=== PATIENT | male | born 1935 | race Caucasian/White ===

== ENCOUNTER 2016-08-19 11:34 | Inpatient (IN) | payer MEDICARE, BC ==
[~2016-08-19] VITALS: Ht 190.5 cm; Wt 118.5 kg
[~2016-08-19 11:34] MED LIST: ASPI81TA50 PO; AZEL137S3 NS; CARB1TAB2 PO; CARB4TAB PO; DULO60CA6 PO; FLUT16SP NS; FLUT1DIS3 IH; MELO-150 PO; METF10002 PO; MONT10TA9 PO; OLME1TAB3 PO; OMEG1CAP2 PO; OMEP20CA9 PO; PROAIR HFA8.5 GM IH; SIMV20TA3 PO
[2016-08-19 12:18] LABS: BASO # 0.1 x10^3/uL (0.0-0.2); BASO % 1 % (0-3); EOS % 0 % (0-3); HEMATOCRIT 43.6 % (39.0-53.0); HEMOGLOBIN 14.6 g/dL (13.0-17.5); LYMPH # 1.3 x10^3/uL (1.0-4.8); LYMPH % 10 % (24-48); MEAN CORPUSCULAR HEMOGLOBIN 31 pg (25-35); MEAN CORPUSCULAR HGB CONC 33 g/dL (31-37); MEAN CORPUSCULAR VOLUME 91 fL (79-100); MONO % 12 % (0-9); NEUT % 77 % (31-73); PLATELET COUNT 163 x10^3/uL (140-400); RED BLOOD COUNT 4.78 x10^6/uL (4.30-5.70); RED CELL DISTRIBUTION WIDTH 14.6 % (11.5-14.5); WHITE BLOOD COUNT 13.3 x10^3/uL (4.0-11.0)
[2016-08-19 12:30] LABS: ANION GAP 11 (6-14); BLOOD UREA NITROGEN 28 mg/dL (8-26); BUN/CREATININE RATIO 22 (6-20); CALCIUM 9.8 mg/dL (8.5-10.1); CARBON DIOXIDE 24 mmol/L (21-32); CHLORIDE 102 mmol/L (98-107); CREATININE 1.3 mg/dL (0.7-1.3); GFR 53.4; GLUCOSE 163 mg/dL (70-99); SODIUM 137 mmol/L (136-145)
[2016-08-19] MEDS ORDERED: MORPHINE SULFATE 4 MG/ML DISP.SYRIN. IV ONE (12:30)
[2016-08-19] MEDS ORDERED: ONDANSETRON PF 4 MG/2 ML VIAL. IV ONE (12:30)
[2016-08-19 12:34] LABS: ALBUMIN 3.5 g/dL (3.4-5.0); ALK PHOS 72 U/L (46-116); AST (SGOT) 17 U/L (15-37); TOTAL BILIRUBIN 1.2 mg/dL (0.2-1.0)
--- NOTE | 2016-08-19 12:34 | PHYS DOC ---
Past Medical History Past Medical History: Asthma, Diabetes-Type II, GERD, Heart Disease, Hypertension Additional Past Medical Histor: Parkinson's disease Past Surgical History: Cholecystectomy, Other Additional Past Surgical Histo: Hernia,'63 tumor removed from chest,Skin CA on R)nare Alcohol Use: Rarely Drug Use: None Adult General Chief Complaint Chief Complaint: ABDOMINAL PAIN HPI HPI 80-year-old male with significant left lower quadrant pain that was noted yesterday and has worsened throughout the day. He denies any nausea or vomiting. He states he's had minimal to no bowel movements for the last 3 days and states that he's had hard stool. He states he feels constipated. He has prior abdominal surgery history is a cholecystectomy and multiple hernia repairs. He states he has had some trouble urinating but denies any blood in his urine. He denies any fever or chills. He denies any significant chest pain or shortness breath. Review of Systems Review of Systems Constitutional: Denies fever or chills [] Eyes: Denies change in visual acuity, redness, or eye pain [] HENT: Denies nasal congestion or sore throat [] Respiratory: Denies cough or shortness of breath [] Cardiovascular: No additional information not addressed in HPI [] GI: Has abdominal pain, denies nausea, denies vomiting, denies bloody stools or diarrhea [] : Denies dysuria or hematuria [] Musculoskeletal: Denies back pain or joint pain [] Integument: Denies rash or skin lesions [] Neurologic: Denies headache, focal weakness or sensory changes [] Endocrine: Denies polyuria or polydipsia [] Current Medications Current Medications Current Medications Medications (Trade) Dose Ordered Sig/Kaitlin Start Time Stop Time Status Last Admin Dose Admin Iohexol (Omnipaque 300 Mg/ml) 60 ml 1X ONCE 08/19/16 12:45 08/19/16 12:58 DC 08/19/16 13:19 60 ML Morphine Sulfate 4 mg 1X ONCE 08/19/16 12:30 08/19/16 12:32 DC 08/19/16 12:42 4 MG Ondansetron HCl (Zofran) 4 mg 1X ONCE 08/19/16 12:30 08/19/16 12:32 DC 08/19/16 12:42 4 MG Allergies Allergies Allergies Coded Allergies Type Severity Reaction Last Updated Verified No Known Drug Allergies 11/12/14 No Physical Exam Physical Exam Constitutional: Well developed, well nourished, no acute distress, non-toxic appearance. [] HENT: Normocephalic, atraumatic, bilateral external ears normal, oropharynx moist, no oral exudates, nose normal. [] Eyes: PERRLA, EOMI, conjunctiva normal, no discharge. [] Neck: Normal range of motion, no tenderness, supple, no stridor. [] Cardiovascular:Heart rate regular rhythm, no murmur [] Lungs & Thorax: Bilateral breath sounds clear to auscultation [] Abdomen: Bowel sounds normal, soft, slightly distended, moderate LLQ tenderness to palpation, no masses, no pulsatile masses. [] Skin: Warm, dry, no erythema, no rash. [] Back: No tenderness, no CVA tenderness. [] Extremities: No tenderness, no cyanosis, no clubbing, ROM intact, no edema. [] Neurologic: Alert and oriented X 3, normal motor function, normal sensory function, no focal deficits noted. [] Psychologic: Affect normal, judgement normal, mood normal. [] Current Patient Data Vital Signs Vital Signs Date Time Temp Pulse Resp B/P Pulse Ox O2 Delivery O2 Flow Rate FiO2 08/19/16 13:00 89 22 130/81 90 Room Air 08/19/16 11:45 97.6 97.6 Lab Values Laboratory Tests Test 08/19/16 12:00 White Blood Count 13.3x10^3/uL (4.0-11.0) H Red Blood Count 4.78x10^6/uL (4.30-5.70) Hemoglobin 14.6g/dL (13.0-17.5) Hematocrit 43.6% (39.0-53.0) Mean Corpuscular Volume 91fL (79-100) Mean Corpuscular Hemoglobin 31pg (25-35) Mean Corpuscular Hemoglobin Concent 33g/dL (31-37) Red Cell Distribution Width 14.6% (11.5-14.5) H Platelet Count 163x10^3/uL (140-400) Neutrophils (%) (Auto) 77% (31-73) H Lymphocytes (%) (Auto) 10% (24-48) L Monocytes (%) (Auto) 12% (0-9) H Eosinophils (%) (Auto) 0% (0-3) Basophils (%) (Auto) 1% (0-3) Neutrophils # (Auto) 10.3x10^3uL (1.8-7.7) H Lymphocytes # (Auto) 1.3x10^3/uL (1.0-4.8) Monocytes # (Auto) 1.6x10^3/uL (0.0-1.1) H Eosinophils # (Auto) 0.1x10^3/uL (0.0-0.7) Basophils # (Auto) 0.1x10^3/uL (0.0-0.2) Sodium Level 137mmol/L (136-145) Potassium Level 4.0mmol/L (3.5-5.1) Chloride Level 102mmol/L (98-107) Carbon Dioxide Level 24mmol/L (21-32) Anion Gap 11 (6-14) Blood Urea Nitrogen 28mg/dL (8-26) H Creatinine 1.3mg/dL (0.7-1.3) Estimated GFR (Cockcroft-Gault) 53.4 BUN/Creatinine Ratio 22 (6-20) H Glucose Level 163mg/dL (70-99) H Calcium Level 9.8mg/dL (8.5-10.1) Total Bilirubin 1.2mg/dL (0.2-1.0) H Aspartate Amino Transferase (AST) 17U/L (15-37) Alanine Aminotransferase (ALT) < 6U/L (16-63) L Alkaline Phosphatase 72U/L (46-116) Troponin I Quantitative < 0.017ng/mL (0.000-0.055) Total Protein 7.0g/dL (6.4-8.2) Albumin 3.5g/dL (3.4-5.0) Albumin/Globulin Ratio 1.0 (1.0-1.7) Lipase 1058U/L (73-393) H Laboratory Tests 08/19/16 12:00 Laboratory Tests 08/19/16 12:00 EKG EKG EKG as interpreted by me shows sinus rhythm with a rate of 94 bpm. There are no obvious ST findings on this EKG. Radiology/Procedures Radiology/Procedures CT of the abdomen/pelvis with IV contrast demonstrated the followin. Mild streaky increased density in the peripancreatic fat at the level of the pancreatic head, similar to that seen on 10/13/2015. This may represent scarring or recurrent pancreatitis. Clinical correlation is suggested. 2. Sigmoid diverticulosis. 3. No current evidence of renal obstruction. 4. Left renal cysts. 5. Unchanged ventral hernia. 6. Stable small abdominal wall fluid collection adjacent to the hernia, presumably postsurgical. Course & Med Decision Making Course & Med Decision Making Pertinent Labs and Imaging studies reviewed. (See chart for details) This 80-year-old male with significant left lower quadrant pain will have a stat CT of his abdomen and pelvis with IV contrast to rule out any acute cause of his symptoms. I will obtain full laboratory workup as well. Patient was given morphine and Zofran for his symptoms. His laboratory workup reveals an elevated lipase of [address] of his abdomen and pelvis demonstrated findings consistent with pancreatitis. I will be admitting him to the hospital for acute pancreatitis. He'll be kept nothing by mouth and given fluids and pain control. His pancreatitis appears to be diet related or idiopathic in nature as he has no gallbladder and does not drink alcohol. I discussed the need to admit the patient with the hospitalist, Dr. Pulliam, who agreed to admit the patient for further evaluation and treatment. Dragon Disclaimer Dragon Disclaimer This electronic medical record was generated, in whole or in part, using a voice recognition dictation system. Departure Departure Impression: Primary Impression: Abdominal pain Additional Impression: Pancreatitis Disposition: 09 ADMITTED INPATIENT Admitting Physician: Chelle Pulliam Referrals: SHIRA OGDEN MD (PCP) Problem Qualifiers LIS ARGUELLES DO Aug 19, 2016 12:34
[2016-08-19 12:43] LABS: ALT (SGPT) < 6 U/L (16-63)
[2016-08-19] MEDS ORDERED: IOHEXOL 300 MG/ML 75 ML VIAL IV ONE (12:45)
[2016-08-19] MEDS ORDERED: CONTRAST GIVEN MC PRN (13:15)
[2016-08-19] MEDS ORDERED: ONDANSETRON PF 4 MG/2 ML VIAL. IV PRN (13:15)
[2016-08-19] MEDS ORDERED: ACETAMINOPHEN 325 MG TABLET. PO PRN (13:15)
--- NOTE | 2016-08-19 13:50 | ACF ---
Admission Forms Criteria PANCREATITIS Clinical Indications for Admission to Inpatient Care (Place 'X' for any and all applicable criteria): Admission is indicated for ANY ONE of the following (1)(2)(3)(4): [ ]I. Acute pancreatitis[A] as indicated by 2 or more of the following: [ ]a) Abdominal pain (eg, epigastric, left upper quadrant) [ ]b) Serum amylase or serum lipase greater than 3 times the upper limit of normal [ ]c) Characteristic findings from abdominal imaging (eg, pancreatic inflammation, pancreatic necrosis, peripancreatic fluid collection)[B] [ ]II. Pancreatitis (acute or chronic ) requiring inpatient care as indicated by 1 or more of the following : [ ]a) Inability to maintain oral hydration Hypoxemia [ ]b) Evidence of infection (eg, fever, peripancreatic abscess) [ ]c) Severe pain requiring acute inpatient management [ ]d) Hemodynamic instability [ ]e) Hypoxemia [ ]f) Acute renal failure [ ]g) Severe electrolyte abnormalities Extended stay beyond goal length of stay may be needed for (1)(11) [ ]a) Severe acute pancreatitis (10)(19) [ ]b) Persistent symptoms, ascites, or pleural effusion [ ]c) Abdominal compartment syndrome (10) [ ]d) Late complications [ ]e) Acute renal failure (27) [ ]f) Gallstones in gallbladder The original [employer] content created by [employer] has been revised. The portions of the content which have been revised are identified through the use of italic text or in bold,and [employer] has neither reviewed nor approved the modified material.All other unmodified content is copyright [employer]. Please see references footnoted in the original [employer] edition 2016 RUTH VENTURA Aug 19, 2016 13:50
[2016-08-19] MEDS ORDERED: HYDROMORPHONE 2 MG/ML VIAL. IV ONE (14:00)
[2016-08-19] MEDS: IV NORMAL SALINE 1000ML BAG 1,000 ML IV SCH (14:01)
--- NOTE | 2016-08-19 14:11 | RAD ---
CT of the abdomen and pelvis with contrast, 08/19/2016: History: Bilateral flank pain, dysuria Multidetector CT imaging was performed following an IV bolus injection of iodinated contrast material. No oral contrast material was administered as requested. Comparison is made to a study from 10/13/2015. There is mild bronchiectasis and scarring in the right base. The gallbladder is surgically absent. No hepatic abnormality is seen. There is mild streaky increased density in the peripancreatic fat at the level of the pancreatic head. Similar findings were present on the previous study. No discrete fluid collection or pancreatic mass is identified. The spleen is of normal size. Two left renal cysts are again identified. There is a mildly prominent extrarenal pelvis on the right. There is no evidence of hydronephrosis. The ureters are not dilated. No ureteral calculus is evident. The partially filled urinary bladder is unremarkable. Aortoiliac calcific plaquing is present without evidence of aneurysm. No abdominal or pelvic adenopathy is seen. Prostatic calcifications are noted. There are multiple colonic diverticula, most numerous in the sigmoid region. No paracolonic inflammatory process is seen. The appendix is visualized and shows no abnormality. The small bowel loops are not dilated. No free fluid or free air is evident in the abdomen or pelvis. Again noted is a ventral hernia just to the left of midline in the periumbilical region containing only fat. There is a small thick-walled fluid collection in the anterior abdominal wall along the medial aspect of this hernia suggesting an old seroma or hematoma. It is unchanged. IMPRESSION: 1. Mild streaky increased density in the peripancreatic fat at the level of the pancreatic head, similar to that seen on 10/13/2015. This may represent scarring or recurrent pancreatitis. Clinical correlation is suggested. 2. Sigmoid diverticulosis. 3. No current evidence of renal obstruction. 4. Left renal cysts. 5. Unchanged ventral hernia. 6. Stable small abdominal wall fluid collection adjacent to the hernia, presumably postsurgical.
[2016-08-19 15:00] VITALS: BP 174/108
[2016-08-19 15:27] VITALS: BP 174/108
--- NOTE | 2016-08-19 16:07 | ACF ---
Admission Forms Criteria PANCREATITIS Clinical Indications for Admission to Inpatient Care (Place 'X' for any and all applicable criteria): Admission is indicated for ANY ONE of the following (1)(2)(3)(4): [X]I. Acute pancreatitis[A] as indicated by 2 or more of the following: [X]a) Abdominal pain (eg, epigastric, left upper quadrant) [ ]b) Serum amylase or serum lipase greater than 3 times the upper limit of normal [X]c) Characteristic findings from abdominal imaging (eg, pancreatic inflammation, pancreatic necrosis, peripancreatic fluid collection)[B] [ ]II. Pancreatitis (acute or chronic ) requiring inpatient care as indicated by 1 or more of the following : [ ]a) Inability to maintain oral hydration Hypoxemia [ ]b) Evidence of infection (eg, fever, peripancreatic abscess) [ ]c) Severe pain requiring acute inpatient management [ ]d) Hemodynamic instability [ ]e) Hypoxemia [ ]f) Acute renal failure [ ]g) Severe electrolyte abnormalities Extended stay beyond goal length of stay may be needed for (1)(11) [ ]a) Severe acute pancreatitis (10)(19) [ ]b) Persistent symptoms, ascites, or pleural effusion [ ]c) Abdominal compartment syndrome (10) [ ]d) Late complications [ ]e) Acute renal failure (27) [ ]f) Gallstones in gallbladder The original [employer] content created by [employer] has been revised. The portions of the content which have been revised are identified through the use of italic text or in bold,and [facility] has neither reviewed nor approved the modified material.All other unmodified content is copyright [facility] [employer]. Please see references footnoted in the original [facility] [employer] edition 2016 Admission Criteria Met?: Yes RUTH VENTURA Aug 19, 2016 16:07
[2016-08-19] MEDS ORDERED: CARB1TAB5 PO (17:30)
[2016-08-19] MEDS ORDERED: OMEP40CA5 PO (17:30)
[2016-08-19] MEDS ORDERED: METF500T4 PO (17:30)
[2016-08-19 19:00] VITALS: BP 128/80
[2016-08-19] MEDS ORDERED: ALBUTEROL SULFATE 2.5 MG/3 ML NEBU. NEB PRN (19:30)
--- NOTE | 2016-08-19 20:00 | HP ---
ADMIT DATE: 08/19/2016 CHIEF COMPLAINT: Abdominal pain. HISTORY OF PRESENT ILLNESS: The patient is a pleasant 80-year-old male presents with abdominal pain. It appears he has pancreatitis. He states his gallbladder is already out and he does not drink. Perhaps this is secondary to hyperlipidemia. His lipase is 1058. We are going to go ahead and admit the patient and consult GI. PAST MEDICAL HISTORY: Obesity, asthma, diabetes, GERD, coronary artery disease, hypertension, Parkinson's, cholecystectomy, hernia repair, multiple tumors removed from chest, and skin cancer. ALLERGIES: None. FAMILY HISTORY: Coronary artery disease. SOCIAL HISTORY: Does not drink, smoke or take drugs. MEDICATIONS: Reviewed, please refer to the MRAD. REVIEW OF SYSTEMS: GENERAL: No history of weight change, weakness or fevers. SKIN: No bruising, hair changes or rashes. EYES: No blurred, double or loss of vision. NOSE AND THROAT: No history of nosebleeds, hoarseness or sore throat. HEART: No history of palpitations, chest pain or shortness of breath on exertion. LUNGS: Denies cough, hemoptysis, wheezing or shortness of breath. GASTROINTESTINAL: Complains of abdominal pain. GENITOURINARY: No history of frequency, urgency, hesitancy or nocturia. NEUROLOGIC: Denies history of numbness, tingling, tremor or weakness. PSYCHIATRIC: No history of panic, anxiety or depression. ENDOCRINE: No history of heat or cold intolerance, polyuria or polydipsia. EXTREMITIES: Denies muscle weakness, joint pain, pain on walking or stiffness. PHYSICAL EXAMINATION: VITAL SIGNS: Temperature afebrile, pulse 68, respirations 20, blood pressure 147/92. GASTROINTESTINAL: He is alert, cooperative, complaining of pain. HEART: Normal S1, S2. LUNGS: Clear. ABDOMEN: Soft, obese, distended, painful to touch. ENDOCRINE: No thyromegaly. LYMPHATICS: No cervical nodes. HEMATOPOIETIC: No bruising. LABORATORY DATA: White count 13, hemoglobin 14, platelets 163. Electrolytes normal other than BUN of 28 and glucose 163. Lipase 1058. ASSESSMENT AND PLAN: Pancreatitis. The patient has been admitted. We will check fasting lipid profile, consult GI, bowel rest, IV fluids, p.r.n. narcotics, p.r.n. antiemetics, continue home medicines. MARTIN PATTERSON DO DR: Anthony JOB#: [id number] / [id number]
[2016-08-19] MEDS: SIMVASTATIN 20 MG TABLET PO SCH (21:32)
[2016-08-19 23:00] VITALS: BP 147/90
--- NOTE | 2016-08-19 23:45 | CONS ---
DATE OF CONSULTATION: 08/19/2016 PRIMARY CARE PHYSICIAN: Lupe Gillis MD CHIEF COMPLAINT: Abdominal pain, pancreatitis. HISTORY OF PRESENT ILLNESS: This is a very pleasant 80-year-old gentleman who was admitted today with abdominal pain over the last 24 hours. It is in the mid abdomen and was found at time of admission to have an elevated lipase consistent with pancreatitis. Imaging studies with CT also showed some mild peripancreatic inflammation as well. Interestingly, this has happened probably two other occasions in the last year and a half as documented by CT scans and labs here. In the interval, he apparently has been normal. He denies any alcohol use and there has been no clear explanation for these pancreatitis episodes. He had a cholecystectomy many years ago. He said it was not for gallstone disease, but because he had a sick gallbladder with pain and really did get a whole lot better after surgery. His imaging studies have never shown a dilated common bile duct and no medications have been given that might put him at risk for pancreatitis. He does have a history of constipation for which he takes MiraLax and in the past has taken some ex-lax. His last bowel movement was yesterday. He describes some nausea with the pain, but normally he is not nauseated, does not have abdominal pain. He denies any fever or chills, but presented with these complaints. PAST MEDICAL HISTORY: 1. Previous pancreatitis, cause unknown, previous acalculous cholecystitis, status post cholecystectomy. 2. History of diabetes. 3. GERD. 4. Coronary artery disease. 5. Hypertension. 6. Asthma. 7. Parkinson's disease. PAST SURGICAL HISTORY: Cholecystectomy, hernia repair, tumor removed from his chest and skin cancer on his nose removed. SOCIAL HISTORY: , does not drink now, does not smoke, does not use illicit drugs. FAMILY HISTORY: Noncontributory. REVIEW OF SYSTEMS: GENERAL: No fever or chills. HEENT: No headache or blurred vision. PULMONARY: No shortness of breath, productive cough. CARDIOVASCULAR: No chest pain. GENITOURINARY: No change in urinary pattern. NEUROLOGIC: Denies seizures or paralysis. MUSCULOSKELETAL: Denies acute arthritis, arthralgias. PHYSICAL EXAMINATION: VITAL SIGNS: He is awake and alert. Blood pressure 130/52, pulse 90, respirations is 16. He is afebrile. He is anicteric. NECK: Supple. CHEST: Clear. HEART: Regular rate and rhythm. ABDOMEN: Obese. Bowel sounds are present, soft, mildly tender in the periumbilical region. No point tenderness, a small umbilical hernia. No masses or rebound noted. RECTAL: Deferred. EXTREMITIES: No cyanosis, clubbing. NEUROLOGIC: Alert and oriented. No gross deficits. IMAGING STUDIES: CT scan of the abdomen reveals some mild streaky peripancreatic inflammation in the head of the pancreas similar to previous study last year. He also has a ventral hernia. He also has diverticulosis, without inflammation and is otherwise negative. LABORATORY DATA: His lipase is 1058. Liver function studies, bilirubin 1.2, AST 17, ALT 6, alkaline phosphatase 72. Hemoglobin is 14.6, white blood cell count 13,300. ASSESSMENT: 1. Pancreatitis. This is confirmed by his lipase and by the peripancreatic inflammation in the head of the pancreas. This area was inflamed before. This recurrent at least on three occasions pancreatitis is confusing. No obvious cause has been determined. It could be related to the initial episode in the past causing some ductal abnormalities in the pancreas, but also the possibility of an underlying tumor cannot be totally excluded. Other causes for pancreatitis including alcohol and biliary disease seemed quite unlikely with his history. 2. Constipation. This appears to be related to his Parkinson's disease and age. In reviewing his medications, I do not have a complete list, but other medicines that are available for review. None of them are classically related to pancreatitis. There have been no changes in his medication recently as well. There is also no medication such as narcotics, etc., which might be related to his constipation. PLAN: 1. MiraLax and p.r.n. use of medication for his constipation. 2. N.p.o. for now with IV fluids. We will add a clear liquid diet once his symptoms have improved and his lipase has improved as well. 3. We would recommend in the outpatient setting more thorough evaluation of his pancreas once this acute episode is resolved. The most definitive study would be an endoscopic ultrasound and if that is not available to have then an MRCP would be an appropriate option as well. 4. I will check a CA 19-9 with his routine labs tomorrow. ELIAS QUINN MD DR: JESÚS/nts JOB#: [id number] / [id number]
[2016-08-20] MEDS: IV NORMAL SALINE 1000ML BAG 1,000 ML IV SCH ×2 (00:33→08:56)
[2016-08-20] MEDS: MORPHINE SULFATE 4 MG/ML DISP.SYRIN. IV PRN ×2 (01:17→12:30)
[2016-08-20 03:00] VITALS: BP 126/70
[2016-08-20 05:23] LABS: BASO # 0.1 x10^3/uL (0.0-0.2); BASO % 1 % (0-3); EOS % 0 % (0-3); HEMATOCRIT 42.9 % (39.0-53.0); HEMOGLOBIN 14.3 g/dL (13.0-17.5); LYMPH % 8 % (24-48); MEAN CORPUSCULAR HEMOGLOBIN 30 pg (25-35); MEAN CORPUSCULAR HGB CONC 33 g/dL (31-37); MEAN CORPUSCULAR VOLUME 91 fL (79-100); MONO % 12 % (0-9); NEUT % 79 % (31-73); PLATELET COUNT 151 x10^3/uL (140-400); RED BLOOD COUNT 4.71 x10^6/uL (4.30-5.70); WHITE BLOOD COUNT 12.6 x10^3/uL (4.0-11.0)
[2016-08-20 05:38] LABS: ALBUMIN/GLOBULIN RATIO 0.8 (1.0-1.7); CALCIUM 9.2 mg/dL (8.5-10.1); CREATININE 1.2 mg/dL (0.7-1.3); GFR 58.6; POTASSIUM 4.2 mmol/L (3.5-5.1); TOTAL BILIRUBIN 3.2 mg/dL (0.2-1.0); TOTAL PROTEIN 6.8 g/dL (6.4-8.2)
[2016-08-20 07:00] VITALS: BP 149/82
[2016-08-20] MEDS ORDERED: LISI1TAB5 PO (07:10)
[2016-08-20] MEDS: PANTOPRAZOLE 40 MG TABLET. PO SCH (08:55)
[2016-08-20] MEDS: CARBIDOPA/LEVODOPA CR 25/100MG TABLET.SA PO SCH ×2 (08:55→12:30)
[2016-08-20] MEDS: CARBIDOPA/LEVODOPA 25/100MG TABLET PO SCH (08:55)
[2016-08-20] MEDS: DULOXETINE HCL 30 MG CAPSULE.DR. PO SCH (08:56)
[2016-08-20] MEDS: POLYETHYLENE GLYCOL 3350 17 GM PACKET. PO SCH ×2 (09:00→17:11)
[2016-08-20] MEDS ORDERED: CARBINOXAMINE MALEATE 4 MG PO SCH (09:00)
[2016-08-20 11:00] VITALS: BP 104/59
[2016-08-20] MEDS: ALBUTEROL SULFATE 2.5 MG/3 ML NEBU. NEB SCH ×4 (11:33→18:05)
--- NOTE | 2016-08-20 13:41 | PDOC ---
GI PROGRESS NOTES Date Date/Time DATE: 08/20/16 TIME: 13:39 Subjective Subjective Pancreatitis new abn lfts since yesterday Objective Vitals Vital Signs Date Time Temp Pulse Resp B/P Pulse Ox O2 Delivery O2 Flow Rate FiO2 08/20/16 12:30 Nasal Cannula 08/20/16 11:37 94 Nasal Cannula 2.0 08/20/16 11:00 96.6 85 18 104/59 92 Nasal Cannula 2.0 96.6 08/20/16 08:00 Nasal Cannula 2.0 08/20/16 07:00 98.4 84 18 149/82 100 Nasal Cannula 2.0 98.4 08/20/16 03:00 98.2 87 18 126/70 94 Nasal Cannula 3.0 98.2 08/20/16 02:15 Room Air 08/20/16 01:17 20 96 Room Air 08/19/16 23:00 98.1 83 18 147/90 96 Nasal Cannula 3.0 98.1 08/19/16 20:00 Nasal Cannula 3.0 08/19/16 19:00 98.1 83 18 128/80 95 Nasal Cannula 3.0 98.1 08/19/16 16:36 Room Air 08/19/16 15:27 98.1 100 18 174/108 95 Nasal Cannula 3.0 98.1 08/19/16 15:00 98.1 100 18 174/108 95 Nasal Cannula 3.0 98.1 08/19/16 14:00 23 Labs Labs Laboratory Tests Test 08/19/16 16:41 08/19/16 21:12 08/20/16 04:40 08/20/16 04:41 Glucose (Fingerstick) 138mg/dL (70-99) 103mg/dL (70-99) Sodium Level 137mmol/L (136-145) Potassium Level 4.2mmol/L (3.5-5.1) Chloride Level 103mmol/L (98-107) Carbon Dioxide Level 27mmol/L (21-32) Anion Gap 7 (6-14) Blood Urea Nitrogen 25mg/dL (8-26) Creatinine 1.2mg/dL (0.7-1.3) Estimated GFR (Cockcroft-Gault) 58.6 BUN/Creatinine Ratio 21 (6-20) Glucose Level 123mg/dL (70-99) Calcium Level 9.2mg/dL (8.5-10.1) Total Bilirubin 3.2mg/dL (0.2-1.0) Aspartate Amino Transf (AST/SGOT) 108U/L (15-37) Alanine Aminotransferase (ALT/SGPT) 50U/L (16-63) Alkaline Phosphatase 105U/L (46-116) Total Protein 6.8g/dL (6.4-8.2) Albumin 3.0g/dL (3.4-5.0) Albumin/Globulin Ratio 0.8 (1.0-1.7) White Blood Count 12.6x10^3/uL (4.0-11.0) Red Blood Count 4.71x10^6/uL (4.30-5.70) Hemoglobin 14.3g/dL (13.0-17.5) Hematocrit 42.9% (39.0-53.0) Mean Corpuscular Volume 91fL (79-100) Mean Corpuscular Hemoglobin 30pg (25-35) Mean Corpuscular Hemoglobin Concent 33g/dL (31-37) Red Cell Distribution Width 15.0% (11.5-14.5) Platelet Count 151x10^3/uL (140-400) Neutrophils (%) (Auto) 79% (31-73) Lymphocytes (%) (Auto) 8% (24-48) Monocytes (%) (Auto) 12% (0-9) Eosinophils (%) (Auto) 0% (0-3) Basophils (%) (Auto) 1% (0-3) Neutrophils # (Auto) 10.0x10^3uL (1.8-7.7) Lymphocytes # (Auto) 1.0x10^3/uL (1.0-4.8) Monocytes # (Auto) 1.5x10^3/uL (0.0-1.1) Eosinophils # (Auto) 0.1x10^3/uL (0.0-0.7) Basophils # (Auto) 0.1x10^3/uL (0.0-0.2) Test 08/20/16 04:45 08/20/16 07:52 08/20/16 11:00 Lipase 1069U/L (73-393) Glucose (Fingerstick) 99mg/dL (70-99) 103mg/dL (70-99) Imaging Imaging CT- pancreatitis but no CBD dilation or mass noted Physical Exam Physical Exam chest- clear abd- obese, mild persistant tenderness, umbilical hernia- reducible Assessment Assessment Pancreatitis- cause unclear Elevated bili and transminase since yesterday ? secondary to edema OR clud of underlying CBD stone/sludge? Problems: Plan Plan continue NPO MRCP recheck labs in am ELIAS QUINN MD Aug 20, 2016 13:41
[2016-08-20 15:00] VITALS: BP 110/47
[2016-08-20] MEDS: IV DEXTROSE 5 %-0.45 % NACL 1,000 ML IV SCH (17:39)
[2016-08-20] MEDS: BUDESONIDE 0.5 MG/2 ML NEBU NEB SCH ×2 (18:04→18:06)
[2016-08-20 19:00] VITALS: BP 95/44
[2016-08-20] MEDS: SIMVASTATIN 20 MG TABLET PO SCH (20:39)
[2016-08-20 23:00] VITALS: BP 155/88
--- NOTE | 2016-08-20 23:53 | PDOC ---
PROGRESS NOTES Chief Complaint Chief Complaint Pancreatitis ASSESSMENT AND PLAN: 1. Pancreatitis: unclear etiology. clinically improved with minimal pain, + appetite. unfortunately, lipase remains essentially unchanged. keep NPO for now pt relate she had episode of elevated lipase in past, was seen by Dr Swift who suggested a particular med, which his neurologist considered contraindicated. no alternatives were offered. 2. Hyperbilirubinemia: increasing since admit, as well as AST. he is s/p CCY , but duct stone/sludge not excluded. monitor. 3. FH pancreas CA: pt concerned he may have same. no evidence on CT. CA19.9 pending 2. DM: home meds currently on hold. BGs actually drifting very low. switch IVF to D5 1/2NS for now, cont ISS 3. CAD: no acute issues. not on any meds except statin 4. Parkinson's: on carbi/levodopa with persistent tremors. pt has discussed dose increase w/ his neurologist and decided against for now. Vitals Vitals Vital Signs Date Time Temp Pulse Resp B/P Pulse Ox O2 Delivery O2 Flow Rate FiO2 08/20/16 23:00 97.7 92 22 155/88 92 Nasal Cannula 2.0 97.7 Physical Exam General: Alert, Oriented X3 Heart: Regular rate Lungs: Clear Abdomen: Soft, No tenderness Extremities: No clubbing, No edema Skin: No rashes Labs LABS Laboratory Tests Test 08/20/16 04:40 08/20/16 04:41 08/20/16 04:45 08/20/16 07:52 Sodium Level 137mmol/L (136-145) Potassium Level 4.2mmol/L (3.5-5.1) Chloride Level 103mmol/L (98-107) Carbon Dioxide Level 27mmol/L (21-32) Anion Gap 7 (6-14) Blood Urea Nitrogen 25mg/dL (8-26) Creatinine 1.2mg/dL (0.7-1.3) Estimated GFR (Cockcroft-Gault) 58.6 BUN/Creatinine Ratio 21 (6-20) Glucose Level 123mg/dL (70-99) Calcium Level 9.2mg/dL (8.5-10.1) Total Bilirubin 3.2mg/dL (0.2-1.0) Aspartate Amino Transf (AST/SGOT) 108U/L (15-37) Alanine Aminotransferase (ALT/SGPT) 50U/L (16-63) Alkaline Phosphatase 105U/L (46-116) Total Protein 6.8g/dL (6.4-8.2) Albumin 3.0g/dL (3.4-5.0) Albumin/Globulin Ratio 0.8 (1.0-1.7) White Blood Count 12.6x10^3/uL (4.0-11.0) Red Blood Count 4.71x10^6/uL (4.30-5.70) Hemoglobin 14.3g/dL (13.0-17.5) Hematocrit 42.9% (39.0-53.0) Mean Corpuscular Volume 91fL (79-100) Mean Corpuscular Hemoglobin 30pg (25-35) Mean Corpuscular Hemoglobin Concent 33g/dL (31-37) Red Cell Distribution Width 15.0% (11.5-14.5) Platelet Count 151x10^3/uL (140-400) Neutrophils (%) (Auto) 79% (31-73) Lymphocytes (%) (Auto) 8% (24-48) Monocytes (%) (Auto) 12% (0-9) Eosinophils (%) (Auto) 0% (0-3) Basophils (%) (Auto) 1% (0-3) Neutrophils # (Auto) 10.0x10^3uL (1.8-7.7) Lymphocytes # (Auto) 1.0x10^3/uL (1.0-4.8) Monocytes # (Auto) 1.5x10^3/uL (0.0-1.1) Eosinophils # (Auto) 0.1x10^3/uL (0.0-0.7) Basophils # (Auto) 0.1x10^3/uL (0.0-0.2) Lipase 1069U/L (73-393) Glucose (Fingerstick) 99mg/dL (70-99) Test 08/20/16 11:00 08/20/16 16:53 08/20/16 20:48 Glucose (Fingerstick) 103mg/dL (70-99) 88mg/dL (70-99) 108mg/dL (70-99) Review of Systems Review of Systems very hungry. no n/v/d Comment Labs Laboratory Tests Test 08/19/16 12:00 08/19/16 16:41 08/19/16 21:12 08/20/16 04:40 White Blood Count 13.3x10^3/uL (4.0-11.0) Red Blood Count 4.78x10^6/uL (4.30-5.70) Hemoglobin 14.6g/dL (13.0-17.5) Hematocrit 43.6% (39.0-53.0) Mean Corpuscular Volume 91fL (79-100) Mean Corpuscular Hemoglobin 31pg (25-35) Mean Corpuscular Hemoglobin Concent 33g/dL (31-37) Red Cell Distribution Width 14.6% (11.5-14.5) Platelet Count 163x10^3/uL (140-400) Neutrophils (%) (Auto) 77% (31-73) Lymphocytes (%) (Auto) 10% (24-48) Monocytes (%) (Auto) 12% (0-9) Eosinophils (%) (Auto) 0% (0-3) Basophils (%) (Auto) 1% (0-3) Neutrophils # (Auto) 10.3x10^3uL (1.8-7.7) Lymphocytes # (Auto) 1.3x10^3/uL (1.0-4.8) Monocytes # (Auto) 1.6x10^3/uL (0.0-1.1) Eosinophils # (Auto) 0.1x10^3/uL (0.0-0.7) Basophils # (Auto) 0.1x10^3/uL (0.0-0.2) Sodium Level 137mmol/L (136-145) 137mmol/L (136-145) Potassium Level 4.0mmol/L (3.5-5.1) 4.2mmol/L (3.5-5.1) Chloride Level 102mmol/L (98-107) 103mmol/L (98-107) Carbon Dioxide Level 24mmol/L (21-32) 27mmol/L (21-32) Anion Gap 11 (6-14) 7 (6-14) Blood Urea Nitrogen 28mg/dL (8-26) 25mg/dL (8-26) Creatinine 1.3mg/dL (0.7-1.3) 1.2mg/dL (0.7-1.3) Estimated GFR (Cockcroft-Gault) 53.4 58.6 BUN/Creatinine Ratio 22 (6-20) 21 (6-20) Glucose Level 163mg/dL (70-99) 123mg/dL (70-99) Calcium Level 9.8mg/dL (8.5-10.1) 9.2mg/dL (8.5-10.1) Total Bilirubin 1.2mg/dL (0.2-1.0) 3.2mg/dL (0.2-1.0) Aspartate Amino Transf (AST/SGOT) 17U/L (15-37) 108U/L (15-37) Alanine Aminotransferase (ALT/SGPT) < 6U/L (16-63) 50U/L (16-63) Alkaline Phosphatase 72U/L (46-116) 105U/L (46-116) Troponin I Quantitative < 0.017ng/mL (0.000-0.055) Total Protein 7.0g/dL (6.4-8.2) 6.8g/dL (6.4-8.2) Albumin 3.5g/dL (3.4-5.0) 3.0g/dL (3.4-5.0) Albumin/Globulin Ratio 1.0 (1.0-1.7) 0.8 (1.0-1.7) Lipase 1058U/L (73-393) Glucose (Fingerstick) 138mg/dL (70-99) 103mg/dL (70-99) Test 08/20/16 04:41 08/20/16 04:45 08/20/16 07:52 08/20/16 11:00 White Blood Count 12.6x10^3/uL (4.0-11.0) Red Blood Count 4.71x10^6/uL (4.30-5.70) Hemoglobin 14.3g/dL (13.0-17.5) Hematocrit 42.9% (39.0-53.0) Mean Corpuscular Volume 91fL (79-100) Mean Corpuscular Hemoglobin 30pg (25-35) Mean Corpuscular Hemoglobin Concent 33g/dL (31-37) Red Cell Distribution Width 15.0% (11.5-14.5) Platelet Count 151x10^3/uL (140-400) Neutrophils (%) (Auto) 79% (31-73) Lymphocytes (%) (Auto) 8% (24-48) Monocytes (%) (Auto) 12% (0-9) Eosinophils (%) (Auto) 0% (0-3) Basophils (%) (Auto) 1% (0-3) Neutrophils # (Auto) 10.0x10^3uL (1.8-7.7) Lymphocytes # (Auto) 1.0x10^3/uL (1.0-4.8) Monocytes # (Auto) 1.5x10^3/uL (0.0-1.1) Eosinophils # (Auto) 0.1x10^3/uL (0.0-0.7) Basophils # (Auto) 0.1x10^3/uL (0.0-0.2) Lipase 1069U/L (73-393) Glucose (Fingerstick) 99mg/dL (70-99) 103mg/dL (70-99) Test 08/20/16 16:53 08/20/16 20:48 Glucose (Fingerstick) 88mg/dL (70-99) 108mg/dL (70-99) Laboratory Tests Test 08/20/16 04:40 08/20/16 04:41 08/20/16 04:45 08/20/16 07:52 Sodium Level 137mmol/L (136-145) Potassium Level 4.2mmol/L (3.5-5.1) Chloride Level 103mmol/L (98-107) Carbon Dioxide Level 27mmol/L (21-32) Anion Gap 7 (6-14) Blood Urea Nitrogen 25mg/dL (8-26) Creatinine 1.2mg/dL (0.7-1.3) Estimated GFR (Cockcroft-Gault) 58.6 BUN/Creatinine Ratio 21 (6-20) Glucose Level 123mg/dL (70-99) Calcium Level 9.2mg/dL (8.5-10.1) Total Bilirubin 3.2mg/dL (0.2-1.0) Aspartate Amino Transf (AST/SGOT) 108U/L (15-37) Alanine Aminotransferase (ALT/SGPT) 50U/L (16-63) Alkaline Phosphatase 105U/L (46-116) Total Protein 6.8g/dL (6.4-8.2) Albumin 3.0g/dL (3.4-5.0) Albumin/Globulin Ratio 0.8 (1.0-1.7) White Blood Count 12.6x10^3/uL (4.0-11.0) Red Blood Count 4.71x10^6/uL (4.30-5.70) Hemoglobin 14.3g/dL (13.0-17.5) Hematocrit 42.9% (39.0-53.0) Mean Corpuscular Volume 91fL (79-100) Mean Corpuscular Hemoglobin 30pg (25-35) Mean Corpuscular Hemoglobin Concent 33g/dL (31-37) Red Cell Distribution Width 15.0% (11.5-14.5) Platelet Count 151x10^3/uL (140-400) Neutrophils (%) (Auto) 79% (31-73) Lymphocytes (%) (Auto) 8% (24-48) Monocytes (%) (Auto) 12% (0-9) Eosinophils (%) (Auto) 0% (0-3) Basophils (%) (Auto) 1% (0-3) Neutrophils # (Auto) 10.0x10^3uL (1.8-7.7) Lymphocytes # (Auto) 1.0x10^3/uL (1.0-4.8) Monocytes # (Auto) 1.5x10^3/uL (0.0-1.1) Eosinophils # (Auto) 0.1x10^3/uL (0.0-0.7) Basophils # (Auto) 0.1x10^3/uL (0.0-0.2) Lipase 1069U/L (73-393) Glucose (Fingerstick) 99mg/dL (70-99) Test 08/20/16 11:00 08/20/16 16:53 08/20/16 20:48 Glucose (Fingerstick) 103mg/dL (70-99) 88mg/dL (70-99) 108mg/dL (70-99) Medications Current Medications Ondansetron HCl (Zofran) 4 mg 1X ONCE IV Last administered on 08/19/16 12:42 ; Start 08/19/16 at 12:30; Stop 08/19/16 at 12:32; Status DC Morphine Sulfate 4 mg 1X ONCE IV Last administered on 08/19/16 12:42; Start 08/19/16 at 12:30; Stop 08/19/16 at 12:32; Status DC Iohexol (Omnipaque 300 Mg/ml) 60 ml 1X ONCE IV Last administered on 08/19/16 13:19; Start 08/19/16 at 12:45; Stop 08/19/16 at 12:58; Status DC Info (Do NOT chart on this entry -- for MONITORING) 1 each PRN DAILY PRN MC SEE COMMENTS; Start 08/19/16 at 13:15; Stop 08/21/16 at 13:14 Ondansetron HCl (Zofran) 4 mg PRN Q8HRS PRN IV NAUSEA/VOMITING; Start 08/19/16 at 13:15; Stop 08/20/16 at 13:14; Status DC Morphine Sulfate 4 mg 4 mg PRN Q2HR PRN IV PAIN Last administered on 08/20/16 12:30; Start 08/19/16 at 13:15; Stop 08/20/16 at 13:14; Status DC Sodium Chloride (Iv Sodium Chloride 0.9% 1000ml Bag) 1,000 ml @ 125 mls/hr Q8H IV Last administered on 08/20/16 08:56; Start 08/19/16 at 13:13; Stop at 13:12; Status DC Acetaminophen (Tylenol) 650 mg PRN Q4HRS PRN PO FEVER; Start 08/19/16 at 13:15 ; Stop 08/20/16 at 13:14; Status DC Hydromorphone HCl (Dilaudid) 0.5 mg 1X ONCE IV Last administered on 08/19/16 14:00; Start 08/19/16 at 14:00; Stop 08/19/16 at 14:01; Status DC Polyethylene Glycol (miraLAX PACKET) 17 gm DAILY PO Last administered on 17:11; Start 08/20/16 at 09:00 Carbidopa/Levodopa (Sinemet 25/100) 1 tab DAILY08 PO Last administered on 08:55; Start 08/20/16 at 08:00 Simvastatin (Zocor) 20 mg QHS PO Last administered on 08/20/16 20:39; Start at 21:00 Albuterol Sulfate (Ventolin Neb Soln) 2.5 mg PRN Q4HRS PRN NEB SOA; Start 08/19 at 19:30 Carbidopa/Levodopa (Sinemet Cr) 2 tab.sa BID@08,13 PO Last administered on 08/20 12:30; Start 08/20/16 at 08:00 Non-Formulary Medication 4 mg DAILY PO ; Start 08/20/16 at 09:00; Status UNV Duloxetine HCl (Cymbalta) 60 mg DAILY PO Last administered on 08/20/16 08:56; Start 08/20/16 at 09:00 Budesonide (Pulmicort) 0.5 mg RTBID NEB Last administered on 08/20/16 18:06; Start 08/19/16 at 20:00 Pantoprazole Sodium (Protonix) 40 mg DAILYAC PO Last administered on 08/20/16 08:55; Start 08/20/16 at 07:30 Albuterol Sulfate 2.5 mg 2.5 mg RTQID NEB Last administered on 08/20/16 18:05 ; Start 08/19/16 at 20:00 Dextrose/Sodium Chloride (Iv D5% - 1/2 NS) 1,000 ml @ 75 mls/hr [id number] IV Last administered on 08/20/16 17:39; Start 08/20/16 at 17:45 Active Scripts Active Reported Lisinopril-Hctz 20-12.5 Mg Tab (Lisinopril/Hydrochlorothiazide) 1 Each Tablet 1 Tab PO DAILY Omeprazole 40 Mg Capsule.dr 1 Cap PO DAILY Sinemet Cr 50-200 Tablet (Carbidopa/Levodopa) 1 Each Tablet.er 1 Tab PO 1 TAB @ 0800, @1300 Metformin Hcl 500 Mg Tablet 1 Tab PO BID Sinemet 25-100 Mg Tablet (Carbidopa/Levodopa) 1 Each Tablet 1 Tab PO DAILY08 Carbinoxamine Maleate 4 Mg Tablet 4 Mg PO DAILY Cymbalta (Duloxetine Hcl) 60 Mg Capsule.dr 1 Cap PO DAILY Advair 250-50 Diskus (Fluticasone/Salmeterol) 1 Each Disk.w.dev 1 Puff IH BID Simvastatin 20 Mg Tablet 20 Mg PO DAILY Proair Hfa Inhaler (Albuterol Sulfate) 8.5 Gm Hfa.aer.ad 2 Puff IH PRN Q4-6HRS PRN Vitals/I & O Vital Sign - Last 24 Hours 08/20/16 08/20/16 08/20/16 08/20/16 01:17 02:15 03:00 07:00 Temp 98.2 98.4 98.2 98.4 Pulse 87 84 Resp 20 18 18 B/P 126/70 149/82 Pulse Ox 96 94 100 O2 Delivery Room Air Room Air Nasal Cannula Nasal Cannula O2 Flow Rate 3.0 2.0 08/20/16 08/20/16 08/20/16 08/20/16 08:00 11:00 11:37 12:30 Temp 96.6 96.6 Pulse 85 Resp 18 B/P 104/59 Pulse Ox 92 94 O2 Delivery Nasal Cannula Nasal Cannula Nasal Cannula Nasal Cannula O2 Flow Rate 2.0 2.0 2.0 08/20/16 08/20/16 08/20/16 08/20/16 15:00 15:34 18:06 19:00 Temp 97.7 97.9 97.7 97.9 Pulse 90 95 Resp 18 22 B/P 110/47 95/44 Pulse Ox 96 93 96 O2 Delivery Nasal Cannula Nasal Cannula Nasal Cannula Nasal Cannula O2 Flow Rate 2.0 2.0 2.0 2.0 08/20/16 08/20/16 20:01 23:00 Temp 97.7 97.7 Pulse 92 Resp 22 B/P 155/88 Pulse Ox 92 O2 Delivery Room Air Nasal Cannula O2 Flow Rate 2.0 Intake and Output 08/19/16 08/19/16 08/20/16 15:00 23:00 07:00 Intake Total 0 ml 0 ml Output Total 150 ml Balance 0 ml -150 ml MARIXA CABEZAS MD Aug 20, 2016 23:53
[2016-08-21] MEDS: MORPHINE SULFATE 2 MG/ML DISP.SYRIN. IV PRN ×3 (01:32→18:51)
[2016-08-21 03:00] VITALS: BP 148/79
[2016-08-21] MEDS: IV DEXTROSE 5 %-0.45 % NACL 1,000 ML IV SCH ×2 (06:32→18:47)
--- NOTE | 2016-08-21 07:22 | EKG ---
[facility] [address] [place] [address] Test Date: 2016-08-19 Test Time: 12:33:37 Pat Name: YOSELIN LAZO Department: Room: Gender: M Legal Support Assistant: : [id number] Requested By: LIS ARGUELLES Order Number: [id number] Reading MD: Measurements Intervals [place] Rate: P: NM: QRS: QRSD: T: QT: QTc: Interpretive Statements
[2016-08-21 07:35] VITALS: BP 131/79
[2016-08-21] MEDS: BUDESONIDE 0.5 MG/2 ML NEBU NEB SCH ×2 (08:01→19:28)
[2016-08-21] MEDS: ALBUTEROL SULFATE 2.5 MG/3 ML NEBU. NEB SCH ×4 (08:02→19:28)
[2016-08-21 09:27] LABS: BASO # 0.1 x10^3/uL (0.0-0.2); BASO % 1 % (0-3); EOS % 1 % (0-3); HEMATOCRIT 40.7 % (39.0-53.0); HEMOGLOBIN 13.4 g/dL (13.0-17.5); LYMPH # 1.6 x10^3/uL (1.0-4.8); LYMPH % 14 % (24-48); MEAN CORPUSCULAR HEMOGLOBIN 30 pg (25-35); MEAN CORPUSCULAR HGB CONC 33 g/dL (31-37); MEAN CORPUSCULAR VOLUME 91 fL (79-100); MONO % 11 % (0-9); NEUT % 74 % (31-73); PLATELET COUNT 160 x10^3/uL (140-400); RED BLOOD COUNT 4.47 x10^6/uL (4.30-5.70); RED CELL DISTRIBUTION WIDTH 14.7 % (11.5-14.5); WHITE BLOOD COUNT 11.3 x10^3/uL (4.0-11.0)
[2016-08-21 09:50] LABS: CALCIUM 9.4 mg/dL (8.5-10.1); CREATININE 1.5 mg/dL (0.7-1.3); GFR 45.3; POTASSIUM 4.2 mmol/L (3.5-5.1)
[2016-08-21 09:54] LABS: ALBUMIN 2.9 g/dL (3.4-5.0); DIRECT BILIRUBIN 1.5 mg/dL (0.0-0.2); TOTAL BILIRUBIN 2.5 mg/dL (0.2-1.0); TOTAL PROTEIN 5.9 g/dL (6.4-8.2)
[2016-08-21] MEDS: PANTOPRAZOLE 40 MG TABLET. PO SCH (10:19)
[2016-08-21] MEDS: POLYETHYLENE GLYCOL 3350 17 GM PACKET. PO SCH (10:19)
[2016-08-21] MEDS: CARBIDOPA/LEVODOPA 25/100MG TABLET PO SCH (10:20)
[2016-08-21] MEDS: CARBIDOPA/LEVODOPA CR 25/100MG TABLET.SA PO SCH ×2 (10:20→12:54)
[2016-08-21] MEDS: DULOXETINE HCL 30 MG CAPSULE.DR. PO SCH (10:22)
[2016-08-21 10:47] VITALS: BP 133/76
[2016-08-21] MEDS ORDERED: IV NORMAL SALINE 1000ML BAG 1,000 ML IV SCH (11:15)
--- NOTE | 2016-08-21 11:16 | PDOC ---
PROGRESS NOTES Chief Complaint Chief Complaint Pancreatitis ASSESSMENT AND PLAN: 1. Pancreatitis: unclear etiology. improving, MRCP pending. 2. Hyperbilirubinemia: monitor. 3. FH pancreas CA: pt concerned he may have same. no evidence on CT. CA19.9 pending 2. DM: home meds currently on hold. BGs actually drifting very low. switch IVF to D5 1/2NS for now, cont ISS 3. CAD: no acute issues. not on any meds except statin 4. Parkinson's: on carbi/levodopa with persistent tremors. pt has discussed dose increase w/ his neurologist and decided against for now. Vitals Vitals Vital Signs Date Time Temp Pulse Resp B/P Pulse Ox O2 Delivery O2 Flow Rate FiO2 08/21/16 08:02 98 Room Air 08/21/16 07:35 97.7 79 20 131/79 97.7 08/21/16 03:00 2.0 Physical Exam General: Alert, Oriented X3 Heart: Regular rate Lungs: Clear Abdomen: Soft, No tenderness Extremities: No clubbing, No edema Skin: No rashes Labs LABS Laboratory Tests Test 08/20/16 16:53 08/20/16 20:48 08/21/16 07:40 08/21/16 08:57 Glucose (Fingerstick) 88mg/dL (70-99) 108mg/dL (70-99) 89mg/dL (70-99) White Blood Count 11.3x10^3/uL (4.0-11.0) Red Blood Count 4.47x10^6/uL (4.30-5.70) Hemoglobin 13.4g/dL (13.0-17.5) Hematocrit 40.7% (39.0-53.0) Mean Corpuscular Volume 91fL (79-100) Mean Corpuscular Hemoglobin 30pg (25-35) Mean Corpuscular Hemoglobin Concent 33g/dL (31-37) Red Cell Distribution Width 14.7% (11.5-14.5) Platelet Count 160x10^3/uL (140-400) Neutrophils (%) (Auto) 74% (31-73) Lymphocytes (%) (Auto) 14% (24-48) Monocytes (%) (Auto) 11% (0-9) Eosinophils (%) (Auto) 1% (0-3) Basophils (%) (Auto) 1% (0-3) Neutrophils # (Auto) 8.3x10^3uL (1.8-7.7) Lymphocytes # (Auto) 1.6x10^3/uL (1.0-4.8) Monocytes # (Auto) 1.2x10^3/uL (0.0-1.1) Eosinophils # (Auto) 0.1x10^3/uL (0.0-0.7) Basophils # (Auto) 0.1x10^3/uL (0.0-0.2) Sodium Level 140mmol/L (136-145) Potassium Level 4.2mmol/L (3.5-5.1) Chloride Level 104mmol/L (98-107) Carbon Dioxide Level 26mmol/L (21-32) Anion Gap 10 (6-14) Blood Urea Nitrogen 22mg/dL (8-26) Creatinine 1.5mg/dL (0.7-1.3) Estimated GFR (Cockcroft-Gault) 45.3 Glucose Level 135mg/dL (70-99) Calcium Level 9.4mg/dL (8.5-10.1) Total Bilirubin 2.5mg/dL (0.2-1.0) Direct Bilirubin 1.5mg/dL (0.0-0.2) Aspartate Amino Transf (AST/SGOT) 65U/L (15-37) Alanine Aminotransferase (ALT/SGPT) 46U/L (16-63) Alkaline Phosphatase 136U/L (46-116) Total Protein 5.9g/dL (6.4-8.2) Albumin 2.9g/dL (3.4-5.0) Test 08/21/16 10:47 Glucose (Fingerstick) 127mg/dL (70-99) Assessment and Plan Assessmemt and Plan Problems Medical Problems: (1) Abdominal pain Status: Acute (2) Pancreatitis Status: Acute Problems: Comment Review of Relevant I have reviewed the following items maria del carmen (where applicable) has been applied. Labs Laboratory Tests Test 08/19/16 12:00 08/19/16 16:41 08/19/16 21:12 08/20/16 04:40 White Blood Count 13.3x10^3/uL (4.0-11.0) Red Blood Count 4.78x10^6/uL (4.30-5.70) Hemoglobin 14.6g/dL (13.0-17.5) Hematocrit 43.6% (39.0-53.0) Mean Corpuscular Volume 91fL (79-100) Mean Corpuscular Hemoglobin 31pg (25-35) Mean Corpuscular Hemoglobin Concent 33g/dL (31-37) Red Cell Distribution Width 14.6% (11.5-14.5) Platelet Count 163x10^3/uL (140-400) Neutrophils (%) (Auto) 77% (31-73) Lymphocytes (%) (Auto) 10% (24-48) Monocytes (%) (Auto) 12% (0-9) Eosinophils (%) (Auto) 0% (0-3) Basophils (%) (Auto) 1% (0-3) Neutrophils # (Auto) 10.3x10^3uL (1.8-7.7) Lymphocytes # (Auto) 1.3x10^3/uL (1.0-4.8) Monocytes # (Auto) 1.6x10^3/uL (0.0-1.1) Eosinophils # (Auto) 0.1x10^3/uL (0.0-0.7) Basophils # (Auto) 0.1x10^3/uL (0.0-0.2) Sodium Level 137mmol/L (136-145) 137mmol/L (136-145) Potassium Level 4.0mmol/L (3.5-5.1) 4.2mmol/L (3.5-5.1) Chloride Level 102mmol/L (98-107) 103mmol/L (98-107) Carbon Dioxide Level 24mmol/L (21-32) 27mmol/L (21-32) Anion Gap 11 (6-14) 7 (6-14) Blood Urea Nitrogen 28mg/dL (8-26) 25mg/dL (8-26) Creatinine 1.3mg/dL (0.7-1.3) 1.2mg/dL (0.7-1.3) Estimated GFR (Cockcroft-Gault) 53.4 58.6 BUN/Creatinine Ratio 22 (6-20) 21 (6-20) Glucose Level 163mg/dL (70-99) 123mg/dL (70-99) Calcium Level 9.8mg/dL (8.5-10.1) 9.2mg/dL (8.5-10.1) Total Bilirubin 1.2mg/dL (0.2-1.0) 3.2mg/dL (0.2-1.0) Aspartate Amino Transf (AST/SGOT) 17U/L (15-37) 108U/L (15-37) Alanine Aminotransferase (ALT/SGPT) < 6U/L (16-63) 50U/L (16-63) Alkaline Phosphatase 72U/L (46-116) 105U/L (46-116) Troponin I Quantitative < 0.017ng/mL (0.000-0.055) Total Protein 7.0g/dL (6.4-8.2) 6.8g/dL (6.4-8.2) Albumin 3.5g/dL (3.4-5.0) 3.0g/dL (3.4-5.0) Albumin/Globulin Ratio 1.0 (1.0-1.7) 0.8 (1.0-1.7) Lipase 1058U/L (73-393) Glucose (Fingerstick) 138mg/dL (70-99) 103mg/dL (70-99) Test 08/20/16 04:41 08/20/16 04:45 08/20/16 07:52 08/20/16 11:00 White Blood Count 12.6x10^3/uL (4.0-11.0) Red Blood Count 4.71x10^6/uL (4.30-5.70) Hemoglobin 14.3g/dL (13.0-17.5) Hematocrit 42.9% (39.0-53.0) Mean Corpuscular Volume 91fL (79-100) Mean Corpuscular Hemoglobin 30pg (25-35) Mean Corpuscular Hemoglobin Concent 33g/dL (31-37) Red Cell Distribution Width 15.0% (11.5-14.5) Platelet Count 151x10^3/uL (140-400) Neutrophils (%) (Auto) 79% (31-73) Lymphocytes (%) (Auto) 8% (24-48) Monocytes (%) (Auto) 12% (0-9) Eosinophils (%) (Auto) 0% (0-3) Basophils (%) (Auto) 1% (0-3) Neutrophils # (Auto) 10.0x10^3uL (1.8-7.7) Lymphocytes # (Auto) 1.0x10^3/uL (1.0-4.8) Monocytes # (Auto) 1.5x10^3/uL (0.0-1.1) Eosinophils # (Auto) 0.1x10^3/uL (0.0-0.7) Basophils # (Auto) 0.1x10^3/uL (0.0-0.2) Lipase 1069U/L (73-393) Glucose (Fingerstick) 99mg/dL (70-99) 103mg/dL (70-99) Test 08/20/16 16:53 08/20/16 20:48 08/21/16 07:40 08/21/16 08:57 Glucose (Fingerstick) 88mg/dL (70-99) 108mg/dL (70-99) 89mg/dL (70-99) White Blood Count 11.3x10^3/uL (4.0-11.0) Red Blood Count 4.47x10^6/uL (4.30-5.70) Hemoglobin 13.4g/dL (13.0-17.5) Hematocrit 40.7% (39.0-53.0) Mean Corpuscular Volume 91fL (79-100) Mean Corpuscular Hemoglobin 30pg (25-35) Mean Corpuscular Hemoglobin Concent 33g/dL (31-37) Red Cell Distribution Width 14.7% (11.5-14.5) Platelet Count 160x10^3/uL (140-400) Neutrophils (%) (Auto) 74% (31-73) Lymphocytes (%) (Auto) 14% (24-48) Monocytes (%) (Auto) 11% (0-9) Eosinophils (%) (Auto) 1% (0-3) Basophils (%) (Auto) 1% (0-3) Neutrophils # (Auto) 8.3x10^3uL (1.8-7.7) Lymphocytes # (Auto) 1.6x10^3/uL (1.0-4.8) Monocytes # (Auto) 1.2x10^3/uL (0.0-1.1) Eosinophils # (Auto) 0.1x10^3/uL (0.0-0.7) Basophils # (Auto) 0.1x10^3/uL (0.0-0.2) Sodium Level 140mmol/L (136-145) Potassium Level 4.2mmol/L (3.5-5.1) Chloride Level 104mmol/L (98-107) Carbon Dioxide Level 26mmol/L (21-32) Anion Gap 10 (6-14) Blood Urea Nitrogen 22mg/dL (8-26) Creatinine 1.5mg/dL (0.7-1.3) Estimated GFR (Cockcroft-Gault) 45.3 Glucose Level 135mg/dL (70-99) Calcium Level 9.4mg/dL (8.5-10.1) Total Bilirubin 2.5mg/dL (0.2-1.0) Direct Bilirubin 1.5mg/dL (0.0-0.2) Aspartate Amino Transf (AST/SGOT) 65U/L (15-37) Alanine Aminotransferase (ALT/SGPT) 46U/L (16-63) Alkaline Phosphatase 136U/L (46-116) Total Protein 5.9g/dL (6.4-8.2) Albumin 2.9g/dL (3.4-5.0) Test 08/21/16 10:47 Glucose (Fingerstick) 127mg/dL (70-99) Laboratory Tests Test 08/20/16 16:53 08/20/16 20:48 08/21/16 07:40 08/21/16 08:57 Glucose (Fingerstick) 88mg/dL (70-99) 108mg/dL (70-99) 89mg/dL (70-99) White Blood Count 11.3x10^3/uL (4.0-11.0) Red Blood Count 4.47x10^6/uL (4.30-5.70) Hemoglobin 13.4g/dL (13.0-17.5) Hematocrit 40.7% (39.0-53.0) Mean Corpuscular Volume 91fL (79-100) Mean Corpuscular Hemoglobin 30pg (25-35) Mean Corpuscular Hemoglobin Concent 33g/dL (31-37) Red Cell Distribution Width 14.7% (11.5-14.5) Platelet Count 160x10^3/uL (140-400) Neutrophils (%) (Auto) 74% (31-73) Lymphocytes (%) (Auto) 14% (24-48) Monocytes (%) (Auto) 11% (0-9) Eosinophils (%) (Auto) 1% (0-3) Basophils (%) (Auto) 1% (0-3) Neutrophils # (Auto) 8.3x10^3uL (1.8-7.7) Lymphocytes # (Auto) 1.6x10^3/uL (1.0-4.8) Monocytes # (Auto) 1.2x10^3/uL (0.0-1.1) Eosinophils # (Auto) 0.1x10^3/uL (0.0-0.7) Basophils # (Auto) 0.1x10^3/uL (0.0-0.2) Sodium Level 140mmol/L (136-145) Potassium Level 4.2mmol/L (3.5-5.1) Chloride Level 104mmol/L (98-107) Carbon Dioxide Level 26mmol/L (21-32) Anion Gap 10 (6-14) Blood Urea Nitrogen 22mg/dL (8-26) Creatinine 1.5mg/dL (0.7-1.3) Estimated GFR (Cockcroft-Gault) 45.3 Glucose Level 135mg/dL (70-99) Calcium Level 9.4mg/dL (8.5-10.1) Total Bilirubin 2.5mg/dL (0.2-1.0) Direct Bilirubin 1.5mg/dL (0.0-0.2) Aspartate Amino Transf (AST/SGOT) 65U/L (15-37) Alanine Aminotransferase (ALT/SGPT) 46U/L (16-63) Alkaline Phosphatase 136U/L (46-116) Total Protein 5.9g/dL (6.4-8.2) Albumin 2.9g/dL (3.4-5.0) Test 08/21/16 10:47 Glucose (Fingerstick) 127mg/dL (70-99) Medications Current Medications Ondansetron HCl (Zofran) 4 mg 1X ONCE IV Last administered on 08/19/16 12:42 ; Start 08/19/16 at 12:30; Stop 08/19/16 at 12:32; Status DC Morphine Sulfate 4 mg 1X ONCE IV Last administered on 08/19/16 12:42; Start 08/19/16 at 12:30; Stop 08/19/16 at 12:32; Status DC Iohexol (Omnipaque 300 Mg/ml) 60 ml 1X ONCE IV Last administered on 08/19/16 13:19; Start 08/19/16 at 12:45; Stop 08/19/16 at 12:58; Status DC Info (Do NOT chart on this entry -- for MONITORING) 1 each PRN DAILY PRN MC SEE COMMENTS; Start 08/19/16 at 13:15; Stop 08/21/16 at 13:14 Ondansetron HCl (Zofran) 4 mg PRN Q8HRS PRN IV NAUSEA/VOMITING; Start 08/19/16 at 13:15; Stop 08/20/16 at 13:14; Status DC Morphine Sulfate 4 mg 4 mg PRN Q2HR PRN IV PAIN Last administered on 08/20/16 12:30; Start 08/19/16 at 13:15; Stop 08/20/16 at 13:14; Status DC Sodium Chloride (Iv Sodium Chloride 0.9% 1000ml Bag) 1,000 ml @ 125 mls/hr Q8H IV Last administered on 08/20/16 08:56; Start 08/19/16 at 13:13; Stop at 13:12; Status DC Acetaminophen (Tylenol) 650 mg PRN Q4HRS PRN PO FEVER; Start 08/19/16 at 13:15 ; Stop 08/20/16 at 13:14; Status DC Hydromorphone HCl (Dilaudid) 0.5 mg 1X ONCE IV Last administered on 08/19/16 14:00; Start 08/19/16 at 14:00; Stop 08/19/16 at 14:01; Status DC Polyethylene Glycol (miraLAX PACKET) 17 gm DAILY PO Last administered on 10:19; Start 08/20/16 at 09:00 Carbidopa/Levodopa (Sinemet 25/100) 1 tab DAILY08 PO Last administered on 10:20; Start 08/20/16 at 08:00 Simvastatin (Zocor) 20 mg QHS PO Last administered on 08/20/16 20:39; Start at 21:00 Albuterol Sulfate (Ventolin Neb Soln) 2.5 mg PRN Q4HRS PRN NEB SOA; Start 08/19 at 19:30 Carbidopa/Levodopa (Sinemet Cr) 2 tab.sa BID@08,13 PO Last administered on 08/21 10:20; Start 08/20/16 at 08:00 Non-Formulary Medication 4 mg DAILY PO ; Start 08/20/16 at 09:00; Status UNV Duloxetine HCl (Cymbalta) 60 mg DAILY PO Last administered on 08/21/16 10:22; Start 08/20/16 at 09:00 Budesonide (Pulmicort) 0.5 mg RTBID NEB Last administered on 08/21/16 08:01; Start 08/19/16 at 20:00 Pantoprazole Sodium (Protonix) 40 mg DAILYAC PO Last administered on 08/21/16 10:19; Start 08/20/16 at 07:30 Albuterol Sulfate 2.5 mg 2.5 mg RTQID NEB Last administered on 08/21/16 08:02 ; Start 08/19/16 at 20:00 Dextrose/Sodium Chloride (Iv D5% - 1/2 NS) 1,000 ml @ 75 mls/hr [id number] IV Last administered on 08/21/16 06:32; Start 08/20/16 at 17:45 Morphine Sulfate 2 mg PRN Q2HR PRN IV PAIN Last administered on 08/21/16 01:32 ; Start 08/21/16 at 01:00 Active Scripts Active Reported Lisinopril-Hctz 20-12.5 Mg Tab (Lisinopril/Hydrochlorothiazide) 1 Each Tablet 1 Tab PO DAILY Omeprazole 40 Mg Capsule.dr 1 Cap PO DAILY Sinemet Cr 50-200 Tablet (Carbidopa/Levodopa) 1 Each Tablet.er 1 Tab PO 1 TAB @ 0800, @1300 Metformin Hcl 500 Mg Tablet 1 Tab PO BID Sinemet 25-100 Mg Tablet (Carbidopa/Levodopa) 1 Each Tablet 1 Tab PO DAILY08 Carbinoxamine Maleate 4 Mg Tablet 4 Mg PO DAILY Cymbalta (Duloxetine Hcl) 60 Mg Capsule.dr 1 Cap PO DAILY Advair 250-50 Diskus (Fluticasone/Salmeterol) 1 Each Disk.w.dev 1 Puff IH BID Simvastatin 20 Mg Tablet 20 Mg PO DAILY Proair Hfa Inhaler (Albuterol Sulfate) 8.5 Gm Hfa.aer.ad 2 Puff IH PRN Q4-6HRS PRN Vitals/I & O Vital Sign - Last 24 Hours 08/20/16 08/20/16 08/20/16 08/20/16 11:37 12:30 15:00 15:34 Temp 97.7 97.7 Pulse 90 Resp 18 B/P 110/47 Pulse Ox 94 96 93 O2 Delivery Nasal Cannula Nasal Cannula Nasal Cannula Nasal Cannula O2 Flow Rate 2.0 2.0 2.0 08/20/16 08/20/16 08/20/16 08/20/16 18:06 19:00 20:01 23:00 Temp 97.9 97.7 97.9 97.7 Pulse 95 92 Resp 22 22 B/P 95/44 155/88 Pulse Ox 96 92 O2 Delivery Nasal Cannula Nasal Cannula Room Air Nasal Cannula O2 Flow Rate 2.0 2.0 2.0 08/21/16 08/21/16 08/21/16 08/21/16 01:32 02:02 03:00 07:35 Temp 97.5 97.7 97.5 97.7 Pulse 89 79 Resp 20 20 22 20 B/P 148/79 131/79 Pulse Ox 92 96 96 96 O2 Delivery Nasal Cannula Nasal Cannula Nasal Cannula Room Air O2 Flow Rate 2.0 2.0 2.0 08/21/16 08:02 Pulse Ox 98 O2 Delivery Room Air Intake and Output 08/20/16 08/20/16 08/21/16 15:00 23:00 07:00 Intake Total 100 ml Output Total 50 ml Balance 100 ml -50 ml CECILY NICOLE MD Aug 21, 2016 11:16
--- NOTE | 2016-08-21 13:40 | RAD ---
MRCP, 08/21/2016: History: Pancreatitis, elevated serum the bilirubin level Imaging was performed in axial and coronal planes utilizing a variety of imaging sequences including T2 weighted, fat suppressed T2-weighted, and opposed phase gradient echo sequences. Heavily T2 weighted MRCP sequences were obtained with and without respiratory gating with 3-D MIP images reconstructed. The study was partially compromised by patient motion artifact. The gallbladder is surgically absent. The bile ducts are not dilated. No intraluminal filling defect is seen within the biliary tract to suggest a calculus. There is moderate smooth narrowing of a segment of the distal pancreatic duct in the region of the pancreatic head. The visualized portions of the pancreatic duct are not dilated. Incidental note is made of small left renal cysts. IMPRESSION: 1. Status post cholecystectomy. 2. Moderate smooth narrowing of the common bile duct in the pancreatic head with diagnostic considerations including a benign or malignant stricture or extrinsic compression by pancreatic head inflammation.
[2016-08-21 14:40] VITALS: BP 128/77
--- NOTE | 2016-08-21 15:10 | PDOC ---
Subjective: Subjective: Says needs IV pain meds every 4 hours. Hungry. Objective: Vital Signs: Vital Signs Date Time Temp Pulse Resp B/P Pulse Ox O2 Delivery O2 Flow Rate FiO2 08/21/16 14:47 18 08/21/16 14:22 Room Air 08/21/16 11:22 96 08/21/16 10:47 97.5 86 133/76 97.5 08/21/16 03:00 2.0 Labs: Laboratory Tests Test 08/20/16 16:53 08/20/16 20:48 08/21/16 07:40 08/21/16 10:47 Glucose (Fingerstick) 88mg/dL (70-99) 108mg/dL (70-99) 89mg/dL (70-99) 127mg/dL (70-99) Imaging: CT A/P 08/19/16 IMPRESSION: 1. Mild streaky increased density in the peripancreatic fat at the level of the pancreatic head, similar to that seen on 10/13/2015. This may represent scarring or recurrent pancreatitis. Clinical correlation is suggested. 2. Sigmoid diverticulosis. 3. No current evidence of renal obstruction. 4. Left renal cysts. 5. Unchanged ventral hernia. 6. Stable small abdominal wall fluid collection adjacent to the hernia, presumably postsurgical. MRCP 08/21/16 IMPRESSION: 1. Status post cholecystectomy. 2. Moderate smooth narrowing of the common bile duct in the pancreatic head with diagnostic considerations including a benign or malignant stricture or extrinsic compression by pancreatic head inflammation. PE: GEN: NAD, walking around room ABD: epigastric pain A/P: Pancreatitis -admitting lipase in 1000s Elevated LFTs -bili some better 2.5 Abnormal MRCP -- MRCP findings w/ CBD narrowing. Pt asking to eat but still c/o pain. Will recheck lipase and also check CA19- 9. Will review diet and MRCP findings w/ Dr. Flores. CARMENZA GARCIA Aug 21, 2016 15:10
[2016-08-21 19:00] VITALS: BP 149/87
[2016-08-21] MEDS: SIMVASTATIN 20 MG TABLET PO SCH (20:23)
[2016-08-21 22:35] VITALS: BP 121/65
[2016-08-22 03:15] VITALS: BP 120/82
[2016-08-22] MEDS: MORPHINE SULFATE 2 MG/ML DISP.SYRIN. IV PRN (04:50)
[2016-08-22] MEDS: IV DEXTROSE 5 %-0.45 % NACL 1,000 ML IV SCH ×2 (06:44→23:05)
[2016-08-22 07:00] VITALS: BP 150/98
[2016-08-22] MEDS: BUDESONIDE 0.5 MG/2 ML NEBU NEB SCH ×2 (07:22→20:37)
[2016-08-22] MEDS: ALBUTEROL SULFATE 2.5 MG/3 ML NEBU. NEB SCH ×4 (07:22→20:34)
[2016-08-22] MEDS: DULOXETINE HCL 30 MG CAPSULE.DR. PO SCH (07:56)
[2016-08-22] MEDS: POLYETHYLENE GLYCOL 3350 17 GM PACKET. PO SCH (07:56)
[2016-08-22] MEDS: PANTOPRAZOLE 40 MG TABLET. PO SCH (07:56)
[2016-08-22] MEDS: CARBIDOPA/LEVODOPA CR 25/100MG TABLET.SA PO SCH ×2 (07:56→13:15)
[2016-08-22] MEDS: CARBIDOPA/LEVODOPA 25/100MG TABLET PO SCH (07:56)
--- NOTE | 2016-08-22 09:58 | PDOC ---
PROGRESS NOTES Chief Complaint Chief Complaint Pancreatitis ASSESSMENT AND PLAN: 1. Pancreatitis: MRCP - CBD narrowing, awaiting final GI recommendations, advance diet per GI 2. Hyperbilirubinemia: monitor. 3. FH pancreas CA: CA19.9 pending 2. DM: home meds currently on hold. BGs actually drifting very low. switch IVF to D5 1/2NS for now, cont ISS 3. CAD: no acute issues. not on any meds except statin 4. Parkinson's: on carbi/levodopa with persistent tremors. pt has discussed dose increase w/ his neurologist and decided against for now. History of Present Illness History of Present Illness NO PAIN NO FEVER Vitals Vitals Vital Signs Date Time Temp Pulse Resp B/P Pulse Ox O2 Delivery O2 Flow Rate FiO2 08/22/16 08:00 Room Air 08/22/16 07:22 97 08/22/16 07:00 98.0 77 19 150/98 98.0 Physical Exam General: Alert, Oriented X3 Heart: Regular rate Lungs: Clear Abdomen: Soft, No tenderness Extremities: No clubbing, No edema Skin: No rashes Labs LABS Laboratory Tests Test 08/21/16 10:47 08/21/16 16:20 08/21/16 20:22 08/22/16 07:16 Glucose (Fingerstick) 127mg/dL (70-99) 108mg/dL (70-99) 93mg/dL (70-99) 104mg/dL (70-99) Assessment and Plan Assessmemt and Plan Problems Medical Problems: (1) Abdominal pain Status: Acute (2) Pancreatitis Status: Acute Problems: Comment Review of Relevant I have reviewed the following items maria del carmen (where applicable) has been applied. Labs Laboratory Tests Test 08/20/16 11:00 08/20/16 16:53 08/20/16 20:48 08/21/16 07:40 Glucose (Fingerstick) 103mg/dL (70-99) 88mg/dL (70-99) 108mg/dL (70-99) 89mg/dL (70-99) Test 08/21/16 08:57 08/21/16 10:47 08/21/16 16:20 08/21/16 20:22 White Blood Count 11.3x10^3/uL (4.0-11.0) Red Blood Count 4.47x10^6/uL (4.30-5.70) Hemoglobin 13.4g/dL (13.0-17.5) Hematocrit 40.7% (39.0-53.0) Mean Corpuscular Volume 91fL (79-100) Mean Corpuscular Hemoglobin 30pg (25-35) Mean Corpuscular Hemoglobin Concent 33g/dL (31-37) Red Cell Distribution Width 14.7% (11.5-14.5) Platelet Count 160x10^3/uL (140-400) Neutrophils (%) (Auto) 74% (31-73) Lymphocytes (%) (Auto) 14% (24-48) Monocytes (%) (Auto) 11% (0-9) Eosinophils (%) (Auto) 1% (0-3) Basophils (%) (Auto) 1% (0-3) Neutrophils # (Auto) 8.3x10^3uL (1.8-7.7) Lymphocytes # (Auto) 1.6x10^3/uL (1.0-4.8) Monocytes # (Auto) 1.2x10^3/uL (0.0-1.1) Eosinophils # (Auto) 0.1x10^3/uL (0.0-0.7) Basophils # (Auto) 0.1x10^3/uL (0.0-0.2) Sodium Level 140mmol/L (136-145) Potassium Level 4.2mmol/L (3.5-5.1) Chloride Level 104mmol/L (98-107) Carbon Dioxide Level 26mmol/L (21-32) Anion Gap 10 (6-14) Blood Urea Nitrogen 22mg/dL (8-26) Creatinine 1.5mg/dL (0.7-1.3) Estimated GFR (Cockcroft-Gault) 45.3 Glucose Level 135mg/dL (70-99) Calcium Level 9.4mg/dL (8.5-10.1) Total Bilirubin 2.5mg/dL (0.2-1.0) Direct Bilirubin 1.5mg/dL (0.0-0.2) Aspartate Amino Transf (AST/SGOT) 65U/L (15-37) Alanine Aminotransferase (ALT/SGPT) 46U/L (16-63) Alkaline Phosphatase 136U/L (46-116) Total Protein 5.9g/dL (6.4-8.2) Albumin 2.9g/dL (3.4-5.0) Lipase 1042U/L (73-393) Glucose (Fingerstick) 127mg/dL (70-99) 108mg/dL (70-99) 93mg/dL (70-99) Test 08/22/16 07:16 Glucose (Fingerstick) 104mg/dL (70-99) Laboratory Tests Test 08/21/16 10:47 08/21/16 16:20 08/21/16 20:22 08/22/16 07:16 Glucose (Fingerstick) 127mg/dL (70-99) 108mg/dL (70-99) 93mg/dL (70-99) 104mg/dL (70-99) Medications Current Medications Ondansetron HCl (Zofran) 4 mg 1X ONCE IV Last administered on 08/19/16 12:42 ; Start 08/19/16 at 12:30; Stop 08/19/16 at 12:32; Status DC Morphine Sulfate 4 mg 1X ONCE IV Last administered on 08/19/16 12:42; Start 08/19/16 at 12:30; Stop 08/19/16 at 12:32; Status DC Iohexol (Omnipaque 300 Mg/ml) 60 ml 1X ONCE IV Last administered on 08/19/16 13:19; Start 08/19/16 at 12:45; Stop 08/19/16 at 12:58; Status DC Info (Do NOT chart on this entry -- for MONITORING) 1 each PRN DAILY PRN MC SEE COMMENTS; Start 08/19/16 at 13:15; Stop 08/21/16 at 13:14; Status DC Ondansetron HCl (Zofran) 4 mg PRN Q8HRS PRN IV NAUSEA/VOMITING; Start 08/19/16 at 13:15; Stop 08/20/16 at 13:14; Status DC Morphine Sulfate 4 mg 4 mg PRN Q2HR PRN IV PAIN Last administered on 08/20/16 12:30; Start 08/19/16 at 13:15; Stop 08/20/16 at 13:14; Status DC Sodium Chloride (Iv Sodium Chloride 0.9% 1000ml Bag) 1,000 ml @ 125 mls/hr Q8H IV Last administered on 08/20/16 08:56; Start 08/19/16 at 13:13; Stop at 13:12; Status DC Acetaminophen (Tylenol) 650 mg PRN Q4HRS PRN PO FEVER; Start 08/19/16 at 13:15 ; Stop 08/20/16 at 13:14; Status DC Hydromorphone HCl (Dilaudid) 0.5 mg 1X ONCE IV Last administered on 08/19/16 14:00; Start 08/19/16 at 14:00; Stop 08/19/16 at 14:01; Status DC Polyethylene Glycol (miraLAX PACKET) 17 gm DAILY PO Last administered on 07:56; Start 08/20/16 at 09:00 Carbidopa/Levodopa (Sinemet 25/100) 1 tab DAILY08 PO Last administered on 07:56; Start 08/20/16 at 08:00 Simvastatin (Zocor) 20 mg QHS PO Last administered on 08/21/16 20:23; Start at 21:00 Albuterol Sulfate (Ventolin Neb Soln) 2.5 mg PRN Q4HRS PRN NEB SOA; Start 08/19 at 19:30 Carbidopa/Levodopa (Sinemet Cr) 2 tab.sa BID@08,13 PO Last administered on 08/22 07:56; Start 08/20/16 at 08:00 Non-Formulary Medication 4 mg DAILY PO ; Start 08/20/16 at 09:00; Status UNV Duloxetine HCl (Cymbalta) 60 mg DAILY PO Last administered on 08/22/16 07:56; Start 08/20/16 at 09:00 Budesonide (Pulmicort) 0.5 mg RTBID NEB Last administered on 08/22/16 07:22; Start 08/19/16 at 20:00 Pantoprazole Sodium (Protonix) 40 mg DAILYAC PO Last administered on 08/22/16 07:56; Start 08/20/16 at 07:30 Albuterol Sulfate 2.5 mg 2.5 mg RTQID NEB Last administered on 08/22/16 07:22 ; Start 08/19/16 at 20:00 Dextrose/Sodium Chloride (Iv D5% - 1/2 NS) 1,000 ml @ 75 mls/hr [id number] IV Last administered on 08/22/16 06:44; Start 08/20/16 at 17:45 Morphine Sulfate 2 mg 2 mg PRN Q2HR PRN IV PAIN Last administered on 08/22/16 04:50; Start 08/21/16 at 01:00 Sodium Chloride (Iv Sodium Chloride 0.9% 1000ml Bag) 1,000 ml @ 75 mls/hr [id number] IV ; Start 08/21/16 at 11:15; Stop 08/21/16 at 11:41; Status DC Active Scripts Active Reported Lisinopril-Hctz 20-12.5 Mg Tab (Lisinopril/Hydrochlorothiazide) 1 Each Tablet 1 Tab PO DAILY Omeprazole 40 Mg Capsule.dr 1 Cap PO DAILY Sinemet Cr 50-200 Tablet (Carbidopa/Levodopa) 1 Each Tablet.er 1 Tab PO 1 TAB @ 0800, @1300 Metformin Hcl 500 Mg Tablet 1 Tab PO BID Sinemet 25-100 Mg Tablet (Carbidopa/Levodopa) 1 Each Tablet 1 Tab PO DAILY08 Carbinoxamine Maleate 4 Mg Tablet 4 Mg PO DAILY Cymbalta (Duloxetine Hcl) 60 Mg Capsule.dr 1 Cap PO DAILY Advair 250-50 Diskus (Fluticasone/Salmeterol) 1 Each Disk.w.dev 1 Puff IH BID Simvastatin 20 Mg Tablet 20 Mg PO DAILY Proair Hfa Inhaler (Albuterol Sulfate) 8.5 Gm Hfa.aer.ad 2 Puff IH PRN Q4-6HRS PRN Vitals/I & O Vital Sign - Last 24 Hours 08/21/16 08/21/16 08/21/16 08/21/16 10:47 11:22 14:22 14:40 Temp 97.5 97.7 97.5 97.7 Pulse 86 84 Resp 20 18 20 B/P 133/76 128/77 Pulse Ox 96 96 93 O2 Delivery Room Air Room Air Room Air Room Air 08/21/16 08/21/16 08/21/16 08/21/16 14:47 15:56 18:51 19:00 Temp 98.4 98.4 Pulse 83 Resp 18 18 20 B/P 149/87 Pulse Ox 98 O2 Delivery Room Air Room Air Room Air 08/21/16 08/21/16 08/21/16 08/22/16 19:29 20:30 22:35 03:15 Temp 97.8 97.8 97.8 97.8 Pulse 79 80 Resp 18 18 B/P 121/65 120/82 Pulse Ox 98 94 96 O2 Delivery Room Air Room Air Room Air Room Air 08/22/16 08/22/16 08/22/16 07:00 07:22 08:00 Temp 98.0 98.0 Pulse 77 Resp 19 B/P 150/98 Pulse Ox 97 97 O2 Delivery Room Air Room Air Room Air Intake and Output 08/21/16 08/21/16 08/22/16 15:00 23:00 07:00 Intake Total 1000 ml 980 ml Output Total 300 ml Balance 1000 ml 680 ml CECILY NICOLE MD Aug 22, 2016 09:58
[2016-08-22 10:45] VITALS: BP 118/71
--- NOTE | 2016-08-22 12:33 | PDOC ---
Subjective: Subjective: Still has pain, is improved w/ meds. Would like to eat. No BM in a few days despite Miralax. Objective: Vital Signs: Vital Signs Date Time Temp Pulse Resp B/P Pulse Ox O2 Delivery O2 Flow Rate FiO2 08/22/16 11:26 97 Room Air 08/22/16 10:45 97.8 72 19 118/71 97.8 Labs: Laboratory Tests Test 08/21/16 16:20 08/21/16 20:22 08/22/16 07:16 08/22/16 10:30 Glucose (Fingerstick) 108mg/dL 93mg/dL 104mg/dL 102mg/dL PE: GEN: NAD LUNGS: clear anteriorly HEART: S1S2 ABD: periumbilical/epigastric tenderness radiating bilaterally to flanks NEURO/PSYCH: A & O 3 A/P: Pancreatitis -CT 08/19: mild streaky increased density in the peripancreatic fat at the level of the pancreatic head -s/p cholecystectomy 30 years ago for pain Elevated LFTs, elevated lipase -bili improved to 2.5 yesterday, Alk Phos 136, lipase remains elevated, C19-9 WNL (18) Abnormal MRCP w/ CBD narrowing Abd pain - ongoing FH pancreatic cancer -- Try clears - d/w RN. Will review next step w/ Dr. Flores. CARMENZA GARCIA Aug 22, 2016 12:33
[2016-08-22 14:38] VITALS: BP 152/87
[2016-08-22 19:00] VITALS: BP 137/86
[2016-08-22] MEDS: SIMVASTATIN 20 MG TABLET PO SCH (20:28)
[2016-08-22 22:49] VITALS: BP 140/82
[2016-08-23 07:00] VITALS: BP 132/80
[2016-08-23] MEDS: BUDESONIDE 0.5 MG/2 ML NEBU NEB SCH (07:45)
[2016-08-23] MEDS: ALBUTEROL SULFATE 2.5 MG/3 ML NEBU. NEB SCH ×2 (07:45→11:31)
[2016-08-23] MEDS: CARBIDOPA/LEVODOPA CR 25/100MG TABLET.SA PO SCH ×2 (08:18→13:30)
[2016-08-23] MEDS: CARBIDOPA/LEVODOPA 25/100MG TABLET PO SCH (08:18)
[2016-08-23] MEDS: DULOXETINE HCL 30 MG CAPSULE.DR. PO SCH (08:18)
[2016-08-23] MEDS: PANTOPRAZOLE 40 MG TABLET. PO SCH (08:18)
[2016-08-23] MEDS: POLYETHYLENE GLYCOL 3350 17 GM PACKET. PO SCH (08:19)
[2016-08-23] MEDS: IV DEXTROSE 5 %-0.45 % NACL 1,000 ML IV SCH (08:25)
--- NOTE | 2016-08-23 10:31 | PDOC ---
Subjective: Subjective: Tolerated clears w/o increase in pain. Says hasn't required pain meds since last evening. Had some loose stools. Really wants to eat. Objective: Vital Signs: Vital Signs Date Time Temp Pulse Resp B/P Pulse Ox O2 Delivery O2 Flow Rate FiO2 08/23/16 07:45 96 Room Air 08/23/16 07:00 97.8 71 19 132/80 97.8 Labs: Laboratory Tests Test 08/22/16 10:30 08/22/16 16:47 08/22/16 20:16 08/23/16 07:19 Glucose (Fingerstick) 102mg/dL 85mg/dL 87mg/dL 111mg/dL PE: GEN: NAD LUNGS: CTAB HEART: RRR ABD: S/ND, less epigastric tenderness, note umbilical hernia (reducible, nontender) NEURO/PSYCH: A & O 3 A/P: Pancreatitis -CT 08/19: mild streaky increased density in the peripancreatic fat at the level of the pancreatic head -s/p cholecystectomy -abnormal MRCP w/ CBD narrowing -elevated LFTs, elevated lipase -C19-9 WNL (18) on 08/20 but was elevated (37) on 08/21 -abd pain is stable/improved Constipation -controlled w/ Miralax -- Wants to try regular diet. D/w RN. If tolerates, ?look toward DC Will also recheck LFTs, lipase. EUS (at or [facility]) vs ERCP as outpt. CARMENZA GARCIA Aug 23, 2016 10:31
[2016-08-23 11:00] VITALS: BP 125/69
[2016-08-23 11:54] LABS: ALBUMIN 2.7 g/dL (3.4-5.0); DIRECT BILIRUBIN 0.5 mg/dL (0.0-0.2); TOTAL PROTEIN 5.7 g/dL (6.4-8.2)
== END 2016-08-23 15:46 | disposition home or self-care (01) | DRG 439 ==
LOC: ER 11:34 → 5 NORTH 13:12
PROVIDERS: ADMIT Internal Medicine; ATTEND Internal Medicine
DX: K85.90 Acute pancreatitis without necrosis or infection, unspecified (principal); R65.10 Systemic inflammatory response syndrome (SIRS) of non-infectious origin without acute organ dysfunction; E11.9 Type 2 diabetes mellitus without complications; G20 Parkinson's disease; I12.9 Hypertensive chronic kidney disease with stage 1 through stage 4 chronic kidney disease, or unspecified chronic kidney disease; N18.3 Chronic kidney disease, stage 3 (moderate); I25.10 Atherosclerotic heart disease of native coronary artery without angina pectoris; J45.909 Unspecified asthma, uncomplicated; K21.9 Gastro-esophageal reflux disease without esophagitis; K43.9 Ventral hernia without obstruction or gangrene; K57.30 Diverticulosis of large intestine without perforation or abscess without bleeding; E66.9 Obesity, unspecified; K59.00 Constipation, unspecified; Z82.49 Family history of ischemic heart disease and other diseases of the circulatory system; Z90.49 Acquired absence of other specified parts of digestive tract; Z85.828 Personal history of other malignant neoplasm of skin; Z68.32 Body mass index [BMI] 32.0-32.9, adult
CPT/HCPCS: 36415; 74177; 74181; 80048; 80053; 80076; 82947; 83690; 84484; 85027; 86301; 93005; 94250; 94640; 94760; 96374; 96375; J1170; J2270; J2405; J7030; Q9967; 99285-25

== ENCOUNTER 2018-04-10 11:50 | Emergency (ER) | payer MEDICARE, BC ==
[~2018-04-10] VITALS: Ht 177.8 cm; Wt 120.7 kg
[~2018-04-10 11:50] MED LIST changes: +CARB1TAB5 PO; +HYDR-2758 PO; +LISI1TAB5 PO; -MELO-150 PO; +MELO15TA23 PO; -METF10002 PO; +METF10007 PO; +METF500T16 PO; +OLME1TAB23 PO; -OLME1TAB3 PO; +OMEP40CA5 PO
[2018-04-10] MEDS ORDERED: IV NORMAL SALINE 500ML BAG 500 ML IV SCH (12:30)
[2018-04-10 12:53] LABS: BASO # 0.1 x10^3/uL (0.0-0.2); BASO % 1 % (0-3); EOS % 0 % (0-3); HEMATOCRIT 45.5 % (39.0-53.0); HEMOGLOBIN 15.7 g/dL (13.0-17.5); LYMPH # 1.2 x10^3/uL (1.0-4.8); LYMPH % 13 % (24-48); MEAN CORPUSCULAR HEMOGLOBIN 31 pg (25-35); MEAN CORPUSCULAR HGB CONC 35 g/dL (31-37); MEAN CORPUSCULAR VOLUME 91 fL (79-100); MONO % 11 % (0-9); NEUT # 6.7 x10^3uL (1.8-7.7); NEUT % 75 % (31-73); PLATELET COUNT 196 x10^3/uL (140-400); RED BLOOD COUNT 5.02 x10^6/uL (4.30-5.70); RED CELL DISTRIBUTION WIDTH 14.1 % (11.5-14.5)
[2018-04-10 12:58] LABS: CALCIUM 9.8 mg/dL (8.5-10.1); CREATININE 1.5 mg/dL (0.7-1.3); POTASSIUM 4.4 mmol/L (3.5-5.1)
--- NOTE | 2018-04-10 13:02 | EKG ---
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
[2018-04-10 13:04] LABS: ALBUMIN 3.6 g/dL (3.4-5.0); ALBUMIN/GLOBULIN RATIO 1.1 (1.0-1.7); MAGNESIUM 1.9 mg/dL (1.8-2.4); TOTAL BILIRUBIN 0.7 mg/dL (0.2-1.0)
--- NOTE | 2018-04-10 13:47 | PHYS DOC ---
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 First episode was 3 days ago on Sunday and prior to that it was 10 days ago on the previous Sunday. He denies any symptoms prior to the event. He reports feeling lightheaded and passing out. He denies shaking, tongue biting or urinary incontinence. On Sunday he did hit the side of his head on the concrete. He has had nauseous no sense hitting his head on Sunday. He denies any palpitations chest pain abdominal pain. Review of systems is negative for chest pain shortness of breath abdominal pain vomiting fevers chills polyuria dysuria. All other review of systems is negative unless otherwise noted in history of present illness. 82-year-old male presenting with 2 episodes of syncope over the past 10 days. On arrival afebrile with normal heart rate. Well-appearing on examination with a normal neurologic exam. Head CT C-spine CT blood work and EKG obtained. EKG shows sinus rhythm with a regular rate. Lead V1 looks similar to flutter however in lead 2 and 3 it is very clearly sinus rhythm. ST segments congruent. Not suggestive of ACS. Head CT shows subdural hematoma along the parietal and temporal region on the left. No midline shift. Patient is on blood thinners. Patient has not taken aspirin. We do not have neurosurgical coverage today at [facility] and thus transfer the patient to [facility]. I arranged the patient to be transferred to [facility] for neurosurgical coverage. Otherwise the remainder the patient's blood work shows mild elevation in creatinine. Troponin negative. Impression: Acute traumatic subdural hematoma after head injury, syncope Review of Systems Review of Systems SEE ABOVE. Current Medications Current Medications Current Medications Medications (Trade) Dose Ordered Sig/Kaitlin Start Time Stop Time Status Last Admin Dose Admin Fentanyl Citrate (Fentanyl 2ml Vial) 50 mcg PRN Q30MIN PRN 04/10/18 15:15 04/10/18 16:40 DC 04/10/18 15:27 50 MCG Sodium Chloride 500 ml @ 500 mls/hr Q1H 04/10/18 12:30 04/10/18 12:43 DC 04/10/18 12:43 500 MLS/HR Allergies Allergies Allergies Coded Allergies Type Severity Reaction Last Updated Verified No Known Drug Allergies 05/06/14 No Physical Exam Physical Exam SEE ABOVE Constitutional: Well developed, well nourished, no acute distress, non-toxic appearance. [] HENT: Normocephalic, atraumatic, bilateral external ears normal, oropharynx moist, no oral exudates, nose normal. [] Eyes: PERRLA, EOMI, conjunctiva normal, no discharge. [] Neck: Normal range of motion, no tenderness, supple, no stridor. [] Cardiovascular:Heart rate regular rhythm, no murmur [] Lungs & Thorax: Bilateral breath sounds clear to auscultation [] Abdomen: Bowel sounds normal, soft, no tenderness, no masses, no pulsatile masses. [] Skin: Warm, dry, no erythema, no rash. [] Back: No tenderness, no CVA tenderness. [] Extremities: No tenderness, no cyanosis, no clubbing, ROM intact, no edema. [] Neurologic: Mental status: Awake oriented and alert x3 Cranial nerves: Extraocular movements intact, eyebrows pratik bilaterally, smile symmetric, uvula elevation nl, shoulder shrug intact bilaterally, tongue protrusion normal DTRs: 2+ Sensation: equal and normal in all extremities Strength: 5/5 in upper and lower extremities bilaterally Psychologic: Affect normal, judgement normal, mood normal. [] Current Patient Data Vital Signs Vital Signs Date Time Temp Pulse Resp B/P (MAP) Pulse Ox O2 Delivery O2 Flow Rate FiO2 04/10/18 15:39 78 18 161/101 (121) 99 Room Air 04/10/18 12:24 98.4 98.4 Lab Values Laboratory Tests Test 04/10/18 12:40 White Blood Count 9.0 x10^3/uL (4.0-11.0) Red Blood Count 5.02 x10^6/uL (4.30-5.70) Hemoglobin 15.7 g/dL (13.0-17.5) Hematocrit 45.5 % (39.0-53.0) Mean Corpuscular Volume 91 fL (79-100) Mean Corpuscular Hemoglobin 31 pg (25-35) Mean Corpuscular Hemoglobin Concent 35 g/dL (31-37) Red Cell Distribution Width 14.1 % (11.5-14.5) Platelet Count 196 x10^3/uL (140-400) Neutrophils (%) (Auto) 75 % (31-73) H Lymphocytes (%) (Auto) 13 % (24-48) L Monocytes (%) (Auto) 11 % (0-9) H Eosinophils (%) (Auto) 0 % (0-3) Basophils (%) (Auto) 1 % (0-3) Neutrophils # (Auto) 6.7 x10^3uL (1.8-7.7) Lymphocytes # (Auto) 1.2 x10^3/uL (1.0-4.8) Monocytes # (Auto) 1.0 x10^3/uL (0.0-1.1) Eosinophils # (Auto) 0.0 x10^3/uL (0.0-0.7) Basophils # (Auto) 0.1 x10^3/uL (0.0-0.2) Sodium Level 136 mmol/L (136-145) Potassium Level 4.4 mmol/L (3.5-5.1) Chloride Level 100 mmol/L (98-107) Carbon Dioxide Level 28 mmol/L (21-32) Anion Gap 8 (6-14) Blood Urea Nitrogen 24 mg/dL (8-26) Creatinine 1.5 mg/dL (0.7-1.3) H Estimated GFR (Cockcroft-Gault) 45.0 BUN/Creatinine Ratio 16 (6-20) Glucose Level 181 mg/dL (70-99) H Calcium Level 9.8 mg/dL (8.5-10.1) Magnesium Level 1.9 mg/dL (1.8-2.4) Total Bilirubin 0.7 mg/dL (0.2-1.0) Aspartate Amino Transferase (AST) 15 U/L (15-37) Alanine Aminotransferase (ALT) 23 U/L (16-63) Alkaline Phosphatase 95 U/L (46-116) Troponin I Quantitative < 0.017 ng/mL (0.000-0.055) Total Protein 7.0 g/dL (6.4-8.2) Albumin 3.6 g/dL (3.4-5.0) Albumin/Globulin Ratio 1.1 (1.0-1.7) Laboratory Tests 04/10/18 12:40 Laboratory Tests 04/10/18 12:40 EKG EKG [] Radiology/Procedures Radiology/Procedures [] Course & Med Decision Making Course & Med Decision Making Pertinent Labs and Imaging studies reviewed. (See chart for details) [] Dragon Disclaimer Dragon Disclaimer This electronic medical record was generated, in whole or in part, using a voice recognition dictation system. Departure Departure Disposition: 02 TRANSFER [facility] (Dr. Butch coombs accepts) Condition: STABLE Referrals: SHIRA OGDEN MD (PCP) MARILYN SANTANA MD Apr 10, 2018 13:47
--- NOTE | 2018-04-10 14:08 | RAD ---
CT HEAD AND CERVICAL SPINE WO dated 04/10/2018 1:07 PM Indication: Head and neck pain.HEAD INJURY & SYNCOPE, X 2 DAYS. Comparison: No comparison is available. Technique: Contiguous axial imaging the head was performed from skull base to vertex. No contrast administered. In addition, axial imaging of the cervical spine acquired with thin cut coronal and sagittal reconstruction. One or more of the following individualized dose reduction techniques were utilized for this examination: 1. Automated exposure control 2. Adjustment of the mA and/or kV according to patient size 3. Use of iterative reconstruction technique FINDINGS: There is a thin hyperdense collection along the left parietal convexity posteriorly best seen on images 23 through 26, measuring up to 4 mm thickness. There is also small amount of high density extending along the temporal parietal convexity on the left. No significant mass effect or midline shift. No additional extra-axial collection. Ventricles and sulci are mildly prominent for age. There is mild patchy low density in the deep/subcortical periventricular white matter. Visualized paranasal sinuses and mastoid air cells are clear. No apparent calvarial abnormality. Images of cervical spine were acquired from skull base to T1. Straightening of the normal cervical lordosis, otherwise sagittal alignment is anatomic. Vertebral body heights are maintained. No prevertebral soft tissue swelling. Posterior elements are intact. No apparent fracture. There is mild clockwise rotation of C2 relative to C1. Moderate degenerative change of the atlantoaxial joint. Moderate hypertrophic change of the superior and inferior endplates throughout with multilevel uncovertebral spurring and facet arthropathy. There is resultant mild central stenosis at C3-C4 with moderate bilateral foraminal stenosis at this level. Milder degrees of foraminal narrowing at the lower cervical levels. Visualized soft tissue structures unremarkable. Limited images of lung apices are clear. Impression head: 1. Small subdural hematoma along the left parietal and temporal convexity, likely acute. There is no significant midline shift or mass effect. 2. Mild chronic small vessel ischemic changes and atrophy. Impression cervical spine: 1. No apparent fracture from skull base to T1. 2. Mild clockwise rotation of C2 relative to C1 of uncertain significance. This could be related to patient positioning. Ligamentous injury cannot be excluded. If indicated, MRI may provide additional information. 3. Mild to moderate multilevel spondylosis. Results discussed with ER physician at approximately 2:00 PM on the day of the exam. Electronically signed by: Tirso Grant MD (04/10/2018 2:05 PM) [facility]
[2018-04-10] MEDS ORDERED: fentaNYL PF VIAL 100 MCG/2 ML VIAL IV PRN (15:15)
[2018-04-10 15:39] VITALS: BP 161/101
== END 2018-04-10 16:31 | disposition other institution (70) ==
LOC: ER 11:50
DX: R55 Syncope and collapse (principal); R11.0 Nausea; K21.9 Gastro-esophageal reflux disease without esophagitis; J45.909 Unspecified asthma, uncomplicated; E11.9 Type 2 diabetes mellitus without complications; I11.9 Hypertensive heart disease without heart failure
CPT/HCPCS: 36415; 70450; 72125; 80053; 83735; 84484; 85025; 93005; 96361; 96374; 99285; J3010; J7040

== ENCOUNTER 2018-05-20 05:35 | Emergency (ER) | payer MEDICARE, BC ==
[~2018-05-20] VITALS: Ht 190.5 cm; Wt 119.7 kg
[~2018-05-20 05:35] MED LIST changes: -HYDR-2758 PO; +HYDR-2761 PO
--- NOTE | 2018-05-20 06:21 | PHYS DOC ---
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 Initially EMS was called for nausea and vomiting and diarrhea, but the patient denies having any of the symptoms. He has not had any vomiting or diarrhea recently, in fact, he states that he just got over a bout of constipation. He presents via EMS, stating that he just doesn't feel well, and couldn't sleep last night because he feels anxious, but is uncertain what he feels anxious about. He denies having any pain. He denies any recent falls, since he was recently hospitalized at this facility for weakness and falls a few months ago. 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 He denies any headache, neck pain, chest pain, abdominal pain, bloody stools, numbness or focal weakness. He does admit to feeling mildly short of breath, has not had any falls. There are no alleviating or exacerbating factors to his symptoms. Review of Systems Review of Systems Constitutional: Denies fever or chills . Reports generalized weakness.[] Eyes: Denies change in visual acuity, redness, or eye pain [] HENT: Denies nasal congestion or sore throat [] Respiratory: Denies cough. Admits to mild shortness of breath [] Cardiovascular: The patient denies any chest pain, palpitations, or orthopneaI [ ] GI: Denies abdominal pain, nausea, vomiting, bloody stools or diarrhea [] : Denies dysuria or hematuria [] Musculoskeletal: Denies back pain or joint pain [] Integument: Denies rash or skin lesions [] Neurologic: Denies headache, focal weakness or sensory changes [] Endocrine: Denies polyuria or polydipsia [] All other systems were reviewed and found to be within normal limits, except as documented in this note. Current Medications Current Medications Current Medications Medications (Trade) Dose Ordered Sig/Kaitlin Start Time Stop Time Status Last Admin Dose Admin Lorazepam (Ativan) 0.5 mg 1X ONCE 05/20/18 06:30 05/20/18 06:31 DC 05/20/18 06:35 0.5 MG Magnesium Oxide (Magnesium Oxide) 400 mg ONCE ONCE 05/20/18 07:45 05/20/18 07:46 DC Sodium Chloride 1,000 ml @ 100 mls/hr Q10H 05/20/18 06:30 05/20/18 16:29 05/20/18 06:39 100 MLS/HR Allergies Allergies Allergies Coded Allergies Type Severity Reaction Last Updated Verified No Known Drug Allergies 05/06/14 No Physical Exam Physical Exam PHYSICAL EXAM: CONSTITUTIONAL: Well developed, well nourished HEAD: normocephalic, atraumatic EENT: PERRL, EOMI. Conjunctivae normal color, sclerae non-icteric; moist mucous membranes. NECK: Supple, non-tender; no meningismus. LUNGS: Lungs CTA, breathing even and unlabored. Normal air movement. HEART: Regular rate and rhythm, no murmur CHEST: No deformity; non-tender ABDOMEN: The abdomen is soft, and non-tender, no masses or bruits. EXTREM: Normal ROM; no deformity, no calf tenderness. Normal pulses palpable in all extremities. There is no pedal edema. SKIN: No rash; no diaphoresis NEURO: Alert; normal speech and cognition; CN's grossly intact; strength grossly intact without focal deficit. There is a Parkinsonian tremor present. BACK: No CVA TTP. Current Patient Data Vital Signs Vital Signs Date Time Temp Pulse Resp B/P (MAP) Pulse Ox O2 Delivery O2 Flow Rate FiO2 05/20/18 05:35 98.3 82 16 154/88 (110) 99 Room Air 98.3 Lab Values Laboratory Tests Test 05/20/18 06:00 05/20/18 06:48 Urine Collection Type Unknown Urine Color Yellow Urine Clarity Clear Urine pH 6.0 Urine Specific [place] 1.020 Urine Protein 30 mg/dL (NEG-TRACE) Urine Glucose (UA) Negative mg/dL (NEG) Urine Ketones (Stick) Negative mg/dL (NEG) Urine Blood Negative (NEG) Urine Nitrite Negative (NEG) Urine Bilirubin Negative (NEG) Urine Urobilinogen Dipstick 1.0 mg/dL (0.2 mg/dL) Urine Leukocyte Esterase Negative (NEG) Urine RBC 0 /HPF (0-2) Urine WBC 1-4 /HPF (0-4) Urine Squamous Epithelial Cells Few /LPF Urine Bacteria Few /HPF (0-FEW) Urine Mucus Marked /LPF White Blood Count 7.4 x10^3/uL (4.0-11.0) Red Blood Count 4.64 x10^6/uL (4.30-5.70) Hemoglobin 14.6 g/dL (13.0-17.5) Hematocrit 42.3 % (39.0-53.0) Mean Corpuscular Volume 91 fL (79-100) Mean Corpuscular Hemoglobin 31 pg (25-35) Mean Corpuscular Hemoglobin Concent 34 g/dL (31-37) Red Cell Distribution Width 14.6 % (11.5-14.5) H Platelet Count 211 x10^3/uL (140-400) Neutrophils (%) (Auto) 72 % (31-73) Lymphocytes (%) (Auto) 16 % (24-48) L Monocytes (%) (Auto) 11 % (0-9) H Eosinophils (%) (Auto) 1 % (0-3) Basophils (%) (Auto) 1 % (0-3) Neutrophils # (Auto) 5.4 x10^3uL (1.8-7.7) Lymphocytes # (Auto) 1.2 x10^3/uL (1.0-4.8) Monocytes # (Auto) 0.8 x10^3/uL (0.0-1.1) Eosinophils # (Auto) 0.0 x10^3/uL (0.0-0.7) Basophils # (Auto) 0.1 x10^3/uL (0.0-0.2) Sodium Level 141 mmol/L (136-145) Potassium Level 3.8 mmol/L (3.5-5.1) Chloride Level 106 mmol/L (98-107) Carbon Dioxide Level 24 mmol/L (21-32) Anion Gap 11 (6-14) Blood Urea Nitrogen 27 mg/dL (8-26) H Creatinine 1.3 mg/dL (0.7-1.3) Estimated GFR (Cockcroft-Gault) 53.1 BUN/Creatinine Ratio 21 (6-20) H Glucose Level 139 mg/dL (70-99) H Calcium Level 9.4 mg/dL (8.5-10.1) Magnesium Level 1.6 mg/dL (1.8-2.4) L Total Bilirubin 0.8 mg/dL (0.2-1.0) Aspartate Amino Transferase (AST) 17 U/L (15-37) Alanine Aminotransferase (ALT) 19 U/L (16-63) Alkaline Phosphatase 119 U/L (46-116) H Troponin I Quantitative < 0.017 ng/mL (0.000-0.055) Total Protein 6.7 g/dL (6.4-8.2) Albumin 3.3 g/dL (3.4-5.0) L Albumin/Globulin Ratio 1.0 (1.0-1.7) Lipase 126 U/L (73-393) Laboratory Tests 05/20/18 06:48 Laboratory Tests 05/20/18 06:48 EKG EKG [Normal sinus rhythm at a rate of 84 beats for minute, right axis deviation, frequent APCs, nonspecific intraventricular conduction delay. There are no acute ischemic ST/T changes. The EKG is limited secondary to motion artifact patient's underlying tremor.] Radiology/Procedures Radiology/Procedures [ER physician preliminary chest x-ray interpretation: Small area of atelectasis in the right middle lung field, otherwise negative.] Course & Med Decision Making Course & Med Decision Making Pertinent Labs and Imaging studies reviewed. (See chart for details) [7:45 AM: The patient's condition remained stable. I discussed test results with the patient, the need for close PCP follow-up and return precautions.] 8:05 AM: Preliminary radiology report does show mild left basilar infiltrate. The patient will be treated for antibiotics, although he denies cough. Dragon Disclaimer Dragon Disclaimer This electronic medical record was generated, in whole or in part, using a voice recognition dictation system. Departure Departure Impression: Primary Impression: Generalized weakness Additional Impression: Pneumonia Disposition: 01 HOME, SELF-CARE Condition: STABLE Referrals: SHIRA OGDEN MD (PCP) Patient Instructions: Pneumonia, Adult, Weakness Scripts Azithromycin (AZITHROMYCIN TABLET) 250 Mg Tablet 1 PKG PO UD, #6 TAB Prov: ABHIJEET TAM MD 05/20/18 Problem Qualifiers ABHIJEET TAM MD May 20, 2018 06:21
[2018-05-20 06:30] LABS: BILIRUBIN,URINE NEGATIVE (NEG); CLARITY,URINE CLEAR; COLOR,URINE YELLOW; NITRITE,URINE NEGATIVE (NEG); PROTEIN,URINE 30 mg/dL (NEG-TRACE)
[2018-05-20] MEDS ORDERED: IV NORMAL SALINE 1000ML BAG 1,000 ML IV SCH (06:30)
[2018-05-20 06:45] LABS: SQUAMOUS EPITHELIAL CELL,UR FEW /LPF
[2018-05-20 06:46] LABS: BACTERIA,URINE FEW /HPF (0-FEW); RBC,URINE 0 /HPF (0-2)
[2018-05-20 06:55] LABS: BASO # 0.1 x10^3/uL (0.0-0.2); BASO % 1 % (0-3); EOS % 1 % (0-3); HEMATOCRIT 42.3 % (39.0-53.0); HEMOGLOBIN 14.6 g/dL (13.0-17.5); LYMPH # 1.2 x10^3/uL (1.0-4.8); LYMPH % 16 % (24-48); MEAN CORPUSCULAR HEMOGLOBIN 31 pg (25-35); MEAN CORPUSCULAR HGB CONC 34 g/dL (31-37); MEAN CORPUSCULAR VOLUME 91 fL (79-100); MONO # 0.8 x10^3/uL (0.0-1.1); MONO % 11 % (0-9); NEUT # 5.4 x10^3uL (1.8-7.7); NEUT % 72 % (31-73); PLATELET COUNT 211 x10^3/uL (140-400); RED BLOOD COUNT 4.64 x10^6/uL (4.30-5.70); RED CELL DISTRIBUTION WIDTH 14.6 % (11.5-14.5); WHITE BLOOD COUNT 7.4 x10^3/uL (4.0-11.0)
[2018-05-20 07:07] LABS: CALCIUM 9.4 mg/dL (8.5-10.1); CREATININE 1.3 mg/dL (0.7-1.3); GFR 53.1; POTASSIUM 3.8 mmol/L (3.5-5.1)
[2018-05-20 07:12] LABS: ALBUMIN 3.3 g/dL (3.4-5.0); MAGNESIUM 1.6 mg/dL (1.8-2.4); TOTAL BILIRUBIN 0.8 mg/dL (0.2-1.0); TOTAL PROTEIN 6.7 g/dL (6.4-8.2)
--- NOTE | 2018-05-20 07:24 | EKG ---
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
[2018-05-20 07:30] VITALS: BP 181/84
[2018-05-20] MEDS ORDERED: MAGNESIUM OXIDE 400 MG TABLET PO ONE (07:45)
--- NOTE | 2018-05-20 07:55 | RAD ---
Portable chest, 05/20/2018: History: Shortness of breath Comparison is made to a study from 12/29/2017. The heart is at the upper limits of normal in size. There is calcific plaquing of the aorta. The pulmonary vascularity is normal. Mild infiltrate has developed laterally in the left base. No significant right lung infiltrate is seen. IMPRESSION: Mild left basilar infiltrate suggesting pneumonia.
[2018-05-20] MEDS ORDERED: AZIT250T6 PO (08:10)
== END 2018-05-20 09:05 | disposition home or self-care (01) ==
LOC: ER 05:35
DX: J18.9 Pneumonia, unspecified organism (principal); R53.1 Weakness; R11.2 Nausea with vomiting, unspecified; J45.909 Unspecified asthma, uncomplicated; K21.9 Gastro-esophageal reflux disease without esophagitis; E11.9 Type 2 diabetes mellitus without complications; I11.9 Hypertensive heart disease without heart failure; G20 Parkinson's disease; Z90.49 Acquired absence of other specified parts of digestive tract
CPT/HCPCS: 36415; 71045; 80053; 81001; 83690; 83735; 84484; 85025; 93005; 96361; 96374; 99284; J2060; J7030

== ENCOUNTER 2018-12-25 07:17 | Emergency (ER) | payer MEDICARE, BC ==
[~2018-12-25] VITALS: Ht 188 cm; Wt 115.7 kg
[~2018-12-25 07:17] MED LIST changes: +ALBU2.5V8 IH; +AZIT250T6 PO; +MONT10TA49 PO; -MONT10TA9 PO; +OMEP20CA10 PO; -OMEP20CA9 PO; -PROAIR HFA8.5 GM IH
[2018-12-25] MEDS ORDERED: IV NORMAL SALINE 1000ML BAG 1,000 ML IV SCH (07:25)
[2018-12-25] MEDS ORDERED: NALOXONE 2 MG/2 ML DISP.SYRIN. ONE (07:26)
--- NOTE | 2018-12-25 07:28 | PHYS DOC ---
Past Medical History Past Medical History: Asthma, Diabetes-Type II, High Cholesterol, Hypertension, Other Additional Past Medical Histor: Parkinson's Past Surgical History: Cholecystectomy Additional Past Surgical Histo: Brain surgery 04/2018, failed hernia repair Alcohol Use: None Drug Use: None Adult General HPI HPI Patient is an 83-year-old male who presents to the emergency department for evaluation. He was just released from the hospital here 2 days ago, after being admitted for generalized weakness in the setting of Parkinson's disease. He went to [facility], and was transferred for excessive sleepiness according to EMS. The patient is somnolent upon arrival although he will respond to painful stimuli. He is unable to provide any meaningful history. There have been no reports of fevers. His recent hospital stay notes have been reviewed. It is notable at the patient's medication list includes [place], something he was not on while he was in the hospital here. There is no medication administration record accompanying the patient from the nursing facility. Review of Systems Review of Systems Unable to obtain secondary to altered mental status Current Medications Current Medications Current Medications Medications (Trade) Dose Ordered Sig/Kaitlin Start Time Stop Time Status Last Admin Dose Admin Naloxone HCl (Narcan) 2 mg STK-MED ONCE 12/25/18 07:26 12/25/18 07:27 DC Sodium Chloride 1,000 ml @ 1,000 mls/hr 1X ONCE 12/25/18 09:30 12/25/18 10:29 Allergies Allergies Allergies Coded Allergies Type Severity Reaction Last Updated Verified No Known Drug Allergies 05/06/14 No Physical Exam Physical Exam PHYSICAL EXAM: CONSTITUTIONAL: Well developed, well nourished HEAD: normocephalic, atraumatic EENT: PERRL, EOMI. pupils are 4 mm bilaterally. Conjunctivae normal color, sclerae non-icteric; moist mucous membranes. NECK: Supple, non-tender; no meningismus. LUNGS: Lungs CTA, breathing even and unlabored. Normal air movement. HEART: Regular rate and rhythm, no murmur CHEST: No deformity; non-tender ABDOMEN: The abdomen is soft, and non-tender, no masses or bruits. EXTREM: Normal ROM; no deformity, no calf tenderness. Normal pulses palpable in all extremities. There is no pedal edema. SKIN: No rash; no diaphoresis NEURO: Patient is somnolent, but will stir to painful stimuli. No definite focal deficit but exam is limited by the patient's inability to participate in the exam. Current Patient Data Vital Signs Vital Signs Date Time Temp Pulse Resp B/P (MAP) Pulse Ox O2 Delivery O2 Flow Rate FiO2 12/25/18 07:17 98.0 73 20 129/71 (90) Room Air 98.0 Lab Values Laboratory Tests Test 12/25/18 07:35 12/25/18 08:15 12/25/18 08:20 White Blood Count 9.1 x10^3/uL (4.0-11.0) Red Blood Count 4.99 x10^6/uL (4.30-5.70) Hemoglobin 15.7 g/dL (13.0-17.5) Hematocrit 46.6 % (39.0-53.0) Mean Corpuscular Volume 94 fL (79-100) Mean Corpuscular Hemoglobin 32 pg (25-35) Mean Corpuscular Hemoglobin Concent 34 g/dL (31-37) Red Cell Distribution Width 14.7 % (11.5-14.5) H Platelet Count 157 x10^3/uL (140-400) Neutrophils (%) (Auto) 70 % (31-73) Lymphocytes (%) (Auto) 15 % (24-48) L Monocytes (%) (Auto) 13 % (0-9) H Eosinophils (%) (Auto) 1 % (0-3) Basophils (%) (Auto) 1 % (0-3) Neutrophils # (Auto) 6.3 x10^3uL (1.8-7.7) Lymphocytes # (Auto) 1.4 x10^3/uL (1.0-4.8) Monocytes # (Auto) 1.2 x10^3/uL (0.0-1.1) H Eosinophils # (Auto) 0.1 x10^3/uL (0.0-0.7) Basophils # (Auto) 0.1 x10^3/uL (0.0-0.2) Prothrombin Time 14.3 SEC (11.7-14.0) H Prothrombin Time INR 1.1 (0.8-1.1) Sodium Level 139 mmol/L (136-145) Potassium Level 4.4 mmol/L (3.5-5.1) Chloride Level 104 mmol/L (98-107) Carbon Dioxide Level 26 mmol/L (21-32) Anion Gap 9 (6-14) Blood Urea Nitrogen 49 mg/dL (8-26) H Creatinine 1.8 mg/dL (0.7-1.3) H Estimated GFR (Cockcroft-Gault) 36.4 BUN/Creatinine Ratio 27 (6-20) H Glucose Level 119 mg/dL (70-99) H Calcium Level 9.6 mg/dL (8.5-10.1) Total Bilirubin 1.1 mg/dL (0.2-1.0) H Aspartate Amino Transferase (AST) 25 U/L (15-37) Alanine Aminotransferase (ALT) 20 U/L (16-63) Alkaline Phosphatase 101 U/L (46-116) Troponin I Quantitative < 0.017 ng/mL (0.000-0.055) LY-Uzo-A-Type Natriuretic Peptide 96 pg/mL (0-449) Total Protein 6.8 g/dL (6.4-8.2) Albumin 3.5 g/dL (3.4-5.0) Albumin/Globulin Ratio 1.1 (1.0-1.7) Urine Collection Type Unknown Urine Color Yellow Urine Clarity Clear Urine pH 5.5 Urine Specific [place] 1.020 Urine Protein Negative mg/dL (NEG-TRACE) Urine Glucose (UA) Negative mg/dL (NEG) Urine Ketones (Stick) Negative mg/dL (NEG) Urine Blood Negative (NEG) Urine Nitrite Negative (NEG) Urine Bilirubin Negative (NEG) Urine Urobilinogen Dipstick 1.0 mg/dL (0.2 mg/dL) Urine Leukocyte Esterase Negative (NEG) Urine RBC 0 /HPF (0-2) Urine WBC Occ /HPF (0-4) Urine Squamous Epithelial Cells Few /LPF Urine Bacteria Few /HPF (0-FEW) Urine Mucus Slight /LPF Urine Opiates Screen Neg (NEG) Urine Methadone Screen Neg (NEG) Urine Barbiturates Neg (NEG) Urine Phencyclidine Screen Neg (NEG) Urine Amphetamine/Methamphetamine Neg (NEG) Urine Benzodiazepines Screen Neg (NEG) Urine Cocaine Screen Neg (NEG) Urine Cannabinoids Screen Neg (NEG) Urine Ethyl Alcohol Neg (NEG) Laboratory Tests 12/25/18 07:35 Laboratory Tests 12/25/18 07:35 EKG EKG Probable underlying sinus rhythm at a rate of 78 bpm, left axis deviation, occasional PVCs, there are no acute ischemic ST/T changes. Other than axis changes, the EKG does not significantly appear changed compared to patient's prior EKG. There is significant motion artifact[] Radiology/Procedures Radiology/Procedures [PROCEDURE: CT HEAD WO CONTRAST Examination: CT HEAD WO CONTRAST History: Altered mental status Comparison/Correlation: 12/20/2018 CT head and cervical spine without contrast Findings: Axial images of the head were obtained without contrast. Ventricles are mildly enlarged but this is unchanged and likely related to volume loss.. No midline shift or mass effect. Inge hole defects are identified. No intracranial hemorrhage. Globes and optic nerves are unremarkable. Minimal opacification of paranasal sinuses. Impression: No intracranial hemorrhage. ] PROCEDURE: PORTABLE CHEST 1V Examination: PORTABLE CHEST 1V History: Altered mental status Comparison/Correlation: 12/20/2018 portable chest x-ray exam Findings: Upright portable frontal view chest was obtained. Heart size is normal. No pneumothorax. Right lung field is clear. Left lateral basilar apparent opacification is similar to previous exams and likely related to overlapping anatomic structures. No acute bony process. Impression: No definite infiltrate. Consider lateral view for more complete assessment if clinically desired. Course & Med Decision Making Course & Med Decision Making Pertinent Labs and Imaging studies reviewed. (See chart for details) []10:20 AM: The patient's condition remains a stable. He did have some periods of wakefulness when he was in the emergency department and talking and communicative. He does have some hallucinations at times however. However, the patient's , who is present at the bedside at this time, states that the patient's current mental status is his normal typical baseline. She states that the patient does typically have some periods of sleepiness and hallucinations at times due to his underlying Parkinson's disease, and none of these behaviors are new. I discussed test results with the patient and his , the need for close follow-up and return precautions. Dragon Disclaimer Dragon Disclaimer This electronic medical record was generated, in whole or in part, using a voice recognition dictation system. 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
[2018-12-25] MEDS ORDERED: NALOXONE 0.4 MG/ML VIAL. IV ONE (07:30)
[2018-12-25 07:45] LABS: BASO # 0.1 x10^3/uL (0.0-0.2); BASO % 1 % (0-3); EOS # 0.1 x10^3/uL (0.0-0.7); EOS % 1 % (0-3); HEMATOCRIT 46.6 % (39.0-53.0); HEMOGLOBIN 15.7 g/dL (13.0-17.5); LYMPH # 1.4 x10^3/uL (1.0-4.8); LYMPH % 15 % (24-48); MEAN CORPUSCULAR HEMOGLOBIN 32 pg (25-35); MEAN CORPUSCULAR HGB CONC 34 g/dL (31-37); MEAN CORPUSCULAR VOLUME 94 fL (79-100); MONO # 1.2 x10^3/uL (0.0-1.1); MONO % 13 % (0-9); NEUT # 6.3 x10^3uL (1.8-7.7); NEUT % 70 % (31-73); PLATELET COUNT 157 x10^3/uL (140-400); RED BLOOD COUNT 4.99 x10^6/uL (4.30-5.70); RED CELL DISTRIBUTION WIDTH 14.7 % (11.5-14.5); WHITE BLOOD COUNT 9.1 x10^3/uL (4.0-11.0)
--- NOTE | 2018-12-25 07:51 | RAD ---
Examination: PORTABLE CHEST 1V History: Altered mental status Comparison/Correlation: 12/20/2018 portable chest x-ray exam Findings: Upright portable frontal view chest was obtained. Heart size is normal. No pneumothorax. Right lung field is clear. Left lateral basilar apparent opacification is similar to previous exams and likely related to overlapping anatomic structures. No acute bony process. Impression: No definite infiltrate. Consider lateral view for more complete assessment if clinically desired. Electronically signed by: Oc Mak MD (12/25/2018 7:48 AM) [facility]
[2018-12-25 08:01] LABS: PROTHROMBIN TIME PATIENT 14.3 SEC (11.7-14.0)
--- NOTE | 2018-12-25 08:04 | RAD ---
Examination: CT HEAD WO CONTRAST History: Altered mental status Comparison/Correlation: 12/20/2018 CT head and cervical spine without contrast Findings: Axial images of the head were obtained without contrast. Ventricles are mildly enlarged but this is unchanged and likely related to volume loss.. No midline shift or mass effect. Inge hole defects are identified. No intracranial hemorrhage. Globes and optic nerves are unremarkable. Minimal opacification of paranasal sinuses. Impression: No intracranial hemorrhage. PQRS Compliance Statement: One or more of the following individualized dose reduction techniques were utilized for this examination: 1. Automated exposure control 2. Adjustment of the mA and/or kV according to patient size 3. Use of iterative reconstruction technique Electronically signed by: Oc Mak MD (12/25/2018 8:01 AM) [facility]
[2018-12-25 08:17] LABS: CALCIUM 9.6 mg/dL (8.5-10.1); CREATININE 1.8 mg/dL (0.7-1.3); GFR 36.4; POTASSIUM 4.4 mmol/L (3.5-5.1)
[2018-12-25 08:29] LABS: ALBUMIN 3.5 g/dL (3.4-5.0); ALBUMIN/GLOBULIN RATIO 1.1 (1.0-1.7); TOTAL BILIRUBIN 1.1 mg/dL (0.2-1.0); TOTAL PROTEIN 6.8 g/dL (6.4-8.2)
--- NOTE | 2018-12-25 08:44 | EKG ---
[facility] [address] [place] [address] Test Date: 2018-12-25 Test Time: 07:30:42 Pat Name: YOSELIN LAZO Department: Room: Gender: M Mdm Sr: : 1935 Requested By: ABHIJEET TAM Order Number: [id number] Reading MD: Measurements Intervals [place] Rate: 78 P: [place]: QRS: -42 QRSD: 120 T: 26 QT: 412 QTc: 473 Interpretive Statements ATRIAL FLUTTER VENTRICULAR PREMATURE COMPLEX(ES) ABNORMAL LEFT AXIS DEVIATION LEFT ANTERIOR FASCICULAR BLOCK QRS(T) CONTOUR ABNORMALITY CONSIDER ANTEROSEPTAL MYOCARDIAL DAMAGE T ABNORMALITY IN INFERIOR LEADS ABNORMAL ECG No previous ECG available for comparison
[2018-12-25 08:51] LABS: BARBITURATES NEG (NEG); BENZODIAZEPINES NEG (NEG); CANNABINOIDS NEG (NEG); COCAINE NEG (NEG); METHADONE NEG (NEG); OPIATES NEG (NEG); PHENCYCLIDINE NEG (NEG)
[2018-12-25 08:53] LABS: AMPHETAMINE/METHAMPHETAMINE NEG (NEG)
[2018-12-25] MEDS ORDERED: IV NORMAL SALINE 1000ML BAG 1,000 ML IV ONE (09:30)
[2018-12-25 10:13] LABS: BILIRUBIN,URINE NEGATIVE (NEG); CLARITY,URINE CLEAR; COLOR,URINE YELLOW; NITRITE,URINE NEGATIVE (NEG); PH,URINE 5.5; PROTEIN,URINE NEGATIVE (NEG-TRACE)
[2018-12-25 10:14] LABS: BACTERIA,URINE FEW /HPF (0-FEW); RBC,URINE 0 /HPF (0-2); SQUAMOUS EPITHELIAL CELL,UR FEW /LPF; WBC,URINE OCC /HPF (0-4)
[2018-12-25 10:30] VITALS: BP 137/66
--- NOTE | 2018-12-25 15:07 | EKG ---
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
== END 2018-12-25 10:38 | disposition home or self-care (01) ==
LOC: ER 07:17
DX: R41.82 Altered mental status, unspecified (principal); G20 Parkinson's disease; F02.80 Dementia in other diseases classified elsewhere, unspecified severity, without behavioral disturbance, psychotic disturbance, mood disturbance, and anxiety; E11.9 Type 2 diabetes mellitus without complications; J45.909 Unspecified asthma, uncomplicated; E78.00 Pure hypercholesterolemia, unspecified; I10 Essential (primary) hypertension; Z90.49 Acquired absence of other specified parts of digestive tract; Z98.890 Other specified postprocedural states
CPT/HCPCS: 36415; 70450; 71045; 80053; 80307; 81001; 83880; 84484; 85025; 85610; 93005; 96374; 99285; J2310; J7030; P9612; 96361

== ENCOUNTER 2019-04-02 00:37 | Inpatient (IN) | payer MEDICARE, BC ==
[~2019-04-02] VITALS: Ht 190.5 cm; Wt 117.3 kg
[~2019-04-02 00:37] MED LIST changes: +LISI1TAB19 PO; -LISI1TAB5 PO; +OMEP40CA45 PO; -OMEP40CA5 PO; +SIMV20TA18 PO; -SIMV20TA3 PO
[2019-04-02 01:11] LABS: BASO # 0.1 x10^3/uL (0.0-0.2); BASO % 1 % (0-3); EOS # 0.2 x10^3/uL (0.0-0.7); EOS % 2 % (0-3); HEMATOCRIT 44.8 % (39.0-53.0); HEMOGLOBIN 15.1 g/dL (13.0-17.5); LYMPH # 1.8 x10^3/uL (1.0-4.8); LYMPH % 24 % (24-48); MEAN CORPUSCULAR HEMOGLOBIN 32 pg (25-35); MEAN CORPUSCULAR HGB CONC 34 g/dL (31-37); MEAN CORPUSCULAR VOLUME 94 fL (79-100); MONO # 1.2 x10^3/uL (0.0-1.1); MONO % 16 % (0-9); NEUT # 4.2 x10^3/uL (1.8-7.7); NEUT % 57 % (31-73); PLATELET COUNT 174 x10^3/uL (140-400); RED BLOOD COUNT 4.76 x10^6/uL (4.30-5.70); RED CELL DISTRIBUTION WIDTH 13.9 % (11.5-14.5); WHITE BLOOD COUNT 7.4 x10^3/uL (4.0-11.0)
[2019-04-02] MEDS ORDERED: IV NORMAL SALINE 500ML BAG 500 ML IV ONE (01:15)
[2019-04-02 01:17] LABS: CALCIUM 9.2 mg/dL (8.5-10.1); CREATININE 1.2 mg/dL (0.7-1.3); GFR 58.1; POTASSIUM 4.1 mmol/L (3.5-5.1)
[2019-04-02 01:25] LABS: ALBUMIN 3.4 g/dL (3.4-5.0); ALBUMIN/GLOBULIN RATIO 1.1 (1.0-1.7); MAGNESIUM 1.9 mg/dL (1.8-2.4); TOTAL BILIRUBIN 0.3 mg/dL (0.2-1.0); TOTAL PROTEIN 6.5 g/dL (6.4-8.2)
[2019-04-02 01:35] LABS: BILIRUBIN,URINE NEGATIVE (NEG); CLARITY,URINE CLEAR; COLOR,URINE YELLOW; NITRITE,URINE NEGATIVE (NEG); PH,URINE 5.5; PROTEIN,URINE 30 mg/dL (NEG-TRACE)
[2019-04-02 01:45] LABS: BACTERIA,URINE FEW /HPF (0-FEW); HYALINE CASTS, URINE FEW /HPF; SQUAMOUS EPITHELIAL CELL,UR FEW /LPF
--- NOTE | 2019-04-02 02:13 | PHYS DOC ---
Past Medical History Past Medical History: Asthma, Diabetes-Type II, High Cholesterol, Hypertension, Other Additional Past Medical Histor: Parkinson's Past Surgical History: Cholecystectomy Additional Past Surgical Histo: Brain surgery 04/2018, failed hernia repair Alcohol Use: None Drug Use: None Adult General Chief Complaint Chief Complaint: WEAKNESS/GENERALIZED HPI HPI Patient is an 83-year-old male with Parkinson's who presents with progressive weakness. This evening he tried to get out of bed able to do so. He called his into the room who was also unable to get him out of bed. Patient states that he does have severe back pain and this is part of why he can't get out of bed. He states prior to going to bed this evening he was in his usual state of health. He denies any fever chills or sweats. He denies any lateralizing weakness. He states the tremor is no different than usual.] Review of Systems Review of Systems Constitutional: Denies fever or chills [] Eyes: Denies change in visual acuity, redness, or eye pain [] HENT: Denies nasal congestion or sore throat [] Respiratory: Denies cough or shortness of breath [] Cardiovascular: No additional information not addressed in HPI [] GI: Denies abdominal pain, nausea, vomiting, bloody stools or diarrhea [] : Denies dysuria or hematuria [] Musculoskeletal: Reports back pain[] Integument: Denies rash or skin lesions [] Neurologic: No focal weakness tremors unchanged, reports ataxia[] Endocrine: Denies polyuria or polydipsia [] All other systems were reviewed and found to be within normal limits, except as documented in this note. Current Medications Current Medications Current Medications Medications (Trade) Dose Ordered Sig/Kaitlin Start Time Stop Time Status Last Admin Dose Admin Ondansetron HCl (Zofran Odt) 4 mg 1X ONCE 04/02/19 02:30 04/02/19 02:31 04/02/19 02:25 4 MG Oxycodone/ Acetaminophen (Percocet 5/325) 2 tab 1X ONCE 04/02/19 02:30 04/02/19 02:31 04/02/19 02:25 2 TAB Sodium Chloride 500 ml @ 500 mls/hr 1X ONCE 04/02/19 01:15 04/02/19 02:14 DC 04/02/19 01:26 500 MLS/HR Allergies Allergies Allergies Coded Allergies Type Severity Reaction Last Updated Verified No Known Drug Allergies 05/06/14 No Physical Exam Physical Exam Constitutional: Frail elderly male in no distress. [] HENT: Normocephalic, atraumatic, bilateral external ears normal, oropharynx moist, no oral exudates, nose normal. [] Eyes: PERRLA, EOMI, conjunctiva normal, no discharge. [] Neck: Normal range of motion, no tenderness, supple, no stridor. [] Cardiovascular:Heart rate regular rhythm, no murmur [] Lungs & Thorax: Bilateral breath sounds clear to auscultation [] Abdomen: Bowel sounds normal, soft, no tenderness, no masses, no pulsatile masses. [] Skin: Warm, dry, no erythema, no rash. [] Back: No tenderness, no CVA tenderness. [] Extremities: No tenderness, no cyanosis, no clubbing, ROM intact, no edema. [] Neurologic: pill rolling tremor on the right. [] Psychologic: Depressed affect[] Current Patient Data Vital Signs Vital Signs Date Time Temp Pulse Resp B/P (MAP) Pulse Ox O2 Delivery O2 Flow Rate FiO2 04/02/19 02:25 98 Room Air 04/02/19 00:37 97.6 90 18 126/75 (92) 97.6 Lab Values Laboratory Tests Test 04/02/19 00:49 04/02/19 01:28 White Blood Count 7.4 x10^3/uL (4.0-11.0) Red Blood Count 4.76 x10^6/uL (4.30-5.70) Hemoglobin 15.1 g/dL (13.0-17.5) Hematocrit 44.8 % (39.0-53.0) Mean Corpuscular Volume 94 fL (79-100) Mean Corpuscular Hemoglobin 32 pg (25-35) Mean Corpuscular Hemoglobin Concent 34 g/dL (31-37) Red Cell Distribution Width 13.9 % (11.5-14.5) Platelet Count 174 x10^3/uL (140-400) Neutrophils (%) (Auto) 57 % (31-73) Lymphocytes (%) (Auto) 24 % (24-48) Monocytes (%) (Auto) 16 % (0-9) H Eosinophils (%) (Auto) 2 % (0-3) Basophils (%) (Auto) 1 % (0-3) Neutrophils # (Auto) 4.2 x10^3/uL (1.8-7.7) Lymphocytes # (Auto) 1.8 x10^3/uL (1.0-4.8) Monocytes # (Auto) 1.2 x10^3/uL (0.0-1.1) H Eosinophils # (Auto) 0.2 x10^3/uL (0.0-0.7) Basophils # (Auto) 0.1 x10^3/uL (0.0-0.2) Sodium Level 142 mmol/L (136-145) Potassium Level 4.1 mmol/L (3.5-5.1) Chloride Level 109 mmol/L (98-107) H Carbon Dioxide Level 26 mmol/L (21-32) Anion Gap 7 (6-14) Blood Urea Nitrogen 35 mg/dL (8-26) H Creatinine 1.2 mg/dL (0.7-1.3) Estimated GFR (Cockcroft-Gault) 58.1 BUN/Creatinine Ratio 29 (6-20) H Glucose Level 110 mg/dL (70-99) H Calcium Level 9.2 mg/dL (8.5-10.1) Magnesium Level 1.9 mg/dL (1.8-2.4) Total Bilirubin 0.3 mg/dL (0.2-1.0) Aspartate Amino Transferase (AST) 21 U/L (15-37) Alanine Aminotransferase (ALT) 19 U/L (16-63) Alkaline Phosphatase 88 U/L (46-116) Troponin I Quantitative < 0.017 ng/mL (0.000-0.055) Total Protein 6.5 g/dL (6.4-8.2) Albumin 3.4 g/dL (3.4-5.0) Albumin/Globulin Ratio 1.1 (1.0-1.7) Urine Collection Type Unknown Urine Color Yellow Urine Clarity Clear Urine pH 5.5 Urine Specific [place] 1.025 Urine Protein 30 mg/dL (NEG-TRACE) Urine Glucose (UA) Negative mg/dL (NEG) Urine Ketones (Stick) Negative mg/dL (NEG) Urine Blood Negative (NEG) Urine Nitrite Negative (NEG) Urine Bilirubin Negative (NEG) Urine Urobilinogen Dipstick 1.0 mg/dL (0.2 mg/dL) Urine Leukocyte Esterase Negative (NEG) Urine RBC 1-2 /HPF (0-2) Urine WBC 1-4 /HPF (0-4) Urine Squamous Epithelial Cells Few /LPF Urine Bacteria Few /HPF (0-FEW) Urine Hyaline Casts Few /HPF Urine Mucus Slight /LPF Laboratory Tests 04/02/19 00:49 Laboratory Tests 04/02/19 00:49 EKG EKG [] Interpretation Time: EKG: Normal sinus rhythm rate of [address]-T changes Radiology/Procedures Radiology/Procedures [] Course & Med Decision Making Course & Med Decision Making Pertinent Labs and Imaging studies reviewed. (See chart for details) [ED course: Evaluation reveals a 83-year-old male with generalized weakness and ataxia likely secondary to progressive Parkinson's disease. Sending the patient home creates an unsafe environment for him secondary to the severe ataxia. We'll go ahead and place him in the hospital under the care of Dr. Warren. I've explained to the family that we would have neurology as well as physical and occupational therapy evaluate the patient over the course of his stay to assess need for possible long-term or fdc.] Dragon Disclaimer Dragon Disclaimer This electronic medical record was generated, in whole or in part, using a voice recognition dictation system. Departure Departure Impression: Primary Impression: Generalized weakness Additional Impressions: Parkinsonian tremor Ataxia Disposition: ADMITTED INPATIENT Admitting Physician: GOOD Condition: STABLE Referrals: SHIRA OGDEN MD (PCP) Problem Qualifiers TARA SULLIVAN DO Apr 02, 2019 02:13
[2019-04-02] MEDS ORDERED: ONDANSETRON ODT 4 MG TAB.RAPDIS. PO ONE (02:30)
[2019-04-02] MEDS ORDERED: oxyCODONE/APAP 5/325 1 TAB TABLET PO ONE (02:30)
[2019-04-02] MEDS ORDERED: ACETAMINOPHEN 325 MG TABLET. PO PRN (02:45)
[2019-04-02] MEDS ORDERED: fentaNYL PF VIAL 100 MCG/2 ML VIAL IV PRN (02:45)
[2019-04-02] MEDS ORDERED: ONDANSETRON PF 4 MG/2 ML VIAL. IV PRN (02:45)
[2019-04-02 03:30] VITALS: BP 141/82
[2019-04-02] MEDS: IV NORMAL SALINE 1000ML BAG 1,000 ML IV SCH ×3 (04:17→23:59)
--- NOTE | 2019-04-02 06:05 | NUR ---
Per RN helper, coffee given to patient and set up on table in front of him, patient asked if he needed anything else and patient declined. 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 This nurse went to patient's room to help and patient upset because, "All I want is to drink my damn coffee and for some help, that's why I came here and I'm not at home". This nurse asked patient what kind of help he needed and patient requested to sit at side of bed. Patient assisted to side of bed and tray now in front of patient. Patient asked if he needed any other assistance and declined at this time. Patient reminded to instruct staff on his specific needs during his stay on the unit and patient verbalized understanding, will continue to monitor.
--- NOTE | 2019-04-02 06:21 | EKG ---
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
--- NOTE | 2019-04-02 06:25 | NUR ---
The patient, YOSELIN LAZO, 83 y/o, M admitted by MARTIN PATTERSON III, DO, was given written information regarding hospital policies, unit procedures and contact persons. Patient afebrile, VSS with no c/o pain upon admission. Patient admission assessment complete, admit packet reviewed, and plan of care discussed. Patient' allergies verified and valuables were checked and left in room with patient. Patient re-positioned in bed and declined SCD's at this time. Patient's call light within reach and will continue to monitor. Addendum: 04/02/19 at 0714 by COSTA DORADO RN Patient unable to provide home medications at admission, pharmacy verified, and per patient his will bring complete medication list.
--- NOTE | 2019-04-02 06:45 | NUR ---
During shift report, patient complaining about staff because he is not allowed to get out of bed on his own stating, "I been in the same position for 4 hours and no one would answer my call light when I needed help". This nurse assured patient that his call light requests were answered and reminded patient that for his safety and to prevent falls, assistance from staff is required. Patient states, "I'm so tired of this I can get up on my own, you can't treat me like this". This nurse explained to patient that it was only for his safety and in no way is staff treating him unfairly. Patient re-positioned in bed and transfer of care to [address].
[2019-04-02 07:00] VITALS: BP 157/82
[2019-04-02] MEDS ORDERED: ALBUTEROL SULFATE 2.5 MG/3 ML NEBU. INH PRN (08:30)
[2019-04-02] MEDS ORDERED: cloNIDine HCL 0.1 MG TABLET PO PRN (08:30)
[2019-04-02] MEDS ORDERED: DEXTROSE 50% 25 GM / 50ML DISP.SYRIN. IV PRN (08:30)
[2019-04-02] MEDS: CARBINOXAMINE MALEATE 4 MG PO SCH ×2 (09:00→11:25)
[2019-04-02] MEDS ORDERED: DULoxetine HCL 30 MG CAPSULE.DR PO SCH (09:00)
[2019-04-02] MEDS ORDERED: metFORMIN 500 MG TABLET PO SCH (09:00)
[2019-04-02] MEDS ORDERED: NON FORMULARY ITEM (Fluticasone/Salmeterol (Advair 250-50 Diskus) 1 PUFF) IH SCH (09:00)
[2019-04-02] MEDS ORDERED: QUET25TA5 PO (09:23)
[2019-04-02] MEDS ORDERED: CARB1TAB2 PO (09:23)
[2019-04-02] MEDS ORDERED: MONT10TA49 PO (09:23)
--- NOTE | 2019-04-02 09:31 | PDOC1 ---
History and Physical Date of Admission Date of Admission DATE: 04/02/19 TIME: 09:24 Identification/Chief Complaint Chief Complaint gait instability Source Source: Caregiver, Chart review, Patient History of Present Illness History of Present Illness 83 white male, with parkinsons dementia lives at home with , ambulates with a cane, more gait instability lately, non injury falls, shakes worse (but able to feed himself or at least tries to), we are able to get his meds from his pharmacy and he is on sinemet. PArkinsons managed by his PCP (no neurologist). LAbs ok, no imaging needed. Admitted overnight by ER bec of gait ataxia, Pt wi lling for rehab if needed, has been to one, > 1 yr ag. FULL CODE helps take care of him Past Medical History Cardiovascular: HTN, Hyperlipidemia Pulmonary: Asthma, Pneumonia CENTRAL NERVOUS SYSTEM: Periperal neuropathy, Other GI: GERD Heme/Onc: No pertinent hx Hepatobiliary: No pertinent hx Psych: Anxiety Musculoskeletal: low back pain, Osteoarthritis Rheumatologic: No pertinent hx Infectious disease: No pertinent hx Renal/: No pertinent hx Endocrine: Diabetes Past Surgical History Past Surgical History: Cholecystectomy, Cataract Removal, Other Family History Family History: Diabetes, Heart Disease Social History Smoke: No ALCOHOL: none Drugs: None Current Problem List Problem List Problems Medical Problems: (1) Ataxia Status: Acute (2) Generalized weakness Status: Acute Current Medications Current Medications Current Medications Sodium Chloride 500 ml @ 500 mls/hr 1X ONCE IV Last administered on 04/02/19at 01:26; Start 04/02/19 at 01:15; Stop 04/02/19 at 02:14; Status DC Oxycodone/ Acetaminophen (Percocet 5/325) 2 tab 1X ONCE PO Last administered on 04/02/19at 02:25; Start 04/02/19 at 02:30; Stop 04/02/19 at 02:31; Status DC Ondansetron HCl (Zofran Odt) 4 mg 1X ONCE PO Last administered on 04/02/19at 02:25; Start 04/02/19 at 02:30; Stop 04/02/19 at 02:31; Status DC Ondansetron HCl (Zofran) 4 mg PRN Q8HRS PRN IV NAUSEA/VOMITING; Start 04/02/19 at 02:45; Stop 04/03/19 at 02:44 Fentanyl Citrate (Fentanyl 2ml Vial) 50 mcg PRN Q4HRS PRN IV PAIN; Start 04/02/19 at 02:45; Stop 04/03/19 at 02:44 Sodium Chloride 1,000 ml @ 80 mls/hr [id number] IV Last administered on 04/02/19at 04:17; Start 04/02/19 at 02:30 Acetaminophen (Tylenol) 650 mg PRN Q4HRS PRN PO FEVER; Start 04/02/19 at 02:45; Stop 04/03/19 at 02:44 Albuterol Sulfate (Ventolin Neb Soln) 2.5 mg PRN QID PRN INH SHORTNESS OF BREATH; Start 04/02/19 at 08:30 Acetaminophen/ Hydrocodone Bitart (Lortab 5/325) 1 tab PRN Q6HRS PRN PO MODERA TE PAIN; Start 04/02/19 at 08:30 Metformin HCl (Glucophage) 500 mg BIDWMEALS PO ; Start 04/02/19 at 09:00 Simvastatin (Zocor) 20 mg QHS PO ; Start 04/02/19 at 21:00 Non-Formulary Medication (Carbinoxamine Maleate ) 4 mg DAILY PO ; Start 04/02/19 at 09:00; Status UNV Duloxetine HCl (Cymbalta) 60 mg DAILY PO ; Start 04/02/19 at 09:00 Non-Formulary Medication (Fluticasone/ Salmeterol (Advair 250-50 Diskus)) 1 puff BID IH ; Start 04/02/19 at 09:00; Status UNV Lisinopril (Prinivil) 20 mg DAILY PO ; Start 04/02/19 at 09:00 Pantoprazole Sodium (Protonix) 40 mg DAILYAC PO ; Start 04/02/19 at 11:30 Clonidine HCl (Catapres) 0.1 mg PRN Q1HR PRN PO HYPERTENSION; Start 04/02/19 at 08:30 Insulin Human Lispro (HumaLOG) 0-9 UNITS TIDWMEALS SQ ; Start 04/02/19 at 12:00 Dextrose (Dextrose 50%-Water Syringe) 12.5 gm PRN Q15MIN PRN IV SEE COMMENTS; Start 04/02/19 at 08:30 Hydrochlorothiazide (Microzide) 12.5 mg DAILY PO ; Start 04/02/19 at 09:00 Albuterol Sulfate (Ventolin Neb Soln) 2.5 mg Q6HRS NEB ; Start 04/02/19 at 12:00 Budesonide (Pulmicort) 0.5 mg RTBID NEB ; Start 04/02/19 at 20:00 Active Scripts Active Azithromycin Tablet (Azithromycin) 250 Mg Tablet 1 Pkg PO UD Reported Hydrocodone-Apap 5-325 (Hydrocodone Bit/Acetaminophen) 1 Each Tablet 1 Tab PO PRN Q6HRS PRN Lisinopril-Hctz 20-12.5 Mg Tab (Lisinopril/Hydrochlorothiazide) 1 Each Tablet 1 Tab PO DAILY Omeprazole 40 Mg Capsule.dr 1 Cap PO DAILY Carbinoxamine Maleate 4 Mg Tablet 4 Mg PO DAILY Advair 250-50 Diskus (Fluticasone/Salmeterol) 1 Each Disk.w.dev 1 Puff IH BID Simvastatin 20 Mg Tablet 20 Mg PO DAILY Proair Hfa Inhaler (Albuterol Sulfate) 8.5 Gm Hfa.aer.ad 2 Puff IH PRN Q4-6HRS PRN Allergies Allergies: Coded Allergies: No Known Drug Allergies (Unverified , 05/06/14) ROS Review of System as per hPI, all else 14 pt neg Physical Exam General: Alert, Oriented X3, Cooperative, No acute distress, Other (resting tremors, NAD) HEENT: PERRLA, EOMI Lungs: Clear to auscultation, Normal air movement Heart: S1S2, RRR, no thrills, no rubs, no gallops, no murmurs Cardiovascular: S1, S2 Abdomen: Normal bowel sounds, Soft, No tenderness, No hepatosplenomegaly, No masses Rectal Exam: not examined PELVIC: Nml ext genitalia Extremities: No clubbing, No cyanosis, No edema, Normal pulses Skin: No significant lesion, Other (senile skin turgor) Neuro: Normal speech, Strength at 5/5 X4 ext, Normal tone, Sensation intact, Cranial nerves 3-12 NL, Reflexes 2+, Other (shaky gait) Vitals Vitals Vital Signs Date Time Temp Pulse Resp B/P (MAP) Pulse Ox O2 Delivery O2 Flow Rate FiO2 04/02/19 07:48 Room Air 04/02/19 07:00 97.5 64 16 157/82 (107) 97 97.5 Labs Labs Laboratory Tests Test 04/02/19 00:49 04/02/19 01:28 04/02/19 07:39 White Blood Count 7.4 x10^3/uL (4.0-11.0) Red Blood Count 4.76 x10^6/uL (4.30-5.70) Hemoglobin 15.1 g/dL (13.0-17.5) Hematocrit 44.8 % (39.0-53.0) Mean Corpuscular Volume 94 fL (79-100) Mean Corpuscular Hemoglobin 32 pg (25-35) Mean Corpuscular Hemoglobin Concent 34 g/dL (31-37) Red Cell Distribution Width 13.9 % (11.5-14.5) Platelet Count 174 x10^3/uL (140-400) Neutrophils (%) (Auto) 57 % (31-73) Lymphocytes (%) (Auto) 24 % (24-48) Monocytes (%) (Auto) 16 % (0-9) Eosinophils (%) (Auto) 2 % (0-3) Basophils (%) (Auto) 1 % (0-3) Neutrophils # (Auto) 4.2 x10^3/uL (1.8-7.7) Lymphocytes # (Auto) 1.8 x10^3/uL (1.0-4.8) Monocytes # (Auto) 1.2 x10^3/uL (0.0-1.1) Eosinophils # (Auto) 0.2 x10^3/uL (0.0-0.7) Basophils # (Auto) 0.1 x10^3/uL (0.0-0.2) Sodium Level 142 mmol/L (136-145) Potassium Level 4.1 mmol/L (3.5-5.1) Chloride Level 109 mmol/L (98-107) Carbon Dioxide Level 26 mmol/L (21-32) Anion Gap 7 (6-14) Blood Urea Nitrogen 35 mg/dL (8-26) Creatinine 1.2 mg/dL (0.7-1.3) Estimated GFR (Cockcroft-Gault) 58.1 BUN/Creatinine Ratio 29 (6-20) Glucose Level 110 mg/dL (70-99) Calcium Level 9.2 mg/dL (8.5-10.1) Magnesium Level 1.9 mg/dL (1.8-2.4) Total Bilirubin 0.3 mg/dL (0.2-1.0) Aspartate Amino Transf (AST/SGOT) 21 U/L (15-37) Alanine Aminotransferase (ALT/SGPT) 19 U/L (16-63) Alkaline Phosphatase 88 U/L (46-116) Troponin I Quantitative < 0.017 ng/mL (0.000-0.055) Total Protein 6.5 g/dL (6.4-8.2) Albumin 3.4 g/dL (3.4-5.0) Albumin/Globulin Ratio 1.1 (1.0-1.7) Urine Collection Type Unknown Urine Color Yellow Urine Clarity Clear Urine pH 5.5 Urine Specific [place] 1.025 Urine Protein 30 mg/dL (NEG-TRACE) Urine Glucose (UA) Negative mg/dL (NEG) Urine Ketones (Stick) Negative mg/dL (NEG) Urine Blood Negative (NEG) Urine Nitrite Negative (NEG) Urine Bilirubin Negative (NEG) Urine Urobilinogen Dipstick 1.0 mg/dL (0.2 mg/dL) Urine Leukocyte Esterase Negative (NEG) Urine RBC 1-2 /HPF (0-2) Urine WBC 1-4 /HPF (0-4) Urine Squamous Epithelial Cells Few /LPF Urine Bacteria Few /HPF (0-FEW) Urine Hyaline Casts Few /HPF Urine Mucus Slight /LPF Glucose (Fingerstick) 114 mg/dL (70-99) Laboratory Tests Test 04/02/19 00:49 04/02/19 01:28 04/02/19 07:39 White Blood Count 7.4 x10^3/uL (4.0-11.0) Red Blood Count 4.76 x10^6/uL (4.30-5.70) Hemoglobin 15.1 g/dL (13.0-17.5) Hematocrit 44.8 % (39.0-53.0) Mean Corpuscular Volume 94 fL (79-100) Mean Corpuscular Hemoglobin 32 pg (25-35) Mean Corpuscular Hemoglobin Concent 34 g/dL (31-37) Red Cell Distribution Width 13.9 % (11.5-14.5) Platelet Count 174 x10^3/uL (140-400) Neutrophils (%) (Auto) 57 % (31-73) Lymphocytes (%) (Auto) 24 % (24-48) Monocytes (%) (Auto) 16 % (0-9) Eosinophils (%) (Auto) 2 % (0-3) Basophils (%) (Auto) 1 % (0-3) Neutrophils # (Auto) 4.2 x10^3/uL (1.8-7.7) Lymphocytes # (Auto) 1.8 x10^3/uL (1.0-4.8) Monocytes # (Auto) 1.2 x10^3/uL (0.0-1.1) Eosinophils # (Auto) 0.2 x10^3/uL (0.0-0.7) Basophils # (Auto) 0.1 x10^3/uL (0.0-0.2) Sodium Level 142 mmol/L (136-145) Potassium Level 4.1 mmol/L (3.5-5.1) Chloride Level 109 mmol/L (98-107) Carbon Dioxide Level 26 mmol/L (21-32) Anion Gap 7 (6-14) Blood Urea Nitrogen 35 mg/dL (8-26) Creatinine 1.2 mg/dL (0.7-1.3) Estimated GFR (Cockcroft-Gault) 58.1 BUN/Creatinine Ratio 29 (6-20) Glucose Level 110 mg/dL (70-99) Calcium Level 9.2 mg/dL (8.5-10.1) Magnesium Level 1.9 mg/dL (1.8-2.4) Total Bilirubin 0.3 mg/dL (0.2-1.0) Aspartate Amino Transf (AST/SGOT) 21 U/L (15-37) Alanine Aminotransferase (ALT/SGPT) 19 U/L (16-63) Alkaline Phosphatase 88 U/L (46-116) Troponin I Quantitative < 0.017 ng/mL (0.000-0.055) Total Protein 6.5 g/dL (6.4-8.2) Albumin 3.4 g/dL (3.4-5.0) Albumin/Globulin Ratio 1.1 (1.0-1.7) Urine Collection Type Unknown Urine Color Yellow Urine Clarity Clear Urine pH 5.5 Urine Specific [place] 1.025 Urine Protein 30 mg/dL (NEG-TRACE) Urine Glucose (UA) Negative mg/dL (NEG) Urine Ketones (Stick) Negative mg/dL (NEG) Urine Blood Negative (NEG) Urine Nitrite Negative (NEG) Urine Bilirubin Negative (NEG) Urine Urobilinogen Dipstick 1.0 mg/dL (0.2 mg/dL) Urine Leukocyte Esterase Negative (NEG) Urine RBC 1-2 /HPF (0-2) Urine WBC 1-4 /HPF (0-4) Urine Squamous Epithelial Cells Few /LPF Urine Bacteria Few /HPF (0-FEW) Urine Hyaline Casts Few /HPF Urine Mucus Slight /LPF Glucose (Fingerstick) 114 mg/dL (70-99) VTE Prophylaxis Ordered VTE Prophylaxis Devices: Yes VTE Pharmacological Prophylaxi: Yes Assessment/Plan Assessment/Plan parkinson's gait Ataxia Parkinson's dementia, chronic stable High fall risk HTN controlled Insomnia, depression NOS PLAn: COnt sinemet, neuro consult, PT.OT REg diet seems safe per aide FULL CODE SW- rehab agreeable AARON COLLAZO MD Apr 02, 2019 09:31
[2019-04-02] MEDS ORDERED: BUPR150T6 PO (09:34)
[2019-04-02] MEDS: LISINOPRIL 20 MG TABLET PO SCH (10:00)
[2019-04-02] MEDS: CARBIDOPA/LEVODOPA 25/100MG TABLET PO SCH ×3 (10:00→21:04)
[2019-04-02] MEDS: buPROPion XL 150 MG TAB.ER.24H. PO SCH (10:00)
[2019-04-02] MEDS: hydroCHLOROthiazide 12.5 MG CAPSULE PO SCH (10:00)
[2019-04-02 11:00] VITALS: BP 159/93
[2019-04-02] MEDS: PANTOPRAZOLE 40 MG TABLET.DR. PO SCH (11:25)
[2019-04-02] MEDS: INSULIN LISPRO 300 UNITS/3 ML VIAL. SQ SCH ×2 (11:26→16:58)
--- NOTE | 2019-04-02 13:01 | NUR ---
SS following for discharge planning. SS reviewed pt chart. Pt is from home with spouse and is currently on room air. PT/OT ordered. SS will continue to follow for discharge planning.
[2019-04-02] MEDS: ALBUTEROL SULFATE 2.5 MG/3 ML NEBU. NEB SCH ×3 (13:10→23:19)
[2019-04-02 15:00] VITALS: BP 149/86
--- NOTE | 2019-04-02 15:55 | PDOC2 ---
NEUROLOGY CONSULT Date of Admission Date of Admission DATE: 04/02/19 TIME: 15:43 Reason for Consult Reason for Consult: IMPRESSION: PD. Generalized weakness. DM. HTN. HLD. Diabetic peripheral neuropathy. Degenerative spine disease. Back pain. Obesity. RECOMMENDATIONS/PLAN: Continue Sinemet 25/100 mg tid to qid. Lab: see orders. treat medical diseases. OT/PT. History of Present Illness This is an 83-year-old male patient with above medical diseases and PD was admitted due progressive weakness. On the previous evening on 04/01/19, he tried to get out of bed but was not able to do so. He called his into the room who was also unable to get him out of bed. He did have severe back pain and this is part of why he can't get out of bed. He has PD for about 2 to 3 years and has been treated with Sinement. He states the tremors were no difference than usual. No changes of urinary or bowel function. Past Medical History Cardiovascular: HTN, Hyperlipidemia Pulmonary: Asthma, Pneumonia CENTRAL NERVOUS SYSTEM: Peripheral neuropathy, Other GI: GERD Heme/Onc: No pertinent hx Hepatobiliary: No pertinent hx Psych: Anxiety Musculoskeletal: low back pain, Osteoarthritis Rheumatologic: No pertinent hx Infectious disease: No pertinent hx Renal/: No pertinent hx Endocrine: Diabetes Past Surgical History Cholecystectomy, Cataract Removal Family History Diabetes, Heart Disease ALLERGY: NKDA MEDICATIONS: Refer to MAR SOCIAL HISTORY: Lives with his at home. Denies current smoking, drinking, and illicit drug use. REVIEW OF SYSTEMS: Constitutional: No malnutrition, weight loss, cachexia. Head: No traumatic brain or head injury. Skin: No edema, or rash. Ear: No infection. Eyes: No vision loss or color blindness. Nose: No bleeding or purulent discharges. Hearing: Hearing decrease. Neck: No injury. Cardiac: HTN, HLD. Pulmonary: No COPD. GI: GERD. Urinary/genital: UTI. Endocrinologic: Diabetes Mellitus, obesity. Skeletomuscular: Generalized weakness. Neurological: see HP. Psychiatric: Denies drug use/abuse. Otherwise, not [id number] review of systems. PHYSICAL EXAMINATION: General appearance is in subacute distress. HEENT: Normocephalic and nontraumatic. Eyes, nose, ears, and throat are unrema rkable. Neck is supple. No lymphadenopathy. No crepitus. Cardiovascular: S1, S2, regular rate and rhythm. Pulmonary: Clear to auscultation bilaterally. Abdomen: Bowel sounds are positive. Extremities: No rash, lesions, or edema. No restriction of range of motion NEUROLOGICAL EXAMINATION: Alert Partially oriented to time, place and person. PERRL. EOMI. CN: no focal findings. Muscle tone: Increased. Muscle strength: 5- UE, 4 LE. DTR: 2 UE, 0-1 at knee. Plantar reflex: Neutral response bilaterally Gait: He can walk with a walker. Sensory exam: no abnormal findings. No cerebellar signs elicited. F-T-N test fine. Current Medications Current Medications Current Medications Sodium Chloride 500 ml @ 500 mls/hr 1X ONCE IV Last administered on 04/02/19at 01:26; Start 04/02/19 at 01:15; Stop 04/02/19 at 02:14; Status DC Oxycodone/ Acetaminophen (Percocet 5/325) 2 tab 1X ONCE PO Last administered on 04/02/19at 02:25; Start 04/02/19 at 02:30; Stop 04/02/19 at 02:31; Status DC Ondansetron HCl (Zofran Odt) 4 mg 1X ONCE PO Last administered on 04/02/19at 02:25; Start 04/02/19 at 02:30; Stop 04/02/19 at 02:31; Status DC Ondansetron HCl (Zofran) 4 mg PRN Q8HRS PRN IV NAUSEA/VOMITING; Start 04/02/19 at 02:45; Stop 04/03/19 at 02:44 Fentanyl Citrate (Fentanyl 2ml Vial) 50 mcg PRN Q4HRS PRN IV PAIN; Start 04/02/19 at 02:45; Stop 04/03/19 at 02:44 Sodium Chloride 1,000 ml @ 80 mls/hr [id number] IV Last administered on 04/02/19at 11:26; Start 04/02/19 at 02:30 Acetaminophen (Tylenol) 650 mg PRN Q4HRS PRN PO FEVER; Start 04/02/19 at 02:45; Stop 04/03/19 at 02:44 Albuterol Sulfate (Ventolin Neb Soln) 2.5 mg PRN QID PRN INH SHORTNESS OF BREATH; Start 04/02/19 at 08:30 Acetaminophen/ Hydrocodone Bitart (Lortab 5/325) 1 tab PRN Q6HRS PRN PO MODERATE PAIN; Start 04/02/19 at 08:30 Metformin HCl (Glucophage) 500 mg BIDWMEALS PO ; Start 04/02/19 at 09:00; Stop 04/02/19 at 09:33; Status DC Simvastatin (Zocor) 20 mg QHS PO ; Start 04/02/19 at 21:00 Non-Formulary Medication (Carbinoxamine Maleate ) 4 mg DAILY PO Last administered on 04/02/19at 11:25; Start 04/02/19 at 11:00 Duloxetine HCl (Cymbalta) 60 mg DAILY PO ; Start 04/02/19 at 09:00; Stop 04/02/19 at 09:33; Status DC Non-Formulary Medication (Fluticasone/ Salmeterol (Advair 250-50 Diskus)) 1 puff BID IH ; Start 04/02/19 at 09:00; Status UNV Lisinopril (Prinivil) 20 mg DAILY PO Last administered on 04/02/19at 10:00; Start 04/02/19 at 09:00 Pantoprazole Sodium (Protonix) 40 mg DAILYAC PO Last administered on 04/02/19at 11:25; Start 04/02/19 at 11:30 Clonidine HCl (Catapres) 0.1 mg PRN Q1HR PRN PO HYPERTENSION; Start 04/02/19 at 08:30 Insulin Human Lispro (HumaLOG) 0-9 UNITS TIDWMEALS SQ ; Start 04/02/19 at 12:00 Dextrose (Dextrose 50%-Water Syringe) 12.5 gm PRN Q15MIN PRN IV SEE COMMENTS; Start 04/02/19 at 08:30 Hydrochlorothiazide (Microzide) 12.5 mg DAILY PO Last administered on 04/02/19at 10:00; Start 04/02/19 at 09:00 Albuterol Sulfate (Ventolin Neb Soln) 2.5 mg Q6HRS NEB Last administered on 04/02/19at 13:10; Start 04/02/19 at 12:00 Budesonide (Pulmicort) 0.5 mg RTBID NEB ; Start 04/02/19 at 20:00 Carbidopa/Levodopa (Sinemet 25/100) 1 tab TID PO Last administered on 04/02/19at 13:21; Start 04/02/19 at 10:00 Montelukast Sodium (Singulair) 10 mg HS PO ; Start 04/02/19 at 21:00 Quetiapine Fumarate (SEROquel) 12.5 mg HS PO ; Start 04/02/19 at 21:00 Bupropion HCl (Wellbutrin Xl) 150 mg DAILY PO Last administered on 04/02/19at 10:00; Start 04/02/19 at 10:00 Active Scripts Active Azithromycin Tablet (Azithromycin) 250 Mg Tablet 1 Pkg PO UD Reported Bupropion Xl (Bupropion Hcl) 150 Mg Tab.er.24h 1 Tab PO DAILY Seroquel (Quetiapine Fumarate) 25 Mg Tablet 12.5 Mg PO HS Singulair Tablet (Montelukast Sodium) 10 Mg Tablet 10 Mg PO HS Sinemet 25-100 Mg Tablet (Carbidopa/Levodopa) 1 Each Tablet 1 Tab PO TID Hydrocodone-Apap 5-325 (Hydrocodone Bit/Acetaminophen) 1 Each Tablet 1 Tab PO PRN Q6HRS PRN Lisinopril-Hctz 20-12.5 Mg Tab (Lisinopril/Hydrochlorothiazide) 1 Each Tablet 1 Tab PO DAILY Omeprazole 40 Mg Capsule.dr 1 Cap PO DAILY Carbinoxamine Maleate 4 Mg Tablet 4 Mg PO DAILY Advair 250-50 Diskus (Fluticasone/Salmeterol) 1 Each Disk.w.dev 1 Puff IH BID Simvastatin 20 Mg Tablet 20 Mg PO DAILY Proair Hfa Inhaler (Albuterol Sulfate) 8.5 Gm Hfa.aer.ad 2 Puff IH PRN Q4-6HRS PRN Allergies Allergies: Allergies Coded Allergies Type Severity Reaction Last Updated Verified No Known Drug Allergies 05/06/14 No ROS Review of System The patient denies any associated fevers, chills, headache, ear pain, rhinorrhea, sore throat, stiff neck, productive cough, chest pain, shortness of breath, back or flank pain, abdominal pain, nausea, vomiting, diarrhea, constipation, dysuria, rash, numbness, weakness, tingling, incontinence, difficu lty ambulating, or diaphoresis. Physical Exam Physical Exam General: Well developed, well nourished, no acute distress, well appearing HEENT: Pupils equally round and reactive to light, EOMI, no discharge, normal conjunctiva Neck: Supple, no nuchal rigidity, no JVD, trachea midline, no tenderness Cardiac: RRR, no murmurs, no gallops, no rubs Chest/Lungs: CTAB, no wheeze, no rhonchi, no crackles Abdomen: soft, non-distended, no guarding, no peritoneal signs, non-tender Back: No tenderness Extremities: no edema, pulses intact, non-tender,capillary refill <3 sec bilateral upper and lower extremities, Neuro: Alert and oriented x 4, no focal deficits, normal speech Vitals Vitals: Vital Signs Date Time Temp Pulse Resp B/P (MAP) Pulse Ox O2 Delivery O2 Flow Rate FiO2 04/02/19 15:00 97.7 78 16 149/86 (107) 96 Room Air 97.7 Labs Labs Laboratory Tests Test 04/02/19 00:49 04/02/19 01:28 04/02/19 07:39 04/02/19 11:15 White Blood Count 7.4 x10^3/uL (4.0-11.0) Red Blood Count 4.76 x10^6/uL (4.30-5.70) Hemoglobin 15.1 g/dL (13.0-17.5) Hematocrit 44.8 % (39.0-53.0) Mean Corpuscular Volume 94 fL (79-100) Mean Corpuscular Hemoglobin 32 pg (25-35) Mean Corpuscular Hemoglobin Concent 34 g/dL (31-37) Red Cell Distribution Width 13.9 % (11.5-14.5) Platelet Count 174 x10^3/uL (140-400) Neutrophils (%) (Auto) 57 % (31-73) Lymphocytes (%) (Auto) 24 % (24-48) Monocytes (%) (Auto) 16 % (0-9) Eosinophils (%) (Auto) 2 % (0-3) Basophils (%) (Auto) 1 % (0-3) Neutrophils # (Auto) 4.2 x10^3/uL (1.8-7.7) Lymphocytes # (Auto) 1.8 x10^3/uL (1.0-4.8) Monocytes # (Auto) 1.2 x10^3/uL (0.0-1.1) Eosinophils # (Auto) 0.2 x10^3/uL (0.0-0.7) Basophils # (Auto) 0.1 x10^3/uL (0.0-0.2) Sodium Level 142 mmol/L (136-145) Potassium Level 4.1 mmol/L (3.5-5.1) Chloride Level 109 mmol/L (98-107) Carbon Dioxide Level 26 mmol/L (21-32) Anion Gap 7 (6-14) Blood Urea Nitrogen 35 mg/dL (8-26) Creatinine 1.2 mg/dL (0.7-1.3) Estimated GFR (Cockcroft-Gault) 58.1 BUN/Creatinine Ratio 29 (6-20) Glucose Level 110 mg/dL (70-99) Calcium Level 9.2 mg/dL (8.5-10.1) Magnesium Level 1.9 mg/dL (1.8-2.4) Total Bilirubin 0.3 mg/dL (0.2-1.0) Aspartate Amino Transf (AST/SGOT) 21 U/L (15-37) Alanine Aminotransferase (ALT/SGPT) 19 U/L (16-63) Alkaline Phosphatase 88 U/L (46-116) Troponin I Quantitative < 0.017 ng/mL (0.000-0.055) Total Protein 6.5 g/dL (6.4-8.2) Albumin 3.4 g/dL (3.4-5.0) Albumin/Globulin Ratio 1.1 (1.0-1.7) Urine Collection Type Unknown Urine Color Yellow Urine Clarity Clear Urine pH 5.5 Urine Specific [place] 1.025 Urine Protein 30 mg/dL (NEG-TRACE) Urine Glucose (UA) Negative mg/dL (NEG) Urine Ketones (Stick) Negative mg/dL (NEG) Urine Blood Negative (NEG) Urine Nitrite Negative (NEG) Urine Bilirubin Negative (NEG) Urine Urobilinogen Dipstick 1.0 mg/dL (0.2 mg/dL) Urine Leukocyte Esterase Negative (NEG) Urine RBC 1-2 /HPF (0-2) Urine WBC 1-4 /HPF (0-4) Urine Squamous Epithelial Cells Few /LPF Urine Bacteria Few /HPF (0-FEW) Urine Hyaline Casts Few /HPF Urine Mucus Slight /LPF Glucose (Fingerstick) 114 mg/dL (70-99) 109 mg/dL (70-99) Test 04/02/19 11:40 Erythrocyte Sedimentation Rate 2 (0-15) Creatine Kinase 41 U/L (39-308) Vitamin B12 Level 325 pg/mL (247-911) Thyroid Stimulating Hormone (TSH) 1.107 uIU/mL (0.358-3.74) Laboratory Tests Test 04/02/19 00:49 04/02/19 01:28 04/02/19 07:39 04/02/19 11:15 White Blood Count 7.4 x10^3/uL (4.0-11.0) Red Blood Count 4.76 x10^6/uL (4.30-5.70) Hemoglobin 15.1 g/dL (13.0-17.5) Hematocrit 44.8 % (39.0-53.0) Mean Corpuscular Volume 94 fL (79-100) Mean Corpuscular Hemoglobin 32 pg (25-35) Mean Corpuscular Hemoglobin Concent 34 g/dL (31-37) Red Cell Distribution Width 13.9 % (11.5-14.5) Platelet Count 174 x10^3/uL (140-400) Neutrophils (%) (Auto) 57 % (31-73) Lymphocytes (%) (Auto) 24 % (24-48) Monocytes (%) (Auto) 16 % (0-9) Eosinophils (%) (Auto) 2 % (0-3) Basophils (%) (Auto) 1 % (0-3) Neutrophils # (Auto) 4.2 x10^3/uL (1.8-7.7) Lymphocytes # (Auto) 1.8 x10^3/uL (1.0-4.8) Monocytes # (Auto) 1.2 x10^3/uL (0.0-1.1) Eosinophils # (Auto) 0.2 x10^3/uL (0.0-0.7) Basophils # (Auto) 0.1 x10^3/uL (0.0-0.2) Sodium Level 142 mmol/L (136-145) Potassium Level 4.1 mmol/L (3.5-5.1) Chloride Level 109 mmol/L (98-107) Carbon Dioxide Level 26 mmol/L (21-32) Anion Gap 7 (6-14) Blood Urea Nitrogen 35 mg/dL (8-26) Creatinine 1.2 mg/dL (0.7-1.3) Estimated GFR (Cockcroft-Gault) 58.1 BUN/Creatinine Ratio 29 (6-20) Glucose Level 110 mg/dL (70-99) Calcium Level 9.2 mg/dL (8.5-10.1) Magnesium Level 1.9 mg/dL (1.8-2.4) Total Bilirubin 0.3 mg/dL (0.2-1.0) Aspartate Amino Transf (AST/SGOT) 21 U/L (15-37) Alanine Aminotransferase (ALT/SGPT) 19 U/L (16-63) Alkaline Phosphatase 88 U/L (46-116) Troponin I Quantitative < 0.017 ng/mL (0.000-0.055) Total Protein 6.5 g/dL (6.4-8.2) Albumin 3.4 g/dL (3.4-5.0) Albumin/Globulin Ratio 1.1 (1.0-1.7) Urine Collection Type Unknown Urine Color Yellow Urine Clarity Clear Urine pH 5.5 Urine Specific [place] 1.025 Urine Protein 30 mg/dL (NEG-TRACE) Urine Glucose (UA) Negative mg/dL (NEG) Urine Ketones (Stick) Negative mg/dL (NEG) Urine Blood Negative (NEG) Urine Nitrite Negative (NEG) Urine Bilirubin Negative (NEG) Urine Urobilinogen Dipstick 1.0 mg/dL (0.2 mg/dL) Urine Leukocyte Esterase Negative (NEG) Urine RBC 1-2 /HPF (0-2) Urine WBC 1-4 /HPF (0-4) Urine Squamous Epithelial Cells Few /LPF Urine Bacteria Few /HPF (0-FEW) Urine Hyaline Casts Few /HPF Urine Mucus Slight /LPF Glucose (Fingerstick) 114 mg/dL (70-99) 109 mg/dL (70-99) Test 04/02/19 11:40 Erythrocyte Sedimentation Rate 2 (0-15) Creatine Kinase 41 U/L (39-308) Vitamin B12 Level 325 pg/mL (247-911) Thyroid Stimulating Hormone (TSH) 1.107 uIU/mL (0.358-3.74) KASSANDRA MARTIN MD Apr 02, 2019 15:55
[2019-04-02] MEDS: HYDROcodone/APAP 5/325MG 1 TAB TABLET PO PRN (17:38)
[2019-04-02 19:00] VITALS: BP 155/74
[2019-04-02] MEDS: BUDESONIDE 0.5 MG/2 ML NEBU. NEB SCH (19:35)
[2019-04-02] MEDS ORDERED: MONTELUKAST SODIUM 10 MG TABLET. PO SCH (21:00)
[2019-04-02] MEDS: QUEtiapine 25 MG TABLET. PO SCH (21:04)
[2019-04-02] MEDS: SIMVASTATIN 20 MG TABLET PO SCH (21:04)
[2019-04-02 23:00] VITALS: BP 171/81
[2019-04-03 03:00] VITALS: BP 148/85
[2019-04-03 07:00] VITALS: BP 164/92
[2019-04-03] MEDS: ALBUTEROL SULFATE 2.5 MG/3 ML NEBU. NEB SCH (07:04)
[2019-04-03] MEDS: BUDESONIDE 0.5 MG/2 ML NEBU. NEB SCH ×2 (07:04→19:32)
[2019-04-03] MEDS: INSULIN LISPRO 300 UNITS/3 ML VIAL. SQ SCH ×3 (08:00→17:00)
[2019-04-03] MEDS: hydroCHLOROthiazide 12.5 MG CAPSULE PO SCH (08:13)
[2019-04-03] MEDS: buPROPion XL 150 MG TAB.ER.24H. PO SCH (08:13)
[2019-04-03] MEDS: CARBIDOPA/LEVODOPA 25/100MG TABLET PO SCH ×3 (08:14→20:52)
[2019-04-03] MEDS: PANTOPRAZOLE 40 MG TABLET.DR. PO SCH (08:14)
[2019-04-03] MEDS: LISINOPRIL 20 MG TABLET PO SCH (08:14)
[2019-04-03] MEDS: CARBINOXAMINE MALEATE 4 MG PO SCH (08:15)
--- NOTE | 2019-04-03 08:27 | SNU/HH DC ---
DISCHARGE ORDERS DISCHARGE INFORMATION: DISCHARGE DATE: Apr 03, 2019 FINAL DIAGNOSIS Problems Medical Problems: (1) Ataxia Status: Acute (2) Generalized weakness Status: Acute CONDITION ON DISCHARGE: Stable CODE STATUS: Code Status: Full HALF-WAY: SNF STAY <30 DAYS: Yes HOSPICE: HOSPICE: No HOSPICE EVAL & TREAT: No LTAC: ADMIT TO LTAC: No POST DISCHARGE ORDERS: ACTIVITY ORDERS: Activity as tolerated WEIGHT BEARING STATUS: As tolerated DIET AFTER DISCHARGE: Cardiac CHECKS AFTER DISCHARGE: CHECKS AFTER DISCHARGE: Check blood press - daily, Check blood sugar, ac/hs FOLLOW-UP: PHYSICIAN FOLLOW-UP: pcp or neuro re parkinsons TREATMENT/EQUIPMENT ORDERS: ADAPTIVE EQUIPMENT NEEDED: None, Walker Physical Therapy For: Evalulation/Treatment Occupational Therapy For: Evaluation/Treatment DISCHARGE MEDICATIONS: Home Meds Reported Medications Bupropion Hcl (BUPROPION XL) 150 Mg Tab.er.24h, 1 TAB PO DAILY for depression, #30 TAB 04/02/19 Quetiapine Fumarate (SEROQUEL) 25 Mg Tablet, 12.5 MG PO HS for parkinsons, TAB 04/02/19 Montelukast Sodium (SINGULAIR TABLET ) 10 Mg Tablet, 10 MG PO HS for FOR ASTHMA, TAB 0 Refills 04/02/19 Carbidopa/Levodopa (SINEMET 25-100 MG TABLET) 1 Each Tablet, 1 TAB PO TID for parkinsons, TAB 04/02/19 Hydrocodone Bit/Acetaminophen (HYDROCODONE-APAP 5-325 ) 1 Each Tablet, 1 TAB PO PRN Q6HRS PRN for PAIN, TAB 12/30/17 Lisinopril/Hydrochlorothiazide (LISINOPRIL-HCTZ 20-12.5 MG TAB) 1 Each Tablet, 1 TAB PO DAILY, #30 TAB 5 Refills 08/20/16 Omeprazole (OMEPRAZOLE) 40 Mg Capsule.dr, 1 CAP PO DAILY, #30 CAP 3 Refills 08/19/16 Carbinoxamine Maleate (CARBINOXAMINE MALEATE) 4 Mg Tablet, 4 MG PO DAILY 05/06/14 Fluticasone/Salmeterol (ADVAIR 250-50 DISKUS) 1 Each Disk.w.dev, 1 PUFF IH BID, #3 INHALER 3 Refills 05/06/14 Simvastatin (SIMVASTATIN) 20 Mg Tablet, 20 MG PO DAILY for FOR CHOLESTEROL, #30 TAB 0 Refills 05/06/14 Albuterol Sulfate (PROAIR HFA INHALER) 8.5 Gm Hfa.aer.ad, 2 PUFF IH PRN Q4-6HRS PRN for SHORTNESS OF BREATH, #1 INHALER 05/06/14 Discontinued Reported Medications Metformin Hcl (METFORMIN HCL) 500 Mg Tablet, 1 TAB PO BID, #60 TAB 3 Refills 08/19/16 Duloxetine Hcl (CYMBALTA) 60 Mg Capsule.dr, 1 CAP PO DAILY, #90 CAP 3 Refills 05/06/14 Discontinued Scripts Azithromycin (AZITHROMYCIN TABLET) 250 Mg Tablet, 1 PKG PO UD, #6 TAB Prov:ABHIJEET TAM MD 05/20/18 AARON COLLAZO MD Apr 03, 2019 08:27
[2019-04-03] MEDS ORDERED: LISI-334 PO (09:07)
[2019-04-03] MEDS ORDERED: AMLO5TAB4 PO (09:07)
--- NOTE | 2019-04-03 09:10 | PDOC3 ---
Discharge Summary Visit Information Date of Admission: Apr 02, 2019 Date of Discharge: Apr 03, 2019 Admitting Diagnosis Comment: parkinson's gait Ataxia Parkinson's dementia, chronic stable High fall risk HTN controlled Insomnia, depression NOS Urinary frequency urgency on diuretic Final Diagnosis Problems Medical Problems: (1) Ataxia Status: Acute (2) Generalized weakness Status: Acute Brief Hospital Course Allergies Allergies Coded Allergies Type Severity Reaction Last Updated Verified No Known Drug Allergies 05/06/14 No Vital Signs Vital Signs Date Time Temp Pulse Resp B/P (MAP) Pulse Ox O2 Delivery O2 Flow Rate FiO2 04/03/19 08:14 75 164/92 04/03/19 07:32 Room Air 04/03/19 07:04 96 04/03/19 07:00 97.9 18 97.9 Lab Results Laboratory Tests Test 04/02/19 00:49 04/02/19 01:28 04/02/19 07:39 04/02/19 11:15 White Blood Count 7.4 x10^3/uL (4.0-11.0) Red Blood Count 4.76 x10^6/uL (4.30-5.70) Hemoglobin 15.1 g/dL (13.0-17.5) Hematocrit 44.8 % (39.0-53.0) Mean Corpuscular Volume 94 fL (79-100) Mean Corpuscular Hemoglobin 32 pg (25-35) Mean Corpuscular Hemoglobin Concent 34 g/dL (31-37) Red Cell Distribution Width 13.9 % (11.5-14.5) Platelet Count 174 x10^3/uL (140-400) Neutrophils (%) (Auto) 57 % (31-73) Lymphocytes (%) (Auto) 24 % (24-48) Monocytes (%) (Auto) 16 % (0-9) Eosinophils (%) (Auto) 2 % (0-3) Basophils (%) (Auto) 1 % (0-3) Neutrophils # (Auto) 4.2 x10^3/uL (1.8-7.7) Lymphocytes # (Auto) 1.8 x10^3/uL (1.0-4.8) Monocytes # (Auto) 1.2 x10^3/uL (0.0-1.1) Eosinophils # (Auto) 0.2 x10^3/uL (0.0-0.7) Basophils # (Auto) 0.1 x10^3/uL (0.0-0.2) Sodium Level 142 mmol/L (136-145) Potassium Level 4.1 mmol/L (3.5-5.1) Chloride Level 109 mmol/L (98-107) Carbon Dioxide Level 26 mmol/L (21-32) Anion Gap 7 (6-14) Blood Urea Nitrogen 35 mg/dL (8-26) Creatinine 1.2 mg/dL (0.7-1.3) Estimated GFR (Cockcroft-Gault) 58.1 BUN/Creatinine Ratio 29 (6-20) Glucose Level 110 mg/dL (70-99) Calcium Level 9.2 mg/dL (8.5-10.1) Magnesium Level 1.9 mg/dL (1.8-2.4) Total Bilirubin 0.3 mg/dL (0.2-1.0) Aspartate Amino Transf (AST/SGOT) 21 U/L (15-37) Alanine Aminotransferase (ALT/SGPT) 19 U/L (16-63) Alkaline Phosphatase 88 U/L (46-116) Troponin I Quantitative < 0.017 ng/mL (0.000-0.055) Total Protein 6.5 g/dL (6.4-8.2) Albumin 3.4 g/dL (3.4-5.0) Albumin/Globulin Ratio 1.1 (1.0-1.7) Urine Collection Type Unknown Urine Color Yellow Urine Clarity Clear Urine pH 5.5 Urine Specific Galvin 1.025 Urine Protein 30 mg/dL (NEG-TRACE) Urine Glucose (UA) Negative mg/dL (NEG) Urine Ketones (Stick) Negative mg/dL (NEG) Urine Blood Negative (NEG) Urine Nitrite Negative (NEG) Urine Bilirubin Negative (NEG) Urine Urobilinogen Dipstick 1.0 mg/dL (0.2 mg/dL) Urine Leukocyte Esterase Negative (NEG) Urine RBC 1-2 /HPF (0-2) Urine WBC 1-4 /HPF (0-4) Urine Squamous Epithelial Cells Few /LPF Urine Bacteria Few /HPF (0-FEW) Urine Hyaline Casts Few /HPF Urine Mucus Slight /LPF Glucose (Fingerstick) 114 mg/dL (70-99) 109 mg/dL (70-99) Test 04/02/19 11:40 04/02/19 16:32 04/02/19 20:40 04/03/19 07:58 Erythrocyte Sedimentation Rate 2 (0-15) Creatine Kinase 41 U/L (39-308) Vitamin B12 Level 325 pg/mL (247-911) Thyroid Stimulating Hormone (TSH) 1.107 uIU/mL (0.358-3.74) Glucose (Fingerstick) 103 mg/dL (70-99) 103 mg/dL (70-99) 111 mg/dL (70-99) Laboratory Tests Test 04/02/19 11:15 04/02/19 11:40 04/02/19 16:32 04/02/19 20:40 Glucose (Fingerstick) 109 mg/dL (70-99) 103 mg/dL (70-99) 103 mg/dL (70-99) Erythrocyte Sedimentation Rate 2 (0-15) Creatine Kinase 41 U/L (39-308) Vitamin B12 Level 325 pg/mL (247-911) Thyroid Stimulating Hormone (TSH) 1.107 uIU/mL (0.358-3.74) Test 04/03/19 07:58 Glucose (Fingerstick) 111 mg/dL (70-99) Brief Hospital Course Mr. Ramon is a 83 old male who lives at home with , admitted bec of worsening ataxia, HE has parkinsons, PCP manages it and is maintained on sinemet 25/100 TID. Seen by neuro, no brain imaging needed, advised to inc to QID if needed, NEeds snu and pt requests for pplace, I wrote for his hydrocodone home med, HE has some insomnia, I wrote for restoril, Also complaints of UO every 45 mins, on HCTZ 12,5, BP high side 160s, I substituted with norvasc 5, Dw CATALINO Mandujano COnsults: neuro Proc; [facility] Discharge Information Condition at Discharge: Improved, Stable Disposition/Orders: Other (snu) Scheduled Amlodipine Besylate (Norvasc) 5 Mg Tablet, 1 TAB PO DAILY for htn, #30 Ref 5 Prescribed by: AARON COLLAZO on 04/03/19 0907 Bupropion Hcl (Bupropion Xl) 150 Mg Tab.er.24h, 1 TAB PO DAILY for depression, #30 (Reported) Entered as Reported by: JOCELYN GORMAN on 04/02/19933 Last Action: Continued on 04/02/19933 by JOCELYN GORMAN Carbidopa/Levodopa (Sinemet 25-100 Mg Tablet) 1 Each Tablet, 1 TAB PO TID for parkinsons, (Reported) Entered as Reported by: JOCELYN GORMAN on 04/02/19922 Last Action: Continued on 04/02/19930 by AARON COLLAZO Carbinoxamine Maleate (Carbinoxamine Maleate) 4 Mg Tablet, 4 MG PO DAILY, (Reported) Entered as Reported by: NESSA DE PAZ on 05/06/14919 Last Action: Converted on 04/02/19819 by AARON COLLAZO Fluticasone/Salmeterol (Advair 250-50 Diskus) 1 Each Disk.w.dev, 1 PUFF IH BID, #3 Ref 3 (Reported) Entered as Reported by: NESSA DE PAZ on 05/06/14918 Last Action: Converted on 04/02/19819 by AARON COLLAZO Lisinopril (Lisinopril) 20 Mg Tablet, 1 TAB PO DAILY for htn, #30 Ref 5 Prescribed by: AARON COLLAZO on 04/03/19906 Montelukast Sodium (Singulair Tablet ) 10 Mg Tablet, 10 MG PO HS for FOR ASTHMA, Ref 0 (Reported) Entered as Reported by: JOCELYN GORMAN on 04/02/19922 Last Action: Continued on 04/02/19930 by AARON COLLAZO Omeprazole (Omeprazole) 40 Mg Capsule.dr, 1 CAP PO DAILY, #30 Ref 3 (Reported) Entered as Reported by: KIMI MYLES on 08/19/16 1730 Last Action: Converted on 04/02/19819 by AARON COLLAZO Quetiapine Fumarate (Seroquel) 25 Mg Tablet, 12.5 MG PO HS for parkinsons, (Reported) Entered as Reported by: JOCELYN GORMAN on 04/02/19922 Last Action: Continued on 04/02/19930 by AARON COLLAZO Simvastatin (Simvastatin) 20 Mg Tablet, 20 MG PO DAILY for FOR CHOLESTEROL, #30 Ref 0 (Reported) Entered as Reported by: NESSA DE PAZ on 05/06/14914 Last Action: Continued on 04/02/19819 by AARON COLLAZO Scheduled PRN Hydrocodone Bit/Acetaminophen (Hydrocodone-Apap 5-325 ) 1 Each Tablet, 1 TAB PO PRN Q6HRS PRN for PAIN, (Reported) Entered as Reported by: LELO BARBOZA on 12/30/17351 Last Action: Continued on 04/02/19819 by AARON COLLAZO Discontinued Medications Albuterol Sulfate (Proair Hfa Inhaler) 8.5 Gm Hfa.aer.ad, 2 PUFF IH PRN Q4-6HRS PRN for SHORTNESS OF BREATH, #1 (Reported) Entered as Reported by: NESSA DE PAZ on 05/06/14912 Last Action: Continued on 04/02/19819 by AARON COLLAZO Azithromycin (Azithromycin Tablet) 250 Mg Tablet, 1 PKG PO UD, #6 Prescribed by: ABHIJEET TAM MD on 05/20/18809 Last Action: HELD on 04/02/19819 by AARON COLLAZO Duloxetine Hcl (Cymbalta) 60 Mg Capsule.dr, 1 CAP PO DAILY, #90 Ref 3 (Reported) Entered as Reported by: NESSA DE PAZ on 05/06/14918 Last Action: Discontinued on 04/02/19918 by JOCELYN GORMAN Lisinopril/Hydrochlorothiazide (Lisinopril-Hctz 20-12.5 Mg Tab) 1 Each Tablet, 1 TAB PO DAILY, #30 Ref 5 (Reported) Entered as Reported by: KIMI MYLES on 08/20/16 0710 Last Action: Converted on 04/02/19819 by AARON COLLAZO Metformin Hcl (Metformin Hcl) 500 Mg Tablet, 1 TAB PO BID, #60 Ref 3 (Reported) Entered as Reported by: KIMI MYLES on 08/19/16 173 Last Action: Discontinued on 04/02/19918 by AARON LING MD Apr 03, 2019 09:10
[2019-04-03] MEDS ORDERED: TEMAZEPAM 7.5 MG CAPSULE PO PRN (09:15)
[2019-04-03] MEDS ORDERED: amLODIPine BESYLATE 5 MG TABLET PO ONE (09:15)
[2019-04-03 11:00] VITALS: BP 160/100
--- NOTE | 2019-04-03 14:35 | PDOC ---
PROGRESS NOTES Assessment Assessment PD. Generalized weakness. DM. HTN. HLD. Diabetic peripheral neuropathy. Degenerative spine disease. Back pain. Obesity. RECOMMENDATIONS/PLAN: Continue Sinemet 25/100 mg tid to qid. Treat medical diseases. OT/PT. Rehab. FU with his neurologist in [facility]. FU with PCP. History of Present Illness This is an 83-year-old male patient with above medical diseases and PD was admitted due progressive weakness. On the previous evening on 04/01/19, he tried to get out of bed but was not able to do so. He called his into the room who was also unable to get him out of bed. He did have severe back pain and this is part of why he can't get out of bed. He has PD for about 2 to 3 years and has been treated with Sinement. He states the tremors were no difference than usual. No changes of urinary or bowel function. Patient complained on 04/03/19 not have more exercise to help his walking since being here. Past Medical History Cardiovascular: HTN, Hyperlipidemia Pulmonary: Asthma, Pneumonia CENTRAL NERVOUS SYSTEM: Peripheral neuropathy, Other GI: GERD Heme/Onc: No pertinent hx Hepatobiliary: No pertinent hx Psych: Anxiety Musculoskeletal: low back pain, Osteoarthritis Rheumatologic: No pertinent hx Infectious disease: No pertinent hx Renal/: No pertinent hx Endocrine: Diabetes Past Surgical History Cholecystectomy, Cataract Removal Family History Diabetes, Heart Disease ALLERGY: NKDA MEDICATIONS: Refer to MAR SOCIAL HISTORY: Lives with his at home. Denies current smoking, drinking, and illicit drug use. REVIEW OF SYSTEMS: Constitutional: No malnutrition, weight loss, cachexia. Head: No traumatic brain or head injury. Skin: No edema, or rash. Ear: No infection. Eyes: No vision loss or color blindness. Nose: No bleeding or purulent discharges. Hearing: Hearing decrease. Neck: No injury. Cardiac: HTN, HLD. Pulmonary: No COPD. GI: GERD. Urinary/genital: UTI. Endocrinologic: Diabetes Mellitus, obesity. Skeletomuscular: Generalized weakness. Neurological: see HP. Psychiatric: Denies drug use/abuse. Otherwise, not [id number] review of systems. PHYSICAL EXAMINATION: General appearance is in subacute distress. HEENT: Normocephalic and nontraumatic. Eyes, nose, ears, and throat are unremarkable. Neck is supple. No lymphadenopathy. No crepitus. Cardiovascular: S1, S2, regular rate and rhythm. Pulmonary: Clear to auscultation bilaterally. Abdomen: Bowel sounds are positive. Extremities: No rash, lesions, or edema. No restriction of range of motion NEUROLOGICAL EXAMINATION: Alert Partially oriented to time, place and person. PERRL. EOMI. CN: no focal findings. Muscle tone: Increased. Muscle strength: 5- UE, 4 LE. DTR: 2 UE, 0-1 at knee. Plantar reflex: Neutral response bilaterally Gait: He is able to walk slowly with a walker. Sensory exam: no abnormal findings. No cerebellar signs elicited. F-T-N test fine. Objective Objective Vital Signs Date Time Temp Pulse Resp B/P (MAP) Pulse Ox O2 Delivery O2 Flow Rate FiO2 04/03/19 11:00 98.0 68 18 160/100 (120) 97 Room Air 98.0 Intake and Output 04/03/19 07:00 Intake Total 2760 ml Output Total 1600 ml Balance 1160 ml Intake Oral 840 ml IV Total 960 ml Other 960 ml Output Urine Total 1600 ml # Bowel Movements 1 Vitals Signs Vitals VS - Last 72 Hours, by Label Date Time Temp Pulse Resp B/P (MAP) Pulse Ox O2 Delivery O2 Flow Rate FiO2 04/03/19 11:00 98.0 68 18 160/100 (120) 97 Room Air 98.0 04/03/19 09:15 75 164/92 04/03/19 08:14 75 164/92 04/03/19 07:32 Room Air 04/03/19 07:04 96 Room Air 04/03/19 07:00 97.9 75 18 164/92 (116) 97 Room Air 97.9 04/03/19 03:00 98.0 73 16 148/85 (106) 96 Room Air 98.0 04/02/19 23:00 97.8 81 16 171/81 (111) 90 Room Air 97.8 04/02/19 20:00 Room Air 04/02/19 19:36 97 Room Air 04/02/19 19:35 97 Room Air 04/02/19 19:00 97.9 69 16 155/74 (101) 97 Room Air 97.9 04/02/19 18:24 96 Room Air 04/02/19 17:38 96 Room Air 04/02/19 15:00 97.7 78 16 149/86 (107) 96 Room Air 97.7 04/02/19 13:11 97 Room Air 04/02/19 11:00 97.7 61 16 159/93 (115) 97 Room Air 97.7 04/02/19 10:00 64 157/82 04/02/19 07:48 Room Air 04/02/19 07:00 97.5 64 16 157/82 (107) 97 Room Air 97.5 Laboratory Laboratory Laboratory Tests Test 04/02/19 16:32 04/02/19 20:40 04/03/19 07:58 04/03/19 11:36 Glucose (Fingerstick) 103 mg/dL (70-99) 103 mg/dL (70-99) 111 mg/dL (70-99) 102 mg/dL (70-99) Medication Medications Current Medications Amlodipine Besylate (Norvasc) 5 mg 1X ONCE PO Last administered on 04/03/19at 09:15; Start 04/03/19 at 09:15; Stop 04/03/19 at 09:16; Status DC Amlodipine Besylate (Norvasc) 5 mg DAILY PO ; Start 04/04/19 at 09:00 Budesonide (Pulmicort) 0.5 mg RTBID NEB Last administered on 04/03/19at 07:04; Start 04/02/19 at 20:00 Montelukast Sodium (Singulair) 10 mg HS PO ; Start 04/02/19 at 21:00; Stop 04/03/19 at 10:15; Status DC Quetiapine Fumarate (SEROquel) 12.5 mg HS PO Last administered on 04/02/19at 21:04; Start 04/02/19 at 21:00 Simvastatin (Zocor) 20 mg QHS PO Last administered on 04/02/19at 21:04; Start 04/02/19 at 21:00 Temazepam (Restoril) 7.5 mg PRN QHS PRN PO INSOMNIA; Start 04/03/19 at 09:15 Comment Review of Relevant I have reviewed the following items maria del carmen (where applicable) has been applied. KASSANDRA MARTIN MD Apr 03, 2019 14:35
[2019-04-03 15:00] VITALS: BP 158/99
--- NOTE | 2019-04-03 15:55 | NUR ---
SS following up with discharge planning. PT/OT recommended correction unit. Pt requesting to go to [facility], ; fax [phone]. SS phoned and faxed referral to [facility]. Pt notified that he will need three midnights in the hospital prior to going to correction unit per Medicare guidelines. Pt accepted at [facility] at this time. SS will continue to follow for discharge planning.
[2019-04-03 19:30] VITALS: BP 133/74
[2019-04-03] MEDS: SIMVASTATIN 20 MG TABLET PO SCH (20:52)
[2019-04-03] MEDS: QUEtiapine 25 MG TABLET. PO SCH (20:52)
[2019-04-03 23:40] VITALS: BP 146/84
[2019-04-04 03:00] VITALS: BP 138/74
[2019-04-04 07:00] VITALS: BP 150/91
[2019-04-04] MEDS: BUDESONIDE 0.5 MG/2 ML NEBU. NEB SCH ×2 (07:31→19:51)
[2019-04-04] MEDS: INSULIN LISPRO 300 UNITS/3 ML VIAL. SQ SCH ×3 (08:00→16:59)
[2019-04-04] MEDS: PANTOPRAZOLE 40 MG TABLET.DR. PO SCH (08:10)
[2019-04-04] MEDS: CARBIDOPA/LEVODOPA 25/100MG TABLET PO SCH ×3 (08:10→20:08)
[2019-04-04] MEDS: buPROPion XL 150 MG TAB.ER.24H. PO SCH (08:10)
[2019-04-04] MEDS: LISINOPRIL 20 MG TABLET PO SCH (08:11)
[2019-04-04] MEDS: CARBINOXAMINE MALEATE 4 MG PO SCH (08:12)
[2019-04-04] MEDS ORDERED: amLODIPine BESYLATE 5 MG TABLET PO SCH (09:00)
[2019-04-04] MEDS: HYDROcodone/APAP 5/325MG 1 TAB TABLET PO PRN ×2 (09:15→20:08)
--- NOTE | 2019-04-04 09:48 | NUR ---
SS following up with discharge planning. Pt accepted at [facility] and bed will be available tomorrow per Mary. Discharge orders phoned and faxed to [facility], ; fax [phone]. Pt will discharge tomorrow, 04/05/2019, and will go to [facility] between 1100 and 1130 via [employer] transportation, . Pt, pt's RN, and pt's spouse notified.
--- NOTE | 2019-04-04 09:52 | PDOC ---
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 bec of urinary freq - now BP high ON norvasc 5 among others He is dressed up and all ready to go at bedside PLAN: Inc norvasc to 10 mg PO q D PPlace tmr 11 AM COnt sinemet tid to qid FUll code Dw RN Nazia I have revised MAR (norvasc 10) Vitals Vitals Vital Signs Date Time Temp Pulse Resp B/P (MAP) Pulse Ox O2 Delivery O2 Flow Rate FiO2 04/04/19 09:15 96 Room Air 04/04/19 08:11 91 150/91 04/04/19 07:00 97.8 16 97.8 Physical Exam General: Alert, Oriented X3, Cooperative, No acute distress, Other (resting tremors, NAD) Lungs: Clear Abdomen: Normal bowel sounds, Soft, No tenderness, No hepatosplenomegaly, No masses Extremities: No clubbing, No cyanosis, No edema, Normal pulses Skin: No significant lesion, Other (senile skin turgor) Labs LABS Laboratory Tests Test 04/03/19 11:36 04/03/19 16:40 04/03/19 21:27 04/04/19 08:10 Glucose (Fingerstick) 102 mg/dL (70-99) 101 mg/dL (70-99) 94 mg/dL (70-99) 98 mg/dL (70-99) Review of Systems Review of Systems neg 14 pt reviewed with him Assessment and Plan Assessmemt and Plan Problems Medical Problems: (1) Ataxia Status: Acute (2) Generalized weakness Status: Acute (3) Parkinsonian tremor Status: Acute (4) Parkinsons Status: Acute Comment Review of Relevant I have reviewed the following items maria del carmen (where applicable) has been applied. Labs Laboratory Tests Test 04/02/19 11:15 04/02/19 11:40 04/02/19 16:32 04/02/19 20:40 Glucose (Fingerstick) 109 mg/dL (70-99) 103 mg/dL (70-99) 103 mg/dL (70-99) Erythrocyte Sedimentation Rate 2 (0-15) Creatine Kinase 41 U/L (39-308) Vitamin B12 Level 325 pg/mL (247-911) Thyroid Stimulating Hormone (TSH) 1.107 uIU/mL (0.358-3.74) Test 04/03/19 07:58 04/03/19 11:36 04/03/19 16:40 04/03/19 21:27 Glucose (Fingerstick) 111 mg/dL (70-99) 102 mg/dL (70-99) 101 mg/dL (70-99) 94 mg/dL (70-99) Test 04/04/19 08:10 Glucose (Fingerstick) 98 mg/dL (70-99) Laboratory Tests Test 04/03/19 11:36 04/03/19 16:40 04/03/19 21:27 04/04/19 08:10 Glucose (Fingerstick) 102 mg/dL (70-99) 101 mg/dL (70-99) 94 mg/dL (70-99) 98 mg/dL (70-99) Medications Current Medications Sodium Chloride 500 ml @ 500 mls/hr 1X ONCE IV Last administered on 04/02/19at 01:26; Start 04/02/19 at 01:15; Stop 04/02/19 at 02:14; Status DC Oxycodone/ Acetaminophen (Percocet 5/325) 2 tab 1X ONCE PO Last administered on 04/02/19at 02:25; Start 04/02/19 at 02:30; Stop 04/02/19 at 02:31; Status DC Ondansetron HCl (Zofran Odt) 4 mg 1X ONCE PO Last administered on 04/02/19at 02:25; Start 04/02/19 at 02:30; Stop 04/02/19 at 02:31; Status DC Ondansetron HCl (Zofran) 4 mg PRN Q8HRS PRN IV NAUSEA/VOMITING; Start 04/02/19 at 02:45; Stop 04/03/19 at 02:44; Status DC Fentanyl Citrate (Fentanyl 2ml Vial) 50 mcg PRN Q4HRS PRN IV PAIN; Start 04/02/19 at 02:45; Stop 04/03/19 at 02:44; Status DC Sodium Chloride 1,000 ml @ 80 mls/hr [id number] IV Last administered on 04/02/19at 23:59; Start 04/02/19 at 02:30; Stop 04/03/19 at 08:27; Status DC Acetaminophen (Tylenol) 650 mg PRN Q4HRS PRN PO FEVER; Start 04/02/19 at 02:45; Stop 04/03/19 at 02:44; Status DC Albuterol Sulfate (Ventolin Neb Soln) 2.5 mg PRN QID PRN INH SHORTNESS OF BREATH; Start 04/02/19 at 08:30; Stop 04/03/19 at 09:07; Status DC Acetaminophen/ Hydrocodone Bitart (Lortab 5/325) 1 tab PRN Q6HRS PRN PO MODERATE PAIN Last administered on 04/04/19at 09:15; Start 04/02/19 at 08:30 Metformin HCl (Glucophage) 500 mg BIDWMEALS PO ; Start 04/02/19 at 09:00; Stop 04/02/19 at 09:33; Status DC Simvastatin (Zocor) 20 mg QHS PO Last administered on 04/03/19at 20:52; Start 04/02/19 at 21:00 Non-Formulary Medication (Carbinoxamine Maleate ) 4 mg DAILY PO Last administered on 04/04/19at 08:12; Start 04/02/19 at 11:00 Duloxetine HCl (Cymbalta) 60 mg DAILY PO ; Start 04/02/19 at 09:00; Stop 04/02/19 at 09:33; Status DC Non-Formulary Medication (Fluticasone/ Salmeterol (Advair 250-50 Diskus)) 1 puff BID IH ; Start 04/02/19 at 09:00; Status UNV Lisinopril (Prinivil) 20 mg DAILY PO Last administered on 04/04/19at 08:11; Start 04/02/19 at 09:00 Pantoprazole Sodium (Protonix) 40 mg DAILYAC PO Last administered on 04/04/19at 08:10; Start 04/02/19 at 11:30 Clonidine HCl (Catapres) 0.1 mg PRN Q1HR PRN PO HYPERTENSION; Start 04/02/19 at 08:30 Insulin Human Lispro (HumaLOG) 0-9 UNITS TIDWMEALS SQ ; Start 04/02/19 at 12:00 Dextrose (Dextrose 50%-Water Syringe) 12.5 gm PRN Q15MIN PRN IV SEE COMMENTS; Start 04/02/19 at 08:30 Hydrochlorothiazide (Microzide) 12.5 mg DAILY PO Last administered on 04/03/19at 08:13; Start 04/02/19 at 09:00; Stop 04/03/19 at 09:07; Status DC Albuterol Sulfate (Ventolin Neb Soln) 2.5 mg Q6HRS NEB Last administered on 04/03/19at 07:04; Start 04/02/19 at 12:00; Stop 04/03/19 at 09:07; Status DC Budesonide (Pulmicort) 0.5 mg RTBID NEB Last administered on 04/03/19at 07:04; Start 04/02/19 at 20:00 Carbidopa/Levodopa (Sinemet 25/100) 1 tab TID PO Last administered on 04/04/19at 08:10; Start 04/02/19 at 10:00 Montelukast Sodium (Singulair) 10 mg HS PO ; Start 04/02/19 at 21:00; Stop 04/03/19 at 10:15; Status DC Quetiapine Fumarate (SEROquel) 12.5 mg HS PO Last administered on 04/03/19at 20:52; Start 04/02/19 at 21:00 Bupropion HCl (Wellbutrin Xl) 150 mg DAILY PO Last administered on 04/04/19at 08:10; Start 04/02/19 at 10:00 Amlodipine Besylate (Norvasc) 5 mg 1X ONCE PO Last administered on 04/03/19at 09:15; Start 04/03/19 at 09:15; Stop 04/03/19 at 09:16; Status DC Amlodipine Besylate (Norvasc) 5 mg DAILY PO Last administered on 04/04/19at 0 8:10; Start 04/04/19 at 09:00 Temazepam (Restoril) 7.5 mg PRN QHS PRN PO INSOMNIA Last administered on 04/03/19at 20:52; Start 04/03/19 at 09:15 Active Scripts Active Norvasc (Amlodipine Besylate) 5 Mg Tablet 1 Tab PO DAILY Lisinopril 20 Mg Tablet 1 Tab PO DAILY Reported Bupropion Xl (Bupropion Hcl) 150 Mg Tab.er.24h 1 Tab PO DAILY Seroquel (Quetiapine Fumarate) 25 Mg Tablet 12.5 Mg PO HS Singulair Tablet (Montelukast Sodium) 10 Mg Tablet 10 Mg PO HS Sinemet 25-100 Mg Tablet (Carbidopa/Levodopa) 1 Each Tablet 1 Tab PO TID Hydrocodone-Apap 5-325 (Hydrocodone Bit/Acetaminophen) 1 Each Tablet 1 Tab PO PRN Q6HRS PRN Omeprazole 40 Mg Capsule.dr 1 Cap PO DAILY Carbinoxamine Maleate 4 Mg Tablet 4 Mg PO DAILY Advair 250-50 Diskus (Fluticasone/Salmeterol) 1 Each Disk.w.dev 1 Puff IH BID Simvastatin 20 Mg Tablet 20 Mg PO DAILY Vitals/I & O Vital Sign - Last 24 Hours 04/03/19 04/03/19 04/03/19 04/03/19 11:00 15:00 19:30 20:00 Temp 98.0 98.0 97.8 98.0 98.0 97.8 Pulse 68 57 71 Resp 18 18 18 B/P (MAP) 160/100 (120) 158/99 (118) 133/74 (93) Pulse Ox 97 97 92 O2 Delivery Room Air Room Air Room Air Room Air 04/03/19 04/04/19 04/04/19 04/04/19 23:40 03:00 03:00 07:00 Temp 97.6 98.1 97.8 97.6 98.1 97.8 Pulse 68 72 91 Resp 18 18 18 16 B/P (MAP) 146/84 (104) 138/74 (95) 150/91 (110) Pulse Ox 97 97 96 O2 Delivery Room Air Room Air Room Air 04/04/19 04/04/19 04/04/19 04/04/19 07:20 08:10 08:11 09:15 Pulse 91 91 B/P (MAP) 150/91 150/91 Pulse Ox 96 O2 Delivery Room Air Room Air Intake and Output 04/03/19 04/03/19 04/04/19 15:00 23:00 07:00 Intake Total 340 ml 220 ml 320 ml Output Total 800 ml 1200 ml Balance 340 ml -580 ml -880 ml AARON COLLAZO MD Apr 04, 2019 09:52
[2019-04-04] MEDS ORDERED: AMLO10TA4 PO (09:53)
[2019-04-04] MEDS ORDERED: amLODIPine BESYLATE 5 MG TABLET PO ONE (10:00)
[2019-04-04 11:00] VITALS: BP 96/54
[2019-04-04 15:00] VITALS: BP 138/81
--- NOTE | 2019-04-04 17:10 | PDOC ---
PROGRESS NOTES Assessment Assessment PD. Generalized weakness. DM. HTN. HLD. Diabetic peripheral neuropathy. Degenerative spine disease. Back pain. Obesity. RECOMMENDATIONS/PLAN: Continue Sinemet 25/100 mg tid to qid. Treat medical diseases. OT/PT. Rehab. FU with his neurologist in [facility]. FU with PCP. History of Present Illness This is an 83-year-old male patient with above medical diseases and PD was admitted due progressive weakness. On the previous evening on 04/01/19, he tried to get out of bed but was not able to do so. He called his into the room who was also unable to get him out of bed. He did have severe back pain and this is part of why he can't get out of bed. He has PD for about 2 to 3 years and has been treated with Sinement. He states the tremors were no difference than usual. No changes of urinary or bowel function. Patient complained on 04/03/19 not have more exercise to help his walking since being here. 04/04/19: He is planned to be sent to [facility] for Rehab. Past Medical History Cardiovascular: HTN, Hyperlipidemia Pulmonary: Asthma, Pneumonia CENTRAL NERVOUS SYSTEM: Peripheral neuropathy, Other GI: GERD Heme/Onc: No pertinent hx Hepatobiliary: No pertinent hx Psych: Anxiety Musculoskeletal: low back pain, Osteoarthritis Rheumatologic: No pertinent hx Infectious disease: No pertinent hx Renal/: No pertinent hx Endocrine: Diabetes Past Surgical History Cholecystectomy, Cataract Removal Family History Diabetes, Heart Disease ALLERGY: NKDA MEDICATIONS: Refer to MAR SOCIAL HISTORY: Lives with his at home. Denies current smoking, drinking, and illicit drug use. REVIEW OF SYSTEMS: Constitutional: No malnutrition, weight loss, cachexia. Head: No traumatic brain or head injury. Skin: No edema, or rash. Ear: No infection. Eyes: No vision loss or color blindness. Nose: No bleeding or purulent discharges. Hearing: Hearing decrease. Neck: No injury. Cardiac: HTN, HLD. Pulmonary: No COPD. GI: GERD. Urinary/genital: UTI. Endocrinologic: Diabetes Mellitus, obesity. Skeletomuscular: Generalized weakness. Neurological: see HP. Psychiatric: Denies drug use/abuse. Otherwise, not [id number] review of systems. PHYSICAL EXAMINATION: General appearance is in subacute distress. HEENT: Normocephalic and nontraumatic. Eyes, nose, ears, and throat are unremarkable. Neck is supple. No lymphadenopathy. No crepitus. Cardiovascular: S1, S2, regular rate and rhythm. Pulmonary: Clear to auscultation bilaterally. Abdomen: Bowel sounds are positive. Extremities: No rash, lesions, or edema. No restriction of range of motion NEUROLOGICAL EXAMINATION: Alert Partially oriented to time, place and person. PERRL. EOMI. CN: no focal findings. Muscle tone: Increased. Muscle strength: 5- UE, 4 LE. DTR: 2 UE, 0-1 at knee. Plantar reflex: Neutral response bilaterally Gait: He is able to walk slowly with a walker. Sensory exam: no abnormal findings. No cerebellar signs elicited. F-T-N test fine. Objective Objective Vital Signs Date Time Temp Pulse Resp B/P (MAP) Pulse Ox O2 Delivery O2 Flow Rate FiO2 04/04/19 15:00 97.8 75 18 138/81 (100) 94 Room Air 97.8 Intake and Output 04/04/19 07:00 Intake Total 880 ml Output Total 2000 ml Balance -1120 ml Intake Oral 880 ml Output Urine Total 2000 ml # Voids 4 Vitals Signs Vitals VS - Last 72 Hours, by Label Date Time Temp Pulse Resp B/P (MAP) Pulse Ox O2 Delivery O2 Flow Rate FiO2 04/04/19 15:00 97.8 75 18 138/81 (100) 94 Room Air 97.8 04/04/19 11:00 98.2 68 16 96/54 (68) 93 Room Air 98.2 04/04/19 10:36 91 150/91 04/04/19 10:20 96 Room Air 04/04/19 09:15 96 Room Air 04/04/19 08:11 91 150/91 04/04/19 08:10 91 150/91 04/04/19 07:20 Room Air 04/04/19 07:00 97.8 91 16 150/91 (110) 96 Room Air 97.8 04/04/19 03:00 18 04/04/19 03:00 98.1 72 18 138/74 (95) 97 Room Air 98.1 04/03/19 23:40 97.6 68 18 146/84 (104) 97 Room Air 97.6 04/03/19 20:00 Room Air 04/03/19 19:30 97.8 71 18 133/74 (93) 92 Room Air 97.8 04/03/19 15:00 98.0 57 18 158/99 (118) 97 Room Air 98.0 04/03/19 11:00 98.0 68 18 160/100 (120) 97 Room Air 98.0 04/03/19 09:15 75 164/92 04/03/19 08:14 75 164/92 04/03/19 07:32 Room Air 04/03/19 07:04 96 Room Air 04/03/19 07:00 97.9 75 18 164/92 (116) 97 Room Air 97.9 Laboratory Laboratory Laboratory Tests Test 04/03/19 21:27 04/04/19 08:10 04/04/19 16:51 Glucose (Fingerstick) 94 mg/dL (70-99) 98 mg/dL (70-99) 97 mg/dL (70-99) Medication Medications Current Medications Amlodipine Besylate (Norvasc) 5 mg 1X ONCE PO Last administered on 04/04/19at 10:36; Start 04/04/19 at 10:00; Stop 04/04/19 at 10:01; Status DC Amlodipine Besylate (Norvasc) 5 mg DAILY PO Last administered on 04/04/19at 08:10; Start 04/04/19 at 09:00; Stop 04/04/19 at 09:51; Status DC Amlodipine Besylate (Norvasc) 10 mg DAILY PO ; Start 04/05/19 at 09:00 Comment Review of Relevant I have reviewed the following items maria del carmen (where applicable) has been applied. KASSANDRA MARTIN MD Apr 04, 2019 17:10
[2019-04-04 19:00] VITALS: BP 118/77
[2019-04-04] MEDS: SIMVASTATIN 20 MG TABLET PO SCH (20:08)
[2019-04-04] MEDS: QUEtiapine 25 MG TABLET. PO SCH (20:09)
[2019-04-04 23:04] VITALS: BP 158/83
[2019-04-05 03:00] VITALS: BP 137/85
[2019-04-05] MEDS ORDERED: CALCIUM CARBONATE 500 MG TAB.CHEW PO PRN (05:00)
[2019-04-05 07:00] VITALS: BP 156/79
[2019-04-05] MEDS: PANTOPRAZOLE 40 MG TABLET.DR. PO SCH (07:36)
[2019-04-05] MEDS: INSULIN LISPRO 300 UNITS/3 ML VIAL. SQ SCH (07:57)
[2019-04-05] MEDS: BUDESONIDE 0.5 MG/2 ML NEBU. NEB SCH (08:06)
[2019-04-05] MEDS: CARBINOXAMINE MALEATE 4 MG PO SCH (08:32)
[2019-04-05] MEDS: LISINOPRIL 20 MG TABLET PO SCH (08:34)
[2019-04-05] MEDS: CARBIDOPA/LEVODOPA 25/100MG TABLET PO SCH (08:34)
[2019-04-05 08:35] VITALS: BP 156/79
[2019-04-05] MEDS: buPROPion XL 150 MG TAB.ER.24H. PO SCH (08:35)
[2019-04-05] MEDS ORDERED: amLODIPine BESYLATE 5 MG TABLET PO SCH (09:00)
--- NOTE | 2019-04-05 09:33 | PDOC3 ---
Discharge Summary Visit Information Date of Admission: Apr 02, 2019 Date of Discharge: Apr 05, 2019 Admitting Diagnosis Comment: parkinson's gait Ataxia Parkinson's dementia, chronic stable High fall risk HTN controlled Insomnia, depression NOS Urinary frequency urgency on diuretic Final Diagnosis Problems Medical Problems: (1) Ataxia Status: Acute (2) Generalized weakness Status: Acute (3) Parkinsonian tremor Status: Acute (4) Parkinsons Status: Acute Brief Hospital Course Allergies Allergies Coded Allergies Type Severity Reaction Last Updated Verified No Known Drug Allergies 05/06/14 No Vital Signs Vital Signs Date Time Temp Pulse Resp B/P (MAP) Pulse Ox O2 Delivery O2 Flow Rate FiO2 04/05/19 08:35 89 156/79 04/05/19 08:08 97 Room Air 04/05/19 07:00 97.8 16 97.8 Lab Results Laboratory Tests Test 04/03/19 11:36 04/03/19 16:40 04/03/19 21:27 04/04/19 08:10 Glucose (Fingerstick) 102 mg/dL (70-99) 101 mg/dL (70-99) 94 mg/dL (70-99) 98 mg/dL (70-99) Test 04/04/19 10:59 04/04/19 16:51 04/04/19 20:21 04/05/19 07:43 Glucose (Fingerstick) 115 mg/dL (70-99) 97 mg/dL (70-99) 117 mg/dL (70-99) 108 mg/dL (70-99) Laboratory Tests Test 04/04/19 10:59 04/04/19 16:51 04/04/19 20:21 04/05/19 07:43 Glucose (Fingerstick) 115 mg/dL (70-99) 97 mg/dL (70-99) 117 mg/dL (70-99) 108 mg/dL (70-99) Brief Hospital Course Mr. Ramon is a 83 old [sex] who presented with [ ] addendum to dc summ done Was having too much urinary freq secondary to his home diuretic, SO i stopped his HCTZ but BP high, so i increased his home norvasc to 10 mgs po qd THsi change reflected on [facility] PPlace ok today Discharge Information Condition at Discharge: Improved, Stable Disposition/Orders: Other (pplace) Scheduled Amlodipine Besylate (Norvasc) 10 Mg Tablet, 10 MG PO DAILY for htn, #30 Prescribed by: AARON COLLAZO on 04/04/19952 Bupropion Hcl (Bupropion Xl) 150 Mg Tab.er.24h, 1 TAB PO DAILY for depression, #30 (Reported) Entered as Reported by: JOCELYN GORMAN on 04/02/19933 Last Action: Continued on 04/02/19933 by JOCELYN GORMAN Carbidopa/Levodopa (Sinemet 25-100 Mg Tablet) 1 Each Tablet, 1 TAB PO TID for parkinsons, (Reported) Entered as Reported by: JOCELYN GORMAN on 04/02/19922 Last Action: Continued on 04/02/19930 by AARON COLLAZO Carbinoxamine Maleate (Carbinoxamine Maleate) 4 Mg Tablet, 4 MG PO DAILY, (Reported) Entered as Reported by: NESSA DE PAZ on 05/06/14919 Last Action: Converted on 04/02/19819 by AARON COLLAZO Fluticasone/Salmeterol (Advair 250-50 Diskus) 1 Each Disk.w.dev, 1 PUFF IH BID, #3 Ref 3 (Reported) Entered as Reported by: NESSA DE PAZ on 05/06/14918 Last Action: Converted on 04/02/19819 by AARON COLLAZO Lisinopril (Lisinopril) 20 Mg Tablet, 1 TAB PO DAILY for htn, #30 Ref 5 Prescribed by: AARON COLLAZO on 04/03/19906 Montelukast Sodium (Singulair Tablet ) 10 Mg Tablet, 10 MG PO HS for FOR ASTHMA, Ref 0 (Reported) Entered as Reported by: JOCELYN GORMAN on 04/02/19922 Last Action: Continued on 04/02/19930 by AARON COLLAZO Omeprazole (Omeprazole) 40 Mg Capsule.dr, 1 CAP PO DAILY, #30 Ref 3 (Reported) Entered as Reported by: KIMI MYLES on 08/19/16 1730 Last Action: Converted on 04/02/19819 by AARON COLLAZO Quetiapine Fumarate (Seroquel) 25 Mg Tablet, 12.5 MG PO HS for parkinsons, (Reported) Entered as Reported by: JOCELYN GORMAN on 04/02/19922 Last Action: Continued on 04/02/19930 by AARON COLLAZO Simvastatin (Simvastatin) 20 Mg Tablet, 20 MG PO DAILY for FOR CHOLESTEROL, #30 Ref 0 (Reported) Entered as Reported by: NESSA DE PAZ on 05/06/14914 Last Action: Continued on 04/02/19819 by AARON COLLAZO Scheduled PRN Hydrocodone Bit/Acetaminophen (Hydrocodone-Apap 5-325 ) 1 Each Tablet, 1 TAB PO PRN Q6HRS PRN for PAIN, (Reported) Entered as Reported by: LELO BARBOZA on 12/30/17351 Last Action: Continued on 04/02/19819 by AARON COLLAZO Discontinued Medications Albuterol Sulfate (Proair Hfa Inhaler) 8.5 Gm Hfa.aer.ad, 2 PUFF IH PRN Q4-6HRS PRN for SHORTNESS OF BREATH, #1 (Reported) Entered as Reported by: NESSA DE PAZ on 05/06/14912 Last Action: Continued on 04/02/19819 by AARON COLLAZO Azithromycin (Azithromycin Tablet) 250 Mg Tablet, 1 PKG PO UD, #6 Prescribed by: ABHIJEET TAM MD on 05/20/18809 Last Action: HELD on 04/02/19819 by AARON COLLAZO Duloxetine Hcl (Cymbalta) 60 Mg Capsule.dr, 1 CAP PO DAILY, #90 Ref 3 (Reported) Entered as Reported by: NESSA DE PAZ on 05/06/14918 Last Action: Discontinued on 04/02/19918 by JOCELYN GORMAN Lisinopril/Hydrochlorothiazide (Lisinopril-Hctz 20-12.5 Mg Tab) 1 Each Tablet, 1 TAB PO DAILY, #30 Ref 5 (Reported) Entered as Reported by: KIMI MYLES on 08/20/16 0710 Last Action: Converted on 04/02/19819 by AARON COLLAZO Metformin Hcl (Metformin Hcl) 500 Mg Tablet, 1 TAB PO BID, #60 Ref 3 (Reported) Entered as Reported by: KIMI MYLES on 08/19/16 1730 Last Action: Discontinued on 04/02/19918 by AARON LING MD Apr 05, 2019 09:33
== END 2019-04-05 11:34 | DRG 57 ==
LOC: ER 00:37 → 4 NORTH 02:23
PROVIDERS: ADMIT Internal Medicine; ATTEND Internal Medicine
DX: G20 Parkinson's disease (principal); R27.0 Ataxia, unspecified; G47.00 Insomnia, unspecified; F32.9 Major depressive disorder, single episode, unspecified; E11.42 Type 2 diabetes mellitus with diabetic polyneuropathy; E66.9 Obesity, unspecified; Z68.32 Body mass index [BMI] 32.0-32.9, adult; E78.00 Pure hypercholesterolemia, unspecified; E78.5 Hyperlipidemia, unspecified; F02.80 Dementia in other diseases classified elsewhere, unspecified severity, without behavioral disturbance, psychotic disturbance, mood disturbance, and anxiety; I10 Essential (primary) hypertension; J45.909 Unspecified asthma, uncomplicated; K21.9 Gastro-esophageal reflux disease without esophagitis; Z79.51 Long term (current) use of inhaled steroids; Z79.84 Long term (current) use of oral hypoglycemic drugs; Z79.899 Other long term (current) drug therapy; Z83.3 Family history of diabetes mellitus; F41.9 Anxiety disorder, unspecified; Z87.01 Personal history of pneumonia (recurrent); M19.90 Unspecified osteoarthritis, unspecified site; M54.5 Low back pain; Z90.49 Acquired absence of other specified parts of digestive tract; Z98.49 Cataract extraction status, unspecified eye; Z82.49 Family history of ischemic heart disease and other diseases of the circulatory system
CPT/HCPCS: 36415; 80053; 81001; 82550; 82607; 82962; 83735; 84443; 84484; 85025; 85651; 93005; 94640; 94760; 96360; J1815; J7030; J7040; J7613; J7626; Q0162; 97110; 97116; 97530; 97535; 99285-25; G0378

== ENCOUNTER → 2019-08-12 | Outpatient (CLI) | payer MEDICARE, BC ==
[~2019-08-12] MED LIST changes: +AMLO10TA4 PO; +AMLO5TAB4 PO; +BUPR150T6 PO; +LISI-334 PO; -OMEP20CA10 PO; +OMEP20CA16 PO; +QUET25TA5 PO
== END | disposition home or self-care (01) ==
LOC: SPEC 16:33
PROVIDERS: ATTEND Podiatrist
DX: E11.621 Type 2 diabetes mellitus with foot ulcer (principal)
CPT/HCPCS: 87071; 87075

== ENCOUNTER 2019-08-26 16:40 | Emergency (ER) | payer MEDICARE, BC ==
[~2019-08-26] VITALS: Ht 190.5 cm; Wt 118.1 kg
--- NOTE | 2019-08-26 17:49 | PHYS DOC ---
Past Medical History Past Medical History: Asthma, Diabetes-Type II, High Cholesterol, Hypertension, Other Additional Past Medical Histor: Parkinson's (KATHIE DAVIS APRN) Past Surgical History: Cholecystectomy Additional Past Surgical Histo: Brain surgery 04/2018, failed hernia repair (KATHIE DAVIS APRN) Smoking Status: Former Smoker Alcohol Use: None Drug Use: None (KATHIE DAVIS APRN) Attending Signature I have participated in the care of this patient and I have reviewed and agree with all pertinent clinical information above including history, exam, and recommendations. (RENO HECK MD) Adult General Chief Complaint Chief Complaint: CELLULITIS HPI HPI Patient is a 83 year old male who presents with 2 months of a right medial arch golfball sized abscess with some surrounding cellulitis. He went to his doctor today who sent him to the wound clinic to have it looked at. The wound clinic sent him to the emergency room. Patient has history of diabetes, asthma, Pa rkinson's, hypertension, high cholesterol, cholecystectomy. She denies any pain he has neuropathy in bilateral feet so he feels no pain. Denies any injury to the foot. (KATHIE DAVIS APRN) Review of Systems Review of Systems Integument: Right foot ulcer. Denies rash or skin lesions [] All other systems were reviewed and found to be within normal limits, except as documented in this note. (KATHIE DAVIS APRN) Current Medications Current Medications Current Medications Medications (Trade) Dose Ordered Sig/Kaitlin Start Time Stop Time Status Last Admin Dose Admin Sodium Chloride 1,000 ml @ 1,000 mls/hr Q1H 08/26/19 17:35 08/26/19 18:34 DC 08/26/19 18:29 1,000 MLS/HR (RENO HECK MD) Allergies Allergies Allergies Coded Allergies Type Severity Reaction Last Updated Verified No Known Drug Allergies 05/06/14 No (RENO HECK MD) Physical Exam Physical Exam Constitutional: Well developed, well nourished, no acute distress, non-toxic appearance. [] HENT: Normocephalic, atraumatic, bilateral external ears normal, oropharynx moist, no oral exudates, nose normal. [] Eyes: PERRLA, EOMI, conjunctiva normal, no discharge. [] Neck: Normal range of motion, no tenderness, supple, no stridor. [] Cardiovascular:Heart rate regular rhythm, no murmur [] Lungs & Thorax: Bilateral breath sounds clear to auscultation [] Abdomen: Bowel sounds normal, soft, no tenderness, no masses, no pulsatile masses. [] Skin: Warm, dry, no erythema, no rash. Right medial arch abscess, ulceration. [] Back: No tenderness, no CVA tenderness. [] Extremities: No tenderness, no cyanosis, no clubbing, ROM intact, no edema. [] Neurologic: Alert and oriented X 3, normal motor function, normal sensory function, no focal deficits noted. [] Psychologic: Affect normal, judgement normal, mood normal. [] (KATHIE DAVIS APRN) Current Patient Data Vital Signs Vital Signs Date Time Temp Pulse Resp B/P (MAP) Pulse Ox O2 Delivery O2 Flow Rate FiO2 08/26/19 19:39 76 182/84 (116) 99 08/26/19 18:39 18 Room Air 08/26/19 17:32 98.2 98.2 (RENO HECK MD) Lab Values Laboratory Tests Test 08/26/19 18:00 White Blood Count 7.1 x10^3/uL (4.0-11.0) Red Blood Count 5.03 x10^6/uL (4.30-5.70) Hemoglobin 15.2 g/dL (13.0-17.5) Hematocrit 45.9 % (39.0-53.0) Mean Corpuscular Volume 91 fL (79-100) Mean Corpuscular Hemoglobin 30 pg (25-35) Mean Corpuscular Hemoglobin Concent 33 g/dL (31-37) Red Cell Distribution Width 14.6 % (11.5-14.5) H Platelet Count 140 x10^3/uL (140-400) Neutrophils (%) (Auto) 57 % (31-73) Lymphocytes (%) (Auto) 24 % (24-48) Monocytes (%) (Auto) 15 % (0-9) H Eosinophils (%) (Auto) 2 % (0-3) Basophils (%) (Auto) 1 % (0-3) Neutrophils # (Auto) 4.1 x10^3/uL (1.8-7.7) Lymphocytes # (Auto) 1.7 x10^3/uL (1.0-4.8) Monocytes # (Auto) 1.1 x10^3/uL (0.0-1.1) Eosinophils # (Auto) 0.2 x10^3/uL (0.0-0.7) Basophils # (Auto) 0.1 x10^3/uL (0.0-0.2) Erythrocyte Sedimentation Rate 1 (0-15) Sodium Level 139 mmol/L (136-145) Potassium Level 4.4 mmol/L (3.5-5.1) Chloride Level 104 mmol/L (98-107) Carbon Dioxide Level 23 mmol/L (21-32) Anion Gap 12 (6-14) Blood Urea Nitrogen 30 mg/dL (8-26) H Creatinine 1.4 mg/dL (0.7-1.3) H Estimated GFR (Cockcroft-Gault) 48.6 BUN/Creatinine Ratio 21 (6-20) H Glucose Level 107 mg/dL (70-99) H Lactic Acid Level 1.6 mmol/L (0.4-2.0) Calcium Level 9.2 mg/dL (8.5-10.1) Total Bilirubin 0.4 mg/dL (0.2-1.0) Aspartate Amino Transferase (AST) 18 U/L (15-37) Alanine Aminotransferase (ALT) 7 U/L (16-63) L Alkaline Phosphatase 88 U/L (46-116) C-Reactive Protein, Quantitative 1.0 mg/L (0-3.3) Total Protein 6.3 g/dL (6.4-8.2) L Albumin 3.4 g/dL (3.4-5.0) Albumin/Globulin Ratio 1.2 (1.0-1.7) Laboratory Tests 08/26/19 18:00 Laboratory Tests 08/26/19 18:00 (RENO HECK MD) Lab Values Laboratory Tests Test 08/26/19 18:00 White Blood Count 7.1 x10^3/uL (4.0-11.0) Red Blood Count 5.03 x10^6/uL (4.30-5.70) Hemoglobin 15.2 g/dL (13.0-17.5) Hematocrit 45.9 % (39.0-53.0) Mean Corpuscular Volume 91 fL (79-100) Mean Corpuscular Hemoglobin 30 pg (25-35) Mean Corpuscular Hemoglobin Concent 33 g/dL (31-37) Red Cell Distribution Width 14.6 % (11.5-14.5) H Platelet Count 140 x10^3/uL (140-400) Neutrophils (%) (Auto) 57 % (31-73) Lymphocytes (%) (Auto) 24 % (24-48) Monocytes (%) (Auto) 15 % (0-9) H Eosinophils (%) (Auto) 2 % (0-3) Basophils (%) (Auto) 1 % (0-3) Neutrophils # (Auto) 4.1 x10^3/uL (1.8-7.7) Lymphocytes # (Auto) 1.7 x10^3/uL (1.0-4.8) Monocytes # (Auto) 1.1 x10^3/uL (0.0-1.1) Eosinophils # (Auto) 0.2 x10^3/uL (0.0-0.7) Basophils # (Auto) 0.1 x10^3/uL (0.0-0.2) Sodium Level 139 mmol/L (136-145) Potassium Level 4.4 mmol/L (3.5-5.1) Chloride Level 104 mmol/L (98-107) Carbon Dioxide Level 23 mmol/L (21-32) Anion Gap 12 (6-14) Blood Urea Nitrogen 30 mg/dL (8-26) H Creatinine 1.4 mg/dL (0.7-1.3) H Estimated GFR (Cockcroft-Gault) 48.6 BUN/Creatinine Ratio 21 (6-20) H Glucose Level 107 mg/dL (70-99) H Lactic Acid Level 1.6 mmol/L (0.4-2.0) Calcium Level 9.2 mg/dL (8.5-10.1) Total Bilirubin 0.4 mg/dL (0.2-1.0) Aspartate Amino Transferase (AST) 18 U/L (15-37) Alanine Aminotransferase (ALT) 7 U/L (16-63) L Alkaline Phosphatase 88 U/L (46-116) C-Reactive Protein, Quantitative 1.0 mg/L (0-3.3) Total Protein 6.3 g/dL (6.4-8.2) L Albumin 3.4 g/dL (3.4-5.0) Albumin/Globulin Ratio 1.2 (1.0-1.7) Laboratory Tests 08/26/19 18:00 Laboratory Tests 08/26/19 18:00 (KATHIE DAVIS APRN) EKG EKG [] (KATHIE DAVIS APRN) Radiology/Procedures Radiology/Procedures [] (KATHIE DAVIS APRN) Impressions: [facility] [address] [place] [address] IMAGING REPORT Signed PATIENT: YOSELIN LAZO ACCOUNT: [id number] : 1935 LOCATION: ER AGE: 83 SEX: M EXAM STATUS: REG ER ORD. PHYSICIAN: KATHIE DAVIS APRN REASON: pain and abscess, right medial arch PROCEDURE: FOOT RIGHT 3V Three-view right foot HISTORY: Pain Oblique views There is callus formation around the proximal fifth toe suggesting an old fracture. Remaining visualized osseous structures appear grossly intact. There is gross osteopenia which limits sensitivity for possible nondisplaced fractures. There is mild flatfoot deformity. IMPRESSION: No acute findings. Old fracture of the base of the fifth toe. Electronically signed by: Trini Diamond III, MD (08/26/2019 7:04 PM) [id number] DICTATED and SIGNED BY: TRINI DIAMOND III, MD DATE: 08/26/191903 (KATHIE DAVIS APRN) Course & Med Decision Making Course & Med Decision Making Pertinent Labs and Imaging studies reviewed. (See chart for details) Patient has a right medial arch upon sized abscesses hard is slightly fluctuant. It looks to be have opened in the middle of the abscess. There is no swelling to the foot. There is some redness surrounding the area. Pedal pulses strong and present. Afebrile and vital signs are within normal limits. Patient states he is not currently on any antibiotics. Patient is asking how long this taken when his is going to leave. I told the patient that he may require IV antibiotics and that we need to do blood work and an x-ray of the foot and see how bad the infection is. Patient then asked how long all that was going to take. I explained to the patient is that this could take 2-3 hours but hopefully sooner we will know for sure. He denies any pain. Cap refill less than 3 seconds. Skin pink warm and dry. Ambulatory unsteady gait. Alert and oriented. Speaks in full clear sentences. He denies any symptoms besides the ulceration on his foot. I have discussed this patient with Dr Heck. He states since the patient is stable and blood work is stable the patient can go home on antibiotics and follow up with his primary care physician. [] (KATHIE DAVIS APRN) Dragon Disclaimer Dragon Disclaimer This electronic medical record was generated, in whole or in part, using a voice recognition dictation system. (KATHIE DAVIS APRN) Departure Departure Impression: Primary Impression: Abscess of foot Disposition: HOME, SELF-CARE Condition: STABLE Referrals: SHIRA OGDEN MD (PCP) Patient Instructions: Abscess Additional Instructions: FOLLOW UP WITH WOUND CARE SOON POSSIBLE. TAKE ANTIBIOTIC WITH FOOD AND PRESCRIBED. Scripts Cephalexin (KEFLEX) 500 Mg Capsule 500 MG PO QID for 10 Days, #40 CAP Prov: KATHIE DAVIS APRN 08/26/19 KATHIE DAVIS APRN Aug 26, 2019 17:49 RENO HECK MD Aug 26, 2019 22:03
[2019-08-26] MEDS: IV NORMAL SALINE 1000ML BAG 1,000 ML IV SCH (18:29)
[2019-08-26 18:32] LABS: BASO # 0.1 x10^3/uL (0.0-0.2); BASO % 1 % (0-3); EOS # 0.2 x10^3/uL (0.0-0.7); EOS % 2 % (0-3); HEMATOCRIT 45.9 % (39.0-53.0); HEMOGLOBIN 15.2 g/dL (13.0-17.5); LYMPH # 1.7 x10^3/uL (1.0-4.8); LYMPH % 24 % (24-48); MEAN CORPUSCULAR HEMOGLOBIN 30 pg (25-35); MEAN CORPUSCULAR HGB CONC 33 g/dL (31-37); MEAN CORPUSCULAR VOLUME 91 fL (79-100); MONO # 1.1 x10^3/uL (0.0-1.1); MONO % 15 % (0-9); NEUT # 4.1 x10^3/uL (1.8-7.7); NEUT % 57 % (31-73); PLATELET COUNT 140 x10^3/uL (140-400); RED BLOOD COUNT 5.03 x10^6/uL (4.30-5.70); RED CELL DISTRIBUTION WIDTH 14.6 % (11.5-14.5); WHITE BLOOD COUNT 7.1 x10^3/uL (4.0-11.0)
[2019-08-26 18:36] LABS: CALCIUM 9.2 mg/dL (8.5-10.1); CREATININE 1.4 mg/dL (0.7-1.3); GFR 48.6; POTASSIUM 4.4 mmol/L (3.5-5.1)
[2019-08-26 18:49] LABS: ALBUMIN 3.4 g/dL (3.4-5.0); ALBUMIN/GLOBULIN RATIO 1.2 (1.0-1.7); TOTAL BILIRUBIN 0.4 mg/dL (0.2-1.0); TOTAL PROTEIN 6.3 g/dL (6.4-8.2)
--- NOTE | 2019-08-26 19:07 | RAD ---
Three-view right foot HISTORY: Pain Oblique views There is callus formation around the proximal fifth toe suggesting an old fracture. Remaining visualized osseous structures appear grossly intact. There is gross osteopenia which limits sensitivity for possible nondisplaced fractures. There is mild flatfoot deformity. IMPRESSION: No acute findings. Old fracture of the base of the fifth toe. Electronically signed by: Nakul Marcus III, MD (08/26/2019 7:04 PM) [id number]
[2019-08-26 19:39] VITALS: BP 182/84
[2019-08-26] MEDS ORDERED: CEPH-264 PO (19:56)
== END 2019-08-26 20:25 | disposition home or self-care (01) ==
LOC: ER 16:40
DX: L02.611 Cutaneous abscess of right foot (principal); E11.9 Type 2 diabetes mellitus without complications; J45.909 Unspecified asthma, uncomplicated; E78.00 Pure hypercholesterolemia, unspecified; I10 Essential (primary) hypertension; G20 Parkinson's disease; Z87.891 Personal history of nicotine dependence
CPT/HCPCS: 36415; 73630; 80053; 83605; 85025; 85651; 86140; 87040; 99285; J7030

== ENCOUNTER → 2019-09-04 | Outpatient (CLI) | payer MEDICARE, BC ==
[2019-08-26 19:39] VITALS: BP 182/84
[~2019-09-04] MED LIST changes: +CEPH-264 PO
--- NOTE | 2019-09-04 13:51 | RAD ---
Right lower survey arterial duplex ultrasound study and bilateral ABIs without comparison for nonhealing wound of the right foot. TECHNIQUE AND FINDINGS: Real-time grayscale and color and spectral Doppler evaluation of the arteries of the right lower extremity is performed. The HARRY on the right is 1.2 and the HARRY on the left is 1.3. There is mild calcified atherosclerosis the right superficial femoral artery, with more significant atherosclerosis seen in the arteries below the knee. There is normal triphasic flow within the common femoral, and superficial femoral arteries, with normal hyperdynamic monophasic flow within the popliteal artery. Normal biphasic flow in the profunda femoral artery. There is poor visualization of the posterior tibial artery proximally, however there is triphasic flow within the distal posterior tibial artery, as well as within the anterior tibial and peroneal arteries and dorsalis pedis arteries. No focal velocity elevations are identified to suggest hemodynamic significant stenosis in any distribution. IMPRESSION: 1. Moderate multifocal calcified atherosclerosis particularly involving the arteries below the knee, however the ABIs and visualized waveforms are normal and there are no focally elevated velocities to suggest hemodynamically significant stenosis. Electronically signed by: Portillo Rosa MD (09/04/2019 1:48 PM) [id number]
== END | disposition home or self-care (01) ==
LOC: US 12:38
PROVIDERS: ATTEND Emergency Medicine Undersea and Hyperbaric Medicine
DX: I70.235 Atherosclerosis of native arteries of right leg with ulceration of other part of foot (principal); L97.518 Non-pressure chronic ulcer of other part of right foot with other specified severity
CPT/HCPCS: 93922; 93926

== ENCOUNTER 2020-01-08 10:55 | Emergency (ER) | payer MEDICARE, BC ==
[~2020-01-08] VITALS: Ht 190.5 cm; Wt 107.3 kg
[~2020-01-08 10:55] MED LIST changes: -LISI1TAB19 PO; +LISI1TAB37 PO
[2020-01-08 11:20] LABS: BILIRUBIN,URINE NEGATIVE (NEG); CLARITY,URINE TURBID; COLOR,URINE YELLOW; NITRITE,URINE NEGATIVE (NEG); PROTEIN,URINE 100 mg/dL (NEG-TRACE)
[2020-01-08 11:26] LABS: BACTERIA,URINE MANY /HPF (0-FEW); RBC,URINE FIELD OBSCURED /HPF (0-2); WBC,URINE TNTC /HPF (0-4)
[2020-01-08] MEDS ORDERED: IV NORMAL SALINE 1000ML BAG 1,000 ML IV ONE (11:30)
--- NOTE | 2020-01-08 11:36 | RAD ---
PORTABLE CHEST 1V History: Reason: sob / Spl. Instructions: / History: Comparison: December 25, 2018 Findings: Patchy bibasilar opacities. No pleural effusion. No pneumothorax. Normal heart size. Impression: 1. Patchy bibasilar opacities, likely atelectasis. If persistent clinical concern, PA and lateral view the chest can better assess. Electronically signed by: Servando Zuniga DO (01/08/2020 11:33 AM) [id number]
[2020-01-08 11:38] LABS: BASO # 0.1 x10^3/uL (0.0-0.2); BASO % 1 % (0-3); EOS # 0.1 x10^3/uL (0.0-0.7); EOS % 2 % (0-3); HEMOGLOBIN 13.4 g/dL (13.0-17.5); LYMPH # 1.4 x10^3/uL (1.0-4.8); LYMPH % 19 % (24-48); MEAN CORPUSCULAR HEMOGLOBIN 30 pg (25-35); MEAN CORPUSCULAR HGB CONC 34 g/dL (31-37); MEAN CORPUSCULAR VOLUME 89 fL (79-100); MONO # 0.8 x10^3/uL (0.0-1.1); MONO % 11 % (0-9); NEUT # 5.1 x10^3/uL (1.8-7.7); NEUT % 67 % (31-73); PLATELET COUNT 194 x10^3/uL (140-400); RED CELL DISTRIBUTION WIDTH 15.4 % (11.5-14.5); WHITE BLOOD COUNT 7.5 x10^3/uL (4.0-11.0)
[2020-01-08 11:47] LABS: CALCIUM 8.7 mg/dL (8.5-10.1); GFR 32.1
[2020-01-08 11:52] LABS: ALBUMIN/GLOBULIN RATIO 0.8 (1.0-1.7); TOTAL BILIRUBIN 0.5 mg/dL (0.2-1.0); TOTAL PROTEIN 6.9 g/dL (6.4-8.2)
[2020-01-08] MEDS ORDERED: cefTRIAXone IV Push 1 GM VIAL. IVP ONE (12:30)
[2020-01-08] MEDS ORDERED: LEVO750T31 PO (12:45)
--- NOTE | 2020-01-08 13:00 | PHYS DOC ---
Past Medical History Past Medical History: Asthma, Cancer, Diabetes-Type II, High Cholesterol, Hypertension, Other Additional Past Medical Histor: Parkinson's,SKIN CA Past Surgical History: Cholecystectomy Additional Past Surgical Histo: Brain surgery 04/2018, failed hernia repair X 2,SKIN CA/SCALP Smoking Status: Former Smoker Alcohol Use: None Drug Use: None General Adult EDM: Chief Complaint: HYPOTENSION HPI: HPI: Patient is a 84 year old male who is presenting with brought in by ambulance low blood pressure apparently was at urgent care blood pressure was in the 80s systolic when the paramedics arrived he was in the 120s in the 140s and never had low blood pressure for the paramedics at all. Apparently oral hydration was pursued in the urgent care office. Patient has a urinary tract infection has not yet picked up the antibiotics for it however. Patient has a history of Parkinson's disease and does have chronic weakness this seems little bit worse than normal but he still able to get around in fact he was at just a routine appointment and they did notice a little low blood pressure so he then was referred to the ER for evaluation he has a chronic cough worse at night no shortness of breath or chest pain no fever that he knows of he does have some urinary symptoms frequent urination and some mild pain that he is noticing. Blanche amado is at the bedside and is a good historian as well. Past medical history Parkinson's disease medications see a whole list in the computer. Patient is not on Keflex yet she does not know what antibiotic he was prescribed. We called the pharmacy and they could not find a record of one either. Review of Systems: Review of Systems: Constitutional: Denies fever or chills. [] Eyes: Denies change in visual acuity. [] HENT: Lymphatic: Denies swollen glands. [] Psychiatric: Denies depression or anxiety. [] Heart Score: Risk Factors: Risk Factors: DM, Current or recent (<one month) smoker, HTN, HLP, family history of CAD, obesity. Risk Scores: Score 0 - 3: 2.5% MACE over next 6 weeks - Discharge Home Score 4 - 6: 20.3% MACE over next 6 weeks - Admit for Clinical Observation Score 7 - 10: 72.7% MACE over next 6 weeks - Early Invasive Strategies Current Medications: Current Medications Medications (Trade) Dose Ordered Sig/Kaitlin Start Time Stop Time Status Last Admin Dose Admin Ceftriaxone Sodium (Rocephin) 1 gm 1X ONCE 01/08/20 12:30 01/08/20 12:31 DC Sodium Chloride 1,000 ml @ 1,000 mls/hr 1X ONCE 01/08/20 11:30 01/08/20 12:29 DC Allergies: Allergies: Allergies Coded Allergies Type Severity Reaction Last Updated Verified No Known Drug Allergies 05/06/14 No Physical Exam: PE: Constitutional: Well developed, well nourished, no acute distress, non-toxic appearance. [] HENT: Normocephalic, atraumatic, bilateral external ears normal, oropharynx DRY, no oral exudates, nose normal. [] Eyes: PERRLA, EOMI, conjunctiva normal, no discharge. [] Neck: Normal range of motion, no tenderness, supple, no stridor. [] Cardiovascular:Heart rate regular rhythm, no murmur [] Lungs & Thorax: Bilateral breath sounds clear to auscultation [] Abdomen: Bowel sounds normal, soft, no tenderness, no masses, no pulsatile masses. [] Skin: Warm, dry, no erythema, no rash. [] Dry skin noted with intermittent rash Back: No tenderness, no CVA tenderness. [] Extremities: No tenderness, no cyanosis, no clubbing, ROM intact, 1+ edema bilaterally Neurologic: Alert and oriented X 3, bradykinesia and tremor consistent with known Parkinson's disease. Psychologic: Affect normal, judgement normal, mood normal. [] Current Patient Data: Labs: Laboratory Tests Test 01/08/20 11:00 01/08/20 11:25 Urine Collection Type Void Urine Color Yellow Urine Clarity Turbid Urine pH 6.0 (<5.0-8.0) Urine Specific [place] 1.015 (1.000-1.030) Urine Protein 100 mg/dL (NEG-TRACE) Urine Glucose (UA) Negative mg/dL (NEG) Urine Ketones (Stick) Trace mg/dL (NEG) Urine Blood Small (NEG) Urine Nitrite Negative (NEG) Urine Bilirubin Negative (NEG) Urine Urobilinogen Dipstick 1.0 mg/dL (0.2 mg/dL) Urine Leukocyte Esterase Large (NEG) Urine RBC Field obscured /HPF (0-2) Urine WBC Tntc /HPF (0-4) Urine Bacteria Many /HPF (0-FEW) White Blood Count 7.5 x10^3/uL (4.0-11.0) Red Blood Count 4.50 x10^6/uL (4.30-5.70) Hemoglobin 13.4 g/dL (13.0-17.5) Hematocrit 40.0 % (39.0-53.0) Mean Corpuscular Volume 89 fL (79-100) Mean Corpuscular Hemoglobin 30 pg (25-35) Mean Corpuscular Hemoglobin Concent 34 g/dL (31-37) Red Cell Distribution Width 15.4 % (11.5-14.5) H Platelet Count 194 x10^3/uL (140-400) Neutrophils (%) (Auto) 67 % (31-73) Lymphocytes (%) (Auto) 19 % (24-48) L Monocytes (%) (Auto) 11 % (0-9) H Eosinophils (%) (Auto) 2 % (0-3) Basophils (%) (Auto) 1 % (0-3) Neutrophils # (Auto) 5.1 x10^3/uL (1.8-7.7) Lymphocytes # (Auto) 1.4 x10^3/uL (1.0-4.8) Monocytes # (Auto) 0.8 x10^3/uL (0.0-1.1) Eosinophils # (Auto) 0.1 x10^3/uL (0.0-0.7) Basophils # (Auto) 0.1 x10^3/uL (0.0-0.2) Sodium Level 139 mmol/L (136-145) Potassium Level 4.0 mmol/L (3.5-5.1) Chloride Level 104 mmol/L (98-107) Carbon Dioxide Level 26 mmol/L (21-32) Anion Gap 9 (6-14) Blood Urea Nitrogen 39 mg/dL (8-26) H Creatinine 2.0 mg/dL (0.7-1.3) H Estimated GFR (Cockcroft-Gault) 32.1 BUN/Creatinine Ratio 20 (6-20) Glucose Level 101 mg/dL (70-99) H Calcium Level 8.7 mg/dL (8.5-10.1) Total Bilirubin 0.5 mg/dL (0.2-1.0) Aspartate Amino Transferase (AST) 16 U/L (15-37) Alanine Aminotransferase (ALT) 6 U/L (16-63) L Alkaline Phosphatase 103 U/L (46-116) Troponin I Quantitative 0.018 ng/mL (0.000-0.055) Total Protein 6.9 g/dL (6.4-8.2) Albumin 3.0 g/dL (3.4-5.0) L Albumin/Globulin Ratio 0.8 (1.0-1.7) L Laboratory Tests 01/08/20 11:25 Laboratory Tests 01/08/20 11:25 Vital Signs: Vital Signs Date Time Temp Pulse Resp B/P (MAP) Pulse Ox O2 Delivery O2 Flow Rate FiO2 01/08/20 10:55 97.3 82 30 141/77 (98) 92 Room Air 97.3 EKG: EKG: [] EKG shows a sinus probably sinus rhythm poor baseline due to known tremor but there is no ischemia or STEMI identified. Radiology/Procedures: Radiology/Procedures: [] Impression: Impression: 1. Patchy bibasilar opacities, likely atelectasis. If persistent clinical concern, PA and lateral view the chest can better assess. Electronically signed by: Servando Canas DO (01/08/2020 11:33 AM) [id number] DICTATED and SIGNED BY: SERVANDO CANAS DO DATE: 01/08/20 1133 Course & Med Decision Making: Course & Med Decision Making Pertinent Labs and Imaging studies reviewed. (See chart for details) [] 84-year-old male with known Parkinson's disease who is presenting to the emergency room with report of low blood pressure at urgent care now resolved completely blood pressure has been normal since he has been here. There is a mild bump in the creatinine we will give a liter of IV fluids and patient is very able to take a lot of oral fluids as well. Noted to have a UTI in addition to the renal insufficiency. IVFLUIDS GIVEN. I talked to the patient and the about the possibility of admission for IV fluids and antibiotics but they think that in fact he is doing okay at home they really want to try oral antibiotics which given the normal blood pressure and the patient is overall appears to be likely at or very near his baseline and this seems reasonable. Due to the chest x-ray finding I do have low suspicion for pneumonia definitely low suspicion but will prescribe Levaquin in case. IV ceftriaxone was given in the emergency room G room prescription for Levaquin sent to the patient's pharmacy and the was given good discharge instructions and return precautions and she voiced understanding. She is very eager to take him home as is the patient. Iván Disclaimer: Iván Disclaimer: This electronic medical record was generated, in whole or in part, using a voice recognition dictation system. Departure Departure Impression: Primary Impression: Urinary tract infection Disposition: HOME, SELF-CARE Condition: STABLE Patient Instructions: Urinary Tract Infection, [id number] Scripts Levofloxacin (LEVAQUIN) 750 Mg Tablet 1 TAB PO DAILY for uti for 7 Days, #7 TAB 0 Refills Prov: MAITE TSAI MD 01/08/20 Justicifation of Admission Dx: Justifications for Admission: Justification of Admission Dx: N/A MAITE TSAI MD Jan 08, 2020 13:00
[2020-01-08 13:19] VITALS: BP 145/81
--- NOTE | 2020-01-08 20:31 | EKG ---
[facility] [address] [place] [address] Test Date: 2020-01-08 Test Time: 11:02:34 Pat Name: YOSELIN LAZO Department: Room: Gender: M Claims Sorter: : 1935 Requested By: MAITE TSAI Order Number: [id number] Reading MD: Measurements Intervals [place] Rate: 82 P: -90 UT: 118 QRS: -45 QRSD: 124 T: 64 QT: 368 QTc: 433 Interpretive Statements SUPRAVENTRICULAR RHYTHM ABNORMAL LEFT AXIS DEVIATION LEFT ANTERIOR FASCICULAR BLOCK QRS(T) CONTOUR ABNORMALITY CONSISTENT WITH ANTEROSEPTAL INFARCT AGE UNDETERMINED T ABNORMALITY IN HIGH LATERAL LEADS ABNORMAL ECG RI6.01 No previous ECG available for comparison
== END 2020-01-08 13:19 | disposition home or self-care (01) ==
LOC: ER 10:55
DX: N39.0 Urinary tract infection, site not specified (principal); I95.9 Hypotension, unspecified; J45.909 Unspecified asthma, uncomplicated; E11.9 Type 2 diabetes mellitus without complications; I10 Essential (primary) hypertension; E78.00 Pure hypercholesterolemia, unspecified; G20 Parkinson's disease; Z87.891 Personal history of nicotine dependence; Z90.49 Acquired absence of other specified parts of digestive tract; Z98.890 Other specified postprocedural states
CPT/HCPCS: 36415; 71045; 80053; 81001; 84484; 85025; 87086; 93005; 96361; 96374; 99285; J0696; J7030

== ENCOUNTER 2020-01-14 18:09 | Emergency (ER) | payer MEDICARE, BC ==
[~2020-01-14] VITALS: Ht 190.5 cm; Wt 80.0 kg
[~2020-01-14 18:09] MED LIST changes: +LEVO750T31 PO; +LISI1TAB19 PO; -LISI1TAB37 PO
--- NOTE | 2020-01-14 18:44 | PHYS DOC ---
Past Medical History Past Medical History: Asthma, Cancer, Diabetes-Type II, High Cholesterol, Hypertension, Other Additional Past Medical Histor: Parkinson's,SKIN CA Past Surgical History: Cholecystectomy Additional Past Surgical Histo: Brain surgery 04/2018, failed hernia repair X 2,SKIN CA/SCALP Smoking Status: Former Smoker Alcohol Use: None Drug Use: None General Adult EDM: Chief Complaint: MECHANICAL FALL HPI: HPI: Patient is a 84 year old male who present via EMS for fall. Patient reports suffering x2 mechanical, ground-level falls today in his home. Patient was seen 6 days ago in our emergency department after being referred from outpatient setting due to hypotension and delayed treatment for UTI. Patient was stabilized and discharged home with self-care with his with a 7-day prescription of Levaquin. He has been taking this daily and is currently on day 5 of 7 of treatment. He has had no symptoms. Patient reports using specialized walker specifically made for him given his severe Parkinson's disease. He reports having one fall earlier this morning for which his chronic right lower leg neurological deficiencies "buckled quite under him. He denied hitting his head or losing consciousness. He was able to ambulate and then later today around 3 hours prior to arrival, patient suffered additional mechanical fall on hard tile in kitchen. This fall, patient reports hitting right knee and back of head. Patient denies any loss of consciousness or new neurological symptoms since this episode. at bedside and confirmed this, reports he has had his baseline mentation. Patient was concerned about having his elderly assist him getting up and so, he called EMS for assistance who ultimately brought him to our emergency department for further evaluation. He is asymptomatic Review of Systems: Review of Systems: Constitutional: Denies fever or chills. Eyes: Denies change in visual acuity. HENT: Denies nasal congestion or sore throat. Respiratory: Denies cough or shortness of breath. Cardiovascular: Denies chest pain or edema. GI: Denies abdominal pain, nausea, vomiting, bloody stools or diarrhea. : Denies dysuria. Musculoskeletal: Denies back pain or joint pain. Admits chronic, unchanged gait abnormalities due to longstanding Parkinson's Integument: Denies rash. Neurologic: Denies headache, focal weakness or sensory changes. Endocrine: Denies polyuria or polydipsia. Lymphatic: Denies swollen glands. Psychiatric: Denies depression or anxiety. Heart Score: HEART Score for Chest Pain: HEART Score for Chest Pain Response (Comments) Value History Slighlty/Non-Suspicious 0 Total 0 Risk Factors: Risk Factors: DM, Current or recent (<one month) smoker, HTN, HLP, family history of CAD, obesity. Risk Scores: Score 0 - 3: 2.5% MACE over next 6 weeks - Discharge Home Score 4 - 6: 20.3% MACE over next 6 weeks - Admit for Clinical Observation Score 7 - 10: 72.7% MACE over next 6 weeks - Early Invasive Strategies Allergies: Allergies: Allergies Coded Allergies Type Severity Reaction Last Updated Verified No Known Drug Allergies 05/06/14 No Physical Exam: PE: Constitutional: Well developed, well nourished, no acute distress, non-toxic appearance. HENT: Normocephalic, atraumatic, bilateral external ears normal, oropharynx moist, no oral exudates, nose normal. Mild abrasion to posterior scalp, well- appearing, no bleeding or hematoma present. Findings of previous cranial bur present on left head, well-appearing Eyes: PERRLA, EOMI, conjunctiva normal, no discharge. Neck: Normal range of motion, no tenderness, supple, no stridor. No C-spine tenderness Cardiovascular:Heart rate regular rhythm, no murmur Lungs & Thorax: Bilateral breath sounds clear to auscultation Abdomen: Bowel sounds normal, soft, no tenderness, no masses, no pulsatile masses. Skin: Warm, dry, no erythema, no rash. Mild abrasion to right anterior knee, no bleeding, streaking Back: No tenderness, no CVA tenderness. Extremities: No tenderness, no cyanosis, no clubbing, ROM intact, no edema. Neurologic: Alert and oriented X 3, motor and sensory function at baseline per patient and who is present for entirety of physical exam. No new, concerning focal neurological deficits, cranial nerves II through XII intact Psychologic: Affect normal, judgement normal, mood normal. Current Patient Data: Vital Signs: Vital Signs Date Time Temp Pulse Resp B/P (MAP) Pulse Ox O2 Delivery O2 Flow Rate FiO2 01/14/20 18:15 98.6 85 16 140/80 (100) 99 Room Air 98.6 EKG: EKG: EKG obtained and interpreted by myself at 1929 hours, normal sinus rhythm at 77 bpm, left axis deviation noted, all intervals within normal limits, no acute ischemia, no STEMI noted Radiology/Procedures: Radiology/Procedures: [facility] [address] [place] [address] IMAGING REPORT Signed PATIENT: YOSELIN LAZO ACCOUNT: [id number] : 1935 LOCATION: ER AGE: 84 SEX: M EXAM STATUS: REG ER ORD. PHYSICIAN: GAMALIEL GARDNER DO REASON: fall; hit posterior head PROCEDURE: CT HEAD WO CONTRAST Examination: CT HEAD WO CONTRAST History: Pain, fall; hit posterior head Comparison/Correlation: None Findings: Axial images were obtained without contrast. Atrophy is present. Ventricles are within normal limits. No intracranial hemorrhage, midline shift, or mass effect. Cavernous carotid calcifications are present. 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 Impression: No acute process. Electronically signed by: Oc Falk MD (01/14/2020 7:24 PM) [id number] DICTATED and SIGNED BY: OC FALK MD DATE: 01/14/201923 Course & Med Decision Making: Course & Med Decision Making Pertinent Labs and Imaging studies reviewed. (See chart for details) Patient hemodynamically stable, well-appearing, and remained asymptomatic through entirety of emergency department visit Case discussed at length with patient who had full capacity and whom he resides with. Given mild scalp and right knee abrasion, no other obvious or concerning abnormalities, patient and aggressively wanting to be discharged home with continued Levaquin treatment for patient's previously diagnosed UTI and outpatient follow-up. Patient does not want to stay overnight, does not want placement, does not want social work assistance regarding his current living situation. Patient discharged home in stable condition with , will continue treatment for UTI with Levaquin, will keep follow-up with PCP in upcoming 7 days as previously recommended. Strict return precautions discussed with both patient and with good underst anding. They both acknowledge that this could be an acute presentation of a concerning problem Dragon Disclaimer: Dragon Disclaimer: This electronic medical record was generated, in whole or in part, using a voice recognition dictation system. Departure Departure Impression: Primary Impression: Fall Additional Impressions: Parkinsonian tremor Recent urinary tract infection Disposition: 01 HOME, SELF-CARE Condition: STABLE Referrals: SHIRA OGDEN MD (PCP) Follow-up to ensure complete treatment for patient's previously diagnosed UTI Follow-up status post x2 mechanical falls Patient Instructions: Fall Prevention and Home Safety, [id number] Justicifation of Admission Dx: Justifications for Admission: Justification of Admission Dx: N/A GAMALIEL GARDNER DO Jan 14, 2020 18:43
--- NOTE | 2020-01-14 19:27 | RAD ---
Examination: CT HEAD WO CONTRAST History: Pain, fall; hit posterior head Comparison/Correlation: None Findings: Axial images were obtained without contrast. Atrophy is present. Ventricles are within normal limits. No intracranial hemorrhage, midline shift, or mass effect. Cavernous carotid calcifications are present. 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 Impression: No acute process. Electronically signed by: Oc Mak MD (01/14/2020 7:24 PM) [email or web address]
[2020-01-14 20:45] VITALS: BP 145/74
--- NOTE | 2020-01-15 04:46 | EKG ---
[facility] [address] [place] [address] Test Date: 2020-01-14 Test Time: 19:25:20 Pat Name: YOSELIN LAZO Department: Room: Gender: M Logistics Tech: : 1935 Requested By: GAMALIEL GARDNER Order Number: [id number] Reading MD: Measurements Intervals [place] Rate: 77 P: 266 SD: 128 QRS: -47 QRSD: 114 T: 36 QT: 390 QTc: 443 Interpretive Statements SUPRAVENTRICULAR RHYTHM ABNORMAL LEFT AXIS DEVIATION LEFT ANTERIOR FASCICULAR BLOCK QRS(T) CONTOUR ABNORMALITY CONSISTENT WITH ANTEROSEPTAL INFARCT AGE UNDETERMINED ABNORMAL ECG RI6.02 No previous ECG available for comparison
== END 2020-01-14 21:23 | disposition home or self-care (01) ==
LOC: ER 18:45
DX: S80.211A Abrasion, right knee, initial encounter (principal); G20 Parkinson's disease; J45.909 Unspecified asthma, uncomplicated; E11.9 Type 2 diabetes mellitus without complications; E78.00 Pure hypercholesterolemia, unspecified; I10 Essential (primary) hypertension; Z85.9 Personal history of malignant neoplasm, unspecified; Z98.890 Other specified postprocedural states; Z90.49 Acquired absence of other specified parts of digestive tract; Z87.891 Personal history of nicotine dependence; W18.39XA Other fall on same level, initial encounter; Y93.89 Activity, other specified; Y92.098 Other place in other non-institutional residence as the place of occurrence of the external cause; Y99.8 Other external cause status
CPT/HCPCS: 70450; 93005; 99284

== ENCOUNTER → 2020-01-23 | Outpatient (CLI) | payer MEDICARE, BC ==
[2020-01-14 20:45] VITALS: BP 145/74
[~2020-01-23] MED LIST changes: +ASPI-886 PO; +BUPR300T92 PO; +CARB1TAB44 PO; -LISI1TAB19 PO; +LISI1TAB37 PO; +LOSA-73 PO; +MEMA10TA PO
--- NOTE | 2020-01-23 15:24 | RAD ---
3 views the right foot compared to similar exam dated September 22, 2019 for ulcer with cellulitis of the right fourth digit. FINDINGS: There is no fracture, dislocation, or acute osseous abnormality identified. 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 Mild degenerative changes of first metatarsal phalangeal joint are noted. There is soft tissue swelling of the fourth distal phalanx. IMPRESSION: 1. No fracture or acute osseous abnormality. 2. Soft tissue swelling of the fourth phalanx. 3. 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 Electronically signed by: Portillo Rosa MD (01/23/2020 3:21 PM) [id number]
== END | disposition home or self-care (01) ==
LOC: RAD 11:44
PROVIDERS: ATTEND Podiatrist
DX: M19.071 Primary osteoarthritis, right ankle and foot (principal); M79.89 Other specified soft tissue disorders; L97.519 Non-pressure chronic ulcer of other part of right foot with unspecified severity; L03.115 Cellulitis of right lower limb; M21.41 Flat foot [pes planus] (acquired), right foot; M21.6X1 Other acquired deformities of right foot
CPT/HCPCS: 73630

== ENCOUNTER 2020-01-30 12:25 | Inpatient (IN) | payer MEDICARE, BC ==
[~2020-01-30] VITALS: Ht 190.5 cm; Wt 108.0 kg
[~2020-01-30 12:25] MED LIST changes: -ASPI-886 PO; -BUPR300T92 PO; -CARB1TAB44 PO; -LOSA-73 PO; -MEMA10TA PO
--- NOTE | 2020-01-30 12:59 | PHYS DOC ---
Past Medical History Past Medical History: Asthma, Cancer, Diabetes-Type II, High Cholesterol, Hypertension, Other Additional Past Medical Histor: Parkinson's,SKIN CA Past Surgical History: Cholecystectomy Additional Past Surgical Histo: Brain surgery 04/2018, failed hernia repair X 2,SKIN CA/SCALP Smoking Status: Former Smoker Alcohol Use: None Drug Use: None General Adult EDM: Chief Complaint: DIZZY/LIGHT HEADED HPI: HPI: 84-year-old gentleman presenting to the emergency department today with dizziness. He was being seen by home health care nurse when she evaluated him she felt like he was looking very good and so she sent him in for evaluation. He currently is not any pain but does feel kind of lightheaded. He is recently was treated with doxycycline for 2 weeks for urinary tract infection which she just finished recently. Onset today. Location generalized. Duration constant. No alleviating factors. Review of systems negative for chest pain shortness of breath abdominal pain vomiting fevers chills. All other review of systems negative. ED course: 84-year-old gentleman presenting with generalized lightheadedness sent here by home nurse staff. On arrival he is afebrile with low blood pressure 93/62. He was given IV fluids here in the emergency department. Blood work shows acute kidney injury. He is feeling better with the fluids I gave him and his blood pressure is come up. Will admit him to the hospital for IV fluid administration and repeat blood testing. Heart Score: Risk Factors: Risk Factors: DM, Current or recent (<one month) smoker, HTN, HLP, family history of CAD, obesity. Risk Scores: Score 0 - 3: 2.5% MACE over next 6 weeks - Discharge Home Score 4 - 6: 20.3% MACE over next 6 weeks - Admit for Clinical Observation Score 7 - 10: 72.7% MACE over next 6 weeks - Early Invasive Strategies Allergies: Allergies: Allergies Coded Allergies Type Severity Reaction Last Updated Verified No Known Drug Allergies 05/06/14 No Physical Exam: PE: Constitutional: Well developed, well nourished, no acute distress, non-toxic appearance. [] HENT: Normocephalic, atraumatic, bilateral external ears normal, oropharynx moist, no oral exudates, nose normal. [] Eyes: PERRLA, EOMI, conjunctiva normal, no discharge. [] Neck: Normal range of motion, no tenderness, supple, no stridor. [] Cardiovascular:Heart rate regular rhythm, no murmur [] Lungs & Thorax: Bilateral breath sounds clear to auscultation [] Abdomen: Bowel sounds normal, soft, no tenderness, no masses, no pulsatile masses. [] Skin: Warm, dry, no erythema, no rash. [] Back: No tenderness, no CVA tenderness. [] Extremities: No tenderness, no cyanosis, no clubbing, ROM intact, no edema. [] Neurologic: Alert and oriented X 3, normal motor function, normal sensory function, no focal deficits noted. [] Psychologic: Affect normal, judgement normal, mood normal. [] EKG: EKG: [] Radiology/Procedures: Radiology/Procedures: [] Course & Med Decision Making: Course & Med Decision Making Pertinent Labs and Imaging studies reviewed. (See chart for details) [] Dragon Disclaimer: Dragon Disclaimer: This electronic medical record was generated, in whole or in part, using a voice recognition dictation system. Departure Departure Impression: Primary Impression: Acute kidney injury Additional Impressions: Hypotension Dehydration Disposition: ADMITTED INPATIENT Admitting Physician: GOOD Condition: STABLE Referrals: SHIRA OGDEN MD (PCP) Justicifation of Admission Dx: Justifications for Admission: Justification of Admission Dx: Yes Comments: Hypotensive, acute kidney injury MARILYN SANTANA MD Jan 30, 2020 12:59
[2020-01-30] MEDS ORDERED: IV NORMAL SALINE 500ML BAG 500 ML IV ONE (13:00)
[2020-01-30 13:16] LABS: BASO # 0.1 x10^3/uL (0.0-0.2); BASO % 1 % (0-3); EOS # 0.2 x10^3/uL (0.0-0.7); EOS % 2 % (0-3); HEMATOCRIT 42.3 % (39.0-53.0); LYMPH # 1.8 x10^3/uL (1.0-4.8); LYMPH % 24 % (24-48); MEAN CORPUSCULAR HEMOGLOBIN 30 pg (25-35); MEAN CORPUSCULAR HGB CONC 33 g/dL (31-37); MEAN CORPUSCULAR VOLUME 91 fL (79-100); MONO # 0.9 x10^3/uL (0.0-1.1); MONO % 12 % (0-9); NEUT # 4.5 x10^3/uL (1.8-7.7); NEUT % 61 % (31-73); PLATELET COUNT 167 x10^3/uL (140-400); RED BLOOD COUNT 4.65 x10^6/uL (4.30-5.70); RED CELL DISTRIBUTION WIDTH 17.5 % (11.5-14.5); WHITE BLOOD COUNT 7.5 x10^3/uL (4.0-11.0)
[2020-01-30 13:22] LABS: BILIRUBIN,URINE NEGATIVE (NEG); CLARITY,URINE CLEAR; COLOR,URINE YELLOW; NITRITE,URINE NEGATIVE (NEG); PH,URINE 5.5 (<5.0-8.0); PROTEIN,URINE NEGATIVE (NEG-TRACE); UROBILINOGEN,URINE 0.2 mg/dL (0.2 mg/dL)
[2020-01-30 13:29] LABS: ANION GAP 7 (6-14); BLOOD UREA NITROGEN 35 mg/dL (8-26); CALCIUM 8.9 mg/dL (8.5-10.1); CARBON DIOXIDE 28 mmol/L (21-32); CHLORIDE 104 mmol/L (98-107); CREATININE 1.7 mg/dL (0.7-1.3); GFR 38.8; GLUCOSE 121 mg/dL (70-99); SODIUM 139 mmol/L (136-145)
[2020-01-30 13:33] LABS: ALBUMIN 3.1 g/dL (3.4-5.0); ALK PHOS 110 U/L (46-116); AST (SGOT) 13 U/L (15-37); DIRECT BILIRUBIN 0.2 mg/dL (0.0-0.2); LIPASE 255 U/L (73-393); TOTAL BILIRUBIN 0.6 mg/dL (0.2-1.0); TOTAL PROTEIN 6.4 g/dL (6.4-8.2)
--- NOTE | 2020-01-30 13:36 | RAD ---
Single AP view of the chest. Comparison: 01/08/2020. Indication: Lightheadedness Findings: Stable marked tortuosity of the aorta. The heart is enlarged but stable. There is no pneumothorax or effusion. No air space or interstitial disease. Impression: 1. No acute cardiopulmonary process. Electronically signed by: Zhang Castro MD (01/30/2020 1:33 PM) [id number]
[2020-01-30 13:37] LABS: HYALINE CASTS, URINE MANY /HPF
[2020-01-30 13:39] LABS: BACTERIA,URINE 0 /HPF (0-FEW)
[2020-01-30 13:45] LABS: ALT (SGPT) < 6 U/L (16-63)
--- NOTE | 2020-01-30 15:38 | EKG ---
[facility] [address] [place] [address] Test Date: 2020-01-30 Test Time: 12:51:09 Pat Name: YOSELIN LAZO Department: Room: Gender: M Display Specialist: : 1935 Requested By: MARILYN SANTANA Order Number: [id number] Reading MD: Measurements Intervals [place] Rate: 80 P: -48 MN: 166 QRS: -45 QRSD: 112 T: 34 QT: 378 QTc: 440 Interpretive Statements SINUS RHYTHM ABNORMAL LEFT AXIS DEVIATION LEFT ANTERIOR FASCICULAR BLOCK ABNORMAL ECG RI6.02 No previous ECG available for comparison
[2020-01-30 16:25] VITALS: BP 116/80
[2020-01-30 16:36] VITALS: BP 163/104
[2020-01-30 19:00] VITALS: BP 130/88
--- NOTE | 2020-01-30 19:00 | HP ---
ADMIT DATE: 01/30/2020 CHIEF COMPLAINT: Lightheadedness. HISTORY OF PRESENT ILLNESS: The patient is a pleasant 84-year-old male well known to my service. I have admitted him several times before. Today, he is a little dizzy. He has a home healthcare nurse. She evaluated him and stated he needed to come in to be sent for an evaluation. While in the ER, we noted that he is a little azotemic with a BUN of 35 minutes. He has also got acute kidney injury with a creatinine of 1.7. I discussed the case with the ER physician. We are going to admit the patient, give him some IV fluids and consult Nephrology. PAST MEDICAL HISTORY: Asthma, Parkinson's, diabetes, hypertension, hyperlipidemia, cholecystectomy, brain surgery, hernia repair x 2, skin and scalp surgery, previous tobacco abuse. ALLERGIES: None. FAMILY HISTORY: Diabetes. SOCIAL HISTORY: Quit smoking, no drinking or drugs. He is . His is present. MEDICATIONS: Reviewed, please refer to the MRAD. REVIEW OF SYSTEMS: GENERAL: No history of weight change, weakness or fevers. SKIN: No bruising, hair changes or rashes. EYES: No blurred, double or loss of vision. NOSE AND THROAT: No history of nosebleeds, hoarseness or sore throat. HEART: No history of palpitations, chest pain or shortness of breath on exertion. LUNGS: Denies cough, hemoptysis, wheezing or shortness of breath. GASTROINTESTINAL: Denies changes in appetite, nausea, vomiting, diarrhea or constipation. GENITOURINARY: No history of frequency, urgency, hesitancy or nocturia. NEUROLOGIC: Denies history of numbness, tingling, tremor or weakness. PSYCHIATRIC: No history of panic, anxiety or depression. ENDOCRINE: No history of heat or cold intolerance, polyuria or polydipsia. EXTREMITIES: Denies muscle weakness, joint pain, pain on walking or stiffness. PHYSICAL EXAMINATION: VITALS: Within normal limits and are stable. GENERAL: No apparent distress. Alert and oriented. HEENT: Normal cephalic atraumatic, external auditory canals are patent EYES: Extraocular muscles are intact, pupils are equally round and reactive to light and accommodation MUSCULOSKELETAL: Well developed, well nourished, good range of motion ENDOCRINE: No thyromegaly was palpated LYMPHATICS: No cervical chain or axillary nodes were noted HEMATOPOIETIC: No bruising NECK: Supple, no JVD, no thyromegaly was noted. LUNGS: Clear to auscultation in all lung scott without rhonchi or wheezing. HEART: RRR, S1, S2 present. Peripheral pulses intact, no obvious murmurs were noted. ABDOMEN: Soft, nontender. Positive bowel sounds no organomegaly, normal bowel sounds. EXTREMITIES: Without any cyanosis, clubbing, or edema. Pedal pulses intact, Homans sign is negative. NEUROLOGIC: Normal speech, normal tone. A & O x3, moves all extremities, no obvious focal deficits. PSYCHIATRIC: Normal affect, normal mood. Stable. SKIN: No ulcerations or rashes, good skin turgor, no jaundice. VASCULAR: Good capillary refill, neurovascular bundle appears to be intact. ASSESSMENT AND PLAN: Acute kidney injury and azotemia, suspect dehydration. The patient will be admitted. We will start normal saline at 75 mL an hour. I discussed the case with his and the nurse. We are going to consult Dr. [place]. Home meds, DVT prophylaxis. Full code. PROGNOSIS: Guarded. MARTIN PATTERSON DO DR: JAMMIE/[email or web address] JOB#: [id number] / [id number]
[2020-01-30] MEDS ORDERED: LOSA-73 PO (19:59)
[2020-01-30] MEDS ORDERED: MEMA10TA PO (19:59)
[2020-01-30] MEDS: IV NORMAL SALINE 1000ML BAG 1,000 ML IV SCH (20:00)
[2020-01-30] MEDS ORDERED: diphenhydrAMINE HCL 25 MG CAPSULE PO PRN (20:15)
[2020-01-30] MEDS: SIMVASTATIN 20 MG TABLET PO SCH (22:22)
[2020-01-30] MEDS: QUEtiapine 25 MG TABLET. PO SCH (22:23)
[2020-01-30] MEDS: MEMANTINE 10 MG TABLET. PO SCH (22:23)
[2020-01-30] MEDS: CARBIDOPA/LEVODOPA 25/100MG TABLET PO SCH (22:23)
[2020-01-30 23:00] VITALS: BP 151/86
[2020-01-31 03:00] VITALS: BP 120/86
[2020-01-31 03:53] LABS: BASO # 0.1 x10^3/uL (0.0-0.2); BASO % 1 % (0-3); EOS # 0.3 x10^3/uL (0.0-0.7); EOS % 4 % (0-3); HEMATOCRIT 41.9 % (39.0-53.0); HEMOGLOBIN 13.8 g/dL (13.0-17.5); LYMPH # 2.1 x10^3/uL (1.0-4.8); LYMPH % 24 % (24-48); MEAN CORPUSCULAR HEMOGLOBIN 30 pg (25-35); MEAN CORPUSCULAR HGB CONC 33 g/dL (31-37); MEAN CORPUSCULAR VOLUME 91 fL (79-100); MONO # 1.1 x10^3/uL (0.0-1.1); MONO % 12 % (0-9); NEUT # 5.3 x10^3/uL (1.8-7.7); NEUT % 60 % (31-73); PLATELET COUNT 167 x10^3/uL (140-400); RED BLOOD COUNT 4.61 x10^6/uL (4.30-5.70); RED CELL DISTRIBUTION WIDTH 17.1 % (11.5-14.5); WHITE BLOOD COUNT 8.9 x10^3/uL (4.0-11.0)
[2020-01-31 04:06] LABS: CALCIUM 8.9 mg/dL (8.5-10.1); CREATININE 1.3 mg/dL (0.7-1.3); GFR 52.9
[2020-01-31 07:00] VITALS: BP 156/92
[2020-01-31] MEDS: CARBIDOPA/LEVODOPA 25/100MG TABLET PO SCH ×3 (08:41→21:00)
[2020-01-31] MEDS: LOSARTAN POTASSIUM 50 MG TABLET. PO SCH (08:41)
[2020-01-31] MEDS: MEMANTINE 10 MG TABLET. PO SCH ×2 (08:41→21:10)
[2020-01-31] MEDS: PANTOPRAZOLE 40 MG TABLET.DR. PO SCH (08:41)
[2020-01-31] MEDS: MONTELUKAST SODIUM 10 MG TABLET. PO SCH (08:41)
[2020-01-31] MEDS: IV NORMAL SALINE 1000ML BAG 1,000 ML IV SCH ×2 (08:42→21:10)
[2020-01-31] MEDS ORDERED: CARB1TAB44 PO ×2 (09:51)
[2020-01-31] MEDS: CARBIDOPA/LEVODOPA CR 25/100MG TABLET.SA. PO SCH ×2 (10:36→16:35)
[2020-01-31 11:00] VITALS: BP 123/78
--- NOTE | 2020-01-31 11:27 | PDOC2 ---
CONSULT Date of Consult Date of Consult DATE: 01/31/20 TIME: 11:26 Reason for Consult Reason for Consult: Acute kidney injury Referring Physician Referring Physician: Shasha Identification/Chief Complaint Chief Complaint Dizziness lightheadedness Source Source: Chart review, Patient History of Present Illness Reason for Visit: The patient is a pleasant 84-year-old gentleman who appears to have been admitted here several times before. He presented to the ER after his home healthcare nurse recommended that he be evaluated for the same.. While in the ER, he was noted to be a little azotemic with a BUN of 35. And an elevated creatinine 1.7. He was felt to have acute kidney injury since his previous baseline in our systems have been anywhere from 1.2- 2.0. He was started on IV fluids overnight and creatinine has normalized to 1.3. He denies difficulty urinating currently. He does admit that he may not be eating drinking well due to his Parkinson's. His UA was relatively clear other than many hyaline casts. He remains on IV fluids currently at the time of my visit. Review of home medications does not show any diuretics. He denies any NSAID use. No nausea vomiting or diarrhea Past Medical History Cardiovascular: HTN, Hyperlipidemia Pulmonary: Asthma, Pneumonia CENTRAL NERVOUS SYSTEM: Periperal neuropathy, Other GI: GERD Heme/Onc: No pertinent hx Hepatobiliary: No pertinent hx Psych: Anxiety Musculoskeletal: low back pain, Osteoarthritis Rheumatologic: No pertinent hx Infectious disease: No pertinent hx Renal/: No pertinent hx Endocrine: Diabetes Past Surgical History Past Surgical History: Cholecystectomy, Cataract Removal, Other Family History Family History: Diabetes, Heart Disease Social History ALCOHOL: none Drugs: None Lives: with Family Current Problem List Problem List Problems Medical Problems: (1) Acute kidney injury Status: Acute (2) Dehydration Status: Acute (3) Hypotension Status: Acute Current Medications Current Medications Current Medications Sodium Chloride 500 ml @ 500 mls/hr 1X ONCE IV Last administered on 01/30/20at 13:04; Start 01/30/20 at 13:00; Stop 01/30/20 at 13:59; Status DC Sodium Chloride 1,000 ml @ 75 mls/hr [id number] IV Last administered on 01/31/20at 08:42; Start 01/30/20 at 18:45 Carbidopa/Levodopa (Sinemet 25/100) 1 tab TID PO Last administered on 01/31/20 08:41; Start 01/30/20 at 21:00 Acetaminophen/ Hydrocodone Bitart (Lortab 5/325) 1 tab PRN Q6HRS PRN PO PAIN; Start 01/30/20 at 20:00 Losartan Potassium (Cozaar) 50 mg DAILY PO Last administered on 01/31/20 08:41; Start 01/31/20 at 09:00 Memantine (Namenda) 10 mg BID PO Last administered on 01/31/20 08:41; Start 01/30/20 at 21:00 Montelukast Sodium (Singulair) 10 mg DAILY PO Last administered on 01/31/20 08:41; Start 01/31/20 at 09:00 Quetiapine Fumarate (SEROquel) 25 mg HS PO Last administered on 01/30/20at 22:23; Start 01/30/20 at 21:00 Simvastatin (Zocor) 20 mg HS PO Last administered on 01/30/20 22:22; Start 01/30/20 at 21:00 Diphenhydramine HCl (Benadryl) 25 mg PRN Q6HRS PRN PO ITCHING; Start 01/30/20 at 20:15 Pantoprazole Sodium (Protonix) 40 mg DAILYAC PO Last administered on 01/31/20 08:41; Start 01/31/20 at 07:30 Carbidopa/Levodopa (Sinemet Cr) 2 tab.sa BID@0800,1600 PO Last administered on 01/31/20at 10:36; Start 01/31/20 at 10:05 Non-Formulary Medication (Carbidopa/ Levodopa (Carbidopa-Levo Er 50-200 Tab)) 1 each DAILY16 PO ; Start 01/31/20 at 16:00; Status UNV Active Scripts Active Reported Carbidopa-Levo Er 50-200 Tab (Carbidopa/Levodopa) 1 Each Tablet.er 1 Each PO DAILY16 Carbidopa-Levo Er 50-200 Tab (Carbidopa/Levodopa) 1 Each Tablet.er 1 Each PO DAILY08 Namenda (Memantine Hcl) 10 Mg Tablet 1 Tab PO BID Losartan Potassium 50 Mg Tablet 50 Mg PO DAILY Seroquel (Quetiapine Fumarate) 25 Mg Tablet 25 Mg PO HS Singulair Tablet (Montelukast Sodium) 10 Mg Tablet 10 Mg PO DAILY Sinemet 25-100 Mg Tablet (Carbidopa/Levodopa) 1 Each Tablet 1 Tab PO TID Hydrocodone-Apap 5-325 (Hydrocodone Bit/Acetaminophen) 1 Each Tablet 1 Tab PO PRN Q6HRS PRN Omeprazole 40 Mg Capsule.dr 1 Cap PO DAILY Carbinoxamine Maleate 4 Mg Tablet 4 Mg PO DAILY Advair 250-50 Diskus (Fluticasone/Salmeterol) 1 Each Disk.w.dev 1 Puff IH BID Simvastatin 20 Mg Tablet 20 Mg PO HS Allergies Allergies: Coded Allergies: No Known Drug Allergies (Unverified , 05/06/14) ROS Review of System Reviewed as per HPI otherwise negative Physical Exam Physical Exam General Appearance: Awake Alert Oriented x 2 In no Distress Eyes: VIsion Unchanged Conjunctiva Normal EN: No EN Drainage Mucous Memb. moist Neck: no JVD no JVP Supple no Thyromegaly CVS: S1 S2 ? soft Murmur No Gallop No Rub no Edema Resp: no Rales no Rhonchi no Acc. Muscle use GI: BAS +ve NO Bruit Non Tender Non Distended : no CVA tenderness; no Suprapubic Tenderness SKIN: no Rashes Breast Exam deferred Mu.Sk: Adequate ROM no Muscle Atrophy Heme: Unable to palpate Obvious LAD no Splenomegaly NEURO: Good Strength and Tone Cranial Nerves II - XII grossly intact; + Tremors from Parkinsons Psych: no Depressed no Active hallucination Vital Signs Vital Signs Date Time Temp Pulse Resp B/P (MAP) Pulse Ox O2 Delivery O2 Flow Rate FiO2 01/31/20 11:00 97.6 75 16 123/78 (93) 99 Room Air 97.6 Assessment & Plan Acute kidney injury: Responded well to IV fluids. Adequate oral intake and hydration will be important to maintain normal kidney function. This was emphasized with the patient. He does not appear to be glycosuric as per his UA. No recent imaging studies are available. Underlying chronic kidney disease stage III cannot be ruled out Intravascular volume depletion: Suspect due to poor p.o. intake. Continue IV fluids as you are currently doing Renal cyst was noted on previous imaging studies were noted to be benign. Given his advanced age I do not believe further evaluation of this is required. Dizziness which was presenting symptom: Unclear of this is due to volume depletion. If need be consider cardiology and neurology consultation. I will be available if needed please call with questions concerns Labs Labs Laboratory Tests Test 01/30/20 12:41 01/30/20 13:06 01/30/20 20:41 01/31/20 03:30 White Blood Count 7.5 x10^3/uL (4.0-11.0) 8.9 x10^3/uL (4.0-11.0) Red Blood Count 4.65 x10^6/uL (4.30-5.70) 4.61 x10^6/uL (4.30-5.70) Hemoglobin 14.0 g/dL (13.0-17.5) 13.8 g/dL (13.0-17.5) Hematocrit 42.3 % (39.0-53.0) 41.9 % (39.0-53.0) Mean Corpuscular Volume 91 fL (79-100) 91 fL (79-100) Mean Corpuscular Hemoglobin 30 pg (25-35) 30 pg (25-35) Mean Corpuscular Hemoglobin Concent 33 g/dL (31-37) 33 g/dL (31-37) Red Cell Distribution Width 17.5 % (11.5-14.5) 17.1 % (11.5-14.5) Platelet Count 167 x10^3/uL (140-400) 167 x10^3/uL (140-400) Neutrophils (%) (Auto) 61 % (31-73) 60 % (31-73) Lymphocytes (%) (Auto) 24 % (24-48) 24 % (24-48) Monocytes (%) (Auto) 12 % (0-9) 12 % (0-9) Eosinophils (%) (Auto) 2 % (0-3) 4 % (0-3) Basophils (%) (Auto) 1 % (0-3) 1 % (0-3) Neutrophils # (Auto) 4.5 x10^3/uL (1.8-7.7) 5.3 x10^3/uL (1.8-7.7) Lymphocytes # (Auto) 1.8 x10^3/uL (1.0-4.8) 2.1 x10^3/uL (1.0-4.8) Monocytes # (Auto) 0.9 x10^3/uL (0.0-1.1) 1.1 x10^3/uL (0.0-1.1) Eosinophils # (Auto) 0.2 x10^3/uL (0.0-0.7) 0.3 x10^3/uL (0.0-0.7) Basophils # (Auto) 0.1 x10^3/uL (0.0-0.2) 0.1 x10^3/uL (0.0-0.2) Sodium Level 139 mmol/L (136-145) 140 mmol/L (136-145) Potassium Level 4.0 mmol/L (3.5-5.1) 4.0 mmol/L (3.5-5.1) Chloride Level 104 mmol/L (98-107) 106 mmol/L (98-107) Carbon Dioxide Level 28 mmol/L (21-32) 26 mmol/L (21-32) Anion Gap 7 (6-14) 8 (6-14) Blood Urea Nitrogen 35 mg/dL (8-26) 29 mg/dL (8-26) Creatinine 1.7 mg/dL (0.7-1.3) 1.3 mg/dL (0.7-1.3) Estimated GFR (Cockcroft-Gault) 38.8 52.9 Glucose Level 121 mg/dL (70-99) 87 mg/dL (70-99) Calcium Level 8.9 mg/dL (8.5-10.1) 8.9 mg/dL (8.5-10.1) Total Bilirubin 0.6 mg/dL (0.2-1.0) Direct Bilirubin 0.2 mg/dL (0.0-0.2) Aspartate Amino Transf (AST/SGOT) 13 U/L (15-37) Alanine Aminotransferase (ALT/SGPT) < 6 U/L (16-63) Alkaline Phosphatase 110 U/L (46-116) Troponin I Quantitative < 0.017 ng/mL (0.000-0.055) ZA-Yeh-Z-Type Natriuretic Peptide 478 pg/mL (0-449) Total Protein 6.4 g/dL (6.4-8.2) Albumin 3.1 g/dL (3.4-5.0) Lipase 255 U/L (73-393) Urine Collection Type Unknown Urine Color Yellow Urine Clarity Clear Urine pH 5.5 (<5.0-8.0) Urine Specific [place] 1.020 (1.000-1.030) Urine Protein Negative mg/dL (NEG-TRACE) Urine Glucose (UA) Negative mg/dL (NEG) Urine Ketones (Stick) Negative mg/dL (NEG) Urine Blood Negative (NEG) Urine Nitrite Negative (NEG) Urine Bilirubin Negative (NEG) Urine Urobilinogen Dipstick 0.2 mg/dL (0.2 mg/dL) Urine Leukocyte Esterase Negative (NEG) Urine RBC 6-10 /HPF (0-2) Urine WBC 5-10 /HPF (0-4) Urine Bacteria 0 /HPF (0-FEW) Urine Hyaline Casts Many /HPF Urine Mucus Marked /LPF Glucose (Fingerstick) 113 mg/dL (70-99) Test 01/31/20 07:25 Glucose (Fingerstick) 87 mg/dL (70-99) Laboratory Tests Test 01/30/20 12:41 01/30/20 13:06 01/30/20 20:41 01/31/20 03:30 White Blood Count 7.5 x10^3/uL (4.0-11.0) 8.9 x10^3/uL (4.0-11.0) Red Blood Count 4.65 x10^6/uL (4.30-5.70) 4.61 x10^6/uL (4.30-5.70) Hemoglobin 14.0 g/dL (13.0-17.5) 13.8 g/dL (13.0-17.5) Hematocrit 42.3 % (39.0-53.0) 41.9 % (39.0-53.0) Mean Corpuscular Volume 91 fL (79-100) 91 fL (79-100) Mean Corpuscular Hemoglobin 30 pg (25-35) 30 pg (25-35) Mean Corpuscular Hemoglobin Concent 33 g/dL (31-37) 33 g/dL (31-37) Red Cell Distribution Width 17.5 % (11.5-14.5) 17.1 % (11.5-14.5) Platelet Count 167 x10^3/uL (140-400) 167 x10^3/uL (140-400) Neutrophils (%) (Auto) 61 % (31-73) 60 % (31-73) Lymphocytes (%) (Auto) 24 % (24-48) 24 % (24-48) Monocytes (%) (Auto) 12 % (0-9) 12 % (0-9) Eosinophils (%) (Auto) 2 % (0-3) 4 % (0-3) Basophils (%) (Auto) 1 % (0-3) 1 % (0-3) Neutrophils # (Auto) 4.5 x10^3/uL (1.8-7.7) 5.3 x10^3/uL (1.8-7.7) Lymphocytes # (Auto) 1.8 x10^3/uL (1.0-4.8) 2.1 x10^3/uL (1.0-4.8) Monocytes # (Auto) 0.9 x10^3/uL (0.0-1.1) 1.1 x10^3/uL (0.0-1.1) Eosinophils # (Auto) 0.2 x10^3/uL (0.0-0.7) 0.3 x10^3/uL (0.0-0.7) Basophils # (Auto) 0.1 x10^3/uL (0.0-0.2) 0.1 x10^3/uL (0.0-0.2) Sodium Level 139 mmol/L (136-145) 140 mmol/L (136-145) Potassium Level 4.0 mmol/L (3.5-5.1) 4.0 mmol/L (3.5-5.1) Chloride Level 104 mmol/L (98-107) 106 mmol/L (98-107) Carbon Dioxide Level 28 mmol/L (21-32) 26 mmol/L (21-32) Anion Gap 7 (6-14) 8 (6-14) Blood Urea Nitrogen 35 mg/dL (8-26) 29 mg/dL (8-26) Creatinine 1.7 mg/dL (0.7-1.3) 1.3 mg/dL (0.7-1.3) Estimated GFR (Cockcroft-Gault) 38.8 52.9 Glucose Level 121 mg/dL (70-99) 87 mg/dL (70-99) Calcium Level 8.9 mg/dL (8.5-10.1) 8.9 mg/dL (8.5-10.1) Total Bilirubin 0.6 mg/dL (0.2-1.0) Direct Bilirubin 0.2 mg/dL (0.0-0.2) Aspartate Amino Transf (AST/SGOT) 13 U/L (15-37) Alanine Aminotransferase (ALT/SGPT) < 6 U/L (16-63) Alkaline Phosphatase 110 U/L (46-116) Troponin I Quantitative < 0.017 ng/mL (0.000-0.055) HE-Xer-X-Type Natriuretic Peptide 478 pg/mL (0-449) Total Protein 6.4 g/dL (6.4-8.2) Albumin 3.1 g/dL (3.4-5.0) Lipase 255 U/L (73-393) Urine Collection Type Unknown Urine Color Yellow Urine Clarity Clear Urine pH 5.5 (<5.0-8.0) Urine Specific [place] 1.020 (1.000-1.030) Urine Protein Negative mg/dL (NEG-TRACE) Urine Glucose (UA) Negative mg/dL (NEG) Urine Ketones (Stick) Negative mg/dL (NEG) Urine Blood Negative (NEG) Urine Nitrite Negative (NEG) Urine Bilirubin Negative (NEG) Urine Urobilinogen Dipstick 0.2 mg/dL (0.2 mg/dL) Urine Leukocyte Esterase Negative (NEG) Urine RBC 6-10 /HPF (0-2) Urine WBC 5-10 /HPF (0-4) Urine Bacteria 0 /HPF (0-FEW) Urine Hyaline Casts Many /HPF Urine Mucus Marked /LPF Glucose (Fingerstick) 113 mg/dL (70-99) Test 01/31/20 07:25 Glucose (Fingerstick) 87 mg/dL (70-99) Review All relevant outside records, renal labs, imaging studies, telemetry/EKG's were reviewed. Images Images CT scan from July 2016 has shown: Two left renal cysts are again identified. There is a mildly prominent extrarenal pelvis on the right. There is no evidence of hydronephrosis. The ureters are not dilated. No ureteral calculus is evident. The partially filled urinary bladder is unremarkable. Aortoiliac calcific plaquing is present without evidence of aneurysm. No abdominal or pelvic adenopathy is seen. Prostatic calcifications are noted. EMETERIO ESPINOZA MD Jan 31, 2020 11:27
--- NOTE | 2020-01-31 11:52 | PDOC ---
PROGRESS NOTES Date of Service: DATE: 01/31/20 TIME: 11:51 Chief Complaint Chief Complaint ASSESSMENT AND PLAN: Acute kidney injury and azotemia, suspect dehydration. PARKINSON'S disease Generalized weakness. DM. HTN. HLD. Diabetic peripheral neuropathy. Degenerative spine disease. Back pain. dizziness sec to volume depletion admitted. normal saline at 75 mL an hour. I discussed the case //nurse. consult Dr. Mesa. Home meds, DVT prophylaxis. Full code. Vitals Vitals Vital Signs Date Time Temp Pulse Resp B/P (MAP) Pulse Ox O2 Delivery O2 Flow Rate FiO2 01/31/20 11:00 97.6 75 16 123/78 (93) 99 Room Air 97.6 Physical Exam Physical Exam HEENT: Normal cephalic atraumatic, external auditory canals are patent EYES: Extraocular muscles are intact, pupils are equally round and reactive to light and accommodation MUSCULOSKELETAL: Well developed, well nourished, good range of motion ENDOCRINE: No thyromegaly was palpated LYMPHATICS: No cervical chain or axillary nodes were noted HEMATOPOIETIC: No bruising NECK: Supple, no JVD, no thyromegaly was noted. LUNGS: Clear to auscultation in all lung scott without rhonchi or wheezing. HEART: RRR, S1, S2 present. Peripheral pulses intact, no obvious murmurs were noted. ABDOMEN: Soft, nontender. Positive bowel sounds no organomegaly, normal bowel sounds. EXTREMITIES: Without any cyanosis, clubbing, or edema. Pedal pulses intact, Homans sign is negative. NEUROLOGIC: Normal speech, normal tone. A & O x3, moves all extremities, no obvious focal deficits. PSYCHIATRIC: Normal affect, normal mood. Stable. SKIN: No ulcerations or rashes, good skin turgor, no jaundice. VASCULAR: Good capillary refill, neurovascular bundle appears to be intact. General: Alert, Oriented X3, Cooperative, No acute distress Heart: Regular rate, Normal S1 Lungs: Clear Abdomen: Soft Extremities: No cyanosis Labs LABS Procedure Result URINE CULTURE Final Final 10,000 CFU/ML Normal genitourinary britney, not indicative of infection on 01/31/20 at 0858 Testing Performed by: [address] [address] For Inquires, the Physician may contact the Microbiology department at [phone] Unless otherwise specified, Testing Performed by: [address] [address] For Inquires, the Physician may contact the Microbiology department at [phone] Single AP view of the chest. Comparison: 01/08/2020. Indication: Lightheadedness Findings: Stable marked tortuosity of the aorta. The heart is enlarged but stable. There is no pneumothorax or effusion. No air space or interstitial disease. Impression: 1. No acute cardiopulmonary process. Electronically signed by: Zhang Castro MD (01/30/2020 1:33 PM) [id number] DICTATED and SIGNED BY: ZHANG CASTRO MD Laboratory Tests Test 01/30/20 12:41 01/30/20 13:06 01/30/20 20:41 01/31/20 03:30 White Blood Count 7.5 x10^3/uL (4.0-11.0) 8.9 x10^3/uL (4.0-11.0) Red Blood Count 4.65 x10^6/uL (4.30-5.70) 4.61 x10^6/uL (4.30-5.70) Hemoglobin 14.0 g/dL (13.0-17.5) 13.8 g/dL (13.0-17.5) Hematocrit 42.3 % (39.0-53.0) 41.9 % (39.0-53.0) Mean Corpuscular Volume 91 fL (79-100) 91 fL (79-100) Mean Corpuscular Hemoglobin 30 pg (25-35) 30 pg (25-35) Mean Corpuscular Hemoglobin Concent 33 g/dL (31-37) 33 g/dL (31-37) Red Cell Distribution Width 17.5 % (11.5-14.5) 17.1 % (11.5-14.5) Platelet Count 167 x10^3/uL (140-400) 167 x10^3/uL (140-400) Neutrophils (%) (Auto) 61 % (31-73) 60 % (31-73) Lymphocytes (%) (Auto) 24 % (24-48) 24 % (24-48) Monocytes (%) (Auto) 12 % (0-9) 12 % (0-9) Eosinophils (%) (Auto) 2 % (0-3) 4 % (0-3) Basophils (%) (Auto) 1 % (0-3) 1 % (0-3) Neutrophils # (Auto) 4.5 x10^3/uL (1.8-7.7) 5.3 x10^3/uL (1.8-7.7) Lymphocytes # (Auto) 1.8 x10^3/uL (1.0-4.8) 2.1 x10^3/uL (1.0-4.8) Monocytes # (Auto) 0.9 x10^3/uL (0.0-1.1) 1.1 x10^3/uL (0.0-1.1) Eosinophils # (Auto) 0.2 x10^3/uL (0.0-0.7) 0.3 x10^3/uL (0.0-0.7) Basophils # (Auto) 0.1 x10^3/uL (0.0-0.2) 0.1 x10^3/uL (0.0-0.2) Sodium Level 139 mmol/L (136-145) 140 mmol/L (136-145) Potassium Level 4.0 mmol/L (3.5-5.1) 4.0 mmol/L (3.5-5.1) Chloride Level 104 mmol/L (98-107) 106 mmol/L (98-107) Carbon Dioxide Level 28 mmol/L (21-32) 26 mmol/L (21-32) Anion Gap 7 (6-14) 8 (6-14) Blood Urea Nitrogen 35 mg/dL (8-26) 29 mg/dL (8-26) Creatinine 1.7 mg/dL (0.7-1.3) 1.3 mg/dL (0.7-1.3) Estimated GFR (Cockcroft-Gault) 38.8 52.9 Glucose Level 121 mg/dL (70-99) 87 mg/dL (70-99) Calcium Level 8.9 mg/dL (8.5-10.1) 8.9 mg/dL (8.5-10.1) Total Bilirubin 0.6 mg/dL (0.2-1.0) Direct Bilirubin 0.2 mg/dL (0.0-0.2) Aspartate Amino Transf (AST/SGOT) 13 U/L (15-37) Alanine Aminotransferase (ALT/SGPT) < 6 U/L (16-63) Alkaline Phosphatase 110 U/L (46-116) Troponin I Quantitative < 0.017 ng/mL (0.000-0.055) AG-Lsm-B-Type Natriuretic Peptide 478 pg/mL (0-449) Total Protein 6.4 g/dL (6.4-8.2) Albumin 3.1 g/dL (3.4-5.0) Lipase 255 U/L (73-393) Urine Collection Type Unknown Urine Color Yellow Urine Clarity Clear Urine pH 5.5 (<5.0-8.0) Urine Specific [place] 1.020 (1.000-1.030) Urine Protein Negative mg/dL (NEG-TRACE) Urine Glucose (UA) Negative mg/dL (NEG) Urine Ketones (Stick) Negative mg/dL (NEG) Urine Blood Negative (NEG) Urine Nitrite Negative (NEG) Urine Bilirubin Negative (NEG) Urine Urobilinogen Dipstick 0.2 mg/dL (0.2 mg/dL) Urine Leukocyte Esterase Negative (NEG) Urine RBC 6-10 /HPF (0-2) Urine WBC 5-10 /HPF (0-4) Urine Bacteria 0 /HPF (0-FEW) Urine Hyaline Casts Many /HPF Urine Mucus Marked /LPF Glucose (Fingerstick) 113 mg/dL (70-99) Test 01/31/20 07:25 01/31/20 11:49 Glucose (Fingerstick) 87 mg/dL (70-99) 83 mg/dL (70-99) Assessment and Plan Assessmemt and Plan Problems Medical Problems: (1) Acute kidney injury Status: Acute (2) Dehydration Status: Acute (3) Hypotension Status: Acute Comment Review of Relevant I have reviewed the following items maria del carmen (where applicable) has been applied. Labs Laboratory Tests Test 01/30/20 12:41 01/30/20 13:06 01/30/20 20:41 01/31/20 03:30 White Blood Count 7.5 x10^3/uL (4.0-11.0) 8.9 x10^3/uL (4.0-11.0) Red Blood Count 4.65 x10^6/uL (4.30-5.70) 4.61 x10^6/uL (4.30-5.70) Hemoglobin 14.0 g/dL (13.0-17.5) 13.8 g/dL (13.0-17.5) Hematocrit 42.3 % (39.0-53.0) 41.9 % (39.0-53.0) Mean Corpuscular Volume 91 fL (79-100) 91 fL (79-100) Mean Corpuscular Hemoglobin 30 pg (25-35) 30 pg (25-35) Mean Corpuscular Hemoglobin Concent 33 g/dL (31-37) 33 g/dL (31-37) Red Cell Distribution Width 17.5 % (11.5-14.5) 17.1 % (11.5-14.5) Platelet Count 167 x10^3/uL (140-400) 167 x10^3/uL (140-400) Neutrophils (%) (Auto) 61 % (31-73) 60 % (31-73) Lymphocytes (%) (Auto) 24 % (24-48) 24 % (24-48) Monocytes (%) (Auto) 12 % (0-9) 12 % (0-9) Eosinophils (%) (Auto) 2 % (0-3) 4 % (0-3) Basophils (%) (Auto) 1 % (0-3) 1 % (0-3) Neutrophils # (Auto) 4.5 x10^3/uL (1.8-7.7) 5.3 x10^3/uL (1.8-7.7) Lymphocytes # (Auto) 1.8 x10^3/uL (1.0-4.8) 2.1 x10^3/uL (1.0-4.8) Monocytes # (Auto) 0.9 x10^3/uL (0.0-1.1) 1.1 x10^3/uL (0.0-1.1) Eosinophils # (Auto) 0.2 x10^3/uL (0.0-0.7) 0.3 x10^3/uL (0.0-0.7) Basophils # (Auto) 0.1 x10^3/uL (0.0-0.2) 0.1 x10^3/uL (0.0-0.2) Sodium Level 139 mmol/L (136-145) 140 mmol/L (136-145) Potassium Level 4.0 mmol/L (3.5-5.1) 4.0 mmol/L (3.5-5.1) Chloride Level 104 mmol/L (98-107) 106 mmol/L (98-107) Carbon Dioxide Level 28 mmol/L (21-32) 26 mmol/L (21-32) Anion Gap 7 (6-14) 8 (6-14) Blood Urea Nitrogen 35 mg/dL (8-26) 29 mg/dL (8-26) Creatinine 1.7 mg/dL (0.7-1.3) 1.3 mg/dL (0.7-1.3) Estimated GFR (Cockcroft-Gault) 38.8 52.9 Glucose Level 121 mg/dL (70-99) 87 mg/dL (70-99) Calcium Level 8.9 mg/dL (8.5-10.1) 8.9 mg/dL (8.5-10.1) Total Bilirubin 0.6 mg/dL (0.2-1.0) Direct Bilirubin 0.2 mg/dL (0.0-0.2) Aspartate Amino Transf (AST/SGOT) 13 U/L (15-37) Alanine Aminotransferase (ALT/SGPT) < 6 U/L (16-63) Alkaline Phosphatase 110 U/L (46-116) Troponin I Quantitative < 0.017 ng/mL (0.000-0.055) TZ-Kdi-Z-Type Natriuretic Peptide 478 pg/mL (0-449) Total Protein 6.4 g/dL (6.4-8.2) Albumin 3.1 g/dL (3.4-5.0) Lipase 255 U/L (73-393) Urine Collection Type Unknown Urine Color Yellow Urine Clarity Clear Urine pH 5.5 (<5.0-8.0) Urine Specific [place] 1.020 (1.000-1.030) Urine Protein Negative mg/dL (NEG-TRACE) Urine Glucose (UA) Negative mg/dL (NEG) Urine Ketones (Stick) Negative mg/dL (NEG) Urine Blood Negative (NEG) Urine Nitrite Negative (NEG) Urine Bilirubin Negative (NEG) Urine Urobilinogen Dipstick 0.2 mg/dL (0.2 mg/dL) Urine Leukocyte Esterase Negative (NEG) Urine RBC 6-10 /HPF (0-2) Urine WBC 5-10 /HPF (0-4) Urine Bacteria 0 /HPF (0-FEW) Urine Hyaline Casts Many /HPF Urine Mucus Marked /LPF Glucose (Fingerstick) 113 mg/dL (70-99) Test 01/31/20 07:25 01/31/20 11:49 Glucose (Fingerstick) 87 mg/dL (70-99) 83 mg/dL (70-99) Laboratory Tests Test 01/30/20 12:41 01/30/20 13:06 01/30/20 20:41 01/31/20 03:30 White Blood Count 7.5 x10^3/uL (4.0-11.0) 8.9 x10^3/uL (4.0-11.0) Red Blood Count 4.65 x10^6/uL (4.30-5.70) 4.61 x10^6/uL (4.30-5.70) Hemoglobin 14.0 g/dL (13.0-17.5) 13.8 g/dL (13.0-17.5) Hematocrit 42.3 % (39.0-53.0) 41.9 % (39.0-53.0) Mean Corpuscular Volume 91 fL (79-100) 91 fL (79-100) Mean Corpuscular Hemoglobin 30 pg (25-35) 30 pg (25-35) Mean Corpuscular Hemoglobin Concent 33 g/dL (31-37) 33 g/dL (31-37) Red Cell Distribution Width 17.5 % (11.5-14.5) 17.1 % (11.5-14.5) Platelet Count 167 x10^3/uL (140-400) 167 x10^3/uL (140-400) Neutrophils (%) (Auto) 61 % (31-73) 60 % (31-73) Lymphocytes (%) (Auto) 24 % (24-48) 24 % (24-48) Monocytes (%) (Auto) 12 % (0-9) 12 % (0-9) Eosinophils (%) (Auto) 2 % (0-3) 4 % (0-3) Basophils (%) (Auto) 1 % (0-3) 1 % (0-3) Neutrophils # (Auto) 4.5 x10^3/uL (1.8-7.7) 5.3 x10^3/uL (1.8-7.7) Lymphocytes # (Auto) 1.8 x10^3/uL (1.0-4.8) 2.1 x10^3/uL (1.0-4.8) Monocytes # (Auto) 0.9 x10^3/uL (0.0-1.1) 1.1 x10^3/uL (0.0-1.1) Eosinophils # (Auto) 0.2 x10^3/uL (0.0-0.7) 0.3 x10^3/uL (0.0-0.7) Basophils # (Auto) 0.1 x10^3/uL (0.0-0.2) 0.1 x10^3/uL (0.0-0.2) Sodium Level 139 mmol/L (136-145) 140 mmol/L (136-145) Potassium Level 4.0 mmol/L (3.5-5.1) 4.0 mmol/L (3.5-5.1) Chloride Level 104 mmol/L (98-107) 106 mmol/L (98-107) Carbon Dioxide Level 28 mmol/L (21-32) 26 mmol/L (21-32) Anion Gap 7 (6-14) 8 (6-14) Blood Urea Nitrogen 35 mg/dL (8-26) 29 mg/dL (8-26) Creatinine 1.7 mg/dL (0.7-1.3) 1.3 mg/dL (0.7-1.3) Estimated GFR (Cockcroft-Gault) 38.8 52.9 Glucose Level 121 mg/dL (70-99) 87 mg/dL (70-99) Calcium Level 8.9 mg/dL (8.5-10.1) 8.9 mg/dL (8.5-10.1) Total Bilirubin 0.6 mg/dL (0.2-1.0) Direct Bilirubin 0.2 mg/dL (0.0-0.2) Aspartate Amino Transf (AST/SGOT) 13 U/L (15-37) Alanine Aminotransferase (ALT/SGPT) < 6 U/L (16-63) Alkaline Phosphatase 110 U/L (46-116) Troponin I Quantitative < 0.017 ng/mL (0.000-0.055) UA-Bet-T-Type Natriuretic Peptide 478 pg/mL (0-449) Total Protein 6.4 g/dL (6.4-8.2) Albumin 3.1 g/dL (3.4-5.0) Lipase 255 U/L (73-393) Urine Collection Type Unknown Urine Color Yellow Urine Clarity Clear Urine pH 5.5 (<5.0-8.0) Urine Specific [place] 1.020 (1.000-1.030) Urine Protein Negative mg/dL (NEG-TRACE) Urine Glucose (UA) Negative mg/dL (NEG) Urine Ketones (Stick) Negative mg/dL (NEG) Urine Blood Negative (NEG) Urine Nitrite Negative (NEG) Urine Bilirubin Negative (NEG) Urine Urobilinogen Dipstick 0.2 mg/dL (0.2 mg/dL) Urine Leukocyte Esterase Negative (NEG) Urine RBC 6-10 /HPF (0-2) Urine WBC 5-10 /HPF (0-4) Urine Bacteria 0 /HPF (0-FEW) Urine Hyaline Casts Many /HPF Urine Mucus Marked /LPF Glucose (Fingerstick) 113 mg/dL (70-99) Test 01/31/20 07:25 01/31/20 11:49 Glucose (Fingerstick) 87 mg/dL (70-99) 83 mg/dL (70-99) Microbiology 01/30/20 Urine Culture - Final, Complete Medications Current Medications Sodium Chloride 500 ml @ 500 mls/hr 1X ONCE IV Last administered on 01/30/20 13:04; Start 01/30/20 at 13:00; Stop 01/30/20 at 13:59; Status DC Sodium Chloride 1,000 ml @ 75 mls/hr [id number] IV Last administered on 01/31/20 08:42; Start 01/30/20 at 18:45 Carbidopa/Levodopa (Sinemet 25/100) 1 tab TID PO Last administered on 01/31/20 08:41; Start 01/30/20 at 21:00 Acetaminophen/ Hydrocodone Bitart (Lortab 5/325) 1 tab PRN Q6HRS PRN PO PAIN; Start 01/30/20 at 20:00 Losartan Potassium (Cozaar) 50 mg DAILY PO Last administered on 01/31/20 08:41; Start 01/31/20 at 09:00 Memantine (Namenda) 10 mg BID PO Last administered on 01/31/20 08:41; Start 01/30/20 at 21:00 Montelukast Sodium (Singulair) 10 mg DAILY PO Last administered on 01/31/20 08:41; Start 01/31/20 at 09:00 Quetiapine Fumarate (SEROquel) 25 mg HS PO Last administered on 01/30/20 22:23; Start 01/30/20 at 21:00 Simvastatin (Zocor) 20 mg HS PO Last administered on 01/30/20 22:22; Start 01/30/20 at 21:00 Diphenhydramine HCl (Benadryl) 25 mg PRN Q6HRS PRN PO ITCHING; Start 01/30/20 at 20:15 Pantoprazole Sodium (Protonix) 40 mg DAILYAC PO Last administered on 01/31/20 08:41; Start 01/31/20 at 07:30 Carbidopa/Levodopa (Sinemet Cr) 2 tab.sa BID@0800,1600 PO Last administered on 8/8/20at 10:36; Start 01/31/20 at 10:05 Non-Formulary Medication (Carbidopa/ Levodopa (Carbidopa-Levo Er 50-200 Tab)) 1 each DAILY16 PO ; Start 01/31/20 at 16:00; Status UNV Active Scripts Active Reported Carbidopa-Levo Er 50-200 Tab (Carbidopa/Levodopa) 1 Each Tablet.er 1 Each PO DAILY16 Carbidopa-Levo Er 50-200 Tab (Carbidopa/Levodopa) 1 Each Tablet.er 1 Each PO DAILY08 Namenda (Memantine Hcl) 10 Mg Tablet 1 Tab PO BID Losartan Potassium 50 Mg Tablet 50 Mg PO DAILY Seroquel (Quetiapine Fumarate) 25 Mg Tablet 25 Mg PO HS Singulair Tablet (Montelukast Sodium) 10 Mg Tablet 10 Mg PO DAILY Sinemet 25-100 Mg Tablet (Carbidopa/Levodopa) 1 Each Tablet 1 Tab PO TID Hydrocodone-Apap 5-325 (Hydrocodone Bit/Acetaminophen) 1 Each Tablet 1 Tab PO PRN Q6HRS PRN Omeprazole 40 Mg Capsule.dr 1 Cap PO DAILY Carbinoxamine Maleate 4 Mg Tablet 4 Mg PO DAILY Advair 250-50 Diskus (Fluticasone/Salmeterol) 1 Each Disk.w.dev 1 Puff IH BID Simvastatin 20 Mg Tablet 20 Mg PO HS Vitals/I & O Vital Sign - Last 24 Hours 01/30/20 01/30/20 01/30/20 01/30/20 12:33 13:00 13:30 14:00 Temp 97.8 97.8 Pulse 83 78 76 68 Resp 18 B/P (MAP) 93/62 (72) Pulse Ox 97 99 100 98 O2 Delivery Room Air 01/30/20 01/30/20 01/30/20 01/30/20 14:30 15:00 16:25 16:36 Temp 98.2 98.2 Pulse 72 70 69 81 Resp 16 16 B/P (MAP) 116/80 (92) 163/104 (123) Pulse Ox 97 98 98 98 O2 Delivery Room Air Room Air 01/30/20 01/30/20 01/30/20 01/30/20 17:00 19:00 20:20 23:00 Temp 98.0 98.3 98.0 98.3 Pulse 74 72 Resp 20 20 B/P (MAP) 130/88 (102) 151/86 (107) Pulse Ox 97 99 O2 Delivery Room Air Room Air Room Air Room Air 01/31/20 01/31/20 01/31/20 01/31/20 03:00 07:00 07:55 08:41 Temp 97.4 97.7 97.4 97.7 Pulse 84 76 76 Resp 20 18 B/P (MAP) 120/86 (97) 156/92 (113) 156/92 Pulse Ox 98 99 O2 Delivery Room Air Room Air Room Air 01/31/20 11:00 Temp 97.6 97.6 Pulse 75 Resp 16 B/P (MAP) 123/78 (93) Pulse Ox 99 O2 Delivery Room Air Intake and Output 01/30/20 01/30/20 01/31/20 15:00 23:00 07:00 Intake Total 500 ml 200 ml 700 ml Output Total 350 ml 1150 ml Balance 500 ml -150 ml -450 ml Justicifation of Admission Dx: Justifications for Admission: Justification of Admission Dx: Yes TRISHA BROWN MD Jan 31, 2020 11:52
[2020-01-31 15:30] VITALS: BP 142/95
[2020-01-31] MEDS ORDERED: CARBIDOPA PO SCH (16:00)
[2020-01-31] MEDS ORDERED: LEVODOPA PO SCH (16:00)
[2020-01-31 19:00] VITALS: BP_SYST 139; BP_DIAS 110; BP_DIAS 87
[2020-01-31] MEDS: QUEtiapine 25 MG TABLET. PO SCH (21:10)
[2020-01-31] MEDS: SIMVASTATIN 20 MG TABLET PO SCH (21:10)
[2020-01-31 23:01] VITALS: BP 135/76
[2020-02-01 03:15] VITALS: BP 158/87
[2020-02-01 05:05] LABS: ALBUMIN 2.7 g/dL (3.4-5.0); CALCIUM 8.2 mg/dL (8.5-10.1); CREATININE 1.2 mg/dL (0.7-1.3); PHOSPHORUS 2.9 mg/dL (2.6-4.7); POTASSIUM 4.1 mmol/L (3.5-5.1)
[2020-02-01 07:00] VITALS: BP 142/85
[2020-02-01] MEDS: MONTELUKAST SODIUM 10 MG TABLET. PO SCH (08:04)
[2020-02-01] MEDS: PANTOPRAZOLE 40 MG TABLET.DR. PO SCH (08:09)
[2020-02-01] MEDS: CARBIDOPA/LEVODOPA 25/100MG TABLET PO SCH ×3 (08:09→21:47)
[2020-02-01] MEDS: CARBIDOPA/LEVODOPA CR 25/100MG TABLET.SA. PO SCH ×2 (08:09→15:33)
[2020-02-01] MEDS: LOSARTAN POTASSIUM 50 MG TABLET. PO SCH (08:09)
[2020-02-01] MEDS: MEMANTINE 10 MG TABLET. PO SCH ×2 (08:09→21:48)
[2020-02-01] MEDS ORDERED: BUPR300T92 PO (08:13)
[2020-02-01] MEDS: buPROPion XL 150 MG TAB.ER.24H. PO SCH (08:26)
[2020-02-01] MEDS: IV NORMAL SALINE 1000ML BAG 1,000 ML IV SCH (10:30)
[2020-02-01 10:32] VITALS: BP 139/82
--- NOTE | 2020-02-01 10:57 | PDOC ---
PROGRESS NOTES Date of Service: DATE: 02/01/20 TIME: 10:56 Chief Complaint Chief Complaint ASSESSMENT AND PLAN: Acute kidney injury and azotemia, suspect dehydration. PARKINSON'S disease Generalized weakness. DM. HTN. HLD. Diabetic peripheral neuropathy. Degenerative spine disease. Back pain. dizziness sec to volume depletion admitted. normal saline at 75 mL an hour. discussed the case //nurse. consult Dr. Mesa. Home meds, DVT prophylaxis. Full code. PT/OT History of Present Illness History of Present Illness pleasant 84-year-old male Today, he is a little dizzy. He has a home healthcare nurse. She evaluated him and stated he needed to come in to be sent While in the ER, we noted that he is a little azotemic with a BUN of 35 minutes. He has also got acute kidney injury with a creatinine of 1.7. I discussed the case with the ER physician. We are going to admit the patient, give him some IV fluids and consult Nephrology. PAST MEDICAL HISTORY: Asthma, Parkinson's, diabetes, hypertension, hyperlipidemia, cholecystectomy, brain surgery, hernia repair x 2, skin and scalp surgery, previous tobacco abuse. ALLERGIES: None. FAMILY HISTORY: Diabetes. SOCIAL HISTORY: Quit smoking, no drinking or drugs. He is . His is present. Vitals Vitals Vital Signs Date Time Temp Pulse Resp B/P (MAP) Pulse Ox O2 Delivery O2 Flow Rate FiO2 02/01/20 10:32 97.7 80 18 139/82 (101) 98 Room Air 97.7 Physical Exam Physical Exam HEENT: Normal cephalic atraumatic, external auditory canals are patent EYES: Extraocular muscles are intact, pupils are equally round and reactive to light and accommodation MUSCULOSKELETAL: Well developed, well nourished, good range of motion ENDOCRINE: No thyromegaly was palpated LYMPHATICS: No cervical chain or axillary nodes were noted HEMATOPOIETIC: No bruising NECK: Supple, no JVD, no thyromegaly was noted. LUNGS: Clear to auscultation in all lung sctot without rhonchi or wheezing. HEART: RRR, S1, S2 present. Peripheral pulses intact, no obvious murmurs were noted. ABDOMEN: Soft, nontender. Positive bowel sounds no organomegaly, normal bowel sounds. EXTREMITIES: Without any cyanosis, clubbing, or edema. Pedal pulses intact, Homans sign is negative. NEUROLOGIC: Normal speech, normal tone. A & O x3, moves all extremities, no obvious focal deficits. PSYCHIATRIC: Normal affect, normal mood. Stable. SKIN: No ulcerations or rashes, good skin turgor, no jaundice. VASCULAR: Good capillary refill, neurovascular bundle appears to be intact. General: Alert, Oriented X3, Cooperative, No acute distress Heart: Regular rate, Normal S1 Lungs: Clear Abdomen: Soft Extremities: No cyanosis Labs LABS Laboratory Tests Test 01/31/20 11:49 01/31/20 16:39 01/31/20 20:22 02/01/20 03:40 Glucose (Fingerstick) 83 mg/dL (70-99) 87 mg/dL (70-99) 95 mg/dL (70-99) Sodium Level 139 mmol/L (136-145) Potassium Level 4.1 mmol/L (3.5-5.1) Chloride Level 107 mmol/L (98-107) Carbon Dioxide Level 21 mmol/L (21-32) Anion Gap 11 (6-14) Blood Urea Nitrogen 25 mg/dL (8-26) Creatinine 1.2 mg/dL (0.7-1.3) Estimated GFR (Cockcroft-Gault) 58.0 Glucose Level 77 mg/dL (70-99) Calcium Level 8.2 mg/dL (8.5-10.1) Phosphorus Level 2.9 mg/dL (2.6-4.7) Albumin 2.7 g/dL (3.4-5.0) Test 02/01/20 06:51 Glucose (Fingerstick) 80 mg/dL (70-99) Assessment and Plan Assessmemt and Plan Problems Medical Problems: (1) Acute kidney injury Status: Acute (2) Dehydration Status: Acute (3) Hypotension Status: Acute Comment Review of Relevant I have reviewed the following items maria del carmen (where applicable) has been applied. Labs Laboratory Tests Test 01/30/20 12:41 01/30/20 13:06 01/30/20 20:41 01/31/20 03:30 White Blood Count 7.5 x10^3/uL (4.0-11.0) 8.9 x10^3/uL (4.0-11.0) Red Blood Count 4.65 x10^6/uL (4.30-5.70) 4.61 x10^6/uL (4.30-5.70) Hemoglobin 14.0 g/dL (13.0-17.5) 13.8 g/dL (13.0-17.5) Hematocrit 42.3 % (39.0-53.0) 41.9 % (39.0-53.0) Mean Corpuscular Volume 91 fL (79-100) 91 fL (79-100) Mean Corpuscular Hemoglobin 30 pg (25-35) 30 pg (25-35) Mean Corpuscular Hemoglobin Concent 33 g/dL (31-37) 33 g/dL (31-37) Red Cell Distribution Width 17.5 % (11.5-14.5) 17.1 % (11.5-14.5) Platelet Count 167 x10^3/uL (140-400) 167 x10^3/uL (140-400) Neutrophils (%) (Auto) 61 % (31-73) 60 % (31-73) Lymphocytes (%) (Auto) 24 % (24-48) 24 % (24-48) Monocytes (%) (Auto) 12 % (0-9) 12 % (0-9) Eosinophils (%) (Auto) 2 % (0-3) 4 % (0-3) Basophils (%) (Auto) 1 % (0-3) 1 % (0-3) Neutrophils # (Auto) 4.5 x10^3/uL (1.8-7.7) 5.3 x10^3/uL (1.8-7.7) Lymphocytes # (Auto) 1.8 x10^3/uL (1.0-4.8) 2.1 x10^3/uL (1.0-4.8) Monocytes # (Auto) 0.9 x10^3/uL (0.0-1.1) 1.1 x10^3/uL (0.0-1.1) Eosinophils # (Auto) 0.2 x10^3/uL (0.0-0.7) 0.3 x10^3/uL (0.0-0.7) Basophils # (Auto) 0.1 x10^3/uL (0.0-0.2) 0.1 x10^3/uL (0.0-0.2) Sodium Level 139 mmol/L (136-145) 140 mmol/L (136-145) Potassium Level 4.0 mmol/L (3.5-5.1) 4.0 mmol/L (3.5-5.1) Chloride Level 104 mmol/L (98-107) 106 mmol/L (98-107) Carbon Dioxide Level 28 mmol/L (21-32) 26 mmol/L (21-32) Anion Gap 7 (6-14) 8 (6-14) Blood Urea Nitrogen 35 mg/dL (8-26) 29 mg/dL (8-26) Creatinine 1.7 mg/dL (0.7-1.3) 1.3 mg/dL (0.7-1.3) Estimated GFR (Cockcroft-Gault) 38.8 52.9 Glucose Level 121 mg/dL (70-99) 87 mg/dL (70-99) Calcium Level 8.9 mg/dL (8.5-10.1) 8.9 mg/dL (8.5-10.1) Total Bilirubin 0.6 mg/dL (0.2-1.0) Direct Bilirubin 0.2 mg/dL (0.0-0.2) Aspartate Amino Transf (AST/SGOT) 13 U/L (15-37) Alanine Aminotransferase (ALT/SGPT) < 6 U/L (16-63) Alkaline Phosphatase 110 U/L (46-116) Troponin I Quantitative < 0.017 ng/mL (0.000-0.055) TD-Uqe-Q-Type Natriuretic Peptide 478 pg/mL (0-449) Total Protein 6.4 g/dL (6.4-8.2) Albumin 3.1 g/dL (3.4-5.0) Lipase 255 U/L (73-393) Urine Collection Type Unknown Urine Color Yellow Urine Clarity Clear Urine pH 5.5 (<5.0-8.0) Urine Specific [place] 1.020 (1.000-1.030) Urine Protein Negative mg/dL (NEG-TRACE) Urine Glucose (UA) Negative mg/dL (NEG) Urine Ketones (Stick) Negative mg/dL (NEG) Urine Blood Negative (NEG) Urine Nitrite Negative (NEG) Urine Bilirubin Negative (NEG) Urine Urobilinogen Dipstick 0.2 mg/dL (0.2 mg/dL) Urine Leukocyte Esterase Negative (NEG) Urine RBC 6-10 /HPF (0-2) Urine WBC 5-10 /HPF (0-4) Urine Bacteria 0 /HPF (0-FEW) Urine Hyaline Casts Many /HPF Urine Mucus Marked /LPF Glucose (Fingerstick) 113 mg/dL (70-99) Test 01/31/20 07:25 01/31/20 11:49 01/31/20 16:39 01/31/20 20:22 Glucose (Fingerstick) 87 mg/dL (70-99) 83 mg/dL (70-99) 87 mg/dL (70-99) 95 mg/dL (70-99) Test 02/01/20 03:40 02/01/20 06:51 Sodium Level 139 mmol/L (136-145) Potassium Level 4.1 mmol/L (3.5-5.1) Chloride Level 107 mmol/L (98-107) Carbon Dioxide Level 21 mmol/L (21-32) Anion Gap 11 (6-14) Blood Urea Nitrogen 25 mg/dL (8-26) Creatinine 1.2 mg/dL (0.7-1.3) Estimated GFR (Cockcroft-Gault) 58.0 Glucose Level 77 mg/dL (70-99) Calcium Level 8.2 mg/dL (8.5-10.1) Phosphorus Level 2.9 mg/dL (2.6-4.7) Albumin 2.7 g/dL (3.4-5.0) Glucose (Fingerstick) 80 mg/dL (70-99) Laboratory Tests Test 01/31/20 11:49 01/31/20 16:39 01/31/20 20:22 02/01/20 03:40 Glucose (Fingerstick) 83 mg/dL (70-99) 87 mg/dL (70-99) 95 mg/dL (70-99) Sodium Level 139 mmol/L (136-145) Potassium Level 4.1 mmol/L (3.5-5.1) Chloride Level 107 mmol/L (98-107) Carbon Dioxide Level 21 mmol/L (21-32) Anion Gap 11 (6-14) Blood Urea Nitrogen 25 mg/dL (8-26) Creatinine 1.2 mg/dL (0.7-1.3) Estimated GFR (Cockcroft-Gault) 58.0 Glucose Level 77 mg/dL (70-99) Calcium Level 8.2 mg/dL (8.5-10.1) Phosphorus Level 2.9 mg/dL (2.6-4.7) Albumin 2.7 g/dL (3.4-5.0) Test 02/01/20 06:51 Glucose (Fingerstick) 80 mg/dL (70-99) Microbiology 01/30/20 Urine Culture - Final, Complete Medications Current Medications Sodium Chloride 500 ml @ 500 mls/hr 1X ONCE IV Last administered on 01/30/20 13:04; Start 01/30/20 at 13:00; Stop 01/30/20 at 13:59; Status DC Sodium Chloride 1,000 ml @ 75 mls/hr [id number] IV Last administered on 02/01/20at 10:30; Start 01/30/20 at 18:45 Carbidopa/Levodopa (Sinemet 25/100) 1 tab TID PO Last administered on 02/01/20at 08:09; Start 01/30/20 at 21:00 Acetaminophen/ Hydrocodone Bitart (Lortab 5/325) 1 tab PRN Q6HRS PRN PO PAIN; Start 01/30/20 at 20:00 Losartan Potassium (Cozaar) 50 mg DAILY PO Last administered on 02/01/20at 08:09; Start 01/31/20 at 09:00 Memantine (Namenda) 10 mg BID PO Last administered on 02/01/20 08:09; Start 01/30/20 at 21:00 Montelukast Sodium (Singulair) 10 mg DAILY PO Last administered on 02/01/20 08:04; Start 01/31/20 at 09:00 Quetiapine Fumarate (SEROquel) 25 mg HS PO Last administered on 01/31/20 21:10; Start 01/30/20 at 21:00 Simvastatin (Zocor) 20 mg HS PO Last administered on 01/31/20at 21:10; Start 01/30/20 at 21:00 Diphenhydramine HCl (Benadryl) 25 mg PRN Q6HRS PRN PO ITCHING; Start 01/30/20 at 20:15 Pantoprazole Sodium (Protonix) 40 mg DAILYAC PO Last administered on 02/01/20at 08:09; Start 01/31/20 at 07:30 Carbidopa/Levodopa (Sinemet Cr) 2 tab.sa BID@0800,1600 PO Last administered on 02/01/20at 08:09; Start 01/31/20 at 10:05 Non-Formulary Medication (Carbidopa/ Levodopa (Carbidopa-Levo Er 50-200 Tab)) 1 each DAILY16 PO ; Start 01/31/20 at 16:00; Status UNV Bupropion HCl (Wellbutrin Xl) 300 mg DAILY PO Last administered on 02/01/20at 08:26; Start 02/01/20 at 09:00 Active Scripts Active Reported Bupropion Xl (Bupropion Hcl) 300 Mg Tab.er.24h 1 Tab PO DAILY Carbidopa-Levo Er 50-200 Tab (Carbidopa/Levodopa) 1 Each Tablet.er 1 Each PO DAILY16 Carbidopa-Levo Er 50-200 Tab (Carbidopa/Levodopa) 1 Each Tablet.er 1 Each PO DAILY08 Namenda (Memantine Hcl) 10 Mg Tablet 1 Tab PO BID Losartan Potassium 50 Mg Tablet 50 Mg PO DAILY Seroquel (Quetiapine Fumarate) 25 Mg Tablet 25 Mg PO HS Singulair Tablet (Montelukast Sodium) 10 Mg Tablet 10 Mg PO DAILY Sinemet 25-100 Mg Tablet (Carbidopa/Levodopa) 1 Each Tablet 1 Tab PO TID Hydrocodone-Apap 5-325 (Hydrocodone Bit/Acetaminophen) 1 Each Tablet 1 Tab PO PRN Q6HRS PRN Omeprazole 40 Mg Capsule.dr 1 Cap PO DAILY Carbinoxamine Maleate 4 Mg Tablet 4 Mg PO DAILY Advair 250-50 Diskus (Fluticasone/Salmeterol) 1 Each Disk.w.dev 1 Puff IH BID Simvastatin 20 Mg Tablet 20 Mg PO HS Vitals/I & O Vital Sign - Last 24 Hours 01/31/20 01/31/20 01/31/20 01/31/20 11:00 15:30 19:00 19:00 Temp 97.6 97.4 97.6 97.6 97.4 97.6 Pulse 75 71 65 Resp 16 18 20 B/P (MAP) 123/78 (93) 142/95 (111) 139/110 (120) 139/87 (104) Pulse Ox 99 97 96 O2 Delivery Room Air Room Air Room Air 01/31/20 01/31/20 02/01/20 02/01/20 20:00 23:01 03:15 07:00 Temp 98.1 97.7 97.8 98.1 97.7 97.8 Pulse 80 55 81 Resp 20 18 18 B/P (MAP) 135/76 (95) 158/87 (110) 142/85 (104) Pulse Ox 96 97 98 O2 Delivery Room Air Room Air Room Air Room Air 02/01/20 02/01/20 02/01/20 08:09 08:30 10:32 Temp 97.7 97.7 Pulse 81 80 Resp 18 B/P (MAP) 142/85 139/82 (101) Pulse Ox 98 O2 Delivery Room Air Room Air Intake and Output 01/31/20 01/31/20 02/01/20 15:00 23:00 07:00 Intake Total 120 ml 360 ml 1810 ml Output Total 775 ml 400 ml 800 ml Balance -655 ml -40 ml 1010 ml Justicifation of Admission Dx: Justifications for Admission: Justification of Admission Dx: Yes TRISHA BROWN MD Feb 01, 2020 10:56
[2020-02-01 15:00] VITALS: BP 148/77
--- NOTE | 2020-02-01 16:24 | RAD ---
CT HEAD WO CONTRAST History: Reason: new confusion / Spl. Instructions: / History: Comparison: January 14, 2020 Technique: Noncontrast CT imaging was performed of the head. Exposure: One or more of the following individualized dose reduction techniques were utilized for this examination: 1. Automated exposure control 2. Adjustment of the mA and/or kV according to patient size 3. Use of iterative reconstruction technique. Findings: No intracranial hemorrhage. No mass effect. No hydrocephalus. Mild brain parenchymal volume loss. Mild foci of decreased attenuation within the hemispheric white matter, most often due to chronic microvascular ischemia, unchanged. Imaged orbits are unremarkable. Imaged paranasal sinuses and mastoid air cells are clear. No acute calvarial fracture. Postoperative changes prior frontal lee ann holes. Impression: 1. No acute intracranial abnormality. Electronically signed by: Servando Zuniga DO (02/01/2020 4:22 PM) [facility]
[2020-02-01 19:00] VITALS: BP 142/79
[2020-02-01] MEDS: SIMVASTATIN 20 MG TABLET PO SCH (21:47)
[2020-02-01] MEDS: QUEtiapine 25 MG TABLET. PO SCH (21:48)
[2020-02-01 23:00] VITALS: BP 162/89
[2020-02-02] VITALS (7 sets, daily range): BP systolic 117–165; BP diastolic 78–84
[2020-02-02] MEDS: IV NORMAL SALINE 1000ML BAG 1,000 ML IV SCH (00:49)
[2020-02-02] MEDS: CARBIDOPA/LEVODOPA CR 25/100MG TABLET.SA. PO SCH ×3 (08:45→21:03)
[2020-02-02] MEDS: MEMANTINE 10 MG TABLET. PO SCH ×2 (08:45→21:03)
[2020-02-02] MEDS: PANTOPRAZOLE 40 MG TABLET.DR. PO SCH (08:45)
[2020-02-02] MEDS: MONTELUKAST SODIUM 10 MG TABLET. PO SCH (08:45)
[2020-02-02] MEDS: buPROPion XL 150 MG TAB.ER.24H. PO SCH (08:45)
[2020-02-02] MEDS: CARBIDOPA/LEVODOPA 25/100MG TABLET PO SCH ×3 (08:46→21:08)
[2020-02-02] MEDS: LOSARTAN POTASSIUM 50 MG TABLET. PO SCH (08:46)
--- NOTE | 2020-02-02 10:03 | PDOC ---
PROGRESS NOTES Date of Service: DATE: 02/02/20 TIME: 10:03 Chief Complaint Chief Complaint ASSESSMENT AND PLAN: Acute kidney injury and azotemia, suspect dehydration. PARKINSON'S disease Generalized weakness. DM. HTN. HLD. Diabetic peripheral neuropathy. Degenerative spine disease. Back pain. dizziness sec to volume depletion 02/01 confused yesterday, more alert today, needs PT/OT/COGNITIVE SCREEN admitted. normal saline at 75 mL an hour. discussed the case //nurse. consult Dr. Mesa. Home meds, DVT prophylaxis. Full code. PT/OT History of Present Illness History of Present Illness pleasant 84-year-old male Today, he is a little dizzy. He has a home healthcare nurse. She evaluated him and stated he needed to come in to be sent While in the ER, we noted that he is a little azotemic with a BUN of 35 minutes. He has also got acute kidney injury with a creatinine of 1.7. I discussed the case with the ER physician. We are going to admit the patient, give him some IV fluids and consult Nephrology. PAST MEDICAL HISTORY: Asthma, Parkinson's, diabetes, hypertension, hyperlipidemia, cholecystectomy, brain surgery, hernia repair x 2, skin and scalp surgery, previous tobacco abuse. ALLERGIES: None. FAMILY HISTORY: Diabetes. SOCIAL HISTORY: Quit smoking, no drinking or drugs. He is . His is present. Vitals Vitals Vital Signs Date Time Temp Pulse Resp B/P (MAP) Pulse Ox O2 Delivery O2 Flow Rate FiO2 02/02/20 08:46 71 143/78 02/02/20 07:00 97.4 20 96 97.4 02/02/20 03:00 Room Air Physical Exam Physical Exam HEENT: Normal cephalic atraumatic, external auditory canals are patent EYES: Extraocular muscles are intact, pupils are equally round and reactive to light and accommodation MUSCULOSKELETAL: Well developed, well nourished, good range of motion ENDOCRINE: No thyromegaly was palpated LYMPHATICS: No cervical chain or axillary nodes were noted HEMATOPOIETIC: No bruising NECK: Supple, no JVD, no thyromegaly was noted. LUNGS: Clear to auscultation in all lung scott without rhonchi or wheezing. HEART: RRR, S1, S2 present. Peripheral pulses intact, no obvious murmurs were noted. ABDOMEN: Soft, nontender. Positive bowel sounds no organomegaly, normal bowel sounds. EXTREMITIES: Without any cyanosis, clubbing, or edema. Pedal pulses intact, Homans sign is negative. NEUROLOGIC: Normal speech, normal tone. A & O x3, moves all extremities, no obvious focal deficits. PSYCHIATRIC: Normal affect, normal mood. Stable. SKIN: No ulcerations or rashes, good skin turgor, no jaundice. VASCULAR: Good capillary refill, neurovascular bundle appears to be intact. General: Alert, Oriented X3, Cooperative, No acute distress Heart: Regular rate, Normal S1 Lungs: Clear Abdomen: Soft Extremities: No cyanosis Labs LABS Laboratory Tests Test 02/01/20 20:50 02/02/20 07:57 Glucose (Fingerstick) 95 mg/dL (70-99) 82 mg/dL (70-99) Assessment and Plan Assessmemt and Plan Problems Medical Problems: (1) Acute kidney injury Status: Acute (2) Dehydration Status: Acute (3) Hypotension Status: Acute Comment Review of Relevant I have reviewed the following items maria del carmen (where applicable) has been applied. Labs Laboratory Tests Test 01/31/20 11:49 01/31/20 16:39 01/31/20 20:22 02/01/20 03:40 Glucose (Fingerstick) 83 mg/dL (70-99) 87 mg/dL (70-99) 95 mg/dL (70-99) Sodium Level 139 mmol/L (136-145) Potassium Level 4.1 mmol/L (3.5-5.1) Chloride Level 107 mmol/L (98-107) Carbon Dioxide Level 21 mmol/L (21-32) Anion Gap 11 (6-14) Blood Urea Nitrogen 25 mg/dL (8-26) Creatinine 1.2 mg/dL (0.7-1.3) Estimated GFR (Cockcroft-Gault) 58.0 Glucose Level 77 mg/dL (70-99) Calcium Level 8.2 mg/dL (8.5-10.1) Phosphorus Level 2.9 mg/dL (2.6-4.7) Albumin 2.7 g/dL (3.4-5.0) Test 02/01/20 06:51 02/01/20 20:50 02/02/20 07:57 Glucose (Fingerstick) 80 mg/dL (70-99) 95 mg/dL (70-99) 82 mg/dL (70-99) Laboratory Tests Test 02/01/20 20:50 02/02/20 07:57 Glucose (Fingerstick) 95 mg/dL (70-99) 82 mg/dL (70-99) Microbiology 01/30/20 Urine Culture - Final, Complete Medications Current Medications Sodium Chloride 500 ml @ 500 mls/hr 1X ONCE IV Last administered on 01/30/20at 13:04; Start 01/30/20 at 13:00; Stop 01/30/20 at 13:59; Status DC Sodium Chloride 1,000 ml @ 75 mls/hr [id number] IV Last administered on 02/02/20at 00:49; Start 01/30/20 at 18:45 Carbidopa/Levodopa (Sinemet 25/100) 1 tab TID PO Last administered on 02/02/20at 08:46; Start 01/30/20 at 21:00 Acetaminophen/ Hydrocodone Bitart (Lortab 5/325) 1 tab PRN Q6HRS PRN PO PAIN; Start 01/30/20 at 20:00 Losartan Potassium (Cozaar) 50 mg DAILY PO Last administered on 02/02/20at 08:46; Start 01/31/20 at 09:00 Memantine (Namenda) 10 mg BID PO Last administered on 02/02/20at 08:45; Start 01/30/20 at 21:00 Montelukast Sodium (Singulair) 10 mg DAILY PO Last administered on 02/02/20at 08:45; Start 01/31/20 at 09:00 Quetiapine Fumarate (SEROquel) 25 mg HS PO Last administered on 02/01/20at 21:48; Start 01/30/20 at 21:00 Simvastatin (Zocor) 20 mg HS PO Last administered on 02/01/20at 21:47; Start 01/30/20 at 21:00 Diphenhydramine HCl (Benadryl) 25 mg PRN Q6HRS PRN PO ITCHING; Start 01/30/20 at 20:15 Pantoprazole Sodium (Protonix) 40 mg DAILYAC PO Last administered on 02/02/20at 08:45; Start 01/31/20 at 07:30 Carbidopa/Levodopa (Sinemet Cr) 2 tab.sa BID@0800,1600 PO Last administered on 02/02/20at 08:45; Start 01/31/20 at 10:05 Non-Formulary Medication (Carbidopa/ Levodopa (Carbidopa-Levo Er 50-200 Tab)) 1 each DAILY16 PO ; Start 01/31/20 at 16:00; Status UNV Bupropion HCl (Wellbutrin Xl) 300 mg DAILY PO Last administered on 02/02/20at 08:45; Start 02/01/20 at 09:00 Active Scripts Active Reported Bupropion Xl (Bupropion Hcl) 300 Mg Tab.er.24h 1 Tab PO DAILY Carbidopa-Levo Er 50-200 Tab (Carbidopa/Levodopa) 1 Each Tablet.er 1 Each PO DAILY16 Carbidopa-Levo Er 50-200 Tab (Carbidopa/Levodopa) 1 Each Tablet.er 1 Each PO D AILY08 Namenda (Memantine Hcl) 10 Mg Tablet 1 Tab PO BID Losartan Potassium 50 Mg Tablet 50 Mg PO DAILY Seroquel (Quetiapine Fumarate) 25 Mg Tablet 25 Mg PO HS Singulair Tablet (Montelukast Sodium) 10 Mg Tablet 10 Mg PO DAILY Sinemet 25-100 Mg Tablet (Carbidopa/Levodopa) 1 Each Tablet 1 Tab PO TID Hydrocodone-Apap 5-325 (Hydrocodone Bit/Acetaminophen) 1 Each Tablet 1 Tab PO PRN Q6HRS PRN Omeprazole 40 Mg Capsule.dr 1 Cap PO DAILY Carbinoxamine Maleate 4 Mg Tablet 4 Mg PO DAILY Advair 250-50 Diskus (Fluticasone/Salmeterol) 1 Each Disk.w.dev 1 Puff IH BID Simvastatin 20 Mg Tablet 20 Mg PO HS Vitals/I & O Vital Sign - Last 24 Hours 02/01/20 02/01/20 02/01/20 02/01/20 10:32 15:00 19:00 19:24 Temp 97.7 97.8 97.1 97.7 97.8 97.1 Pulse 80 70 20 Resp 18 18 B/P (MAP) 139/82 (101) 148/77 (100) 142/79 (100) Pulse Ox 98 98 O2 Delivery Room Air Room Air Room Air Room Air 02/01/20 02/02/20 02/02/20 02/02/20 23:00 03:00 07:00 08:46 Temp 98.3 98.3 97.4 98.3 98.3 97.4 Pulse 68 66 71 71 Resp 18 18 20 B/P (MAP) 162/89 (113) 165/83 (110) 143/78 (99) 143/78 Pulse Ox 95 98 96 O2 Delivery Room Air Room Air Intake and Output 02/01/20 02/01/20 02/02/20 15:00 23:00 07:00 Intake Total 300 ml 200 ml 1000 ml Output Total 250 ml 250 ml Balance 50 ml -50 ml 1000 ml Justicifation of Admission Dx: Justifications for Admission: Justification of Admission Dx: Yes TRISHA BROWN MD Feb 02, 2020 10:03
--- NOTE | 2020-02-02 10:04 | NUR ---
Noted Atrial fibrillation, flutter on the tele monitor at 0907. The patient is awake, alert, oriented, no chest symptoms. Rhythm went back to sinus. Notified Dr. Byrd at 1000, order for cardio consult received.
--- NOTE | 2020-02-02 11:28 | NUR ---
SW following. Discussed with RN, pt from home - apparently has home health. Pt has been to [facility] in the past, CLAU spoke with Mary - pt declined home health when he was discharged from . PT/OT ordered. CLAU will continue to follow.
--- NOTE | 2020-02-02 11:43 | PDOC2 ---
LEEANNA MORE SEO ANALYST 02/02/20 1143: CARDIAC CONSULT DATE OF CONSULT Date of Consult DATE: 02/02/20 TIME: 11:37 REASON FOR CONSULT Reason for Consult: Arrhythmia REFERRING PHYSICIAN Referring Physician: Dr. Byrd SOURCE Source: Chart review, Patient HISTORY OF PRESENT ILLNESS HISTORY OF PRESENT ILLNESS This is an 84 yo male who presented secondary to dizziness and low blood pressure. Home Health recommended he come to the ED for further evaluation and treatment. Initial labs notable for NORMA, which improved s/p hydration. Has a h/o Parkinson's Disease. Telemetry with significant artifact related to this. Has brief episode where rhythm thought to be atrial flutter, which prompted this consult. He denies any prior history of arrhythmias. No chest pain, palpitations, SOA, diaphoresis, or nausea/vomiting. PAST MEDICAL HISTORY Cardiovascular: HTN, Hyperlipidemia Pulmonary: Asthma CENTRAL NERVOUS SYSTEM: Periperal neuropathy, Other (Parkinson's ) GI: GERD Psych: Anxiety Musculoskeletal: Osteoarthritis Endocrine: Diabetes PAST SURGICAL HISTORY Past Surgical History: Cholecystectomy, Other (vasectomy ) FAMILY HISTORY Family History: Diabetes, Heart Disease, Hypertension SOCIAL HISTORY Smoke: No ALCOHOL: none Drugs: None Lives: with Family ALLERGIES ALLERGIES: Coded Allergies: No Known Drug Allergies (Unverified , 05/06/14) ROS Review of System 14 point ROS conducted with pertinent positives noted above in HPI PHYSICAL EXAM General: Alert, Oriented X3, Cooperative, No acute distress HEENT: Atraumatic, Mucous membr. moist/pink Lungs: Clear to auscultation Heart: Regular rate, Normal S1, Normal S2 Abdomen: Soft, No tenderness Extremities: No edema, Normal pulses Skin: No significant lesion Neuro: Normal speech, Sensation intact Psych/Mental Status: Mental status NL, Mood NL MUSCULOSKELETAL: Osteoarthritic changes both hands VITALS/I&O VITALS/I&O: Vital Signs Date Time Temp Pulse Resp B/P (MAP) Pulse Ox O2 Delivery O2 Flow Rate FiO2 02/02/20 08:46 71 143/78 02/02/20 08:00 Room Air 02/02/20 07:00 97.4 20 96 97.4 I & O 02/01/20 02/01/20 02/02/20 15:00 23:00 07:00 Intake Total 300 ml 200 ml 1000 ml Output Total 250 ml 250 ml Balance 50 ml -50 ml 1000 ml LABS Lab: Laboratory Tests Test 02/01/20 20:50 02/02/20 07:57 02/02/20 11:22 Glucose (Fingerstick) 95 mg/dL (70-99) 82 mg/dL (70-99) 84 mg/dL (70-99) ASSESSMENT/PLAN ASSESSMENT/PLAN 1. NORMA, dehydration; improved with IVFs 2. Hypertension; initially low-end, but not consistently adequate 3. Hyperlipidemia; statin 4. Diabetes, II 5. Parkinson's Disease 6. Arrhythmia; concerns for brief episode of a-flutter. Tele reviewed; this appears to be artifact from rhythmic movement associated with Parkinson's tremo r. No clear flutter noted 7. Right diabetic foot ulcers to the plantar foot and fourth toe; s/p debridement. Recent duplex without any evidence of significant stenosis. Recommendations BMP Mg TSH ASA Baseline echo Monitor telemetry overnight Supportive care LEYLA MADRIGAL MD 02/03/20 1147: CARDIAC CONSULT ASSESSMENT/PLAN ASSESSMENT/PLAN Patient seen and examined on 02/02/20. I agree with our nurse practitioners assessment and plan. NORMA. Consistent with dehydration. Patient being treated with IV fluids and monitoring of lab. Parkinson's disease. Arrhythmia. Possible episode of atrial flutter. Telemetry complicated by patient's tremor from his Parkinson's disease. Will continue to monitor. Check echocardiogram for LV function. Check baseline lab including a TSH and magnesium. Diabetes mellitus. As per the primary service. Hyperlipidemia. On a statin. Lab as above. Right foot diabetic foot ulcers status post debridement. Thank you for allowing us to participate in the care of your patient. LEEANNA MORE APRN Feb 02, 2020 11:43 LEYLA MADRIGAL MD Feb 03, 2020 11:47
--- NOTE | 2020-02-02 11:58 | PDOC ---
Renal-Progress Notes Subjective Notes Notes NO NEW COMPLAINTS History of Present Illness Hx of present illness NO CHANGE Vitals Vitals Vital Signs Date Time Temp Pulse Resp B/P (MAP) Pulse Ox O2 Delivery O2 Flow Rate FiO2 02/02/20 11:00 97.3 76 18 145/84 (104) 100 97.3 02/02/20 08:00 Room Air Weight Weight [ ] I.O. Intake and Output Intake and Output 02/02/20 07:00 Intake Total 1500 ml Output Total 500 ml Balance 1000 ml Intake Oral 500 ml IV Total 1000 ml Output Urine Total 500 ml # Voids 2 # Bowel Movements 1 Labs Labs Laboratory Tests Test 02/01/20 20:50 02/02/20 07:57 02/02/20 11:22 Glucose (Fingerstick) 95 mg/dL (70-99) 82 mg/dL (70-99) 84 mg/dL (70-99) Micro Micro Microbiology 01/30/20 Urine Culture - Final, Complete Review of Systems Constitutional: yes: alert Ears/Nose/Throat: Yes: no symptom reported Eyes: Yes: no symptom reported Pulmonary: Yes no symptom reported Genitourinary: Yes: no symptom reported Musculoskeletal: Yes: no symptom reported Skin: Yes no symptom reported Psychiatric/Neurological: Yes: no symptom reported Physical Exam General Appearance: no apparent distress Skin: warm Respiratory: decreased breath sounds Heart: S1S2 Abdomen: soft, bowel sounds present Genitourinary: bladder flat Neurology: confused Assessment Assessment IMP NORMA-IMPROVED WITH CR DOWN TO 1.2 FROM 1.7 DEHYDRATION BENIGN RENAL CYST PARKINSON'S DM II PLAN CARDIOLOGY EVAL FOR ARRHYTHMIA OFF IVF'S ENC PO VILLA TODD MD Feb 02, 2020 11:58
[2020-02-02 12:44] LABS: CALCIUM 8.7 mg/dL (8.5-10.1); CREATININE 1.2 mg/dL (0.7-1.3); MAGNESIUM 1.9 mg/dL (1.8-2.4); POTASSIUM 4.1 mmol/L (3.5-5.1)
[2020-02-02 12:45] LABS: CHOLESTEROL/HDL RATIO 2.8
--- NOTE | 2020-02-02 14:45 | NUR ---
Wound Care Wound Type/Assessment: patient seen per wound care consult. patient is a current patient in the outpatient wound clinic. patient seen with ANTIONETTE Uribe APRN. see her progress note. Treatment Recommendations/Plan: patient has a DM right plantar foot wound and right 4th toe DM wound, both cleaned, measured, pictured and redressed with collagen, contact layer with a telfa dressing, change every 3 days. Offloading surface/device: Patient uses a walker and scooter to assist with off-loading. Discharge Recommendations for dressings: Continue with the Recommended dressings and patient to f/u in the outpatient wound clinic at discharge.
--- NOTE | 2020-02-02 15:50 | PDOC2 ---
Chief Complaint: Chief Complaint: Right foot DFU's to plantar aspect and fourth toe Problems: (1) Diabetic ulcer of foot associated with diabetes mellitus due to underlying condition, with fat layer exposed Vital Signs: Vital Signs: Vital Signs Date Time Temp Pulse Resp B/P (MAP) Pulse Ox O2 Delivery O2 Flow Rate FiO2 02/01/20 07:00 97.8 81 18 142/85 (104) 98 Room Air 97.8 Vital Signs Date Time Temp Pulse Resp B/P (MAP) Pulse Ox O2 Delivery O2 Flow Rate FiO2 02/02/20 11:00 97.3 76 18 145/84 (104) 100 97.3 02/02/20 08:00 Room Air Allergies: Allergies: Allergies Coded Allergies Type Severity Reaction Last Updated Verified No Known Drug Allergies 05/06/14 No Medications: Home Meds Reported Medications Bupropion Hcl (BUPROPION XL) 300 Mg Tab.er.24h, 1 TAB PO DAILY for unknown, #30 TAB 2 Refills 02/01/20 Carbidopa/Levodopa (CARBIDOPA-LEVO ER 50-200 TAB) 1 Each Tablet.er, 1 EACH PO DAILY16 for Parkinson's, TAB.SR 01/31/20 Carbidopa/Levodopa (CARBIDOPA-LEVO ER 50-200 TAB) 1 Each Tablet.er, 1 EACH PO DAILY08 for parkinsons, TAB.SR 01/31/20 Memantine Hcl (NAMENDA) 10 Mg Tablet, 1 TAB PO BID for unknown, #180 TAB 1 Refill 01/30/20 Losartan Potassium (LOSARTAN POTASSIUM) 50 Mg Tablet, 50 MG PO DAILY for HYPERTENSION, TAB 01/30/20 Quetiapine Fumarate (SEROQUEL) 25 Mg Tablet, 25 MG PO HS for parkinsons, TAB 04/02/19 Montelukast Sodium (SINGULAIR TABLET ) 10 Mg Tablet, 10 MG PO DAILY for FOR ASTHMA, TAB 0 Refills 04/02/19 Carbidopa/Levodopa (SINEMET 25-100 MG TABLET) 1 Each Tablet, 1 TAB PO TID for parkinsons, TAB 04/02/19 Hydrocodone Bit/Acetaminophen (HYDROCODONE-APAP 5-325 ) 1 Each Tablet, 1 TAB PO PRN Q6HRS PRN for PAIN, TAB 12/30/17 Omeprazole (OMEPRAZOLE) 40 Mg Capsule.dr, 1 CAP PO DAILY, #30 CAP 3 Refills 08/19/16 Carbinoxamine Maleate (CARBINOXAMINE MALEATE) 4 Mg Tablet, 4 MG PO DAILY 05/06/14 Fluticasone/Salmeterol (ADVAIR 250-50 DISKUS) 1 Each Disk.w.dev, 1 PUFF IH BID, #3 INHALER 3 Refills 05/06/14 Simvastatin (SIMVASTATIN) 20 Mg Tablet, 20 MG PO HS for for cholesterol, #30 TAB 0 Refills 05/06/14 PCP: PCP: Dr. Pulliam Pain: Pain Location: Other (Patient states his he has had neuropathy of his bilateral feet for 40+ years and therefore does not have sensation) Date of Onset Patient is a well-known patient to ours at the wound care center and has been treated for 6+ months for a diabetic foot ulcer over his right Charcot's deformity. The wound has required bedside surgical debridement on multiple occasions due to excessive callus buildup as well as nonviable tissue. The right fourth toe developed an ulceration approximately 3 weeks ago. Patient was started on doxycycline for a wound infection. Patient states that he completed the entire course of antibiotics as directed. Patient with longstanding diabetes with difficult to heal wounds. Patient with underlying Parkinson's disease which makes offloading difficult. Patient ambulates without shoes on the majority of the time with it for cane and walker. Patient unable to tolerate offloading shoes due to his Parkinson's. Patient admitted to the hospital for acute kidney injury and dehydration. Quanta flow obtained on 08/26/2019 at wound care clinic revealed an right lower extremity HARRY of 1.06 PMH Asthma, Parkinson's, diabetes, hypertension, hyperlipidemia, cholecystectomy, brain surgery, hernia repair x 2, skin and scalp surgery, previous tobacco abuse. Surgical History Patient lives at home with his who is very supportive and medical care. Patient denies tobacco use, illicit drug use or alcohol use. General: No: Chills, Fatigue, Appetite Cardiovascular: No Chest Pain, No Edema Gastrointestinal: No Nausea, No Vomiting, No Diarrhea Genitourinary: No Dysuria, No Frequency, No Urgency Skin: Yes Other (Wounds as described above) Psychological: No: Anxiety, Depression Physical Exam Patient awake and alert 84-year-old male in no apparent distress. Vital signs are stable. Patient is afebrile. Respirations are even and unlabored. Patient is on room air not requiring supplemental oxygen at this time. Abdomen is soft, nondistended, obese and nontender to palpation. Skin is warm dry and pink. Patient has Charcot's deformity to bilateral feet. Overlying the right Charcot's to deformity on the plantar aspect is a 0.5 x 0.5 x 0.1 cm open ulceration. Wound bed is 100% granulation. There is moderate serosanguineous drainage on previous dressing. And no odor following cleansing. The surrounding tissue has excessive callus formation without erythema or edema present. Following written consent a sterile curette was used to debride the surrounding callus formation and nonviable tissue at the edges of the wound minimal viable tissue was also removed and minimal bleeding was controlled with pressure. Following debridement the wound measured 0.5 x 0.6 x 0.1 cm and was 100% granulation without epiboly noted at edges. The most distal aspect of the right fourth toe presents with a 1 x 0.8 x 0.1 cm open ulceration. The wound bed is 100% hyper granulation with excessive callus formation at the edges. St erile curette was used to remove callus and nonviable tissue along with minimal viable tissue. Minimal bleeding was controlled with pressure. Following debridement wound measured 1.1 x 0.9 x 0.1 cm. A/P Right diabetic foot ulcers to the plantar foot and fourth toe -Debrided at bedside, see physical section for description -Cleanse and pat dry. Apply Ruthann Ag to wound bed and cover with bordered gauze. Change every 3 days or as needed if dressing loose or saturated. -Patient is weightbearing as tolerated. Offloading shoe is not safe due to patient's underlying Parkinson's disease. -Recommend patient has every other week follow-ups for callus debridement and wound assessment -Dietary consulting to ensure patient with adequate protein intake for optimal wound healing HARRY Right: 1.06 on 08/26/19 Problem Qualifiers (1) Diabetic ulcer of foot associated with diabetes mellitus due to underlying condition, with fat layer exposed: Diabetic foot ulcer location: midfoot FEMI ROMANO CERTIFIED OPHTHALMIC SURGICAL ASSISTANT Feb 02, 2020 15:50
[2020-02-02] MEDS: HYDROcodone/APAP 5/325MG 1 TAB TABLET PO PRN (21:03)
[2020-02-02] MEDS: QUEtiapine 25 MG TABLET. PO SCH (21:03)
[2020-02-02] MEDS: SIMVASTATIN 20 MG TABLET PO SCH (21:03)
[2020-02-03 03:00] VITALS: BP 126/77
[2020-02-03 07:00] VITALS: BP 130/81
[2020-02-03 08:02] LABS: CALCIUM 8.5 mg/dL (8.5-10.1); CREATININE 1.2 mg/dL (0.7-1.3); POTASSIUM 3.9 mmol/L (3.5-5.1)
[2020-02-03] MEDS: buPROPion XL 150 MG TAB.ER.24H. PO SCH (10:12)
[2020-02-03] MEDS: ASPIRIN ENTERIC COATED 81 MG TABLET.DR. PO SCH (10:12)
[2020-02-03] MEDS: MONTELUKAST SODIUM 10 MG TABLET. PO SCH (10:12)
[2020-02-03] MEDS: CARBIDOPA/LEVODOPA CR 25/100MG TABLET.SA. PO SCH ×2 (10:13→18:56)
[2020-02-03] MEDS: MEMANTINE 10 MG TABLET. PO SCH ×2 (10:13→22:41)
[2020-02-03] MEDS: PANTOPRAZOLE 40 MG TABLET.DR. PO SCH (10:13)
[2020-02-03] MEDS: LOSARTAN POTASSIUM 50 MG TABLET. PO SCH (10:13)
--- NOTE | 2020-02-03 10:33 | PDOC ---
PROGRESS NOTES Date of Service: DATE: 02/03/20 TIME: 10:31 Chief Complaint Chief Complaint ASSESSMENT AND PLAN: Acute kidney injury and azotemia, , ACUTE VASOMOTOR Nephropathy suspect dehydration. PARKINSON'S disease Generalized weakness. DM. HTN. HLD. Diabetic peripheral neuropathy. Degenerative spine disease. Back pain. dizziness sec to volume depletion mild protein-caloric malnutrition 02/01 confused yesterday, more alert today, needs PT/OT/COGNITIVE SCREEN admitted. normal saline at 75 mL an hour. discussed the case //nurse. consult Dr. Mesa. Home meds, DVT prophylaxis. Full code. PT/OT Discharge Recommendations * Half-Way Unit Discharge Recommendation - DME * Rolling Walker needed * in order to complete ADLs * and ambulation safely History of Present Illness History of Present Illness pleasant 84-year-old male Today, he is a little dizzy. He has a home healthcare nurse. She evaluated him and stated he needed to come in to be sent While in the ER, we noted that he is a little azotemic with a BUN of 35 minutes. He has also got acute kidney injury with a creatinine of 1.7. I discussed the case with the ER physician. We are going to admit the patient, give him some IV fluids and consult Nephrology. PAST MEDICAL HISTORY: Asthma, Parkinson's, diabetes, hypertension, hyperlipidemia, cholecystectomy, brain surgery, hernia repair x 2, skin and scalp surgery, previous tobacco abuse. ALLERGIES: None. FAMILY HISTORY: Diabetes. SOCIAL HISTORY: Quit smoking, no drinking or drugs. He is . His is present. Vitals Vitals Vital Signs Date Time Temp Pulse Resp B/P (MAP) Pulse Ox O2 Delivery O2 Flow Rate FiO2 02/03/20 10:13 77 130/81 02/03/20 07:00 96.9 18 98 Room Air 96.9 Physical Exam Physical Exam HEENT: Normal cephalic atraumatic, external auditory canals are patent EYES: Extraocular muscles are intact, pupils are equally round and reactive to light and accommodation MUSCULOSKELETAL: Well developed, well nourished, good range of motion ENDOCRINE: No thyromegaly was palpated LYMPHATICS: No cervical chain or axillary nodes were noted HEMATOPOIETIC: No bruising NECK: Supple, no JVD, no thyromegaly was noted. LUNGS: Clear to auscultation in all lung scott without rhonchi or wheezing. HEART: RRR, S1, S2 present. Peripheral pulses intact, no obvious murmurs were noted. ABDOMEN: Soft, nontender. Positive bowel sounds no organomegaly, normal bowel sounds. EXTREMITIES: Without any cyanosis, clubbing, or edema. Pedal pulses intact, Homans sign is negative. NEUROLOGIC: Normal speech, normal tone. A & O x3, moves all extremities, no obvious focal deficits. PSYCHIATRIC: Normal affect, normal mood. Stable. SKIN: No ulcerations or rashes, good skin turgor, no jaundice. VASCULAR: Good capillary refill, neurovascular bundle appears to be intact. General: Alert, Oriented X3, Cooperative, No acute distress Heart: Regular rate, Normal S1, Normal S2 Lungs: Clear Abdomen: Soft, No tenderness Extremities: No edema, Normal pulses Skin: No significant lesion Labs LABS Laboratory Tests Test 02/02/20 11:22 02/02/20 12:09 02/02/20 16:37 02/02/20 21:16 Glucose (Fingerstick) 84 mg/dL (70-99) 104 mg/dL (70-99) 116 mg/dL (70-99) Sodium Level 140 mmol/L (136-145) Potassium Level 4.1 mmol/L (3.5-5.1) Chloride Level 107 mmol/L (98-107) Carbon Dioxide Level 28 mmol/L (21-32) Anion Gap 5 (6-14) Blood Urea Nitrogen 17 mg/dL (8-26) Creatinine 1.2 mg/dL (0.7-1.3) Estimated GFR (Cockcroft-Gault) 58.0 Glucose Level 94 mg/dL (70-99) Calcium Level 8.7 mg/dL (8.5-10.1) Magnesium Level 1.9 mg/dL (1.8-2.4) Triglycerides Level 86 mg/dL (0-150) Cholesterol Level 102 mg/dL (0-200) LDL Cholesterol, Calculated 48 mg/dL (0-100) VLDL Cholesterol, Calculated 17 mg/dL (0-40) Non-HDL Cholesterol Calculated 65 mg/dL (0-129) HDL Cholesterol 37 mg/dL (40-60) Cholesterol/HDL Ratio 2.8 Thyroid Stimulating Hormone (TSH) 0.629 uIU/mL (0.358-3.74) Test 02/03/20 06:00 02/03/20 07:59 Sodium Level 139 mmol/L (136-145) Potassium Level 3.9 mmol/L (3.5-5.1) Chloride Level 106 mmol/L (98-107) Carbon Dioxide Level 27 mmol/L (21-32) Anion Gap 6 (6-14) Blood Urea Nitrogen 22 mg/dL (8-26) Creatinine 1.2 mg/dL (0.7-1.3) Estimated GFR (Cockcroft-Gault) 58.0 Glucose Level 85 mg/dL (70-99) Calcium Level 8.5 mg/dL (8.5-10.1) Glucose (Fingerstick) 79 mg/dL (70-99) Assessment and Plan Assessmemt and Plan Problems Medical Problems: (1) Acute kidney injury Status: Acute (2) Dehydration Status: Acute (3) Hypotension Status: Acute Clinical Presentation * Evolving Evaluation Complexity Level * Moderate Complexity Pt/caregiver agrees with plan of care/goals * Yes Patient condition at conclusion of therapy * Pt in chair * Personal alarm on * Call light in reach * Phone in reach * PtIn no apparent distress * Pt denies further needs Communicated Patient Care With (Name, Title) * Bernadette Carcamo RN, OT Goal 1 - Bed Mobility Assistance Required * Independent Goal 2 - Transfers Assistance Required * Independent Goal 2 - Transfer Type * Sit to Stand Goal 3 - Ambulation Assistance Required * Independent Goal 3 - Ambulation Distance * 100' Goal 3 - Ambulation Device * Roller Walker Treatment Plan * Therapeutic Exercise * Bed Mobility Training * Transfer training * Gait Training * Dynamic Balance Training Frequency of Treatment Expected * 7 visits/week Duration of Treatment Expected * 2 weeks Discharge Recommendations * Half-Way Unit Discharge Recommendation - DME * Rolling Walker needed * in order to complete ADLs * and ambulation safely Discharge Recommendation Comments * TBD * Discussion Factors Facilitating Goal Achievement * Motivation level * Prior level of function Problem List (body system elements) * Impaired fnctnl mobility * Strength * Obesity * ROM * Knowledge-Precautions * Balance * Knowledge-Body Mechanics * Age * Knowledge-safe techniques Clinical Presentation * Evolving Evaluation Complexity Level * Moderate Complexity Pt/caregiver agrees with plan of care/goals * Yes Patient condition at conclusion of therapy * Pt in chair * Personal alarm on * Call light in reach * Phone in reach * PtIn no apparent distress * Pt denies further needs Communicated Patient Care With (Name, Title) * Bernadette Carcamo RN OT Goal 1 - Bed Mobility Assistance Required * Independent Goal 2 - Transfers Assistance Required * Independent Goal 2 - Transfer Type * Sit to Stand Goal 3 - Ambulation Assistance Required * Independent Goal 3 - Ambulation Distance * 100' Goal 3 - Ambulation Device * Roller Walker Treatment Plan * Therapeutic Exercise * Bed Mobility Training * Transfer training * Gait Training * Dynamic Balance Training Frequency of Treatment Expected * 7 visits/week Duration of Treatment Expected * 2 weeks Discharge Recommendations * Half-Way Unit Discharge Recommendation - DME * Rolling Walker needed * in order to complete ADLs * and ambulation safely Discharge Recommendation Comments * TBD Comment Review of Relevant I have reviewed the following items maria del carmen (where applicable) has been applied. Labs Laboratory Tests Test 02/01/20 20:50 02/02/20 07:57 02/02/20 11:22 02/02/20 12:09 Glucose (Fingerstick) 95 mg/dL (70-99) 82 mg/dL (70-99) 84 mg/dL (70-99) Sodium Level 140 mmol/L (136-145) Potassium Level 4.1 mmol/L (3.5-5.1) Chloride Level 107 mmol/L (98-107) Carbon Dioxide Level 28 mmol/L (21-32) Anion Gap 5 (6-14) Blood Urea Nitrogen 17 mg/dL (8-26) Creatinine 1.2 mg/dL (0.7-1.3) Estimated GFR (Cockcroft-Gault) 58.0 Glucose Level 94 mg/dL (70-99) Calcium Level 8.7 mg/dL (8.5-10.1) Magnesium Level 1.9 mg/dL (1.8-2.4) Triglycerides Level 86 mg/dL (0-150) Cholesterol Level 102 mg/dL (0-200) LDL Cholesterol, Calculated 48 mg/dL (0-100) VLDL Cholesterol, Calculated 17 mg/dL (0-40) Non-HDL Cholesterol Calculated 65 mg/dL (0-129) HDL Cholesterol 37 mg/dL (40-60) Cholesterol/HDL Ratio 2.8 Thyroid Stimulating Hormone (TSH) 0.629 uIU/mL (0.358-3.74) Test 02/02/20 16:37 02/02/20 21:16 02/03/20 06:00 02/03/20 07:59 Glucose (Fingerstick) 104 mg/dL (70-99) 116 mg/dL (70-99) 79 mg/dL (70-99) Sodium Level 139 mmol/L (136-145) Potassium Level 3.9 mmol/L (3.5-5.1) Chloride Level 106 mmol/L (98-107) Carbon Dioxide Level 27 mmol/L (21-32) Anion Gap 6 (6-14) Blood Urea Nitrogen 22 mg/dL (8-26) Creatinine 1.2 mg/dL (0.7-1.3) Estimated GFR (Cockcroft-Gault) 58.0 Glucose Level 85 mg/dL (70-99) Calcium Level 8.5 mg/dL (8.5-10.1) Laboratory Tests Test 02/02/20 11:22 02/02/20 12:09 02/02/20 16:37 02/02/20 21:16 Glucose (Fingerstick) 84 mg/dL (70-99) 104 mg/dL (70-99) 116 mg/dL (70-99) Sodium Level 140 mmol/L (136-145) Potassium Level 4.1 mmol/L (3.5-5.1) Chloride Level 107 mmol/L (98-107) Carbon Dioxide Level 28 mmol/L (21-32) Anion Gap 5 (6-14) Blood Urea Nitrogen 17 mg/dL (8-26) Creatinine 1.2 mg/dL (0.7-1.3) Estimated GFR (Cockcroft-Gault) 58.0 Glucose Level 94 mg/dL (70-99) Calcium Level 8.7 mg/dL (8.5-10.1) Magnesium Level 1.9 mg/dL (1.8-2.4) Triglycerides Level 86 mg/dL (0-150) Cholesterol Level 102 mg/dL (0-200) LDL Cholesterol, Calculated 48 mg/dL (0-100) VLDL Cholesterol, Calculated 17 mg/dL (0-40) Non-HDL Cholesterol Calculated 65 mg/dL (0-129) HDL Cholesterol 37 mg/dL (40-60) Cholesterol/HDL Ratio 2.8 Thyroid Stimulating Hormone (TSH) 0.629 uIU/mL (0.358-3.74) Test 02/03/20 06:00 02/03/20 07:59 Sodium Level 139 mmol/L (136-145) Potassium Level 3.9 mmol/L (3.5-5.1) Chloride Level 106 mmol/L (98-107) Carbon Dioxide Level 27 mmol/L (21-32) Anion Gap 6 (6-14) Blood Urea Nitrogen 22 mg/dL (8-26) Creatinine 1.2 mg/dL (0.7-1.3) Estimated GFR (Cockcroft-Gault) 58.0 Glucose Level 85 mg/dL (70-99) Calcium Level 8.5 mg/dL (8.5-10.1) Glucose (Fingerstick) 79 mg/dL (70-99) Microbiology 01/30/20 Urine Culture - Final, Complete Medications Current Medications Sodium Chloride 500 ml @ 500 mls/hr 1X ONCE IV Last administered on 01/30/20 13:04; Start 01/30/20 at 13:00; Stop 01/30/20 at 13:59; Status DC Sodium Chloride 1,000 ml @ 75 mls/hr [id number] IV Last administered on 02/02/20at 00:49; Start 01/30/20 at 18:45; Stop 02/02/20 at 11:35; Status DC Carbidopa/Levodopa (Sinemet 25/100) 1 tab TID PO Last administered on 02/02/20at 21:08; Start 01/30/20 at 21:00 Acetaminophen/ Hydrocodone Bitart (Lortab 5/325) 1 tab PRN Q6HRS PRN PO PAIN Last administered on 02/02/20 21:03; Start 01/30/20 at 20:00 Losartan Potassium (Cozaar) 50 mg DAILY PO Last administered on 02/03/20at 10:13; Start 01/31/20 at 09:00 Memantine (Namenda) 10 mg BID PO Last administered on 02/03/20 10:13; Start 01/30/20 at 21:00 Montelukast Sodium (Singulair) 10 mg DAILY PO Last administered on 02/03/20at 10:12; Start 01/31/20 at 09:00 Quetiapine Fumarate (SEROquel) 25 mg HS PO Last administered on 02/02/20at 21:0 3; Start 01/30/20 at 21:00 Simvastatin (Zocor) 20 mg HS PO Last administered on 02/02/20at 21:03; Start 01/30/20 at 21:00 Diphenhydramine HCl (Benadryl) 25 mg PRN Q6HRS PRN PO ITCHING; Start 01/30/20 at 20:15 Pantoprazole Sodium (Protonix) 40 mg DAILYAC PO Last administered on 02/03/20at 10:13; Start 01/31/20 at 07:30 Carbidopa/Levodopa (Sinemet Cr) 2 tab.sa BID@0800,1600 PO Last administered on 02/03/20at 10:13; Start 01/31/20 at 10:05 Non-Formulary Medication (Carbidopa/ Levodopa (Carbidopa-Levo Er 50-200 Tab)) 1 each DAILY16 PO ; Start 01/31/20 at 16:00; Status UNV Bupropion HCl (Wellbutrin Xl) 300 mg DAILY PO Last administered on 02/03/20at 10:12; Start 02/01/20 at 09:00 Aspirin (Ecotrin) 81 mg DAILYWBKFT PO Last administered on 02/03/20at 10:12; Start 02/03/20 at 08:00 Active Scripts Active Reported Bupropion Xl (Bupropion Hcl) 300 Mg Tab.er.24h 1 Tab PO DAILY Carbidopa-Levo Er 50-200 Tab (Carbidopa/Levodopa) 1 Each Tablet.er 1 Each PO DAILY16 Carbidopa-Levo Er 50-200 Tab (Carbidopa/Levodopa) 1 Each Tablet.er 1 Each PO DAILY08 Namenda (Memantine Hcl) 10 Mg Tablet 1 Tab PO BID Losartan Potassium 50 Mg Tablet 50 Mg PO DAILY Seroquel (Quetiapine Fumarate) 25 Mg Tablet 25 Mg PO HS Singulair Tablet (Montelukast Sodium) 10 Mg Tablet 10 Mg PO DAILY Sinemet 25-100 Mg Tablet (Carbidopa/Levodopa) 1 Each Tablet 1 Tab PO TID Hydrocodone-Apap 5-325 (Hydrocodone Bit/Acetaminophen) 1 Each Tablet 1 Tab PO PRN Q6HRS PRN Omeprazole 40 Mg Capsule.dr 1 Cap PO DAILY Carbinoxamine Maleate 4 Mg Tablet 4 Mg PO DAILY Advair 250-50 Diskus (Fluticasone/Salmeterol) 1 Each Disk.w.dev 1 Puff IH BID Simvastatin 20 Mg Tablet 20 Mg PO HS Vitals/I & O Vital Sign - Last 24 Hours 02/02/20 02/02/20 02/02/20 02/02/20 11:00 15:00 19:00 20:00 Temp 97.3 98.2 97.3 97.3 98.2 97.3 Pulse 76 81 96 Resp 18 18 20 B/P (MAP) 145/84 (104) 154/79 (104) 129/78 (95) Pulse Ox 100 98 93 O2 Delivery Room Air Room Air 02/02/20 02/02/20 02/02/20 02/03/20 21:03 22:03 23:00 03:00 Temp 98.2 97.8 98.2 97.8 Pulse 86 88 Resp 18 18 20 B/P (MAP) 122/79 (93) 126/77 (93) Pulse Ox 93 93 93 94 O2 Delivery Room Air Room Air Room Air Room Air 02/03/20 02/03/20 07:00 10:13 Temp 96.9 96.9 Pulse 77 77 Resp 18 B/P (MAP) 130/81 (97) 130/81 Pulse Ox 98 O2 Delivery Room Air Intake and Output 02/02/20 02/02/20 02/03/20 15:00 23:00 07:00 Intake Total 360 ml 400 ml 400 ml Output Total 3 ml Balance 360 ml 397 ml 400 ml Justicifation of Admission Dx: Justifications for Admission: Justification of Admission Dx: Yes TRISHA BROWN MD Feb 03, 2020 10:33
[2020-02-03] MEDS: CARBIDOPA/LEVODOPA 25/100MG TABLET PO SCH ×3 (10:54→22:41)
[2020-02-03 10:58] VITALS: BP 130/73
--- NOTE | 2020-02-03 11:09 | PDOC ---
Renal-Progress Notes Subjective Notes Notes NO NEW COMPLAINTS History of Present Illness Hx of present illness STABLE Vitals Vitals Vital Signs Date Time Temp Pulse Resp B/P (MAP) Pulse Ox O2 Delivery O2 Flow Rate FiO2 02/03/20 10:58 97.6 78 18 130/73 (92) 96 Room Air 97.6 Weight Weight [ ] I.O. Intake and Output Intake and Output 02/03/20 07:00 Intake Total 1160 ml Output Total 3 ml Balance 1157 ml Intake Oral 1160 ml Stool Total 3 ml # Voids 11 # Bowel Movements 1 Labs Labs Laboratory Tests Test 02/02/20 11:22 02/02/20 12:09 02/02/20 16:37 02/02/20 21:16 Glucose (Fingerstick) 84 mg/dL (70-99) 104 mg/dL (70-99) 116 mg/dL (70-99) Sodium Level 140 mmol/L (136-145) Potassium Level 4.1 mmol/L (3.5-5.1) Chloride Level 107 mmol/L (98-107) Carbon Dioxide Level 28 mmol/L (21-32) Anion Gap 5 (6-14) Blood Urea Nitrogen 17 mg/dL (8-26) Creatinine 1.2 mg/dL (0.7-1.3) Estimated GFR (Cockcroft-Gault) 58.0 Glucose Level 94 mg/dL (70-99) Calcium Level 8.7 mg/dL (8.5-10.1) Magnesium Level 1.9 mg/dL (1.8-2.4) Triglycerides Level 86 mg/dL (0-150) Cholesterol Level 102 mg/dL (0-200) LDL Cholesterol, Calculated 48 mg/dL (0-100) VLDL Cholesterol, Calculated 17 mg/dL (0-40) Non-HDL Cholesterol Calculated 65 mg/dL (0-129) HDL Cholesterol 37 mg/dL (40-60) Cholesterol/HDL Ratio 2.8 Thyroid Stimulating Hormone (TSH) 0.629 uIU/mL (0.358-3.74) Test 02/03/20 06:00 02/03/20 07:59 Sodium Level 139 mmol/L (136-145) Potassium Level 3.9 mmol/L (3.5-5.1) Chloride Level 106 mmol/L (98-107) Carbon Dioxide Level 27 mmol/L (21-32) Anion Gap 6 (6-14) Blood Urea Nitrogen 22 mg/dL (8-26) Creatinine 1.2 mg/dL (0.7-1.3) Estimated GFR (Cockcroft-Gault) 58.0 Glucose Level 85 mg/dL (70-99) Calcium Level 8.5 mg/dL (8.5-10.1) Glucose (Fingerstick) 79 mg/dL (70-99) Micro Micro Microbiology 01/30/20 Urine Culture - Final, Complete Review of Systems Constitutional: yes: alert Ears/Nose/Throat: Yes: no symptom reported Eyes: Yes: no symptom reported Pulmonary: Yes no symptom reported Genitourinary: Yes: no symptom reported Musculoskeletal: Yes: no symptom reported Skin: Yes no symptom reported Psychiatric/Neurological: Yes: no symptom reported Physical Exam General Appearance: no apparent distress Skin: warm Respiratory: decreased breath sounds Heart: S1S2 Abdomen: soft, bowel sounds present Genitourinary: bladder flat Neurology: confused Assessment Assessment IMP NORMA-RESOLVED WITH CR DOWN TO 1.2 FROM 1.7 DEHYDRATION BENIGN RENAL CYST PARKINSON'S DM II PLAN CARDIOLOGY EVAL FOR ARRHYTHMIA OFF IVF'S ENC PO WILL SIGN OFF VILLA TODD MD Feb 03, 2020 11:09
--- NOTE | 2020-02-03 14:05 | PDOC ---
CARDIO Progress Notes Date and Time Date of Service 02/03/20 Time of Evaluation 1345 Subjective Subjective: No Chest Pain, No shortness of breath, No Palpitations Vitals Vitals Vital Signs Date Time Temp Pulse Resp B/P (MAP) Pulse Ox O2 Delivery O2 Flow Rate FiO2 02/03/20 10:58 97.6 78 18 130/73 (92) 96 Room Air 97.6 Weight Weight [ ] Input and Output Intake and Output Intake and Output 02/03/20 07:00 Intake Total 1160 ml Output Total 3 ml Balance 1157 ml Intake Oral 1160 ml Stool Total 3 ml # Voids 11 # Bowel Movements 1 Laboratory Labs Laboratory Tests Test 02/02/20 16:37 02/02/20 21:16 02/03/20 06:00 02/03/20 07:59 Glucose (Fingerstick) 104 mg/dL (70-99) 116 mg/dL (70-99) 79 mg/dL (70-99) Sodium Level 139 mmol/L (136-145) Potassium Level 3.9 mmol/L (3.5-5.1) Chloride Level 106 mmol/L (98-107) Carbon Dioxide Level 27 mmol/L (21-32) Anion Gap 6 (6-14) Blood Urea Nitrogen 22 mg/dL (8-26) Creatinine 1.2 mg/dL (0.7-1.3) Estimated GFR (Cockcroft-Gault) 58.0 Glucose Level 85 mg/dL (70-99) Calcium Level 8.5 mg/dL (8.5-10.1) Microbiology Micro Microbiology 01/30/20 Urine Culture - Final, Complete Review of Systems Constitutional: yes: alert Ears/Nose/Throat: Yes: no symptom reported Eyes: Yes: no symptom reported Pulmonary: Yes no symptom reported Genitourinary: Yes: no symptom reported Musculoskeletal: Yes: no symptom reported Skin: Yes no symptom reported Psychiatric/Neurological: Yes: no symptom reported Physical Exam HEENT: Neck Supple W Full Motion Chest: Symmetric LUNGS: Clear to Auscultation Heart: S1S2, RRR Abdomen: Soft N/T Neurology: alert, follow commands, other (forgetful, tremors ) Assessment Assessment 1. NORMA, dehydration; improved with IVFs 2. Hypertension; initially low-end, but not consistently adequate 3. Hyperlipidemia; statin 4. Diabetes, II 5. Parkinson's Disease 6. Arrhythmia; concerns for brief episode of a-flutter. Tele reviewed; this appears to be artifact from rhythmic movement associated with Parkinson's tremor. No clear flutter noted. 7. Right diabetic foot ulcers to the plantar foot and fourth toe; s/p debridement. Recent duplex without any evidence of significant stenosis. Recommendations ASA therapy Baseline echo; this can be conducted on an outpatient basis if unable to complete prior to discharge Supportive care Justicifation of Admission Dx: Justifications for Admission: Justification of Admission Dx: Yes LEEANNA MORE APRN Feb 03, 2020 14:05
[2020-02-03 15:00] VITALS: BP 122/72
[2020-02-03 19:00] VITALS: BP 128/85
--- NOTE | 2020-02-03 19:30 | NUR ---
moved from room 516 to room 504 closer to nurses desk for closer monitoring and patient safety.
[2020-02-03] MEDS: HYDROcodone/APAP 5/325MG 1 TAB TABLET PO PRN (22:41)
[2020-02-03] MEDS: SIMVASTATIN 20 MG TABLET PO SCH (22:41)
[2020-02-03] MEDS: QUEtiapine 25 MG TABLET. PO SCH (22:42)
[2020-02-03 23:00] VITALS: BP 144/84
[2020-02-04 03:00] VITALS: BP 134/76
[2020-02-04] MEDS: PANTOPRAZOLE 40 MG TABLET.DR. PO SCH (05:50)
[2020-02-04 07:00] VITALS: BP 140/81
[2020-02-04] MEDS: buPROPion XL 150 MG TAB.ER.24H. PO SCH (08:51)
[2020-02-04] MEDS: ASPIRIN ENTERIC COATED 81 MG TABLET.DR. PO SCH (08:51)
[2020-02-04] MEDS: MEMANTINE 10 MG TABLET. PO SCH (08:51)
[2020-02-04] MEDS: CARBIDOPA/LEVODOPA 25/100MG TABLET PO SCH ×2 (08:51→15:05)
[2020-02-04] MEDS: LOSARTAN POTASSIUM 50 MG TABLET. PO SCH (08:51)
[2020-02-04] MEDS: MONTELUKAST SODIUM 10 MG TABLET. PO SCH (08:52)
[2020-02-04] MEDS: CARBIDOPA/LEVODOPA CR 25/100MG TABLET.SA. PO SCH ×2 (08:52→15:05)
[2020-02-04] MEDS ORDERED: HYDR-2761 PO (08:58)
[2020-02-04] MEDS ORDERED: ASPI-886 PO (08:58)
--- NOTE | 2020-02-04 08:59 | SNU/HH DC ---
DISCHARGE ORDERS DISCHARGE INFORMATION: DISCHARGE DATE: Feb 04, 2020 FINAL DIAGNOSIS acute renal failure dehydration parkinsons disease dementia Problems Medical Problems: (1) Acute kidney injury Status: Acute (2) Dehydration Status: Acute (3) Hypotension Status: Acute CONDITION ON DISCHARGE: Stable CODE STATUS: Code Status: Full SNF: SNF STAY <30 DAYS: Yes POST DISCHARGE ORDERS: ACTIVITY ORDERS: Activity as tolerated WEIGHT BEARING STATUS: As tolerated DIET AFTER DISCHARGE: Cardiac CHECKS AFTER DISCHARGE: CHECKS AFTER DISCHARGE: Check blood press - daily, Check blood sugar, ac/hs FOLLOW-UP: PHYSICIAN FOLLOW-UP: primary 2 weeks LAB ORDERS FOR FOLLOW-UP: chem 7, 1 week TREATMENT/EQUIPMENT ORDERS: ADAPTIVE EQUIPMENT NEEDED: None, Walker Physical Therapy For: Evalulation/Treatment Occupational Therapy For: Evaluation/Treatment DISCHARGE MEDICATIONS: Home Meds Active Scripts Aspirin (ASPIRIN EC) 81 Mg Tablet.dr, 81 MG PO DAILYWBKFT for cardiac prevention, #100 TAB.SR Prov:HALEIGH BAXTER MD 02/04/20 Hydrocodone Bit/Acetaminophen (HYDROCODONE-APAP 5-325 ) 1 Each Tablet, 1 TAB PO PRN Q6HRS PRN for PAIN, #14 TAB Prov:HALEIGH BAXTER MD 02/04/20 Reported Medications Bupropion Hcl (BUPROPION XL) 300 Mg Tab.er.24h, 1 TAB PO DAILY for unknown, #30 TAB 2 Refills 02/01/20 Carbidopa/Levodopa (CARBIDOPA-LEVO ER 50-200 TAB) 1 Each Tablet.er, 1 EACH PO DAILY16 for Parkinson's, TAB.SR 01/31/20 Carbidopa/Levodopa (CARBIDOPA-LEVO ER 50-200 TAB) 1 Each Tablet.er, 1 EACH PO DAILY08 for parkinsons, TAB.SR 01/31/20 Memantine Hcl (NAMENDA) 10 Mg Tablet, 1 TAB PO BID for unknown, #180 TAB 1 Refill 01/30/20 Losartan Potassium (LOSARTAN POTASSIUM) 50 Mg Tablet, 50 MG PO DAILY for HYPERTENSION, TAB 01/30/20 Quetiapine Fumarate (SEROQUEL) 25 Mg Tablet, 25 MG PO HS for parkinsons, TAB 04/02/19 Montelukast Sodium (SINGULAIR TABLET ) 10 Mg Tablet, 10 MG PO DAILY for FOR ASTHMA, TAB 0 Refills 04/02/19 Carbidopa/Levodopa (SINEMET 25-100 MG TABLET) 1 Each Tablet, 1 TAB PO TID for parkinsons, TAB 04/02/19 Omeprazole (OMEPRAZOLE) 40 Mg Capsule.dr, 1 CAP PO DAILY, #30 CAP 3 Refills 08/19/16 Carbinoxamine Maleate (CARBINOXAMINE MALEATE) 4 Mg Tablet, 4 MG PO DAILY 05/06/14 Fluticasone/Salmeterol (ADVAIR 250-50 DISKUS) 1 Each Disk.w.dev, 1 PUFF IH BID, #3 INHALER 3 Refills 05/06/14 Simvastatin (SIMVASTATIN) 20 Mg Tablet, 20 MG PO HS for for cholesterol, #30 TAB 0 Refills 05/06/14 HALEIGH BAXTER MD Feb 04, 2020 08:59
[2020-02-04 10:07] LABS: BASO % 1 % (0-3); EOS # 0.2 x10^3/uL (0.0-0.7); EOS % 3 % (0-3); HEMATOCRIT 40.6 % (39.0-53.0); HEMOGLOBIN 13.4 g/dL (13.0-17.5); LYMPH # 1.2 x10^3/uL (1.0-4.8); LYMPH % 16 % (24-48); MEAN CORPUSCULAR HEMOGLOBIN 30 pg (25-35); MEAN CORPUSCULAR HGB CONC 33 g/dL (31-37); MEAN CORPUSCULAR VOLUME 92 fL (79-100); MONO # 1.1 x10^3/uL (0.0-1.1); MONO % 16 % (0-9); NEUT # 4.6 x10^3/uL (1.8-7.7); NEUT % 65 % (31-73); PLATELET COUNT 135 x10^3/uL (140-400); RED BLOOD COUNT 4.44 x10^6/uL (4.30-5.70); RED CELL DISTRIBUTION WIDTH 16.6 % (11.5-14.5); WHITE BLOOD COUNT 7.1 x10^3/uL (4.0-11.0)
[2020-02-04 11:23] VITALS: BP 98/60
--- NOTE | 2020-02-04 13:52 | PDOC3 ---
Discharge Summary Visit Information Date of Admission: Jan 30, 2020 Date of Discharge: Feb 04, 2020 Final Diagnosis Acute kidney injury and azotemia, , ACUTE VASOMOTOR Nephropathy suspect dehydration. PARKINSON'S disease Generalized weakness. DM. HTN. HLD. Diabetic peripheral neuropathy. Degenerative spine disease. Back pain. dizziness sec to volume depletion mild protein-caloric malnutrition Problems Medical Problems: (1) Acute kidney injury Status: Acute (2) Dehydration Status: Acute (3) Hypotension Status: Acute Brief Hospital Course Allergies Allergies Coded Allergies Type Severity Reaction Last Updated Verified No Known Drug Allergies 05/06/14 No Vital Signs Vital Signs Date Time Temp Pulse Resp B/P (MAP) Pulse Ox O2 Delivery O2 Flow Rate FiO2 02/04/20 11:23 98.1 77 16 98/60 (73) 97 Room Air 98.1 Lab Results Laboratory Tests Test 02/02/20 16:37 02/02/20 21:16 02/03/20 06:00 02/03/20 07:59 Glucose (Fingerstick) 104 mg/dL (70-99) 116 mg/dL (70-99) 79 mg/dL (70-99) Sodium Level 139 mmol/L (136-145) Potassium Level 3.9 mmol/L (3.5-5.1) Chloride Level 106 mmol/L (98-107) Carbon Dioxide Level 27 mmol/L (21-32) Anion Gap 6 (6-14) Blood Urea Nitrogen 22 mg/dL (8-26) Creatinine 1.2 mg/dL (0.7-1.3) Estimated GFR (Cockcroft-Gault) 58.0 Glucose Level 85 mg/dL (70-99) Calcium Level 8.5 mg/dL (8.5-10.1) Test 02/03/20 16:50 02/03/20 21:06 02/04/20 07:41 02/04/20 09:45 Coronavirus (PCR) Not detected (Not Detected) Glucose (Fingerstick) 122 mg/dL (70-99) 78 mg/dL (70-99) White Blood Count 7.1 x10^3/uL (4.0-11.0) Red Blood Count 4.44 x10^6/uL (4.30-5.70) Hemoglobin 13.4 g/dL (13.0-17.5) Hematocrit 40.6 % (39.0-53.0) Mean Corpuscular Volume 92 fL (79-100) Mean Corpuscular Hemoglobin 30 pg (25-35) Mean Corpuscular Hemoglobin Concent 33 g/dL (31-37) Red Cell Distribution Width 16.6 % (11.5-14.5) Platelet Count 135 x10^3/uL (140-400) Neutrophils (%) (Auto) 65 % (31-73) Lymphocytes (%) (Auto) 16 % (24-48) Monocytes (%) (Auto) 16 % (0-9) Eosinophils (%) (Auto) 3 % (0-3) Basophils (%) (Auto) 1 % (0-3) Neutrophils # (Auto) 4.6 x10^3/uL (1.8-7.7) Lymphocytes # (Auto) 1.2 x10^3/uL (1.0-4.8) Monocytes # (Auto) 1.1 x10^3/uL (0.0-1.1) Eosinophils # (Auto) 0.2 x10^3/uL (0.0-0.7) Basophils # (Auto) 0.0 x10^3/uL (0.0-0.2) Laboratory Tests Test 02/03/20 16:50 02/03/20 21:06 02/04/20 07:41 02/04/20 09:45 Coronavirus (PCR) Not detected (Not Detected) Glucose (Fingerstick) 122 mg/dL (70-99) 78 mg/dL (70-99) White Blood Count 7.1 x10^3/uL (4.0-11.0) Red Blood Count 4.44 x10^6/uL (4.30-5.70) Hemoglobin 13.4 g/dL (13.0-17.5) Hematocrit 40.6 % (39.0-53.0) Mean Corpuscular Volume 92 fL (79-100) Mean Corpuscular Hemoglobin 30 pg (25-35) Mean Corpuscular Hemoglobin Concent 33 g/dL (31-37) Red Cell Distribution Width 16.6 % (11.5-14.5) Platelet Count 135 x10^3/uL (140-400) Neutrophils (%) (Auto) 65 % (31-73) Lymphocytes (%) (Auto) 16 % (24-48) Monocytes (%) (Auto) 16 % (0-9) Eosinophils (%) (Auto) 3 % (0-3) Basophils (%) (Auto) 1 % (0-3) Neutrophils # (Auto) 4.6 x10^3/uL (1.8-7.7) Lymphocytes # (Auto) 1.2 x10^3/uL (1.0-4.8) Monocytes # (Auto) 1.1 x10^3/uL (0.0-1.1) Eosinophils # (Auto) 0.2 x10^3/uL (0.0-0.7) Basophils # (Auto) 0.0 x10^3/uL (0.0-0.2) Brief Hospital Course Mr. Ramon, is an 84 yo male who presented secondary to dizziness and low blood pressure. Home Health recommended he come to the ED for further evaluation and treatment. Initial labs notable for NORMA, which improved s/p hydration. Has a h/o Parkinson's Disease. Telemetry with significant artifact related to this. Has brief episode where rhythm thought to be atrial flutter, resovled he had a foot wound in Dm2, which was debrided at bedside without complication, he could not transfer, was very weak, sent for rehab Discharge Information Condition at Discharge: Improved Follow Up: Weeks Disposition/Orders: D/C to Another Facility Scheduled Aspirin (Aspirin Ec) 81 Mg Tablet., 81 MG PO DAILYWBKFT for cardiac prevention, #100 Prescribed by: HALEIGH BAXTER on 02/04/20 0858 Bupropion Hcl (Bupropion Xl) 300 Mg Tab.er.24h, 1 TAB PO DAILY for unknown, #30 Ref 2 (Reported) Entered as Reported by: ORIANA RINCON RN on 02/01/20 08 Last Taken: Unknown Dose on Unknown Date & Time Last Action: Converted on 02/01/20813 by ORIANA RINCON RN Carbidopa/Levodopa (Sinemet 25-100 Mg Tablet) 1 Each Tablet, 1 TAB PO TID for parkinsons, (Reported) Entered as Reported by: JOCELYN GORMAN on 04/02/19 09 Last Taken: Unknown Dose on Unknown Date & Time Last Action: Continued on 01/30/202000 by ORIANA RINCON RN Carbidopa/Levodopa (Carbidopa-Levo Er 50-200 Tab) 1 Each Tablet.er, 1 EACH PO DAILY08 for parkinsons, (Reported) Entered as Reported by: ORIANA RINCON RN on 01/31/20950 Last Taken: Unknown Dose on Unknown Date & Time Last Action: Converted on 01/31/20952 by ORIANA RINCON RN Carbidopa/Levodopa (Carbidopa-Levo Er 50-200 Tab) 1 Each Tablet.er, 1 EACH PO DAILY16 for Parkinson's, (Reported) Entered as Reported by: ORIANA RINCON RN on 01/31/20950 Last Taken: Unknown Dose on Unknown Date & Time Last Action: Converted on 01/31/20952 by ORIANA RINCON RN Carbinoxamine Maleate (Carbinoxamine Maleate) 4 Mg Tablet, 4 MG PO DAILY, (Reported) Entered as Reported by: NESSA DE PAZ on 05/06/14919 Last Taken: Unknown Dose on Unknown Date & Time Last Action: Converted on 01/30/202000 by ORIANA RINCON RN Fluticasone/Salmeterol (Advair 250-50 Diskus) 1 Each Disk.w.dev, 1 PUFF IH BID, #3 Ref 3 (Reported) Entered as Reported by: NESSA DE PAZ on 05/06/14918 Losartan Potassium (Losartan Potassium) 50 Mg Tablet, 50 MG PO DAILY for HYPERTENSION, (Reported) Entered as Reported by: ORIANA RINCON RN on 01/30/201958 Last Taken: Unknown Dose on Unknown Date & Time Last Action: Continued on 01/30/202000 by ORIANA RINCON RN Memantine Hcl (Namenda) 10 Mg Tablet, 1 TAB PO BID for unknown, #180 Ref 1 (Reported) Entered as Reported by: ORIANA RINCON RN on 01/30/201958 Last Taken: Unknown Dose on Unknown Date & Time Last Action: Continued on 01/30/202000 by ORIANA RINCON RN Montelukast Sodium (Singulair Tablet ) 10 Mg Tablet, 10 MG PO DAILY for FOR ASTHMA, Ref 0 (Reported) Entered as Reported by: JOCELYN GORMAN on 04/02/19922 Last Action: Continued on 01/30/202000 by ORIANA RINCON RN Omeprazole (Omeprazole) 40 Mg Capsule.dr, 1 CAP PO DAILY, #30 Ref 3 (Reported) Entered as Reported by: KIMI MYLES on 08/19/16 1730 Last Taken: Unknown Dose on Unknown Date & Time Last Action: Converted on 01/30/202000 by ORIANA RINCON RN Quetiapine Fumarate (Seroquel) 25 Mg Tablet, 25 MG PO HS for parkinsons, (Reported) Entered as Reported by: JOCELYN GORMAN on 04/02/19 0923 Last Action: Continued on 01/30/202000 by ORIANA RINCON RN Simvastatin (Simvastatin) 20 Mg Tablet, 20 MG PO HS for for cholesterol, #30 Ref 0 (Reported) Entered as Reported by: NESSA DE PAZ on 05/06/14 0915 Last Taken: Unknown Dose on Unknown Date & Time Last Action: Continued on 01/30/202000 by ORIANA RINCON RN Scheduled PRN Hydrocodone Bit/Acetaminophen (Hydrocodone-Apap 5-325 ) 1 Each Tablet, 1 TAB PO PRN Q6HRS PRN for PAIN, #14 Prescribed by: HALEIGH BAXTER on 02/04/20 0858 Patient Instructions Patient Instructions > 35 minutes 2 visits, exam, then discussed again with and patient later Justicifation of Admission Dx: Justifications for Admission: Justification of Admission Dx: Yes HALEIGH BAXTER MD Feb 04, 2020 13:52
--- NOTE | 2020-02-04 15:37 | NUR ---
Discharge Note: PT DISCHARGED TO [facility] AT 1508. PT LEFT FACILITY VIA [facility]. PT STABLE AND ALERT UPON DISCHARGE. PT PIV REMOVED FROM R FA WITHOUT COMPLICATIONS, BANDAGE APPLIED. REPORT CALLED TO LISANDRA ANDERSON RN AT 1510. EDUCATED ABOUT DISCHARGE INSTRUCTIONS, DISCHARGE MEDICATIONS, AND FOLLOW-UP CARE, NO CONCERNS VOICED AT THIS TIME. PT WOUND PHOTOGRAPHS TAKEN ON R FOOT UPON DISCHARGE AND PLACED IN CHART, TELE BOX REMOVED. PT LEFT WITH ALL PERSONAL BELONGINGS. YOSELIN LAZO Discharge instructions and discharge home medications reviewed with Patient and a copy given. All questions have been answered and understanding verbalized.
--- NOTE | 2020-02-04 17:16 | CARD ---
MR#: [id number] Date of Study: 02/04/2020 Ordering Physician: LEEANNA MORE, Referring Physician: LEEANNA MORE, Tech: Stefani Garcia APPROVED REPORT EXAM: Two-dimensional and M-mode echocardiogram with Doppler and color Doppler. Other Information Quality : AverageHR: 67bpm INDICATION Dizziness and Vertigo 2D DIMENSIONS RVDd4.7 (2.9-3.5cm)Left Atrium(2D)4.4 (1.6-4.0cm) IVSd1.1 (0.7-1.1cm)Aortic Root(2D)3.8 (2.0-3.7cm) LVDd5.6 (3.9-5.9cm)LVOT Diameter2.0 (1.8-2.4cm) PWd1.2 (0.7-1.1cm)LVDs3.3 (2.5-4.0cm) FS (%) 40.4 %SV108.9 ml LVEF(%)70.4 (>50%) Aortic Valve AoV Peak Valente.142.3cm/sAoV VTI29.5cm AO Peak GR.8.1mmHgLVOT Peak Valente.91.4cm/s AO Mean GR.4mmHgAVA (VMAX)1.94cm2 AI P 1/2 [id number] Mitral Valve MV E Oeikaoog83.6cm/sMV E Peak Gr.3mmHg MV DECEL [id number] A Ycihqvve026.4cm/s MV E Mean Gr.1mmHgE/A Ratio0.5 Pulmonary Valve PV Peak Qegxppyc62.3cm/s Tricuspid Valve TR P. Ygupzkdr778it/sRAP [id number] TR Peak Gr.[id number] Pulmonary Vein S1 Knjnkcnv36.5cm/sD2 Fkxjjdwv71.7cm/s PVa [id number] LEFT VENTRICLE The left ventricle is normal size. There is mild concentric left ventricular hypertrophy. The left ve ntricular systolic function is normal and the ejection fraction is within normal range. The Ejection Fraction is 50-55%. There is grossly normal LV segmental wall motion. Technically difficult study Tra nsmitral Doppler flow pattern is Grade I-abnormal relaxation pattern. RIGHT VENTRICLE The right ventricle is normal size. There is normal right ventricular wall thickness. The right ventr icular systolic function is normal. ATRIA The left atrium size is normal. The right atrium size is normal. The interatrial septum is intact wit h no evidence for an atrial septal defect or patent foramen ovale as noted on 2-D or Doppler imaging. AORTIC VALVE The aortic valve is thickened but opens well. Doppler and Color Flow revealed trace aortic regurgitat ion. There is no significant aortic valvular stenosis. Calculated aortic valve area is 2.4 cm2 with m aximum pressure gradient of 7 mmHg and mean pressure gradient of 3 mmHg. MITRAL VALVE The mitral valve is normal in structure and function. There is no evidence of mitral valve prolapse. There is no mitral valve stenosis. Doppler and Color-flow revealed trace mitral regurgitation. TRICUSPID VALVE The tricuspid valve is normal in structure and function. Doppler and Color Flow revealed trace tricus pid regurgitation with an estimated PAP of 27 mmHg. There is no tricuspid valve stenosis. PULMONIC VALVE The pulmonic valve is not well visualized. Doppler and Color Flow revealed no pulmonic valvular regur gitation. There is no pulmonic valvular stenosis. GREAT VESSELS The aortic root is mildly enlarged. The ascending aorta is Mildly dilated. The IVC was not visualized . PERICARDIAL EFFUSION There is no evidence of significant pericardial effusion. Critical Notification Critical Value: No <Conclusion> The left ventricular systolic function is normal and the ejection fraction is within normal range. Th e Ejection Fraction is 50-55%. There is grossly normal LV segmental wall motion. Technically difficult study Signed by : Yoni Trujillo, Electronically Approved : 02/04/2020 17:16:16
== END 2020-02-04 15:10 | DRG 640 ==
LOC: ER 12:25 → 5 NORTH 14:06
PROVIDERS: ADMIT Internal Medicine; ATTEND Internal Medicine
PROC: 0HBMXZZ Excision of Right Foot Skin, External Approach (ICD-10-PCS; principal; 2020-02-02)
DX: E86.0 Dehydration (principal); N17.0 Acute kidney failure with tubular necrosis; E44.1 Mild protein-calorie malnutrition; E11.621 Type 2 diabetes mellitus with foot ulcer; E11.42 Type 2 diabetes mellitus with diabetic polyneuropathy; E78.00 Pure hypercholesterolemia, unspecified; E78.5 Hyperlipidemia, unspecified; G20 Parkinson's disease; I10 Essential (primary) hypertension; J45.909 Unspecified asthma, uncomplicated; L97.519 Non-pressure chronic ulcer of other part of right foot with unspecified severity; N28.1 Cyst of kidney, acquired; Z82.49 Family history of ischemic heart disease and other diseases of the circulatory system; Z83.3 Family history of diabetes mellitus; Z87.891 Personal history of nicotine dependence; F41.9 Anxiety disorder, unspecified; K21.9 Gastro-esophageal reflux disease without esophagitis; M19.90 Unspecified osteoarthritis, unspecified site; Z90.49 Acquired absence of other specified parts of digestive tract; I95.9 Hypotension, unspecified; Z20.828 Contact with and (suspected) exposure to other viral communicable diseases
CPT/HCPCS: 36415; 70450; 71045; 80048; 80061; 80069; 80076; 81001; 82962; 83690; 83735; 83880; 84443; 84484; 85025; 87086; 93005; 93306; J7030; J7040; 97110-GP; 97116-GP; 97530-GO; 99285-25; G0378; U0003-CS

== ENCOUNTER 2020-02-29 09:22 | Emergency (ER) | payer MEDICARE, BC ==
[~2020-02-29] VITALS: Ht 190.5 cm; Wt 102.7 kg
[~2020-02-29 09:22] MED LIST changes: +ASPI-886 PO; +BUPR300T92 PO; +CARB1TAB44 PO; +LOSA-73 PO; +MEMA10TA PO
[2020-02-29] MEDS ORDERED: IV NORMAL SALINE 1000ML BAG 1,000 ML IV ONE (09:30)
[2020-02-29] MEDS ORDERED: ERYTHROMYCIN 0.5% OPHTH OINTMENT 1GM TUBE. OD ONE (09:45)
[2020-02-29 09:49] LABS: BASO # 0.1 x10^3/uL (0.0-0.2); BASO % 1 % (0-3); EOS % 0 % (0-3); HEMATOCRIT 43.2 % (39.0-53.0); HEMOGLOBIN 14.1 g/dL (13.0-17.5); LYMPH # 1.2 x10^3/uL (1.0-4.8); LYMPH % 13 % (24-48); MEAN CORPUSCULAR HEMOGLOBIN 31 pg (25-35); MEAN CORPUSCULAR HGB CONC 33 g/dL (31-37); MEAN CORPUSCULAR VOLUME 94 fL (79-100); MONO % 11 % (0-9); NEUT # 6.9 x10^3/uL (1.8-7.7); NEUT % 75 % (31-73); PLATELET COUNT 165 x10^3/uL (140-400); RED BLOOD COUNT 4.62 x10^6/uL (4.30-5.70); RED CELL DISTRIBUTION WIDTH 16.6 % (11.5-14.5); WHITE BLOOD COUNT 9.1 x10^3/uL (4.0-11.0)
--- NOTE | 2020-02-29 09:50 | EKG ---
[facility] [address] [place] [address] Test Date: 2020-02-29 Test Time: 09:44:24 Pat Name: YOSELIN LAZO Department: Room: Gender: M Information Assoc: : 1935 Requested By: CAROL RIOS Order Number: [id number] Reading MD: Measurements Intervals [place] Rate: 92 P: -76 AK: 130 QRS: -49 QRSD: 118 T: 43 QT: 368 QTc: 460 Interpretive Statements SUPRAVENTRICULAR RHYTHM LEFT ATRIAL ABNORMALITY ABNORMAL LEFT AXIS DEVIATION LEFT ANTERIOR FASCICULAR BLOCK ABNORMAL ECG RI6.02 Compared to ECG 02/29/2020 09:42:21 Supraventricular rhythm now present Atrial abnormality now present Left-axis deviation now present Left anterior fascicular block now present
--- NOTE | 2020-02-29 09:54 | PHYS DOC ---
Past Medical History Past Medical History: Asthma, Cancer, Diabetes-Type II, High Cholesterol, Hypertension, Other Additional Past Medical Histor: Parkinson's, SKIN CA Past Surgical History: Cholecystectomy Additional Past Surgical Histo: Brain surgery 04/2018, failed hernia repair X 2,SKIN CA/SCALP Smoking Status: Former Smoker Alcohol Use: None Drug Use: None General Adult EDM: Chief Complaint: HYPOTENSION HPI: HPI: Mr. Biggs is a 84-year-old white male who presents with a 2-hour history of lightheadedness. Patient has a past medical history of type 2 diabetes and Parkinson's disease. He was discharged Sunday from outpatient rehab, that was geared towards increasing his strength and balance mitigating the effects of his Parkinson's disease. Patient states he became a little lightheaded this morning and his took his blood pressure and measured 77/42. She called EMS on EMSs arrival he measured 100/61 and on arrival to the ED he measured 142/72. On arrival patient is largely asymptomatic and is currently at baseline. He is not lightheaded. He is alert and oriented and wishes to not be in the hospital. Blood sugar at home via was measured to be 242 and was the only abnormal finding by EMS. Past medical history: Type 2 diabetes, Parkinson's disease. Review of Systems: Review of Systems: Constitutional: Denies fever or chills Eyes: Denies redness or eye pain HENT: Denies nasal congestion or sore throat Respiratory: Denies cough or shortness of breath Cardiovascular: Denies chest pain or palpitations GI: Denies abdominal pain, nausea, or vomiting : Denies dysuria or hematuria Musculoskeletal: Denies back pain or joint pain Integument: Denies rash or skin lesions Neurologic: Denies headache, focal weakness or sensory changes Complete systems were reviewed and found to be within normal limits, except as documented in this note. Current Medications: Current Medications Medications (Trade) Dose Ordered Sig/Kaitlin Start Time Stop Time Status Last Admin Dose Admin Sodium Chloride 1,000 ml @ 1,000 mls/hr 1X ONCE 02/29/20 09:30 02/29/20 10:29 Allergies: Allergies: Allergies Coded Allergies Type Severity Reaction Last Updated Verified No Known Drug Allergies 05/06/14 No Physical Exam: PE: Constitutional: Well developed, well nourished, no acute distress, non-toxic appearance HENT: Normocephalic, atraumatic, cranial nerves II through XII grossly intact bilaterally. Eyes: PERRL, EOMI, conjunctival erythema on the left. Left eye looks slightly sunken. Periorbital edema around left eye. Notable purulent discharge out of left eye. Neck: Normal range of motion, no tenderness, supple no carotid bruits. Lungs & Thorax: Bilateral breath sounds clear to auscultation, no wheezing Heart: Irregular regular rhythm dropped every third beat. No murmurs auscultated. S1 and S2 normal. S3 and S4 unheard. Abdomen: Soft, no tenderness, bowel sounds present all 4 quadrants. Skin: Warm, dry, no erythema, no rash Back: No tenderness, no CVA tenderness. Extremities: No tenderness, ROM intact, no edema 2+4 pulses in all 4 extremities. Neurologic: Alert and oriented X 3, normal motor function, normal sensory function, no focal deficits noted 5/5 engineer byproduct strength. Psychologic: Affect normal, judgment normal patient seems depressed, wishing not to be in the hospital. EKG: EK02-29-2020 at 9:44 AM CA: 136 ms QRS: 118 ms QT: 368 ms QTc: 460 ms Impression: Normal sinus rhythm with high PVC burden. 3 to 1 sinus beats to PVCs. Radiology/Procedures: Radiology/Procedures: PROCEDURE: PORTABLE CHEST 1V PORTABLE CHEST 1V History: Reason: hypotension (Pt NR 0940) / Spl. Instructions: / History: Comparison: January 30, 2020 Findings: Patchy bibasilar opacities. No pneumothorax. No pleural effusion. Unchanged heart size. Impression: 1. Patchy bibasilar opacities, most likely atelectasis. If persistent clinical concern, PA and lateral view the chest can better assess. Electronically signed by: Servando Zuniga DO (02/29/2020 10:12 AM) [facility] Course & Med Decision Making: Course & Med Decision Making Patient likely has bacterial conjunctivitis in left eye. Will treat with erythromycin ointment. CBC and Chem-12 Twelve-lead EKG Portable chest x-ray COVID-19 PCR swab Differential diagnosis: Atelectasis, bacterial pneumonia, bacterial conjunctivitis. 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 Lactate increased to 3.3 possibly due to dehydration, patient has received a liter of fluids in ED. On further evaluation patient reported a mild cough. Strongly recommended to patient admission for potential sepsis work-up and pneumonia. However patient refused admission and adamantly wanted to go ho me. Per patient wishes we will discharge patient home on oral azithromycin to empirically treat for bacterial pneumonia. Strongly recommended to patient follow-up for outpatient evaluation with PCP. Iván Disclaimer: Iván Disclaimer: This electronic medical record was generated, in whole or in part, using a voice recognition dictation system. Departure Departure Impression: Primary Impression: Pneumonia Qualified Codes: J18.9 - Pneumonia, unspecified organism Additional Impressions: Conjunctivitis Qualified Codes: H10.9 - Unspecified conjunctivitis Suspected 2019 novel coronavirus infection Hx of hypotension Lactic acidosis Disposition: HOME, SELF-CARE Condition: STABLE Referrals: SHIRA OGDEN MD (PCP) Patient Instructions: Conjunctivitis (Viral and Bacterial), Hypotension, [id number], Lactic Acid, Lactate, Pneumonia, Adult, [id number] Additional Instructions: You were offered admission to [facility] but have elected to go home at this time. Please follow closely with your doctor and return to the Emergency Department for any worsening of symptoms. You have been tested for or diagnosed with COVID-19. It is an infection caused by a new type of coronavirus. COVID-19 will cause cold-like or mild flu symptoms in most. It can cause more severe symptoms like problems breathing in some. There is no treatment for COVID-19. The body will clear the infection over time. Self-care will help to ease discomfort. Steps to Take: Self-Care Rest as needed. Healthy habits may help you feel better. Steps include: Choose healthy foods including fruits and vegetables. Drink water throughout the day. Get plenty of sleep each night. If you smoke, try to quit. It may ease breathing. Avoid alcohol. Keep Others Healthy The virus can spread to others. Droplets are released every time you sneeze or cough. The droplets can get into the mouth, nose, or eyes of people near you and lead to infection. To lower the chances of spreading COVID-19 to others: Stay at home until your doctor has said it is safe to leave. If you tested positive this will mean staying isolated until both of the following are true: At least 7 days have passed since the start of illness. You are free of fever for at least 72 hours without the use of medicine. During this time: - Avoid public areas, events, or transportation. Do not return to work or school until your doctor has said it is safe to do so. - Call ahead if you need to go to a medical center. Let them know you may have COVID-19. It will help them guide you where to go. They may also ask you to wear a facemask when you come to the office. - If you call for emergency medical services, let them know you may have COVID- 19. While at home: - Try to avoid close contact with others. Stay about 6 feet away. - If possible, spend most of your time in a separate room from others. - Use a face mask if you will be in close contact with others such as sharing a room or vehicle. - Have someone wipe down common surfaces in the home. Use household digital media designer every day on areas like doorknobs, counters, or sinks. - Cough or sneeze into a tissue. Throw the tissue away right after use. If a tissue is not available, cough or sneeze into your elbow. - Wash your hands often. Wash them after sneezing or coughing. Use soap and water and wash for at least 20 seconds. Alcohol based hand lingo cleaner can be used if soap and water is not available. - Do not prepare food for others. Avoid sharing personal items like forks, spoons, or toothbrushes. - Avoid close contact with pets while you are sick. There is no evidence of the virus passing to pets. This is a safety step until more is known about this virus. Isolation can be frustrating. Social interaction can help. Keep in touch with friends and family through phone and tech options. You can still interact with others in your home, just keep a safe distance of about 6 feet. Follow-up: Your doctors office will check in with you to see if there are any changes in your health. You may be asked to keep track of symptoms to share with them. They will also let you know when you are clear to be in public again. Problems to Look Out For: Contact your doctor if your recovery is not going as you expect. Get emergency care if you have problems such as: - Trouble breathing - Nonstop chest pain or pressure - Changes in awareness, confusion, or problems waking - Lips or face have bluish color - Worsening of symptoms If you think you have an emergency, call for emergency medical services right away. As taken from [facility] Erythromycin Base (Erythromycin) 1 Gm Oint...g. 0.25 INCH OP QID for 5 Days, #1 TUBE Prov: CAROL RIOS DO 02/29/20 Azithromycin (ZITHROMAX) 250 Mg Tablet 1 PKG PO UD, #6 TAB Take 2 tablets on day 1 and then 1 tablet each day for the next 4 days as directed Prov: CAROL RIOS DO 02/29/20 Justicifation of Admission Dx: Justifications for Admission: Justification of Admission Dx: N/A CAROL RIOS DO Feb 29, 2020 09:54
[2020-02-29 10:01] LABS: CALCIUM 8.9 mg/dL (8.5-10.1); GFR 32.1; POTASSIUM 4.2 mmol/L (3.5-5.1)
[2020-02-29 10:06] LABS: PROTHROMBIN TIME PATIENT 14.3 SEC (11.7-14.0)
[2020-02-29 10:07] LABS: ALBUMIN/GLOBULIN RATIO 0.9 (1.0-1.7); MAGNESIUM 2.1 mg/dL (1.8-2.4); TOTAL BILIRUBIN 0.5 mg/dL (0.2-1.0); TOTAL PROTEIN 6.5 g/dL (6.4-8.2)
[2020-02-29 10:15] LABS: CREATINE KINASE 63 U/L (39-308)
--- NOTE | 2020-02-29 10:15 | RAD ---
PORTABLE CHEST 1V History: Reason: hypotension (Pt NR 0940) / Spl. Instructions: / History: Comparison: January 30, 2020 Findings: Patchy bibasilar opacities. No pneumothorax. No pleural effusion. Unchanged heart size. Impression: 1. Patchy bibasilar opacities, most likely atelectasis. If persistent clinical concern, PA and lateral view the chest can better assess. Electronically signed by: Servando Zuniga DO (02/29/2020 10:12 AM) [facility]
[2020-02-29 10:35] LABS: BILIRUBIN,URINE NEGATIVE (NEG); CLARITY,URINE CLEAR; COLOR,URINE YELLOW; NITRITE,URINE NEGATIVE (NEG); PROTEIN,URINE NEGATIVE (NEG-TRACE); UROBILINOGEN,URINE 0.2 mg/dL (0.2 mg/dL)
[2020-02-29 10:42] LABS: HYALINE CASTS, URINE MODERATE /HPF; SQUAMOUS EPITHELIAL CELL,UR FEW /LPF
[2020-02-29 10:44] LABS: BACTERIA,URINE FEW /HPF (0-FEW)
[2020-02-29 11:56] VITALS: BP 140/82
[2020-02-29] MEDS ORDERED: ERYT1OIN6 OP (12:09)
[2020-02-29] MEDS ORDERED: AZIT250T PO (12:09)
--- NOTE | 2020-03-02 12:21 | NUR ---
IP: Informed pt of negative COVID test. Pt verbalized understanding.
== END 2020-02-29 12:22 | disposition home or self-care (01) ==
LOC: ER 09:22
DX: J18.9 Pneumonia, unspecified organism (principal); Z20.828 Contact with and (suspected) exposure to other viral communicable diseases; H10.89 Other conjunctivitis; E87.2 Acidosis; R42 Dizziness and giddiness; L53.9 Erythematous condition, unspecified; J45.909 Unspecified asthma, uncomplicated; E11.9 Type 2 diabetes mellitus without complications; I10 Essential (primary) hypertension; Z90.49 Acquired absence of other specified parts of digestive tract; Z98.890 Other specified postprocedural states; Z87.891 Personal history of nicotine dependence; Z85.9 Personal history of malignant neoplasm, unspecified
CPT/HCPCS: 36415; 71045; 80053; 81001; 82553; 83605; 83735; 84484; 85025; 85610; 85730; 93005; 96360; 96361; 99285; J7030; U0003

== ENCOUNTER 2020-06-29 01:55 | Inpatient (IN) | payer MEDICARE, BC ==
[~2020-06-29] VITALS: Ht 190.5 cm; Wt 97.9 kg
[~2020-06-29 01:55] MED LIST changes: +AZIT250T PO; +BUPR150T21 PO; -BUPR150T6 PO; +CARB-183 PO; -CARB1TAB2 PO; +CARBIDOPA LEVODOPA; +ERYT1OIN6 OP; -LISI-334 PO; +LISI20TA18 PO; -OMEP40CA45 PO; +OMEP40CA7 PO; +VENTOLIN HFA18 GM INH
[2020-06-29 02:22] LABS: BASO # 0.1 x10^3/uL (0.0-0.2); BASO % 1 % (0-3); EOS % 0 % (0-3); HEMATOCRIT 40.2 % (39.0-53.0); HEMOGLOBIN 13.6 g/dL (13.0-17.5); LYMPH # 0.9 x10^3/uL (1.0-4.8); LYMPH % 5 % (24-48); MEAN CORPUSCULAR HEMOGLOBIN 31 pg (25-35); MEAN CORPUSCULAR HGB CONC 34 g/dL (31-37); MEAN CORPUSCULAR VOLUME 92 fL (79-100); MONO # 2.6 x10^3/uL (0.0-1.1); MONO % 15 % (0-9); NEUT # 13.9 x10^3/uL (1.8-7.7); NEUT % 79 % (31-73); PLATELET COUNT 177 x10^3/uL (140-400); RED BLOOD COUNT 4.38 x10^6/uL (4.30-5.70); RED CELL DISTRIBUTION WIDTH 14.2 % (11.5-14.5); WHITE BLOOD COUNT 17.6 x10^3/uL (4.0-11.0)
[2020-06-29] MEDS ORDERED: ACETAMINOPHEN 650 MG SUPP.RECT. PR ONE (02:30)
[2020-06-29] MEDS ORDERED: MORPHINE SULFATE 4 MG/ML VIAL. IV ONE (02:30)
[2020-06-29] MEDS ORDERED: IV NORMAL SALINE 1000ML BAG 1,000 ML IV ONE (03:00)
[2020-06-29 03:09] LABS: CALCIUM 9.5 mg/dL (8.5-10.1); CREATININE 2.1 mg/dL (0.7-1.3); GFR 30.4; POTASSIUM 4.2 mmol/L (3.5-5.1)
[2020-06-29 03:15] LABS: ALBUMIN 2.8 g/dL (3.4-5.0); ALBUMIN/GLOBULIN RATIO 0.7 (1.0-1.7); TOTAL BILIRUBIN 1.8 mg/dL (0.2-1.0); TOTAL PROTEIN 6.6 g/dL (6.4-8.2)
[2020-06-29 03:58] LABS: % BANDS 2 % (0-9); % LYMPHS 6 % (24-48); % MONOS 17 % (0-10); % SEGS 75 % (35-66); PLT ESTIMATE ADEQUATE (ADEQUATE)
--- NOTE | 2020-06-29 04:05 | PHYS DOC ---
Past Medical History Past Medical History: Asthma, Cancer, Diabetes-Type II, High Cholesterol, Hypertension, Other Additional Past Medical Histor: Parkinson's, SKIN CA Past Surgical History: Cholecystectomy Additional Past Surgical Histo: Brain surgery 04/2018, failed hernia repair X 2,SKIN CA/SCALP Smoking Status: Never Smoker Alcohol Use: None Drug Use: None General Adult EDM: Chief Complaint: HIP PAIN HPI: HPI: Patient is a 84 year old male past medical history of Parkinson diabetes hypertension hyperlipidemia [facility] with a chief complaint of altered mental status. Per halfway-- Patient noticed to have altered mental status BUT unsure of onset. Nurse states patient yelling and aggressive towards staff and others. Patient moaning in pain with movement, refusing to take medications, and not ambulating. Nurse reports patient arrived to facility on June 25. She states she was the nurse who initially cared for patient on his arrival. She states at that time patient was walking with assistance introducing himself to other residents and feeding. Nurse states she has been off since June 25 and Returned to work today and was concerned becuase of patients change in mental status from previous. No known history of fall. Patient febrile on arrival. He is moaning and groaning with movement/palpation of lower extremities. He is curled up in position. No shortening or rotation of lower extremities noted. Review of Systems: Review of Systems: Unable to obtain history due to altered mental status Heart Score: Risk Factors: Risk Factors: DM, Current or recent (<one month) smoker, HTN, HLP, family history of CAD, obesity. Risk Scores: Score 0 - 3: 2.5% MACE over next 6 weeks - Discharge Home Score 4 - 6: 20.3% MACE over next 6 weeks - Admit for Clinical Observation Score 7 - 10: 72.7% MACE over next 6 weeks - Early Invasive Strategies Current Medications: Current Medications Medications (Trade) Dose Ordered Sig/Kaitlin Start Time Stop Time Status Last Admin Dose Admin Acetaminophen (Tylenol Supp) 650 mg 1X ONCE 06/29/20 02:30 06/29/20 02:31 DC 06/29/20 02:59 650 MG Morphine Sulfate (Morphine Sulfate) 4 mg 1X ONCE 06/29/20 02:30 06/29/20 02:31 DC 06/29/20 03:11 4 MG Sodium Chloride 1,000 ml @ 1,000 mls/hr 1X ONCE 1/5/21 03:00 06/29/20 03:59 06/29/20 03:01 1,000 MLS/HR Allergies: Allergies: Allergies Coded Allergies Type Severity Reaction Last Updated Verified No Known Drug Allergies 05/06/14 No Physical Exam: PE: HENT: Normocephalic, atraumatic, bilateral external ears normal, oropharynx moist, no oral exudates, nose normal. [] Eyes: , EOMI, conjunctiva normal, yellow discharge. [] Neck: Normal range of motion, no tenderness, supple, no stridor. [] Cardiovascular:Heart rate regular rhythm, no murmur [] Lungs & Thorax: No respiratory distress Abdomen: Bowel sounds normal, soft, no tenderness, no masses, no pulsatile masses. [] Skin: Warm, dry, no erythema, no rash. [] Extremities: Pain with range of motion bilateral lower extremities, no deformities of lower extremities noted, range of motion of bilateral upper ext remities] Neurologic: Alert but confused, Current Patient Data: Labs: Laboratory Tests Test 06/29/20 02:00 06/29/20 02:51 White Blood Count 17.6 x10^3/uL (4.0-11.0) H Red Blood Count 4.38 x10^6/uL (4.30-5.70) Hemoglobin 13.6 g/dL (13.0-17.5) Hematocrit 40.2 % (39.0-53.0) Mean Corpuscular Volume 92 fL (79-100) Mean Corpuscular Hemoglobin 31 pg (25-35) Mean Corpuscular Hemoglobin Concent 34 g/dL (31-37) Red Cell Distribution Width 14.2 % (11.5-14.5) Platelet Count 177 x10^3/uL (140-400) Neutrophils (%) (Auto) 79 % (31-73) H Lymphocytes (%) (Auto) 5 % (24-48) L Monocytes (%) (Auto) 15 % (0-9) H Eosinophils (%) (Auto) 0 % (0-3) Basophils (%) (Auto) 1 % (0-3) Neutrophils # (Auto) 13.9 x10^3/uL (1.8-7.7) H Lymphocytes # (Auto) 0.9 x10^3/uL (1.0-4.8) L Monocytes # (Auto) 2.6 x10^3/uL (0.0-1.1) H Eosinophils # (Auto) 0.0 x10^3/uL (0.0-0.7) Basophils # (Auto) 0.1 x10^3/uL (0.0-0.2) Platelet Estimate Pending Lactic Acid Level 2.4 mmol/L (0.4-2.0) H Sodium Level 147 mmol/L (136-145) H Potassium Level 4.2 mmol/L (3.5-5.1) Chloride Level 113 mmol/L (98-107) H Carbon Dioxide Level 21 mmol/L (21-32) Anion Gap 13 (6-14) Blood Urea Nitrogen 62 mg/dL (8-26) H Creatinine 2.1 mg/dL (0.7-1.3) H Estimated GFR (Cockcroft-Gault) 30.4 BUN/Creatinine Ratio 30 (6-20) H Glucose Level 125 mg/dL (70-99) H Calcium Level 9.5 mg/dL (8.5-10.1) Total Bilirubin 1.8 mg/dL (0.2-1.0) H Aspartate Amino Transferase (AST) 163 U/L (15-37) H Alanine Aminotransferase (ALT) 15 U/L (16-63) L Alkaline Phosphatase 114 U/L (46-116) Troponin I Quantitative 0.038 ng/mL (0.000-0.055) Total Protein 6.6 g/dL (6.4-8.2) Albumin 2.8 g/dL (3.4-5.0) L Albumin/Globulin Ratio 0.7 (1.0-1.7) L Laboratory Tests 06/29/20 02:00 Laboratory Tests 06/29/20 02:51 Vital Signs: Vital Signs Date Time Temp Pulse Resp B/P (MAP) Pulse Ox O2 Delivery O2 Flow Rate FiO2 06/29/20 03:44 92 28 91/53 (66) 99 Room Air 06/29/20 01:55 100.6 100.6 EKG: EKG: [] EKG performed at 0341 hrs. heart rate 92 sinus rhythm with PVCs no ST elevation no ST depression no acute SC Radiology/Procedures: Radiology/Procedures: [] Course & Med Decision Making: Course & Med Decision Making Pertinent Labs and Imaging studies reviewed. (See chart for details) [] Dragon Disclaimer: Dragon Disclaimer: This electronic medical record was generated, in whole or in part, using a voice recognition dictation system. Departure Departure Impression: Primary Impression: Parkinsons Additional Impressions: Acute on chronic renal failure Altered mental status Disposition: 09 ADMITTED INPT THIS HOSP Admitting Physician: GOOD Condition: STABLE Referrals: SHIRA OGDEN MD (PCP) KETURAH DILLARD DO Jun 29, 2020 04:05
[2020-06-29 06:01] LABS: BILIRUBIN,URINE SMALL (NEG); CLARITY,URINE CLEAR; COLOR,URINE AMBER; NITRITE,URINE NEGATIVE (NEG); PH,URINE 5.5 (<5.0-8.0); PROTEIN,URINE 30 mg/dL (NEG-TRACE)
[2020-06-29 06:40] LABS: AMORPHOUS SEDIMENT,UR PRESENT /HPF; BACTERIA,URINE 0 /HPF (0-FEW); RBC,URINE OCC /HPF (0-2); WBC,URINE OCC /HPF (0-4)
--- NOTE | 2020-06-29 07:17 | RAD ---
INDICATION: Reason: fever / Spl. Instructions: / History: COMPARISON: Chest x-ray from June 22, 2020 IMPRESSION: Chest: Single view obtained. Degenerative changes throughout the spine. Calcific atherosclerosis with prominent cardiomediastinal silhouette. Repeat demonstration of left greater than right basilar airs pace opacities which could be secondary to atelectasis or infiltrate. Pelvis: 2 views obtained. Large amount of stool in the rectal region. Degenerative changes of the mansoor ateral hips. A definite acute fracture line is not seen. No evidence of dislocation at the hips. Electronically signed by: Leif Wolfe MD (06/29/2020 7:14 AM) [id number]
--- NOTE | 2020-06-29 07:23 | PDOC1 ---
History and Physical Date of Admission Date of Admission DATE: 06/29/20 TIME: 07:11 Identification/Chief Complaint Chief Complaint Right hip pain, confusion Source Source: Caregiver, Chart review History of Present Illness History of Present Illness Mr. Ramon is an 84yo Patient is a 84 year old male past medical history of Parkinson, diabetes, hypertension, hyperlipidemia presents from [facility] with a chief complaint of altered mental status and right hip pain. Per senior living-- Patient noticed to have altered mental status. Patients nurse is unsure of onset. She states patient yelling and aggressive towards staff and others. Patient was moaning in pain with movement, refusing to take medications, and not ambulating. Nurse states patient arrived to facility on June 25. She was the nurse who initially cared for patient on his arrival. She states at that time patient was walking with assistance introducing himself to other residents and feeding. Nurse states she has been off since June 25 and Returned to work today and concerned due to patients change in mental status from previous. No known history of fall at SNF, though did have falls prior to his previous hospital stay. Patient febrile on arrival to 100.6 F He is moaning and groaning with movement/palpation of lower extremities. He is curled up in position. No shortening or rotation of lower extremities noted. Per his a staff member and other patient at his SNF have tested positive for COVID-19 but the patient had a rapid test which was negative. CXR and pelvis XR with no acute abnormality, but with large stool burden noted. EKG performed at 0341 hrs. heart rate 92 sinus rhythm with PVCs no ST elevation no ST depression no acute IN Labs with WBC 17.6, Hb 13.6, platelets 177, NA 144, K4.2, BUN 62, CR 2.1, albumin 2.8, troponin 0 0.038, lactic acid 2.4, bilirubin 1.8, AST 163, ALT 15 Admitted for further care. Past Medical History Cardiovascular: HTN, Hyperlipidemia Pulmonary: Asthma CENTRAL NERVOUS SYSTEM: Periperal neuropathy, Other GI: GERD Heme/Onc: No pertinent hx Hepatobiliary: No pertinent hx Psych: Anxiety Rheumatologic: No pertinent hx Infectious disease: No pertinent hx Renal/: No pertinent hx Endocrine: Diabetes Past Surgical History Past Surgical History: Cholecystectomy, Other Family History Family History: Diabetes, Heart Disease, Hypertension Social History Smoke: No ALCOHOL: none Drugs: None Current Problem List Problem List Problems Medical Problems: (1) Acute on chronic renal failure Status: Acute (2) Altered mental status Status: Acute (3) Parkinsons Status: Acute Current Medications Current Medications Current Medications Morphine Sulfate (Morphine Sulfate) 4 mg 1X ONCE IV Last administered on 06/29/20at 03:11; Start 06/29/20 at 02:30; Stop 06/29/20 at 02:31; Status DC Acetaminophen (Tylenol Supp) 650 mg 1X ONCE MT Last administered on 06/29/20at 02:59; Start 06/29/20 at 02:30; Stop 06/29/20 at 02:31; Status DC Sodium Chloride 1,000 ml @ 1,000 mls/hr 1X ONCE IV Last administered on 06/29/20at 03:01; Start 06/29/20 at 03:00; Stop 06/29/20 at 03:59; Status DC Active Scripts Active Aspirin Ec (Aspirin) 81 Mg Tablet. 81 Mg PO [id number] Reported Ventolin Hfa Inhaler (Albuterol Sulfate) 18 Gm Hfa.aer.ad 2 Puff INH Q4HRS Sinemet 25-100 Mg Tablet (Carbidopa/Levodopa) 1 Each Tablet 1 Tab PO BID Bupropion Xl (Bupropion Hcl) 300 Mg Tab.er.24h 1 Tab PO DAILY Seroquel (Quetiapine Fumarate) 25 Mg Tablet 25 Mg PO HS Singulair Tablet (Montelukast Sodium) 10 Mg Tablet 10 Mg PO DAILY Sinemet 25-100 Mg Tablet (Carbidopa/Levodopa) 1 Each Tablet 1 Tab PO TID Omeprazole 40 Mg Capsule. 1 Cap PO DAILY Advair 250-50 Diskus (Fluticasone/Salmeterol) 1 Each Disk.w.dev 1 Puff IH BID Allergies Allergies: Coded Allergies: No Known Drug Allergies (Unverified , 05/06/14) ROS General: YES: Fatigue, Malaise, Appetite; No: Chills, Night Sweats, Other PSYCHOLOGICAL ROS: YES: Disorientation; No: Anxiety, Behavioral Disorder, Concentration difficultie, Decreased libido, Depression, Hallucinations, Hostility, Irritablity, Memory difficulties, Mood Swings, Obsessive thoughts, Physical abuse, Sexual abuse, Sleep disturbances, Suicidal ideation, Other Eyes: No Blurry vision, No Decreased vision, No Double vision, No Dry eyes, No Excessive tearing, No Eye Pain, No Itchy Eyes, No Loss of vision, No Photophobia, No Scotomata, No Uses contacts, No Uses glasses, No Other HEENT: No: Heacaches, Visual Changes, Hearing change, Nasal congestion, Nasal discharge, Oral lesions, Sinus pain, Sore Throat, Epistaxis, Sneezing, Snoring, Tinnitus, Vertigo, Vocal changes, Other ALLERGY AND IMMUNOLOGY: No: Hives, Insect Bite Sensitivity, Itchy/Watery Eyes, Nasal Congestion, Post Nasal Drip, Seasonal Allergies, Other Hematological and Lymphatic: No: Bleeding Problems, Blood Clots, Blood Transfusions, Brusing, Night Sweats, Pallor, Swollen Lymph Nodes, Other ENDOCRINE: No: Breast Changes, Galactorrhea, Hair Pattern Changes, Hot Flashes, Malaise/lethargy, Mood Swings, Palpitations, Polydipsia/polyuria, Skin Changes, Temperature Intolerance, Unexpected Weight Changes, Other Breast: No New/Changing Breast Lumps, No Nipple changes, No Nipple discharge, No Other Respiratory: No: Cough, Hemoptysis, Orthopnea, Pleuritic Pain, Shortness of breath, SOB with excertion, Sputum Changes, Stridor, Tachypnea, Wheezing, Other Cardiovascular: No Chest Pain, No Palpitations, No Orthopnea, No Paroxysmal Noc. Dyspnea, No Edema, No Lt Headedness, No Other Gastrointestinal: No Nausea, No Vomiting, No Abdominal Pain, No Diarrhea, No Constipation, No Melena, No Hematochezia, No Other Genitourinary: No Dysuria, No Frequency, No Incontinence, No Hematuria, No Retention, No Discharge, No Urgency, No Pain, No Flank Pain, No Other, No , No , No , No , No , No , No Musculoskeletal: Yes Gait Disturbance, Yes Joint Pain; No Joint Stiffness, No Joint Swelling, No Muscle Pain, No Muscular Weakness, No Pain In:, No Swelling In:, No Other Neurological: Yes Gait Disturbance; No Behavorial Changes, No Bowel/Bladder ControlChng, No Confusion, No Dizziness, No Headaches, No Impaired Coord/balance, No Memory Loss, No Numbness/Tingling, No Seizures, No Speech Problems, No Tremors, No Visual Changes, No Weakness, No Other Skin: No Dry Skin, No Eczema, No Hair Changes, No Lumps, No Mole Changes, No Mottling, No Nail Changes, No Pruritus, No Rash, No Skin Lesion Changes, No Other, No Acne Physical Exam General: Alert, Cooperative, moderate distress HEENT: Atraumatic, PERRLA, EOMI, Mucous membr. moist/pink Lungs: Clear to auscultation, Normal air movement Heart: S1S2, RRR, no thrills, no rubs, no gallops, no murmurs Abdomen: Normal bowel sounds, No tenderness, No hepatosplenomegaly, No masses, Other (stool in vault) Male Genitals Exam: normal genitalia, normal prostate Rectal Exam: other (stool in rectum) Extremities: No clubbing, No cyanosis, No edema, Normal pulses, No tenderness/swelling Skin: No rashes, No breakdown, No significant lesion, Other (Bruising right hip, pain on palpation) Neuro: Strength at 5/5 X4 ext, Sensation intact, Cranial nerves 3-12 NL, Other (Increased tone) Psych/Mental Status: Other (Confused) Vitals Vitals Vital Signs Date Time Temp Pulse Resp B/P (MAP) Pulse Ox O2 Delivery O2 Flow Rate FiO2 06/29/20 06:00 88 25 88/56 (67) 99 Room Air 06/29/20 01:55 100.6 100.6 Labs Labs Laboratory Tests Test 06/29/20 02:00 06/29/20 02:51 06/29/20 02:54 White Blood Count 17.6 x10^3/uL (4.0-11.0) Red Blood Count 4.38 x10^6/uL (4.30-5.70) Hemoglobin 13.6 g/dL (13.0-17.5) Hematocrit 40.2 % (39.0-53.0) Mean Corpuscular Volume 92 fL (79-100) Mean Corpuscular Hemoglobin 31 pg (25-35) Mean Corpuscular Hemoglobin Concent 34 g/dL (31-37) Red Cell Distribution Width 14.2 % (11.5-14.5) Platelet Count 177 x10^3/uL (140-400) Neutrophils (%) (Auto) 79 % (31-73) Lymphocytes (%) (Auto) 5 % (24-48) Monocytes (%) (Auto) 15 % (0-9) Eosinophils (%) (Auto) 0 % (0-3) Basophils (%) (Auto) 1 % (0-3) Neutrophils # (Auto) 13.9 x10^3/uL (1.8-7.7) Lymphocytes # (Auto) 0.9 x10^3/uL (1.0-4.8) Monocytes # (Auto) 2.6 x10^3/uL (0.0-1.1) Eosinophils # (Auto) 0.0 x10^3/uL (0.0-0.7) Basophils # (Auto) 0.1 x10^3/uL (0.0-0.2) Segmented Neutrophils % 75 % (35-66) Band Neutrophils % 2 % (0-9) Lymphocytes % 6 % (24-48) Monocytes % 17 % (0-10) Platelet Estimate Adequate (ADEQUATE) Lactic Acid Level 2.4 mmol/L (0.4-2.0) Sodium Level 147 mmol/L (136-145) Potassium Level 4.2 mmol/L (3.5-5.1) Chloride Level 113 mmol/L (98-107) Carbon Dioxide Level 21 mmol/L (21-32) Anion Gap 13 (6-14) Blood Urea Nitrogen 62 mg/dL (8-26) Creatinine 2.1 mg/dL (0.7-1.3) Estimated GFR (Cockcroft-Gault) 30.4 BUN/Creatinine Ratio 30 (6-20) Glucose Level 125 mg/dL (70-99) Calcium Level 9.5 mg/dL (8.5-10.1) Total Bilirubin 1.8 mg/dL (0.2-1.0) Aspartate Amino Transf (AST/SGOT) 163 U/L (15-37) Alanine Aminotransferase (ALT/SGPT) 15 U/L (16-63) Alkaline Phosphatase 114 U/L (46-116) Troponin I Quantitative 0.038 ng/mL (0.000-0.055) Total Protein 6.6 g/dL (6.4-8.2) Albumin 2.8 g/dL (3.4-5.0) Albumin/Globulin Ratio 0.7 (1.0-1.7) Urine Collection Type Unknown Urine Color Petty Urine Clarity Clear Urine pH 5.5 (<5.0-8.0) Urine Specific [place] 1.025 (1.000-1.030) Urine Protein 30 mg/dL (NEG-TRACE) Urine Glucose (UA) Negative mg/dL (NEG) Urine Ketones (Stick) 15 mg/dL (NEG) Urine Blood Large (NEG) Urine Nitrite Negative (NEG) Urine Bilirubin Small (NEG) Urine Urobilinogen Dipstick 1.0 mg/dL (0.2 mg/dL) Urine Leukocyte Esterase Negative (NEG) Urine RBC Occ /HPF (0-2) Urine WBC Occ /HPF (0-4) Urine Squamous Epithelial Cells Occ /LPF Urine Amorphous Sediment Present /HPF Urine Bacteria 0 /HPF (0-FEW) Urine Mucus Slight /LPF Laboratory Tests Test 06/29/20 02:00 06/29/20 02:51 06/29/20 02:54 White Blood Count 17.6 x10^3/uL (4.0-11.0) Red Blood Count 4.38 x10^6/uL (4.30-5.70) Hemoglobin 13.6 g/dL (13.0-17.5) Hematocrit 40.2 % (39.0-53.0) Mean Corpuscular Volume 92 fL (79-100) Mean Corpuscular Hemoglobin 31 pg (25-35) Mean Corpuscular Hemoglobin Concent 34 g/dL (31-37) Red Cell Distribution Width 14.2 % (11.5-14.5) Platelet Count 177 x10^3/uL (140-400) Neutrophils (%) (Auto) 79 % (31-73) Lymphocytes (%) (Auto) 5 % (24-48) Monocytes (%) (Auto) 15 % (0-9) Eosinophils (%) (Auto) 0 % (0-3) Basophils (%) (Auto) 1 % (0-3) Neutrophils # (Auto) 13.9 x10^3/uL (1.8-7.7) Lymphocytes # (Auto) 0.9 x10^3/uL (1.0-4.8) Monocytes # (Auto) 2.6 x10^3/uL (0.0-1.1) Eosinophils # (Auto) 0.0 x10^3/uL (0.0-0.7) Basophils # (Auto) 0.1 x10^3/uL (0.0-0.2) Segmented Neutrophils % 75 % (35-66) Band Neutrophils % 2 % (0-9) Lymphocytes % 6 % (24-48) Monocytes % 17 % (0-10) Platelet Estimate Adequate (ADEQUATE) Lactic Acid Level 2.4 mmol/L (0.4-2.0) Sodium Level 147 mmol/L (136-145) Potassium Level 4.2 mmol/L (3.5-5.1) Chloride Level 113 mmol/L (98-107) Carbon Dioxide Level 21 mmol/L (21-32) Anion Gap 13 (6-14) Blood Urea Nitrogen 62 mg/dL (8-26) Creatinine 2.1 mg/dL (0.7-1.3) Estimated GFR (Cockcroft-Gault) 30.4 BUN/Creatinine Ratio 30 (6-20) Glucose Level 125 mg/dL (70-99) Calcium Level 9.5 mg/dL (8.5-10.1) Total Bilirubin 1.8 mg/dL (0.2-1.0) Aspartate Amino Transf (AST/SGOT) 163 U/L (15-37) Alanine Aminotransferase (ALT/SGPT) 15 U/L (16-63) Alkaline Phosphatase 114 U/L (46-116) Troponin I Quantitative 0.038 ng/mL (0.000-0.055) Total Protein 6.6 g/dL (6.4-8.2) Albumin 2.8 g/dL (3.4-5.0) Albumin/Globulin Ratio 0.7 (1.0-1.7) Urine Collection Type Unknown Urine Color Petty Urine Clarity Clear Urine pH 5.5 (<5.0-8.0) Urine Specific [place] 1.025 (1.000-1.030) Urine Protein 30 mg/dL (NEG-TRACE) Urine Glucose (UA) Negative mg/dL (NEG) Urine Ketones (Stick) 15 mg/dL (NEG) Urine Blood Large (NEG) Urine Nitrite Negative (NEG) Urine Bilirubin Small (NEG) Urine Urobilinogen Dipstick 1.0 mg/dL (0.2 mg/dL) Urine Leukocyte Esterase Negative (NEG) Urine RBC Occ /HPF (0-2) Urine WBC Occ /HPF (0-4) Urine Squamous Epithelial Cells Occ /LPF Urine Amorphous Sediment Present /HPF Urine Bacteria 0 /HPF (0-FEW) Urine Mucus Slight /LPF VTE Prophylaxis Ordered VTE Prophylaxis Devices: No VTE Pharmacological Prophylaxi: Yes Assessment/Plan Assessment/Plan A/P: Acute encephalopathy - likely metabolic from renal failure. Will hydrate, monitor NORMA - vasomotor nephropathy Constipation - with fecal impaction, only soft stool accessible on digital examination Dyphagia - not eating at SNF, will have ACLS NURSE evaluate Parkinsons - progressive, will attempt to continue meds Transminitis - likely from fecal impaction, will monitor Right hip pain - no fracture on XR, will consult PMR, may need further imaging with MRI to r/o occult fracture Protein calorie malnutrition - moderate, will have healthcare administration intern to see FEN - Regular diet PPX - heparin CODE - DNR/DNI Dispo - inpatient for above, 2 midnights Justifications for Admission Other Justification BHUPENDRA LAWTON MD Jun 29, 2020 07:23
[2020-06-29] MEDS ORDERED: BISACODYL 10 MG SUPP.RECT. PR ONE (07:30)
[2020-06-29] MEDS ORDERED: BISACODYL 10 MG SUPP.RECT. PR PRN (07:30)
[2020-06-29] MEDS: PANTOPRAZOLE 40 MG TABLET.DR. PO SCH (07:45)
[2020-06-29] MEDS: ASPIRIN ENTERIC COATED 81 MG TABLET.DR. PO SCH (08:00)
[2020-06-29] MEDS: MONTELUKAST SODIUM 10 MG TABLET. PO SCH (08:39)
[2020-06-29] MEDS: CARBIDOPA/LEVODOPA 25/100MG TABLET PO SCH ×3 (08:39→19:19)
[2020-06-29] MEDS: buPROPion XL 150 MG TAB.ER.24H. PO SCH (08:40)
[2020-06-29] MEDS ORDERED: SENNOSIDES/DOCUSATE 8.6/50MG TABLET. PO PRN (09:45)
[2020-06-29] MEDS ORDERED: ONDANSETRON PF 4 MG/2 ML VIAL. IV PRN (09:45)
[2020-06-29] MEDS ORDERED: ACETAMINOPHEN 325 MG TABLET. PO PRN (09:45)
[2020-06-29] MEDS ORDERED: DEXTROSE 50% 25 GM / 50ML DISP.SYRIN. IV PRN (09:45)
[2020-06-29] MEDS: POLYETHYLENE GLYCOL 3350 17 GM PACKET. PO SCH (09:45)
[2020-06-29] MEDS ORDERED: C.DIFF MED SCREEN BY RX. MC PRN (10:45)
[2020-06-29 11:00] VITALS: BP 106/52
[2020-06-29] MEDS: AMINO AC 3%/ELECTROLYTE/GLYCER 1,000 ML IV SCH ×2 (11:25→22:13)
[2020-06-29] MEDS: INSULIN LISPRO 300 UNITS/3 ML VIAL. SQ SCH ×2 (12:00→16:43)
[2020-06-29 15:00] VITALS: BP_SYST 121; BP_SYST 122; BP_DIAS 54; BP_DIAS 82
[2020-06-29] MEDS: QUEtiapine 25 MG TABLET. PO SCH (19:18)
[2020-06-29] MEDS: PSYLLIUM HUSK (SUGAR FREE) 1 PKT PACKET PO SCH (19:18)
[2020-06-29 19:25] VITALS: BP 92/47
[2020-06-29] MEDS: MORPHINE SULFATE 2 MG/ML VIAL. IV PRN ×2 (20:18→22:18)
[2020-06-29 23:33] VITALS: BP 104/64
[2020-06-30] MEDS: MORPHINE SULFATE 4 MG/ML VIAL. IV PRN ×3 (00:15→04:35)
--- NOTE | 2020-06-30 00:15 | NUR ---
Medication Administration: Manually administered due to accidental disposal of medication vial.
[2020-06-30 03:08] VITALS: BP 143/53
[2020-06-30] MEDS: PANTOPRAZOLE 40 MG TABLET.DR. PO SCH (04:45)
[2020-06-30 07:00] VITALS: BP 92/34
[2020-06-30 07:05] LABS: BASO # 0.1 x10^3/uL (0.0-0.2); BASO % 1 % (0-3); EOS % 0 % (0-3); HEMATOCRIT 39.9 % (39.0-53.0); HEMOGLOBIN 13.1 g/dL (13.0-17.5); LYMPH # 1.3 x10^3/uL (1.0-4.8); LYMPH % 12 % (24-48); MEAN CORPUSCULAR HEMOGLOBIN 31 pg (25-35); MEAN CORPUSCULAR HGB CONC 33 g/dL (31-37); MEAN CORPUSCULAR VOLUME 93 fL (79-100); MONO # 1.7 x10^3/uL (0.0-1.1); MONO % 15 % (0-9); NEUT # 8.1 x10^3/uL (1.8-7.7); NEUT % 73 % (31-73); PLATELET COUNT 164 x10^3/uL (140-400); RED BLOOD COUNT 4.29 x10^6/uL (4.30-5.70); RED CELL DISTRIBUTION WIDTH 14.3 % (11.5-14.5); WHITE BLOOD COUNT 11.1 x10^3/uL (4.0-11.0)
[2020-06-30] MEDS: buPROPion XL 150 MG TAB.ER.24H. PO SCH (07:38)
[2020-06-30] MEDS: MONTELUKAST SODIUM 10 MG TABLET. PO SCH (07:38)
[2020-06-30] MEDS: POLYETHYLENE GLYCOL 3350 17 GM PACKET. PO SCH (07:38)
[2020-06-30] MEDS: ASPIRIN ENTERIC COATED 81 MG TABLET.DR. PO SCH (07:38)
[2020-06-30] MEDS: CARBIDOPA/LEVODOPA 25/100MG TABLET PO SCH ×3 (07:38→21:00)
[2020-06-30] MEDS: INSULIN LISPRO 300 UNITS/3 ML VIAL. SQ SCH ×3 (08:00→16:58)
[2020-06-30 08:42] LABS: CALCIUM 9.1 mg/dL (8.5-10.1); CREATININE 1.3 mg/dL (0.7-1.3); GFR 52.9; POTASSIUM 4.5 mmol/L (3.5-5.1)
--- NOTE | 2020-06-30 10:04 | NUR ---
SW following. Discussed with RN, pt is a resident at [facility], room air, NPO. COVID pending for return to [facility]. Per RN, pt is not alert or oriented. SW will continue to follow.
[2020-06-30] MEDS: ACETAMINOPHEN 325 MG SUPP.RECT. PR PRN ×2 (10:12→18:17)
[2020-06-30] MEDS: AMINO AC 3%/ELECTROLYTE/GLYCER 1,000 ML IV SCH ×2 (10:49→23:28)
[2020-06-30 11:54] VITALS: BP 101/46
--- NOTE | 2020-06-30 12:45 | RAD ---
EXAM: Renal sonogram. HISTORY: Renal failure. TECHNIQUE: Sonographic imaging the kidneys and bladder was performed. COMPARISON: None. FINDINGS: The right kidney is obscured due to bowel gas. The left kidney is normal in size. There is a 4.0 cm simple appearing left renal cyst. There is no left hydronephrosis. The bladder is empty. IMPRESSION: 1. Obscured right kidney. 2. 4.0 cm simple appearing left renal cyst. Follow up is not routinely recommended for simple cysts. Electronically signed by: Jackelyn Gutierrez MD (06/30/2020 12:42 PM) [id number]
[2020-06-30 15:00] VITALS: BP 100/43
--- NOTE | 2020-06-30 15:25 | PDOC ---
PROGRESS NOTES Date of Service: DATE: 06/30/20 TIME: 15:22 Chief Complaint Chief Complaint Assessment/Plan A/P: Acute encephalopathy - likely metabolic from renal failure. Will hydrate, mon itor NORMA - vasomotor nephropathy Constipation - with fecal impaction, only soft stool accessible on digital examination Dyphagia - not eating at SNF, will have CHIP APPLYING MACHINE TENDER evaluate Parkinsons - progressive, will attempt to continue meds Transminitis - likely from fecal impaction, will monitor Right hip pain - no fracture on XR, will consult PMR, may need further imaging with MRI to r/o occult fracture Protein calorie malnutrition - moderate, will have acid cleaner to see FEN - Regular diet PPX - heparin CODE - DNR/DNI Dispo - inpatient for above, 2 midnights History of Present Illness History of Present Illness History of Present Illness Mr. Ramon is an 84yo Patient is a 84 year old male past medical history of Parkinson, diabetes, hypertension, hyperlipidemia presents from [facility] with a chief complaint of altered mental status and right hip pain. Per correction-- Patient noticed to have altered mental status. Patients nurse is unsure of onset. She states patient yelling and aggressive towards staff and others. Patient was moaning in pain with movement, refusing to take medications, and not ambulating. Nurse states patient arrived to facility on June 25. She was the nurse who initially cared for patient on his arrival. She states at that time patient was walking with assistance introducing himself to other residents and feeding. Nurse states she has been off since June 25 and Returned to work today and concerned due to patients change in mental status from previous. No known history of fall at SNF, though did have falls prior to his previous hospital stay. Patient febrile on arrival to 100.6 F He is moaning and groaning with movement/palpation of lower extremities. He is curled up in position. No shortening or rotation of lower extremities noted. Per his a staff member and other patient at his SNF have tested positive for COVID-19 but the patient had a rapid test which was negative. CXR and pelvis XR with no acute abnormality, but with large stool burden noted. EKG performed at 0341 hrs. heart rate 92 sinus rhythm with PVCs no ST elevation no ST depression no acute MS Labs with WBC 17.6, Hb 13.6, platelets 177, NA 144, K4.2, BUN 62, CR 2.1, albumin 2.8, troponin 0 0.038, lactic acid 2.4, bilirubin 1.8, AST 163, ALT 15 Admitted for further care. 06/30: Patient is contracted not responding to verbal stimuli. Retracts to painful stimuli unable to have a meaningful interaction or get any history from the patient. Vitals Vitals Vital Signs Date Time Temp Pulse Resp B/P (MAP) Pulse Ox O2 Delivery O2 Flow Rate FiO2 06/30/20 11:54 101.3 93 20 101/46 (64) 92 Room Air 101.3 Physical Exam General: Alert, Cooperative, moderate distress Lungs: Clear Abdomen: Normal bowel sounds, No tenderness, No hepatosplenomegaly, No masses, Other (stool in vault) Extremities: No clubbing, No cyanosis, No edema, Normal pulses, No tenderness/swelling Skin: No rashes, No breakdown, No significant lesion, Other (Bruising right hip, pain on palpation) Labs LABS Laboratory Tests Test 06/29/20 16:42 06/29/20 20:57 06/30/20 06:15 06/30/20 07:26 Glucose (Fingerstick) 106 mg/dL (70-99) 115 mg/dL (70-99) 85 mg/dL (70-99) White Blood Count 11.1 x10^3/uL (4.0-11.0) Red Blood Count 4.29 x10^6/uL (4.30-5.70) Hemoglobin 13.1 g/dL (13.0-17.5) Hematocrit 39.9 % (39.0-53.0) Mean Corpuscular Volume 93 fL (79-100) Mean Corpuscular Hemoglobin 31 pg (25-35) Mean Corpuscular Hemoglobin Concent 33 g/dL (31-37) Red Cell Distribution Width 14.3 % (11.5-14.5) Platelet Count 164 x10^3/uL (140-400) Neutrophils (%) (Auto) 73 % (31-73) Lymphocytes (%) (Auto) 12 % (24-48) Monocytes (%) (Auto) 15 % (0-9) Eosinophils (%) (Auto) 0 % (0-3) Basophils (%) (Auto) 1 % (0-3) Neutrophils # (Auto) 8.1 x10^3/uL (1.8-7.7) Lymphocytes # (Auto) 1.3 x10^3/uL (1.0-4.8) Monocytes # (Auto) 1.7 x10^3/uL (0.0-1.1) Eosinophils # (Auto) 0.0 x10^3/uL (0.0-0.7) Basophils # (Auto) 0.1 x10^3/uL (0.0-0.2) Sodium Level 154 mmol/L (136-145) Potassium Level 4.5 mmol/L (3.5-5.1) Chloride Level 120 mmol/L (98-107) Carbon Dioxide Level 24 mmol/L (21-32) Anion Gap 10 (6-14) Blood Urea Nitrogen 58 mg/dL (8-26) Creatinine 1.3 mg/dL (0.7-1.3) Estimated GFR (Cockcroft-Gault) 52.9 Glucose Level 101 mg/dL (70-99) Calcium Level 9.1 mg/dL (8.5-10.1) Phosphorus Level 3.0 mg/dL (2.6-4.7) 25-Hydroxy Vitamin D Total 17.4 ng/mL (30-100) Test 06/30/20 09:55 06/30/20 10:43 Urine Random Creatinine 144.4 mg/dL (Not Establ.) Glucose (Fingerstick) 100 mg/dL (70-99) Assessment and Plan Assessmemt and Plan Problems Medical Problems: (1) Acute on chronic renal failure Status: Acute (2) Altered mental status Status: Acute (3) Parkinsons Status: Acute Comment Review of Relevant I have reviewed the following items maria del carmen (where applicable) has been applied. Labs Laboratory Tests Test 06/29/20 02:00 06/29/20 02:51 06/29/20 02:54 06/29/20 07:35 White Blood Count 17.6 x10^3/uL (4.0-11.0) Red Blood Count 4.38 x10^6/uL (4.30-5.70) Hemoglobin 13.6 g/dL (13.0-17.5) Hematocrit 40.2 % (39.0-53.0) Mean Corpuscular Volume 92 fL (79-100) Mean Corpuscular Hemoglobin 31 pg (25-35) Mean Corpuscular Hemoglobin Concent 34 g/dL (31-37) Red Cell Distribution Width 14.2 % (11.5-14.5) Platelet Count 177 x10^3/uL (140-400) Neutrophils (%) (Auto) 79 % (31-73) Lymphocytes (%) (Auto) 5 % (24-48) Monocytes (%) (Auto) 15 % (0-9) Eosinophils (%) (Auto) 0 % (0-3) Basophils (%) (Auto) 1 % (0-3) Neutrophils # (Auto) 13.9 x10^3/uL (1.8-7.7) Lymphocytes # (Auto) 0.9 x10^3/uL (1.0-4.8) Monocytes # (Auto) 2.6 x10^3/uL (0.0-1.1) Eosinophils # (Auto) 0.0 x10^3/uL (0.0-0.7) Basophils # (Auto) 0.1 x10^3/uL (0.0-0.2) Segmented Neutrophils % 75 % (35-66) Band Neutrophils % 2 % (0-9) Lymphocytes % 6 % (24-48) Monocytes % 17 % (0-10) Platelet Estimate Adequate (ADEQUATE) Lactic Acid Level 2.4 mmol/L (0.4-2.0) 2.6 mmol/L (0.4-2.0) Sodium Level 147 mmol/L (136-145) Potassium Level 4.2 mmol/L (3.5-5.1) Chloride Level 113 mmol/L (98-107) Carbon Dioxide Level 21 mmol/L (21-32) Anion Gap 13 (6-14) Blood Urea Nitrogen 62 mg/dL (8-26) Creatinine 2.1 mg/dL (0.7-1.3) Estimated GFR (Cockcroft-Gault) 30.4 BUN/Creatinine Ratio 30 (6-20) Glucose Level 125 mg/dL (70-99) Calcium Level 9.5 mg/dL (8.5-10.1) Total Bilirubin 1.8 mg/dL (0.2-1.0) Aspartate Amino Transf (AST/SGOT) 163 U/L (15-37) Alanine Aminotransferase (ALT/SGPT) 15 U/L (16-63) Alkaline Phosphatase 114 U/L (46-116) Troponin I Quantitative 0.038 ng/mL (0.000-0.055) Total Protein 6.6 g/dL (6.4-8.2) Albumin 2.8 g/dL (3.4-5.0) Albumin/Globulin Ratio 0.7 (1.0-1.7) Urine Collection Type Unknown Urine Color Petty Urine Clarity Clear Urine pH 5.5 (<5.0-8.0) Urine Specific [place] 1.025 (1.000-1.030) Urine Protein 30 mg/dL (NEG-TRACE) Urine Glucose (UA) Negative mg/dL (NEG) Urine Ketones (Stick) 15 mg/dL (NEG) Urine Blood Large (NEG) Urine Nitrite Negative (NEG) Urine Bilirubin Small (NEG) Urine Urobilinogen Dipstick 1.0 mg/dL (0.2 mg/dL) Urine Leukocyte Esterase Negative (NEG) Urine RBC Occ /HPF (0-2) Urine WBC Occ /HPF (0-4) Urine Squamous Epithelial Cells Occ /LPF Urine Amorphous Sediment Present /HPF Urine Bacteria 0 /HPF (0-FEW) Urine Mucus Slight /LPF Test 06/29/20 16:42 06/29/20 20:57 06/30/20 06:15 06/30/20 07:26 Glucose (Fingerstick) 106 mg/dL (70-99) 115 mg/dL (70-99) 85 mg/dL (70-99) White Blood Count 11.1 x10^3/uL (4.0-11.0) Red Blood Count 4.29 x10^6/uL (4.30-5.70) Hemoglobin 13.1 g/dL (13.0-17.5) Hematocrit 39.9 % (39.0-53.0) Mean Corpuscular Volume 93 fL (79-100) Mean Corpuscular Hemoglobin 31 pg (25-35) Mean Corpuscular Hemoglobin Concent 33 g/dL (31-37) Red Cell Distribution Width 14.3 % (11.5-14.5) Platelet Count 164 x10^3/uL (140-400) Neutrophils (%) (Auto) 73 % (31-73) Lymphocytes (%) (Auto) 12 % (24-48) Monocytes (%) (Auto) 15 % (0-9) Eosinophils (%) (Auto) 0 % (0-3) Basophils (%) (Auto) 1 % (0-3) Neutrophils # (Auto) 8.1 x10^3/uL (1.8-7.7) Lymphocytes # (Auto) 1.3 x10^3/uL (1.0-4.8) Monocytes # (Auto) 1.7 x10^3/uL (0.0-1.1) Eosinophils # (Auto) 0.0 x10^3/uL (0.0-0.7) Basophils # (Auto) 0.1 x10^3/uL (0.0-0.2) Sodium Level 154 mmol/L (136-145) Potassium Level 4.5 mmol/L (3.5-5.1) Chloride Level 120 mmol/L (98-107) Carbon Dioxide Level 24 mmol/L (21-32) Anion Gap 10 (6-14) Blood Urea Nitrogen 58 mg/dL (8-26) Creatinine 1.3 mg/dL (0.7-1.3) Estimated GFR (Cockcroft-Gault) 52.9 Glucose Level 101 mg/dL (70-99) Calcium Level 9.1 mg/dL (8.5-10.1) Phosphorus Level 3.0 mg/dL (2.6-4.7) 25-Hydroxy Vitamin D Total 17.4 ng/mL (30-100) Test 06/30/20 09:55 06/30/20 10:43 Urine Random Creatinine 144.4 mg/dL (Not Establ.) Glucose (Fingerstick) 100 mg/dL (70-99) Laboratory Tests Test 06/29/20 16:42 06/29/20 20:57 06/30/20 06:15 06/30/20 07:26 Glucose (Fingerstick) 106 mg/dL (70-99) 115 mg/dL (70-99) 85 mg/dL (70-99) White Blood Count 11.1 x10^3/uL (4.0-11.0) Red Blood Count 4.29 x10^6/uL (4.30-5.70) Hemoglobin 13.1 g/dL (13.0-17.5) Hematocrit 39.9 % (39.0-53.0) Mean Corpuscular Volume 93 fL (79-100) Mean Corpuscular Hemoglobin 31 pg (25-35) Mean Corpuscular Hemoglobin Concent 33 g/dL (31-37) Red Cell Distribution Width 14.3 % (11.5-14.5) Platelet Count 164 x10^3/uL (140-400) Neutrophils (%) (Auto) 73 % (31-73) Lymphocytes (%) (Auto) 12 % (24-48) Monocytes (%) (Auto) 15 % (0-9) Eosinophils (%) (Auto) 0 % (0-3) Basophils (%) (Auto) 1 % (0-3) Neutrophils # (Auto) 8.1 x10^3/uL (1.8-7.7) Lymphocytes # (Auto) 1.3 x10^3/uL (1.0-4.8) Monocytes # (Auto) 1.7 x10^3/uL (0.0-1.1) Eosinophils # (Auto) 0.0 x10^3/uL (0.0-0.7) Basophils # (Auto) 0.1 x10^3/uL (0.0-0.2) Sodium Level 154 mmol/L (136-145) Potassium Level 4.5 mmol/L (3.5-5.1) Chloride Level 120 mmol/L (98-107) Carbon Dioxide Level 24 mmol/L (21-32) Anion Gap 10 (6-14) Blood Urea Nitrogen 58 mg/dL (8-26) Creatinine 1.3 mg/dL (0.7-1.3) Estimated GFR (Cockcroft-Gault) 52.9 Glucose Level 101 mg/dL (70-99) Calcium Level 9.1 mg/dL (8.5-10.1) Phosphorus Level 3.0 mg/dL (2.6-4.7) 25-Hydroxy Vitamin D Total 17.4 ng/mL (30-100) Test 06/30/20 09:55 06/30/20 10:43 Urine Random Creatinine 144.4 mg/dL (Not Establ.) Glucose (Fingerstick) 100 mg/dL (70-99) Microbiology 06/29/20 Blood Culture - Preliminary, Resulted NO GROWTH AFTER 1 DAY Medications Current Medications Morphine Sulfate (Morphine Sulfate) 4 mg 1X ONCE IV Last administered on 06/29/20at 03:11; Start 06/29/20 at 02:30; Stop 06/29/20 at 02:31; Status DC Acetaminophen (Tylenol Supp) 650 mg 1X ONCE AR Last administered on 06/29/20at 02:59; Start 06/29/20 at 02:30; Stop 06/29/20 at 02:31; Status DC Sodium Chloride 1,000 ml @ 1,000 mls/hr 1X ONCE IV Last administered on 06/29/20at 03:01; Start 06/29/20 at 03:00; Stop 06/29/20 at 03:59; Status DC Aspirin (Ecotrin) 81 mg DAILYWBKFT PO ; Start 06/29/20 at 08:00 Carbidopa/Levodopa (Sinemet 25/100) 1 tab TID PO ; Start 06/29/20 at 09:00 Montelukast Sodium (Singulair) 10 mg DAILY PO ; Start 06/29/20 at 09:00 Quetiapine Fumarate (SEROquel) 25 mg HS PO ; Start 06/29/20 at 21:00 Bupropion HCl (Wellbutrin Xl) 300 mg DAILY PO ; Start 06/29/20 at 09:00 Pantoprazole Sodium (Protonix) 40 mg DAILYAC PO ; Start 06/29/20 at 07:45 Bisacodyl (Dulcolax Supp) 10 mg 1X ONCE AR Last administered on 06/29/20at 08:50; Start 06/29/20 at 07:30; Stop 06/29/20 at 07:34; Status DC Bisacodyl (Dulcolax Supp) 10 mg PRN DAILY PRN AR CONSTIPATION; Start 06/29/20 at 07:30 Psyllium Hydrophilic Mucilloid (Metamucil Fiber Packet) 1 pkt QHS PO ; Start 06/29/20 at 21:00 Insulin Human Lispro (HumaLOG) 0-7 UNITS TIDWMEALS SQ ; Start 06/29/20 at 12:00 Dextrose (Dextrose 50%-Water Syringe) 12.5 gm PRN Q15MIN PRN IV SEE COMMENTS; Start 06/29/20 at 09:45 Polyethylene Glycol (miraLAX PACKET) 17 gm DAILY PO ; Start 06/29/20 at 09:45 Senna/Docusate Sodium (Senna Plus) 1 tab PRN BID PRN PO CONSTIPATION; Start 06/29/20 at 09:45 Morphine Sulfate (Morphine Sulfate) 2 mg PRN Q2HR PRN IV MODERATE TO SEVERE PAIN Last administered on 06/29/20at 22:18; Start 06/29/20 at 09:45; Stop 06/29/20 at 22:53; Status DC Ondansetron HCl (Zofran) 4 mg PRN Q4HRS PRN IV NAUSEA/VOMITING; Start 06/29/20 at 09:45 Acetaminophen (Tylenol) 650 mg PRN Q4HRS PRN PO TEMP OVER 100.4F OR MILD PAIN; Start 06/29/20 at 09:45 Amino Acids/ Glycerin/ Electrolytes 1,000 ml @ 80 mls/hr [id number] IV Last administered on 06/30/20at 10:49; Start 06/29/20 at 10:45 Pharmacy Consult (C.diff Med Screen By Rx) 1 each PRN 1X PRN MC SEE COMMENTS; Start 06/29/20 at 10:45 Morphine Sulfate (Morphine Sulfate) 4 mg PRN Q2HR PRN IV MODERATE TO SEVERE SUMMER N Last administered on 06/30/20at 04:35; Start 06/29/20 at 23:00 Acetaminophen (Tylenol Supp) 325 mg PRN Q6HRS PRN AR MILD PAIN / TEMP > 100.3'F Last administered on 06/30/20at 10:12; Start 06/30/20 at 10:15 Active Scripts Active Aspirin Ec (Aspirin) 81 Mg Tablet.dr 81 Mg PO DAILYWBKFT Reported Ventolin Hfa Inhaler (Albuterol Sulfate) 18 Gm Hfa.aer.ad 2 Puff INH Q4HRS Sinemet 25-100 Mg Tablet (Carbidopa/Levodopa) 1 Each Tablet 1 Tab PO BID Bupropion Xl (Bupropion Hcl) 300 Mg Tab.er.24h 1 Tab PO DAILY Seroquel (Quetiapine Fumarate) 25 Mg Tablet 25 Mg PO HS Singulair Tablet (Montelukast Sodium) 10 Mg Tablet 10 Mg PO DAILY Sinemet 25-100 Mg Tablet (Carbidopa/Levodopa) 1 Each Tablet 1 Tab PO TID Omeprazole 40 Mg Capsule.dr 1 Cap PO DAILY Advair 250-50 Diskus (Fluticasone/Salmeterol) 1 Each Disk.w.dev 1 Puff IH BID Vitals/I & O Vital Sign - Last 24 Hours 06/29/20 06/29/20 06/29/20 06/29/20 19:25 19:35 20:18 20:48 Temp 97.6 97.6 Pulse 92 Resp 22 B/P (MAP) 92/47 (62) Pulse Ox 98 O2 Delivery Room Air Room Air Room Air Room Air 06/29/20 06/29/20 06/29/20 06/30/20 22:18 22:48 23:33 00:15 Temp 98.3 98.3 Pulse 97 Resp 24 B/P (MAP) 104/64 (77) Pulse Ox 93 O2 Delivery Room Air Room Air Room Air Room Air 06/30/20 06/30/20 06/30/20 06/30/20 01:01 02:15 02:45 03:08 Temp 97.8 97.8 Pulse 94 Resp 24 B/P (MAP) 143/53 (83) Pulse Ox 94 O2 Delivery Room Air Room Air Room Air Room Air 06/30/20 06/30/20 06/30/20 06/30/20 04:35 05:17 07:00 07:39 Temp 98.2 98.2 Pulse 97 Resp 21 B/P (MAP) 92/34 (53) Pulse Ox 94 O2 Delivery Room Air Room Air Room Air Room Air 06/30/20 06/30/20 10:00 11:54 Temp 101.1 101.3 101.1 101.3 Pulse 93 Resp 20 B/P (MAP) 101/46 (64) Pulse Ox 92 O2 Delivery Room Air Nutrition Consultation Dietary Evaluation: Recommendations by RD: Dietary education by RD, PPN/TPN Comments: REC PPN < 10 days diet per CHIP APPLYING MACHINE TENDER when able Expected Outcomes/Goals: diet advancment Malnutrition Findings: Body Fat Depletion (Non Severe: Mild Depletion Justicifation of Admission Dx: Justifications for Admission: Justification of Admission Dx: N/A MONICA BENSON MD Jun 30, 2020 15:25
[2020-06-30] MEDS: PIPERACILLIN/TAZOBACTAM 2.25 GM in IV NORMAL SALINE 50ML 50 ML IV SCH ×2 (18:13→23:28)
[2020-06-30 19:00] VITALS: BP 92/55
[2020-06-30] MEDS: QUEtiapine 25 MG TABLET. PO SCH (21:00)
[2020-06-30] MEDS: PSYLLIUM HUSK (SUGAR FREE) 1 PKT PACKET PO SCH (21:00)
[2020-06-30 22:08] LABS: UR POTASSIUM 41.9 mmol/L (Not Estab.)
[2020-06-30 23:21] VITALS: BP 135/115
[2020-07-01 00:08] LABS: CALCIUM PTH 9.2 mg/dL (8.6-10.2); CREATININE PTH 1.45 mg/dL (0.76-1.27); PHOSPHORUS PTH 2.6 mg/dL (2.8-4.1); PTH INTACT 69 pg/mL (15-65)
[2020-07-01] MEDS: ACETAMINOPHEN 325 MG SUPP.RECT. PR PRN ×2 (00:30→21:08)
[2020-07-01] MEDS: MORPHINE SULFATE 4 MG/ML VIAL. IV PRN ×4 (01:02→23:08)
[2020-07-01 03:02] VITALS: BP 117/53
[2020-07-01] MEDS: PIPERACILLIN/TAZOBACTAM 2.25 GM in IV NORMAL SALINE 50ML 50 ML IV SCH ×4 (05:38→23:45)
[2020-07-01 07:00] VITALS: BP 108/63
[2020-07-01] MEDS ORDERED: PANTOPRAZOLE IV PUSH 40 MG VIAL. IVP SCH (07:30)
[2020-07-01] MEDS: POLYETHYLENE GLYCOL 3350 17 GM PACKET. PO SCH (07:32)
[2020-07-01] MEDS: CARBIDOPA/LEVODOPA 25/100MG TABLET PO SCH ×4 (07:32→18:59)
[2020-07-01] MEDS: ASPIRIN ENTERIC COATED 81 MG TABLET.DR. PO SCH (07:32)
[2020-07-01] MEDS: MONTELUKAST SODIUM 10 MG TABLET. PO SCH (07:33)
[2020-07-01] MEDS: buPROPion XL 150 MG TAB.ER.24H. PO SCH (07:33)
[2020-07-01] MEDS: INSULIN LISPRO 300 UNITS/3 ML VIAL. SQ SCH ×3 (08:00→17:00)
--- NOTE | 2020-07-01 09:04 | PDOC2 ---
CONSULT Date of Consult Date of Consult DATE: 07/01/20 TIME: 08:57 Past Medical History Cardiovascular: HTN, Hyperlipidemia Pulmonary: Asthma CENTRAL NERVOUS SYSTEM: Periperal neuropathy, Other GI: GERD Heme/Onc: No pertinent hx Hepatobiliary: No pertinent hx Psych: Anxiety Rheumatologic: No pertinent hx Infectious disease: No pertinent hx Renal/: No pertinent hx Endocrine: Diabetes Past Surgical History Past Surgical History: Cholecystectomy, Other Family History Family History: Diabetes, Heart Disease, Hypertension Social History No ALCOHOL: none Drugs: None Lives: with Family Current Problem List Problem List Problems Medical Problems: (1) Acute on chronic renal failure Status: Acute (2) Altered mental status Status: Acute (3) Parkinsons Status: Acute Current Medications Current Medications Current Medications Morphine Sulfate (Morphine Sulfate) 4 mg 1X ONCE IV Last administered on 06/29/20at 03:11; Start 06/29/20 at 02:30; Stop 06/29/20 at 02:31; Status DC Acetaminophen (Tylenol Supp) 650 mg 1X ONCE SD Last administered on 06/29/20at 02:59; Start 06/29/20 at 02:30; Stop 06/29/20 at 02:31; Status DC Sodium Chloride 1,000 ml @ 1,000 mls/hr 1X ONCE IV Last administered on 06/29/20at 03:01; Start 06/29/20 at 03:00; Stop 06/29/20 at 03:59; Status DC Aspirin (Ecotrin) 81 mg DAILYWBKFT PO ; Start 06/29/20 at 08:00 Carbidopa/Levodopa (Sinemet 25/100) 1 tab TID PO ; Start 06/29/20 at 09:00 Montelukast Sodium (Singulair) 10 mg DAILY PO ; Start 06/29/20 at 09:00 Quetiapine Fumarate (SEROquel) 25 mg HS PO ; Start 06/29/20 at 21:00 Bupropion HCl (Wellbutrin Xl) 300 mg DAILY PO ; Start 06/29/20 at 09:00 Pantoprazole Sodium (Protonix) 40 mg DAILYAC PO ; Start 06/29/20 at 07:45; Stop 07/01/20 at 05:31; Status DC Bisacodyl (Dulcolax Supp) 10 mg 1X ONCE SD Last administered on 06/29/20at 08:50; Start 06/29/20 at 07:30; Stop 06/29/20 at 07:34; Status DC Bisacodyl (Dulcolax Supp) 10 mg PRN DAILY PRN SD CONSTIPATION; Start 06/29/20 at 07:30 Psyllium Hydrophilic Mucilloid (Metamucil Fiber Packet) 1 pkt QHS PO ; Start 06/29/20 at 21:00 Insulin Human Lispro (HumaLOG) 0-7 UNITS TIDWMEALS SQ ; Start 06/29/20 at 12:00 Dextrose (Dextrose 50%-Water Syringe) 12.5 gm PRN Q15MIN PRN IV SEE COMMENTS; Start 06/29/20 at 09:45 Polyethylene Glycol (miraLAX PACKET) 17 gm DAILY PO ; Start 06/29/20 at 09:45 Senna/Docusate Sodium (Senna Plus) 1 tab PRN BID PRN PO CONSTIPATION; Start 06/29/20 at 09:45 Morphine Sulfate (Morphine Sulfate) 2 mg PRN Q2HR PRN IV MODERATE TO SEVERE PAIN Last administered on 06/29/20at 22:18; Start 06/29/20 at 09:45; Stop 06/29/20 at 22:53; Status DC Ondansetron HCl (Zofran) 4 mg PRN Q4HRS PRN IV NAUSEA/VOMITING; Start 06/29/20 at 09:45 Acetaminophen (Tylenol) 650 mg PRN Q4HRS PRN PO TEMP OVER 100.4F OR MILD PAIN; Start 06/29/20 at 09:45 Amino Acids/ Glycerin/ Electrolytes 1,000 ml @ 80 mls/hr [id number] IV Last administered on 06/30/20at 23:28; Start 06/29/20 at 10:45 Pharmacy Consult (C.diff Med Screen By Rx) 1 each PRN 1X PRN MC SEE COMMENTS; Start 06/29/20 at 10:45; Status Cancel Morphine Sulfate (Morphine Sulfate) 4 mg PRN Q2HR PRN IV MODERATE TO SEVERE PAIN Last administered on 07/01/20at 06:10; Start 06/29/20 at 23:00 Acetaminophen (Tylenol Supp) 325 mg PRN Q6HRS PRN SD MILD PAIN / TEMP > 100.3'F Last administered on 07/01/20at 00:30; Start 06/30/20 at 10:15 Piperacillin Sod/ Tazobactam Sod 2.25 gm/Sodium Chloride 50 ml @ 100 mls/hr Q6HRS IV Last administered on 07/01/20at 05:38; Start 06/30/20 at 18:00 Pantoprazole Sodium (PROTONIX VIAL for IV PUSH) 40 mg DAILYAC IVP Last adminis tered on 07/01/20at 08:09; Start 07/01/20 at 07:30 Active Scripts Active Aspirin Ec (Aspirin) 81 Mg Tablet. 81 Mg PO DAILYWBKFT Reported Ventolin Hfa Inhaler (Albuterol Sulfate) 18 Gm Hfa.aer.ad 2 Puff INH Q4HRS Sinemet 25-100 Mg Tablet (Carbidopa/Levodopa) 1 Each Tablet 1 Tab PO BID Bupropion Xl (Bupropion Hcl) 300 Mg Tab.er.24h 1 Tab PO DAILY Seroquel (Quetiapine Fumarate) 25 Mg Tablet 25 Mg PO HS Singulair Tablet (Montelukast Sodium) 10 Mg Tablet 10 Mg PO DAILY Sinemet 25-100 Mg Tablet (Carbidopa/Levodopa) 1 Each Tablet 1 Tab PO TID Omeprazole 40 Mg Capsule.dr 1 Cap PO DAILY Advair 250-50 Diskus (Fluticasone/Salmeterol) 1 Each Disk.w.dev 1 Puff IH BID Allergies Allergies: Coded Allergies: No Known Drug Allergies (Unverified , 05/06/14) Physical Exam General: Other (He is awake but does not follow any commands and does not talk bu moans with any attempts at moving his extremities.) HEENT: Other (His mouth is dry.) Extremities: Other (He had his lower extremities in flexion at his hips and knees and he hollers with any attempts at moving his upper and lower extremities and he had tenderness to palpation over right sacroiliac joint and lumbar spine area.) Neuro: Other (Absent knee and ankle jerks. ) MUSCULOSKELETAL: Other (He had stiffness of all 4 extremity joints.) Vitals VITALS Vital Signs Date Time Temp Pulse Resp B/P (MAP) Pulse Ox O2 Delivery O2 Flow Rate FiO2 07/01/20 07:00 99.3 80 16 108/63 (78) 96 Room Air 99.3 Labs Labs Laboratory Tests Test 06/29/20 11:45 06/29/20 16:42 06/29/20 20:57 06/30/20 06:15 Coronavirus (PCR) Not detected (Not Detected) Glucose (Fingerstick) 106 mg/dL (70-99) 115 mg/dL (70-99) White Blood Count 11.1 x10^3/uL (4.0-11.0) Red Blood Count 4.29 x10^6/uL (4.30-5.70) Hemoglobin 13.1 g/dL (13.0-17.5) Hematocrit 39.9 % (39.0-53.0) Mean Corpuscular Volume 93 fL (79-100) Mean Corpuscular Hemoglobin 31 pg (25-35) Mean Corpuscular Hemoglobin Concent 33 g/dL (31-37) Red Cell Distribution Width 14.3 % (11.5-14.5) Platelet Count 164 x10^3/uL (140-400) Neutrophils (%) (Auto) 73 % (31-73) Lymphocytes (%) (Auto) 12 % (24-48) Monocytes (%) (Auto) 15 % (0-9) Eosinophils (%) (Auto) 0 % (0-3) Basophils (%) (Auto) 1 % (0-3) Neutrophils # (Auto) 8.1 x10^3/uL (1.8-7.7) Lymphocytes # (Auto) 1.3 x10^3/uL (1.0-4.8) Monocytes # (Auto) 1.7 x10^3/uL (0.0-1.1) Eosinophils # (Auto) 0.0 x10^3/uL (0.0-0.7) Basophils # (Auto) 0.1 x10^3/uL (0.0-0.2) Sodium Level 154 mmol/L (136-145) Potassium Level 4.5 mmol/L (3.5-5.1) Chloride Level 120 mmol/L (98-107) Carbon Dioxide Level 24 mmol/L (21-32) Anion Gap 10 (6-14) Blood Urea Nitrogen 58 mg/dL (8-26) Creatinine 1.3 mg/dL (0.7-1.3) Estimated GFR (Cockcroft-Gault) 52.9 Glucose Level 101 mg/dL (70-99) Calcium Level 9.1 mg/dL (8.5-10.1) Phosphorus Level 3.0 mg/dL (2.6-4.7) 25-Hydroxy Vitamin D Total 17.4 ng/mL (30-100) Test 06/30/20 07:26 06/30/20 09:55 06/30/20 10:43 06/30/20 11:40 Glucose (Fingerstick) 85 mg/dL (70-99) 100 mg/dL (70-99) Urine Random Creatinine 144.4 mg/dL (Not Establ.) Urine Sodium 28 mmol/L (Not Estab.) Urine Potassium 41.9 mmol/L (Not Estab.) Urine Chloride 35 mmol/L (Not Estab.) Estimated GFR (Non- 45 (>59) EGFR 51 (>59) PTH (Intact) Specimen Description Comment (.) Parathyroid Hormone (Intact) 69 pg/mL (15-65) Calcium (PTH Intact) 9.2 mg/dL (8.6-10.2) Creatinine (PTH Intact) 1.45 mg/dL (0.76-1.27) Phosphorus (PTH Intact) 2.6 mg/dL (2.8-4.1) Test 06/30/20 16:37 06/30/20 20:18 07/01/20 07:13 Glucose (Fingerstick) 111 mg/dL (70-99) 103 mg/dL (70-99) 104 mg/dL (70-99) Laboratory Tests Test 06/30/20 09:55 06/30/20 10:43 06/30/20 11:40 06/30/20 16:37 Urine Random Creatinine 144.4 mg/dL (Not Establ.) Urine Sodium 28 mmol/L (Not Estab.) Urine Potassium 41.9 mmol/L (Not Estab.) Urine Chloride 35 mmol/L (Not Estab.) Glucose (Fingerstick) 100 mg/dL (70-99) 111 mg/dL (70-99) Estimated GFR (Non- 45 (>59) EGFR 51 (>59) PTH (Intact) Specimen Description Comment (.) Parathyroid Hormone (Intact) 69 pg/mL (15-65) Calcium (PTH Intact) 9.2 mg/dL (8.6-10.2) Creatinine (PTH Intact) 1.45 mg/dL (0.76-1.27) Phosphorus (PTH Intact) 2.6 mg/dL (2.8-4.1) Test 06/30/20 20:18 07/01/20 07:13 Glucose (Fingerstick) 103 mg/dL (70-99) 104 mg/dL (70-99) Assessment/Plan Assessment/Plan To try to take care of his dehydration and trial of prednisone to help ease his joint stiffness, if no contraindications. NIXON DELGADO MD Jul 01, 2020 09:04
[2020-07-01 11:00] VITALS: BP 87/51
[2020-07-01] MEDS: AMINO AC 3%/ELECTROLYTE/GLYCER 1,000 ML IV SCH (12:08)
--- NOTE | 2020-07-01 12:10 | PDOC2 ---
NEUROLOGY CONSULT Date of Service DOS: DATE: 07/01/20 TIME: 11:59 Reason for Consult Reason for Consult: Parkinson's Referring Physician Referring Physician: Dr. Cosme Source Source: Chart review History of Present Illness History of Present Illness The patient is an 84-year-old right-handed male with Parkinson's disease admitted from [facility] with altered mental status and hip pain. He has curled up into a position and is stiff. He has refused to take his medications of course including Parkinson's. I last saw the patient 2 years ago. I felt that he was end-stage Parkinson's then, he has had this for several years. He has had a recent stroke. There is no history of seizures. He was here last week with frequent falls and had a head CT then, but not from this admission Past Medical History Cardiovascular: HTN, Hyperlipidemia Pulmonary: Asthma, Pneumonia CENTRAL NERVOUS SYSTEM: CVA, Periperal neuropathy (right Charcot foot syndrome), Other (Parkinson's) GI: GERD Psych: Anxiety ENT: Other (right ear hearing loss) Endocrine: Diabetes Dermatology: Melanoma, Squamous cell Past Surgical History Past Surgical History: Cholecystectomy, Cataract Removal, Other (Frontal lee ann holes, vasectomy) Family History Family History: CAD, DM Current Medications Current Medications Current Medications Morphine Sulfate (Morphine Sulfate) 4 mg 1X ONCE IV Last administered on 06/29/20at 03:11; Start 06/29/20 at 02:30; Stop 06/29/20 at 02:31; Status DC Acetaminophen (Tylenol Supp) 650 mg 1X ONCE [place] Last administered on 06/29/20at 02:59; Start 06/29/20 at 02:30; Stop 06/29/20 at 02:31; Status DC Sodium Chloride 1,000 ml @ 1,000 mls/hr 1X ONCE IV Last administered on 06/29/20at 03:01; Start 06/29/20 at 03:00; Stop 06/29/20 at 03:59; Status DC Aspirin (Ecotrin) 81 mg DAILYWBKFT PO ; Start 06/29/20 at 08:00 Carbidopa/Levodopa (Sinemet 25/100) 1 tab TID PO ; Start 06/29/20 at 09:00 Montelukast Sodium (Singulair) 10 mg DAILY PO ; Start 06/29/20 at 09:00 Quetiapine Fumarate (SEROquel) 25 mg HS PO ; Start 06/29/20 at 21:00 Bupropion HCl (Wellbutrin Xl) 300 mg DAILY PO ; Start 06/29/20 at 09:00 Pantoprazole Sodium (Protonix) 40 mg DAILYAC PO ; Start 06/29/20 at 07:45; Stop 07/01/20 at 05:31; Status DC Bisacodyl (Dulcolax Supp) 10 mg 1X ONCE [place] Last administered on 06/29/20at 08:50; Start 06/29/20 at 07:30; Stop 06/29/20 at 07:34; Status DC Bisacodyl (Dulcolax Supp) 10 mg PRN DAILY PRN [place] CONSTIPATION; Start 06/29/20 at 07:30 Psyllium Hydrophilic Mucilloid (Metamucil Fiber Packet) 1 pkt QHS PO ; Start 06/29/20 at 21:00 Insulin Human Lispro (HumaLOG) 0-7 UNITS TIDWMEALS SQ ; Start 06/29/20 at 12:00 Dextrose (Dextrose 50%-Water Syringe) 12.5 gm PRN Q15MIN PRN IV SEE COMMENTS; Start 06/29/20 at 09:45 Polyethylene Glycol (miraLAX PACKET) 17 gm DAILY PO ; Start 06/29/20 at 09:45 Senna/Docusate Sodium (Senna Plus) 1 tab PRN BID PRN PO CONSTIPATION; Start 06/29/20 at 09:45 Morphine Sulfate (Morphine Sulfate) 2 mg PRN Q2HR PRN IV MODERATE TO SEVERE PAIN Last administered on 06/29/20at 22:18; Start 06/29/20 at 09:45; Stop 06/29/20 at 22:53; Status DC Ondansetron HCl (Zofran) 4 mg PRN Q4HRS PRN IV NAUSEA/VOMITING; Start 06/29/20 at 09:45 Acetaminophen (Tylenol) 650 mg PRN Q4HRS PRN PO TEMP OVER 100.4F OR MILD PAIN; Start 06/29/20 at 09:45 Amino Acids/ Glycerin/ Electrolytes 1,000 ml @ 80 mls/hr [id number] IV Last administered on 06/30/20at 23:28; Start 06/29/20 at 10:45 Pharmacy Consult (C.diff Med Screen By Rx) 1 each PRN 1X PRN MC SEE COMMENTS; Start 06/29/20 at 10:45; Status Cancel Morphine Sulfate (Morphine Sulfate) 4 mg PRN Q2HR PRN IV MODERATE TO SEVERE PAIN Last administered on 07/01/20at 11:50; Start 06/29/20 at 23:00; Stop 07/01/20 at 11:50; Status DC Acetaminophen (Tylenol Supp) 325 mg PRN Q6HRS PRN [place] MILD PAIN / TEMP > 100.3'F Last administered on 07/01/20at 00:30; Start 06/30/20 at 10:15 Piperacillin Sod/ Tazobactam Sod 2.25 gm/Sodium Chloride 50 ml @ 100 mls/hr Q6HRS IV Last administered on 07/01/20at 11:40; Start 06/30/20 at 18:00 Pantoprazole Sodium (PROTONIX VIAL for IV PUSH) 40 mg DAILYAC IVP Last administered on 07/01/20at 08:09; Start 07/01/20 at 07:30; Stop 07/01/20 at 10:00; Status DC Lactobacillus Rhamnosus (Culturelle) 1 cap BID PO ; Start 07/01/20 at 21:00 Famotidine (Pepcid) 20 mg BID PO ; Start 07/01/20 at 21:00 Carbidopa/Levodopa (Sinemet 25/100) 1 tab BID PO ; Start 07/01/20 at 21:00 Albuterol Sulfate (Ventolin Neb Soln) 2.5 mg Q4HRS W/A NEB ; Start 07/01/20 at 14:00 Non-Formulary Medication (Fluticasone/ Salmeterol (Advair 250-50 Diskus)) 1 puff BID IH ; Start 07/01/20 at 21:00; Status UNV Budesonide (Pulmicort) 0.5 mg RTBID NEB ; Start 07/01/20 at 20:00 Active Scripts Active Aspirin Ec (Aspirin) 81 Mg Tablet.dr 81 Mg PO DAILYWBKFT Reported Ventolin Hfa Inhaler (Albuterol Sulfate) 18 Gm Hfa.aer.ad 2 Puff INH Q4HRS Sinemet 25-100 Mg Tablet (Carbidopa/Levodopa) 1 Each Tablet 1 Tab PO BID Bupropion Xl (Bupropion Hcl) 300 Mg Tab.er.24h 1 Tab PO DAILY Seroquel (Quetiapine Fumarate) 25 Mg Tablet 25 Mg PO HS Singulair Tablet (Montelukast Sodium) 10 Mg Tablet 10 Mg PO DAILY Sinemet 25-100 Mg Tablet (Carbidopa/Levodopa) 1 Each Tablet 1 Tab PO TID Omeprazole 40 Mg Capsule.dr 1 Cap PO DAILY Advair 250-50 Diskus (Fluticasone/Salmeterol) 1 Each Disk.w.dev 1 Puff IH BID Allergies Allergies: Coded Allergies: No Known Drug Allergies (Unverified , 05/06/14) ROS Review of System Negative for fever, chills, weight loss, shortness of breath, chest pain, indigestion, hematochezia, melena, and dysuria. Full 14-point review of systems is negative. Physical Exam Physical Examination General: Well-developed, well-nourished, white male, in no acute distress HEENT: Normocephalic andatraumatic. Temporal arteriespulsatile and nontender. Neck: Supple without bruit, no meningismus Musculoskeletal: Stability:see neurologic. Gait exam:see neurologic. Tone:see neurologic.Strength:see neurologic.Right foot deformity Neurological: Mental Status: He is lying in bed with eyes closed, only moans to stimulation, does not follow commands. Cranial Nerves:Pupils equal and reactive to light, extraocular movements areintact. There is no facial asymmetry. Reflexes:0-1+ and symmetric with flexor plantar responses. Motor:Moves slightly to pain, no tremor, cogwheel rigidity. Coordination and gait:Not cooperative. Sensory:Not cooperative. Vitals VITALS Vital Signs Date Time Temp Pulse Resp B/P (MAP) Pulse Ox O2 Delivery O2 Flow Rate FiO2 07/01/20 11:00 97.7 60 16 87/51 (63) 98 Room Air 97.7 Labs Labs Laboratory Tests Test 06/29/20 16:42 06/29/20 20:57 06/30/20 06:15 06/30/20 07:26 Glucose (Fingerstick) 106 mg/dL (70-99) 115 mg/dL (70-99) 85 mg/dL (70-99) White Blood Count 11.1 x10^3/uL (4.0-11.0) Red Blood Count 4.29 x10^6/uL (4.30-5.70) Hemoglobin 13.1 g/dL (13.0-17.5) Hematocrit 39.9 % (39.0-53.0) Mean Corpuscular Volume 93 fL (79-100) Mean Corpuscular Hemoglobin 31 pg (25-35) Mean Corpuscular Hemoglobin Concent 33 g/dL (31-37) Red Cell Distribution Width 14.3 % (11.5-14.5) Platelet Count 164 x10^3/uL (140-400) Neutrophils (%) (Auto) 73 % (31-73) Lymphocytes (%) (Auto) 12 % (24-48) Monocytes (%) (Auto) 15 % (0-9) Eosinophils (%) (Auto) 0 % (0-3) Basophils (%) (Auto) 1 % (0-3) Neutrophils # (Auto) 8.1 x10^3/uL (1.8-7.7) Lymphocytes # (Auto) 1.3 x10^3/uL (1.0-4.8) Monocytes # (Auto) 1.7 x10^3/uL (0.0-1.1) Eosinophils # (Auto) 0.0 x10^3/uL (0.0-0.7) Basophils # (Auto) 0.1 x10^3/uL (0.0-0.2) Sodium Level 154 mmol/L (136-145) Potassium Level 4.5 mmol/L (3.5-5.1) Chloride Level 120 mmol/L (98-107) Carbon Dioxide Level 24 mmol/L (21-32) Anion Gap 10 (6-14) Blood Urea Nitrogen 58 mg/dL (8-26) Creatinine 1.3 mg/dL (0.7-1.3) Estimated GFR (Cockcroft-Gault) 52.9 Glucose Level 101 mg/dL (70-99) Calcium Level 9.1 mg/dL (8.5-10.1) Phosphorus Level 3.0 mg/dL (2.6-4.7) 25-Hydroxy Vitamin D Total 17.4 ng/mL (30-100) Test 06/30/20 09:55 06/30/20 10:43 06/30/20 11:40 06/30/20 16:37 Urine Random Creatinine 144.4 mg/dL (Not Establ.) Urine Sodium 28 mmol/L (Not Estab.) Urine Potassium 41.9 mmol/L (Not Estab.) Urine Chloride 35 mmol/L (Not Estab.) Glucose (Fingerstick) 100 mg/dL (70-99) 111 mg/dL (70-99) Estimated GFR (Non- 45 (>59) EGFR 51 (>59) PTH (Intact) Specimen Description Comment (.) Parathyroid Hormone (Intact) 69 pg/mL (15-65) Calcium (PTH Intact) 9.2 mg/dL (8.6-10.2) Creatinine (PTH Intact) 1.45 mg/dL (0.76-1.27) Phosphorus (PTH Intact) 2.6 mg/dL (2.8-4.1) Test 06/30/20 20:18 07/01/20 07:13 07/01/20 10:49 Glucose (Fingerstick) 103 mg/dL (70-99) 104 mg/dL (70-99) 109 mg/dL (70-99) Laboratory Tests Test 06/30/20 16:37 06/30/20 20:18 07/01/20 07:13 07/01/20 10:49 Glucose (Fingerstick) 111 mg/dL (70-99) 103 mg/dL (70-99) 104 mg/dL (70-99) 109 mg/dL (70-99) Images Images CT head, 06/22/20 INDICATION: Fall TECHNIQUE: Sequential axial images through the head were obtained without the administration of IV contrast. Comparisons: None FINDINGS: Bilateral frontal lee ann holes are noted. No focal parenchymal lesion or hemorrhage is identified. There is no midline shift or sulcal effacement. Mild patchy evidence in the periventricular white matter. No acute vascular territory infarction is identified. Veloz-white distinction is preserved. The ventricular system is within normal limits without compression hydrocephalus. The basal cisterns are well maintained. The visualized portions of the paranasal sinuses and mastoid air cells are well- pneumatized. No acute fractures. IMPRESSION: No acute intracranial abnormality. Assessment/Plan Assessment/Plan Impression: Metabolic encephalopathy Parkinson's, worse of course because of lack of medication for several days Renal failure, acute kidney injury, elevated transaminases, lactic acidosis at admission. Recommendations: CT head NG tube to receive Parkinson's medications. Discussed with Dr. Cosme Thank you for letting me help with the patient's care. HORTENCIA RAMSEY MD Jul 01, 2020 12:10
[2020-07-01 12:43] LABS: CALCIUM 9.3 mg/dL (8.5-10.1); CREATININE 1.6 mg/dL (0.7-1.3); GFR 41.6; POTASSIUM 4.5 mmol/L (3.5-5.1)
--- NOTE | 2020-07-01 13:29 | RAD ---
EXAMINATION: CT HEAD/BRAIN WO (CT HEAD WITHOUT IV CONTRAST) CLINICAL HISTORY: Altered mental status TECHNIQUE: Serial axial images without IV contrast were obtained from the vertex to the foramen magnu m. CT Dose Reduction Employed: One or more of the following individualized dose reduction techniques wer e utilized for this examination: 1. Automated exposure control 2. Adjustment of the mA and/or kV ac cording to patient size 3. Use of iterative reconstruction technique. COMPARISON: 06/22/2020 FINDINGS: Post-operative Change: Bifrontal lee ann holes. Acute Change: No evidence of an acute infarct or other acute parenchymal process. Hemorrhage: No evidence of acute intracranial hemorrhage. Mass Lesion/Mass Effect: No evidence of intracranial mass or extraaxial fluid collection. No signific ant mass effect. Chronic Change: Scattered patchy foci of hypoattenuation in the supratentorial white matter, nonspeci fic but likely represents mild microvascular ischemia. Atherosclerotic calcification of the anterior and posterior circulation. Parenchyma: Mild generalized volume loss. Parenchyma otherwise within normal limits for age. Ventricles: Ventricular enlargement concordant with degree of parenchymal volume loss. Paranasal Sinuses and Skull Base: Visualized paranasal sinuses clear. Visualized skull base and soft tissues unremarkable. IMPRESSION: No evidence of acute intracranial abnormality or significant interval change. Electronically signed by: Michael Velasquez DO (07/01/2020 1:27 PM) [facility]
[2020-07-01] MEDS: ALBUTEROL SULFATE 2.5 MG/3 ML NEBU. NEB SCH ×3 (14:00→22:00)
[2020-07-01 15:00] VITALS: BP 80/30
--- NOTE | 2020-07-01 15:35 | NUR ---
Attempted to insert NG, unable d/t coiling in mouth because unable to swallow. Doctor paged.
--- NOTE | 2020-07-01 16:53 | PDOC ---
PROGRESS NOTES Date of Service: DATE: 07/01/20 TIME: 16:27 Chief Complaint Chief Complaint Assessment/Plan A/P: Acute encephalopathy - likely metabolic from renal failure. Will hydrate, mon itor NORMA - vasomotor nephropathy Constipation - with fecal impaction, only soft stool accessible on digital examination Dyphagia - not eating at SNF, will have BLUEPRINT DEVELOPER evaluate Parkinsons - progressive, will attempt to continue meds, currently has been a challenge, patient may not be able to swallow, attempts have been made to pass NG tube. will supplement fluid intake with D10 water Transminitis - likely from fecal impaction, will monitor Right hip pain - no fracture on XR, will consult PMR, may need further imaging with MRI to r/o occult fracture Protein calorie malnutrition - moderate, will have slaughterer religious ritual to see FEN - NPO due to high risk for aspiration PPX - heparin CODE - DNR/DNI Dispo - inpatient for above, 2 midnights History of Present Illness History of Present Illness History of Present Illness Mr. Ramon is an 84yo Patient is a 84 year old male past medical history of Parkinson, diabetes, hypertension, hyperlipidemia presents from [facility] with a chief complaint of altered mental status and right hip pain. Per jail-- Patient noticed to have altered mental status. Patients nurse is unsure of onset. She states patient yelling and aggressive towards staff and others. Patient was moaning in pain with movement, refusing to take medications, and not ambulating. Nurse states patient arrived to facility on June 25. She was the nurse who initially cared for patient on his arrival. She states at that time patient was walking with assistance introducing himself to other residents and feeding. Nurse states she has been off since June 25 and Returned to work today and concerned due to patients change in mental status from previous. No known history of fall at SNF, though did have falls prior to his previous hospital stay. Patient febrile on arrival to 100.6 F He is moaning and groaning with movement/palpation of lower extremities. He is curled up in position. No shortening or rotation of lower extremities noted. Per his a staff member and other patient at his SNF have tested positive for COVID-19 but the patient had a rapid test which was negative. CXR and pelvis XR with no acute abnormality, but with large stool burden noted. EKG performed at 0341 hrs. heart rate 92 sinus rhythm with PVCs no ST elevation no ST depression no acute MO Labs with WBC 17.6, Hb 13.6, platelets 177, NA 144, K4.2, BUN 62, CR 2.1, albumin 2.8, troponin 0 0.038, lactic acid 2.4, bilirubin 1.8, AST 163, ALT 15 Admitted for further care. 06/30: Patient is contracted not responding to verbal stimuli. Retracts to painful stimuli unable to have a meaningful interaction or get any history from the patient. 07/01: Patient severely contracted unable to participate in any physical therapy sessions, the patient continues to be quite dehydrated as evidence of his hyponatremia. We will change IV fluids to try to correct this certainly we will need to have a conversation with his family regarding goals of therapy and expectations. Greater than 45 minutes spent in the care of the patient today, phone call placed to patient's to discuss expectations Vitals Vitals Vital Signs Date Time Temp Pulse Resp B/P (MAP) Pulse Ox O2 Delivery O2 Flow Rate FiO2 07/01/20 15:00 99.3 70 16 80/30 (47) 100 Room Air 99.3 Physical Exam General: Other (He is awake but does not follow any commands and does not talk bu moans with any attempts at moving his extremities.) Lungs: Clear Abdomen: Normal bowel sounds, No tenderness, No hepatosplenomegaly, No masses, Other (stool in vault) Extremities: Other (He had his lower extremities in flexion at his hips and knees and he hollers with any attempts at moving his upper and lower extremities and he had tenderness to palpation over right sacroiliac joint and lumbar spine area.) Skin: No rashes, No breakdown, No significant lesion, Other (Bruising right hip, pain on palpation) Labs LABS Laboratory Tests Test 06/30/20 16:37 06/30/20 20:18 07/01/20 07:13 07/01/20 10:49 Glucose (Fingerstick) 111 mg/dL (70-99) 103 mg/dL (70-99) 104 mg/dL (70-99) 109 mg/dL (70-99) Test 07/01/20 12:25 Sodium Level 156 mmol/L (136-145) Potassium Level 4.5 mmol/L (3.5-5.1) Chloride Level 121 mmol/L (98-107) Carbon Dioxide Level 25 mmol/L (21-32) Anion Gap 10 (6-14) Blood Urea Nitrogen 64 mg/dL (8-26) Creatinine 1.6 mg/dL (0.7-1.3) Estimated GFR (Cockcroft-Gault) 41.6 Glucose Level 112 mg/dL (70-99) Calcium Level 9.3 mg/dL (8.5-10.1) Assessment and Plan Assessmemt and Plan Problems Medical Problems: (1) Acute on chronic renal failure Status: Acute (2) Altered mental status Status: Acute (3) Parkinsons Status: Acute Comment Review of Relevant I have reviewed the following items maria del carmen (where applicable) has been applied. Labs Laboratory Tests Test 06/29/20 16:42 06/29/20 20:57 06/30/20 06:15 06/30/20 07:26 Glucose (Fingerstick) 106 mg/dL (70-99) 115 mg/dL (70-99) 85 mg/dL (70-99) White Blood Count 11.1 x10^3/uL (4.0-11.0) Red Blood Count 4.29 x10^6/uL (4.30-5.70) Hemoglobin 13.1 g/dL (13.0-17.5) Hematocrit 39.9 % (39.0-53.0) Mean Corpuscular Volume 93 fL (79-100) Mean Corpuscular Hemoglobin 31 pg (25-35) Mean Corpuscular Hemoglobin Concent 33 g/dL (31-37) Red Cell Distribution Width 14.3 % (11.5-14.5) Platelet Count 164 x10^3/uL (140-400) Neutrophils (%) (Auto) 73 % (31-73) Lymphocytes (%) (Auto) 12 % (24-48) Monocytes (%) (Auto) 15 % (0-9) Eosinophils (%) (Auto) 0 % (0-3) Basophils (%) (Auto) 1 % (0-3) Neutrophils # (Auto) 8.1 x10^3/uL (1.8-7.7) Lymphocytes # (Auto) 1.3 x10^3/uL (1.0-4.8) Monocytes # (Auto) 1.7 x10^3/uL (0.0-1.1) Eosinophils # (Auto) 0.0 x10^3/uL (0.0-0.7) Basophils # (Auto) 0.1 x10^3/uL (0.0-0.2) Sodium Level 154 mmol/L (136-145) Potassium Level 4.5 mmol/L (3.5-5.1) Chloride Level 120 mmol/L (98-107) Carbon Dioxide Level 24 mmol/L (21-32) Anion Gap 10 (6-14) Blood Urea Nitrogen 58 mg/dL (8-26) Creatinine 1.3 mg/dL (0.7-1.3) Estimated GFR (Cockcroft-Gault) 52.9 Glucose Level 101 mg/dL (70-99) Calcium Level 9.1 mg/dL (8.5-10.1) Phosphorus Level 3.0 mg/dL (2.6-4.7) 25-Hydroxy Vitamin D Total 17.4 ng/mL (30-100) Test 06/30/20 09:55 06/30/20 10:43 06/30/20 11:40 06/30/20 16:37 Urine Random Creatinine 144.4 mg/dL (Not Establ.) Urine Sodium 28 mmol/L (Not Estab.) Urine Potassium 41.9 mmol/L (Not Estab.) Urine Chloride 35 mmol/L (Not Estab.) Glucose (Fingerstick) 100 mg/dL (70-99) 111 mg/dL (70-99) Estimated GFR (Non- 45 (>59) EGFR 51 (>59) PTH (Intact) Specimen Description Comment (.) Parathyroid Hormone (Intact) 69 pg/mL (15-65) Calcium (PTH Intact) 9.2 mg/dL (8.6-10.2) Creatinine (PTH Intact) 1.45 mg/dL (0.76-1.27) Phosphorus (PTH Intact) 2.6 mg/dL (2.8-4.1) Test 06/30/20 20:18 07/01/20 07:13 07/01/20 10:49 07/01/20 12:25 Glucose (Fingerstick) 103 mg/dL (70-99) 104 mg/dL (70-99) 109 mg/dL (70-99) Sodium Level 156 mmol/L (136-145) Potassium Level 4.5 mmol/L (3.5-5.1) Chloride Level 121 mmol/L (98-107) Carbon Dioxide Level 25 mmol/L (21-32) Anion Gap 10 (6-14) Blood Urea Nitrogen 64 mg/dL (8-26) Creatinine 1.6 mg/dL (0.7-1.3) Estimated GFR (Cockcroft-Gault) 41.6 Glucose Level 112 mg/dL (70-99) Calcium Level 9.3 mg/dL (8.5-10.1) Laboratory Tests Test 06/30/20 16:37 06/30/20 20:18 07/01/20 07:13 07/01/20 10:49 Glucose (Fingerstick) 111 mg/dL (70-99) 103 mg/dL (70-99) 104 mg/dL (70-99) 109 mg/dL (70-99) Test 07/01/20 12:25 Sodium Level 156 mmol/L (136-145) Potassium Level 4.5 mmol/L (3.5-5.1) Chloride Level 121 mmol/L (98-107) Carbon Dioxide Level 25 mmol/L (21-32) Anion Gap 10 (6-14) Blood Urea Nitrogen 64 mg/dL (8-26) Creatinine 1.6 mg/dL (0.7-1.3) Estimated GFR (Cockcroft-Gault) 41.6 Glucose Level 112 mg/dL (70-99) Calcium Level 9.3 mg/dL (8.5-10.1) Microbiology 06/30/20 Blood Culture - Preliminary, Resulted NO GROWTH AFTER 1 DAY Medications Current Medications Morphine Sulfate (Morphine Sulfate) 4 mg 1X ONCE IV Last administered on 06/29/20at 03:11; Start 06/29/20 at 02:30; Stop 06/29/20 at 02:31; Status DC Acetaminophen (Tylenol Supp) 650 mg 1X ONCE RI Last administered on 06/29/20at 02:59; Start 06/29/20 at 02:30; Stop 06/29/20 at 02:31; Status DC Sodium Chloride 1,000 ml @ 1,000 mls/hr 1X ONCE IV Last administered on 1at 03:01; Start 06/29/20 at 03:00; Stop 06/29/20 at 03:59; Status DC Aspirin (Ecotrin) 81 mg DAILYWBKFT PO ; Start 06/29/20 at 08:00 Carbidopa/Levodopa (Sinemet 25/100) 1 tab TID PO ; Start 06/29/20 at 09:00 Montelukast Sodium (Singulair) 10 mg DAILY PO ; Start 06/29/20 at 09:00 Quetiapine Fumarate (SEROquel) 25 mg HS PO ; Start 06/29/20 at 21:00 Bupropion HCl (Wellbutrin Xl) 300 mg DAILY PO ; Start 06/29/20 at 09:00 Pantoprazole Sodium (Protonix) 40 mg DAILYAC PO ; Start 06/29/20 at 07:45; Stop 07/01/20 at 05:31; Status DC Bisacodyl (Dulcolax Supp) 10 mg 1X ONCE RI Last administered on 06/29/20at 08:50; Start 06/29/20 at 07:30; Stop 06/29/20 at 07:34; Status DC Bisacodyl (Dulcolax Supp) 10 mg PRN DAILY PRN RI CONSTIPATION; Start 06/29/20 at 07:30 Psyllium Hydrophilic Mucilloid (Metamucil Fiber Packet) 1 pkt QHS PO ; Start 06/29/20 at 21:00 Insulin Human Lispro (HumaLOG) 0-7 UNITS TIDWMEALS SQ ; Start 06/29/20 at 12:00 Dextrose (Dextrose 50%-Water Syringe) 12.5 gm PRN Q15MIN PRN IV SEE COMMENTS; Start 06/29/20 at 09:45 Polyethylene Glycol (miraLAX PACKET) 17 gm DAILY PO ; Start 06/29/20 at 09:45 Senna/Docusate Sodium (Senna Plus) 1 tab PRN BID PRN PO CONSTIPATION; Start 06/29/20 at 09:45 Morphine Sulfate (Morphine Sulfate) 2 mg PRN Q2HR PRN IV MODERATE TO SEVERE PAIN Last administered on 06/29/20at 22:18; Start 06/29/20 at 09:45; Stop 06/29/20 at 22:53; Status DC Ondansetron HCl (Zofran) 4 mg PRN Q4HRS PRN IV NAUSEA/VOMITING; Start 06/29/20 at 09:45 Acetaminophen (Tylenol) 650 mg PRN Q4HRS PRN PO TEMP OVER 100.4F OR MILD PAIN; Start 06/29/20 at 09:45 Amino Acids/ Glycerin/ Electrolytes 1,000 ml @ 80 mls/hr [id number] IV Last administered on 07/01/20at 12:08; Start 06/29/20 at 10:45 Pharmacy Consult (C.diff Med Screen By Rx) 1 each PRN 1X PRN MC SEE COMMENTS; Start 06/29/20 at 10:45; Status Cancel Morphine Sulfate (Morphine Sulfate) 4 mg PRN Q2HR PRN IV MODERATE TO SEVERE PAIN Last administered on 07/01/20at 11:50; Start 06/29/20 at 23:00; Stop 07/01/20 at 11:50; Status DC Acetaminophen (Tylenol Supp) 325 mg PRN Q6HRS PRN RI MILD PAIN / TEMP > 100.3'F Last administered on 07/01/20at 00:30; Start 06/30/20 at 10:15 Piperacillin Sod/ Tazobactam Sod 2.25 gm/Sodium Chloride 50 ml @ 100 mls/hr Q6HRS IV Last administered on 07/01/20at 11:40; Start 06/30/20 at 18:00 Pantoprazole Sodium (PROTONIX VIAL for IV PUSH) 40 mg DAILYAC IVP Last administered on 07/01/20at 08:09; Start 07/01/20 at 07:30; Stop 07/01/20 at 10:00; Status DC Lactobacillus Rhamnosus (Culturelle) 1 cap BID PO ; Start 07/01/20 at 21:00 Famotidine (Pepcid) 20 mg BID PO ; Start 07/01/20 at 21:00 Carbidopa/Levodopa (Sinemet 25/100) 1 tab BID PO ; Start 07/01/20 at 21:00 Albuterol Sulfate (Ventolin Neb Soln) 2.5 mg Q4HRS W/A NEB ; Start 07/01/20 at 14:00 Non-Formulary Medication (Fluticasone/ Salmeterol (Advair 250-50 Diskus)) 1 puff BID IH ; Start 07/01/20 at 21:00; Status UNV Budesonide (Pulmicort) 0.5 mg RTBID NEB ; Start 07/01/20 at 20:00 Active Scripts Active Aspirin Ec (Aspirin) 81 Mg Tablet. 81 Mg PO DAILYWBKFT Reported Ventolin Hfa Inhaler (Albuterol Sulfate) 18 Gm Hfa.aer.ad 2 Puff INH Q4HRS Sinemet 25-100 Mg Tablet (Carbidopa/Levodopa) 1 Each Tablet 1 Tab PO BID Bupropion Xl (Bupropion Hcl) 300 Mg Tab.er.24h 1 Tab PO DAILY Seroquel (Quetiapine Fumarate) 25 Mg Tablet 25 Mg PO HS Singulair Tablet (Montelukast Sodium) 10 Mg Tablet 10 Mg PO DAILY Sinemet 25-100 Mg Tablet (Carbidopa/Levodopa) 1 Each Tablet 1 Tab PO TID Omeprazole 40 Mg Capsule. 1 Cap PO DAILY Advair 250-50 Diskus (Fluticasone/Salmeterol) 1 Each Disk.w.dev 1 Puff IH BID Vitals/I & O Vital Sign - Last 24 Hours 06/30/20 06/30/20 06/30/20 07/01/20 19:00 20:00 23:21 01:32 Temp 99.7 99.1 99.7 99.1 Pulse 63 85 Resp 14 20 B/P (MAP) 92/55 (67) 135/115 (122) Pulse Ox 96 97 O2 Delivery Room Air Room Air Room Air Room Air 07/01/20 07/01/20 07/01/20 07/01/20 03:02 06:10 06:50 07:00 Temp 99.9 99.3 99.9 99.3 Pulse 72 80 Resp 20 16 B/P (MAP) 117/53 (74) 108/63 (78) Pulse Ox 90 96 O2 Delivery Room Air Room Air Room Air Room Air 07/01/20 07/01/20 07/01/20 08:00 11:00 15:00 Temp 97.7 99.3 97.7 99.3 Pulse 60 70 Resp 16 16 B/P (MAP) 87/51 (63) 80/30 (47) Pulse Ox 98 100 O2 Delivery Room Air Room Air Room Air Intake and Output 06/30/20 06/30/20 07/01/20 14:59 22:59 06:59 Output Total 0 ml Balance 0 ml Nutrition Consultation Dietary Evaluation: Recommendations by RD: Dietary education by RD, PPN/TPN Comments: REC PPN < 10 days diet per BLUEPRINT DEVELOPER when able Expected Outcomes/Goals: diet advancment Malnutrition Findings: Body Fat Depletion (Non Severe: Mild Depletion Justicifation of Admission Dx: Justifications for Admission: Justification of Admission Dx: N/A MONICA BENSON MD Jul 01, 2020 16:53
[2020-07-01] MEDS: SODIUM BICARBONATE VIAL 50 MEQ in IV DEXTROSE 5% 1,000 ML IV SCH (16:56)
[2020-07-01] MEDS: LACTOBACILLUS RHAMNOSUS GG 1 CAPSULE. PO SCH (18:58)
[2020-07-01] MEDS: FAMOTIDINE 20 MG TABLET. PO SCH (18:58)
[2020-07-01] MEDS: PSYLLIUM HUSK (SUGAR FREE) 1 PKT PACKET PO SCH (18:58)
[2020-07-01] MEDS: QUEtiapine 25 MG TABLET. PO SCH (18:58)
[2020-07-01 19:00] VITALS: BP 91/52
[2020-07-01] MEDS: BUDESONIDE 0.5 MG/2 ML NEBU. NEB SCH (20:00)
[2020-07-01] MEDS ORDERED: NON FORMULARY ITEM (Fluticasone/Salmeterol (Advair 250-50 Diskus) 1 PUFF) IH SCH (21:00)
[2020-07-01 23:04] VITALS: BP 117/79
[2020-07-02] MEDS: AMINO AC 3%/ELECTROLYTE/GLYCER 1,000 ML IV SCH ×2 (01:15→13:45)
[2020-07-02] MEDS: MORPHINE SULFATE 4 MG/ML VIAL. IV PRN ×4 (01:42→14:57)
[2020-07-02] MEDS: SODIUM BICARBONATE VIAL 50 MEQ in IV DEXTROSE 5% 1,000 ML IV SCH ×3 (02:30→20:51)
[2020-07-02 03:08] VITALS: BP 135/75
[2020-07-02] MEDS: PIPERACILLIN/TAZOBACTAM 2.25 GM in IV NORMAL SALINE 50ML 50 ML IV SCH ×4 (05:52→23:18)
[2020-07-02] MEDS: ALBUTEROL SULFATE 2.5 MG/3 ML NEBU. NEB SCH ×5 (06:00→22:00)
[2020-07-02 07:00] VITALS: BP 103/58
[2020-07-02] MEDS: BUDESONIDE 0.5 MG/2 ML NEBU. NEB SCH ×2 (08:00→20:00)
[2020-07-02] MEDS: INSULIN LISPRO 300 UNITS/3 ML VIAL. SQ SCH ×3 (08:00→17:00)
[2020-07-02] MEDS: ASPIRIN ENTERIC COATED 81 MG TABLET.DR. PO SCH (08:00)
[2020-07-02] MEDS: MONTELUKAST SODIUM 10 MG TABLET. PO SCH (09:00)
[2020-07-02] MEDS: LACTOBACILLUS RHAMNOSUS GG 1 CAPSULE. PO SCH ×2 (09:00→20:43)
[2020-07-02] MEDS: FAMOTIDINE 20 MG TABLET. PO SCH ×2 (09:00→20:43)
[2020-07-02] MEDS: POLYETHYLENE GLYCOL 3350 17 GM PACKET. PO SCH (09:00)
[2020-07-02] MEDS: CARBIDOPA/LEVODOPA 25/100MG TABLET PO SCH ×5 (09:00→20:50)
[2020-07-02] MEDS: buPROPion XL 150 MG TAB.ER.24H. PO SCH (09:00)
--- NOTE | 2020-07-02 09:10 | PDOC ---
PROGRESS NOTES Date of Service DATE: 07/02/20 TIME: 09:09 Assessment Problems Medical Problems: (1) Acute on chronic renal failure Status: Acute (2) Altered mental status Status: Acute (3) Parkinsons Status: Acute Metabolic encephalopathy, negative head CT Failed NG tube placement Parkinson's, worse of course because of lack of medication for several days Renal failure, acute kidney injury, elevated transaminases, lactic acidosis at admission. History of bilateral frontal lee ann holes Plan Family considering hospice Discussed with Dr. Cosme Subjective None Objective Vital Signs Date Time Temp Pulse Resp B/P (MAP) Pulse Ox O2 Delivery O2 Flow Rate FiO2 07/02/20 07:00 98.8 72 16 103/58 (73) 92 Room Air 98.8 Intake and Output 07/02/20 07:00 # Voids 5 PHYSICAL EXAM Sleeping, deep regular respirations PERRL. CN: no focal findings. Muscle tone: Cogwheel rigidity Muscle strength: Minimal withdrawal to pain DTR: 0+ Plantar reflex: Silent Gait: not examined Sensory exam: Not cooperative Cerebellar: Not cooperative Review of Relevant I have reviewed the following items maria del carmen (where applicable) has been applied. Labs Laboratory Tests Test 06/30/20 09:55 06/30/20 10:43 06/30/20 11:40 06/30/20 16:37 Urine Random Creatinine 144.4 mg/dL (Not Establ.) Urine Sodium 28 mmol/L (Not Estab.) Urine Potassium 41.9 mmol/L (Not Estab.) Urine Chloride 35 mmol/L (Not Estab.) Glucose (Fingerstick) 100 mg/dL (70-99) 111 mg/dL (70-99) Estimated GFR (Non- 45 (>59) EGFR 51 (>59) PTH (Intact) Specimen Description Comment (.) Parathyroid Hormone (Intact) 69 pg/mL (15-65) Calcium (PTH Intact) 9.2 mg/dL (8.6-10.2) Creatinine (PTH Intact) 1.45 mg/dL (0.76-1.27) Phosphorus (PTH Intact) 2.6 mg/dL (2.8-4.1) Test 06/30/20 20:18 07/01/20 07:13 07/01/20 10:49 07/01/20 12:25 Glucose (Fingerstick) 103 mg/dL (70-99) 104 mg/dL (70-99) 109 mg/dL (70-99) Sodium Level 156 mmol/L (136-145) Potassium Level 4.5 mmol/L (3.5-5.1) Chloride Level 121 mmol/L (98-107) Carbon Dioxide Level 25 mmol/L (21-32) Anion Gap 10 (6-14) Blood Urea Nitrogen 64 mg/dL (8-26) Creatinine 1.6 mg/dL (0.7-1.3) Estimated GFR (Cockcroft-Gault) 41.6 Glucose Level 112 mg/dL (70-99) Calcium Level 9.3 mg/dL (8.5-10.1) Test 07/01/20 16:46 07/01/20 19:59 07/02/20 07:23 Glucose (Fingerstick) 102 mg/dL (70-99) 122 mg/dL (70-99) 120 mg/dL (70-99) Laboratory Tests Test 07/01/20 10:49 07/01/20 12:25 07/01/20 16:46 07/01/20 19:59 Glucose (Fingerstick) 109 mg/dL (70-99) 102 mg/dL (70-99) 122 mg/dL (70-99) Sodium Level 156 mmol/L (136-145) Potassium Level 4.5 mmol/L (3.5-5.1) Chloride Level 121 mmol/L (98-107) Carbon Dioxide Level 25 mmol/L (21-32) Anion Gap 10 (6-14) Blood Urea Nitrogen 64 mg/dL (8-26) Creatinine 1.6 mg/dL (0.7-1.3) Estimated GFR (Cockcroft-Gault) 41.6 Glucose Level 112 mg/dL (70-99) Calcium Level 9.3 mg/dL (8.5-10.1) Test 07/02/20 07:23 Glucose (Fingerstick) 120 mg/dL (70-99) Microbiology 06/30/20 Blood Culture - Preliminary, Resulted NO GROWTH AFTER 1 DAY Medications Current Medications Morphine Sulfate (Morphine Sulfate) 4 mg 1X ONCE IV Last administered on 06/29/20at 03:11; Start 06/29/20 at 02:30; Stop 06/29/20 at 02:31; Status DC Acetaminophen (Tylenol Supp) 650 mg 1X ONCE VT Last administered on 06/29/20at 02:59; Start 06/29/20 at 02:30; Stop 06/29/20 at 02:31; Status DC Sodium Chloride 1,000 ml @ 1,000 mls/hr 1X ONCE IV Last administered on 06/29/20at 03:01; Start 06/29/20 at 03:00; Stop 06/29/20 at 03:59; Status DC Aspirin (Ecotrin) 81 mg DAILYWBKFT PO ; Start 06/29/20 at 08:00 Carbidopa/Levodopa (Sinemet 25/100) 1 tab TID PO ; Start 06/29/20 at 09:00 Montelukast Sodium (Singulair) 10 mg DAILY PO ; Start 06/29/20 at 09:00 Quetiapine Fumarate (SEROquel) 25 mg HS PO ; Start 06/29/20 at 21:00 Bupropion HCl (Wellbutrin Xl) 300 mg DAILY PO ; Start 06/29/20 at 09:00 Pantoprazole Sodium (Protonix) 40 mg DAILYAC PO ; Start 06/29/20 at 07:45; Stop 07/01/20 at 05:31; Status DC Bisacodyl (Dulcolax Supp) 10 mg 1X ONCE VT Last administered on 06/29/20at 08:50; Start 06/29/20 at 07:30; Stop 06/29/20 at 07:34; Status DC Bisacodyl (Dulcolax Supp) 10 mg PRN DAILY PRN VT CONSTIPATION; Start 06/29/20 at 07:30 Psyllium Hydrophilic Mucilloid (Metamucil Fiber Packet) 1 pkt QHS PO ; Start 06/29/20 at 21:00 Insulin Human Lispro (HumaLOG) 0-7 UNITS TIDWMEALS SQ ; Start 06/29/20 at 12:00 Dextrose (Dextrose 50%-Water Syringe) 12.5 gm PRN Q15MIN PRN IV SEE COMMENTS; Start 06/29/20 at 09:45 Polyethylene Glycol (miraLAX PACKET) 17 gm DAILY PO ; Start 06/29/20 at 09:45 Senna/Docusate Sodium (Senna Plus) 1 tab PRN BID PRN PO CONSTIPATION; Start 06/29/20 at 09:45 Morphine Sulfate (Morphine Sulfate) 2 mg PRN Q2HR PRN IV MODERATE TO SEVERE PAIN Last administered on 06/29/20at 22:18; Start 06/29/20 at 09:45; Stop 06/29/20 at 22:53; Status DC Ondansetron HCl (Zofran) 4 mg PRN Q4HRS PRN IV NAUSEA/VOMITING; Start 06/29/20 at 09:45 Acetaminophen (Tylenol) 650 mg PRN Q4HRS PRN PO TEMP OVER 100.4F OR MILD PAIN; Start 06/29/20 at 09:45 Amino Acids/ Glycerin/ Electrolytes 1,000 ml @ 80 mls/hr [id number] IV Last administered on 07/01/20at 12:08; Start 06/29/20 at 10:45 Pharmacy Consult (C.diff Med Screen By Rx) 1 each PRN 1X PRN MC SEE COMMENTS; Start 06/29/20 at 10:45; Status Cancel Morphine Sulfate (Morphine Sulfate) 4 mg PRN Q2HR PRN IV MODERATE TO SEVERE P AIN Last administered on 07/01/20at 11:50; Start 06/29/20 at 23:00; Stop 07/01/20 at 11:50; Status DC Acetaminophen (Tylenol Supp) 325 mg PRN Q6HRS PRN VT MILD PAIN / TEMP > 100.3'F Last administered on 07/01/20at 21:08; Start 06/30/20 at 10:15 Piperacillin Sod/ Tazobactam Sod 2.25 gm/Sodium Chloride 50 ml @ 100 mls/hr Q6HRS IV Last administered on 07/02/20at 05:52; Start 06/30/20 at 18:00 Pantoprazole Sodium (PROTONIX VIAL for IV PUSH) 40 mg DAILYAC IVP Last administered on 07/01/20at 08:09; Start 07/01/20 at 07:30; Stop 07/01/20 at 10:00; Status DC Lactobacillus Rhamnosus (Culturelle) 1 cap BID PO ; Start 07/01/20 at 21:00 Famotidine (Pepcid) 20 mg BID PO ; Start 07/01/20 at 21:00 Carbidopa/Levodopa (Sinemet 25/100) 1 tab BID PO ; Start 07/01/20 at 21:00 Albuterol Sulfate (Ventolin Neb Soln) 2.5 mg Q4HRS W/A NEB ; Start 07/01/20 at 14:00 Non-Formulary Medication (Fluticasone/ Salmeterol (Advair 250-50 Diskus)) 1 puff BID IH ; Start 07/01/20 at 21:00; Status UNV Budesonide (Pulmicort) 0.5 mg RTBID NEB ; Start 07/01/20 at 20:00 Sodium Bicarbonate 50 meq/Dextrose 1,050 ml @ 125 mls/hr Q8H24M IV Last administered on 07/02/20at 02:30; Start 07/01/20 at 16:45 Morphine Sulfate (Morphine Sulfate) 4 mg PRN Q2HR PRN IV PAIN Last administered on 07/02/20at 05:47; Start 07/01/20 at 21:00 Active Scripts Active Aspirin Ec (Aspirin) 81 Mg Tablet. 81 Mg PO DAILYWBKFT Reported Ventolin Hfa Inhaler (Albuterol Sulfate) 18 Gm Hfa.aer.ad 2 Puff INH Q4HRS Sinemet 25-100 Mg Tablet (Carbidopa/Levodopa) 1 Each Tablet 1 Tab PO BID Bupropion Xl (Bupropion Hcl) 300 Mg Tab.er.24h 1 Tab PO DAILY Seroquel (Quetiapine Fumarate) 25 Mg Tablet 25 Mg PO HS Singulair Tablet (Montelukast Sodium) 10 Mg Tablet 10 Mg PO DAILY Sinemet 25-100 Mg Tablet (Carbidopa/Levodopa) 1 Each Tablet 1 Tab PO TID Omeprazole 40 Mg Capsule. 1 Cap PO DAILY Advair 250-50 Diskus (Fluticasone/Salmeterol) 1 Each Disk.w.dev 1 Puff IH BID Vitals/I & O Vital Sign - Last 24 Hours 07/01/20 07/01/20 07/01/20 07/01/20 11:00 15:00 19:00 19:35 Temp 97.7 99.3 100.5 97.7 99.3 100.5 Pulse 60 70 102 Resp 16 16 16 B/P (MAP) 87/51 (63) 80/30 (47) 91/52 (65) Pulse Ox 98 100 85 O2 Delivery Room Air Room Air Room Air Room Air 07/01/20 07/01/20 07/01/208/21 23:04 23:08 23:45 01:42 Temp 98.9 98.9 Pulse 101 Resp 16 B/P (MAP) 117/79 (92) Pulse Ox 85 O2 Delivery Room Air Room Air Room Air Room Air 07/02/20 07/02/20 07/02/20 07/02/20 02:30 03:08 05:47 07:00 Temp 98.1 98.8 98.1 98.8 Pulse 75 72 Resp 20 16 B/P (MAP) 135/75 (95) 103/58 (73) Pulse Ox 79 92 O2 Delivery Room Air Room Air Room Air Room Air Images CT head, 07/01: Post-operative Change: Bifrontal lee ann holes. Acute Change: No evidence of an acute infarct or other acute parenchymal process. Hemorrhage: No evidence of acute intracranial hemorrhage. Mass Lesion/Mass Effect: No evidence of intracranial mass or extraaxial fluid collection. No significant mass effect. Chronic Change: Scattered patchy foci of hypoattenuation in the supratentorial white matter, nonspecific but likely represents mild microvascular ischemia. Atherosclerotic calcification of the anterior and posterior circulation. Parenchyma: Mild generalized volume loss. Parenchyma otherwise within normal limits for age. Ventricles: Ventricular enlargement concordant with degree of parenchymal volume loss. Paranasal Sinuses and Skull Base: Visualized paranasal sinuses clear. Visualized skull base and soft tissues unremarkable. IMPRESSION: No evidence of acute intracranial abnormality or significant interval change. Justicifation of Admission Dx: Justifications for Admission: Justification of Admission Dx: N/A HORTENCIA RAMSEY MD Jul 02, 2020 09:10
[2020-07-02 11:00] VITALS: BP 105/55
[2020-07-02 11:27] LABS: BASO # 0.1 x10^3/uL (0.0-0.2); BASO % 1 % (0-3); CALCIUM 8.5 mg/dL (8.5-10.1); CREATININE 1.5 mg/dL (0.7-1.3); EOS # 0.2 x10^3/uL (0.0-0.7); EOS % 3 % (0-3); GFR 44.8; HEMATOCRIT 39.9 % (39.0-53.0); HEMOGLOBIN 12.9 g/dL (13.0-17.5); LYMPH # 0.7 x10^3/uL (1.0-4.8); LYMPH % 11 % (24-48); MEAN CORPUSCULAR HEMOGLOBIN 30 pg (25-35); MEAN CORPUSCULAR HGB CONC 32 g/dL (31-37); MEAN CORPUSCULAR VOLUME 93 fL (79-100); MONO # 0.9 x10^3/uL (0.0-1.1); MONO % 13 % (0-9); NEUT # 5.1 x10^3/uL (1.8-7.7); NEUT % 73 % (31-73); PLATELET COUNT 156 x10^3/uL (140-400); RED BLOOD COUNT 4.28 x10^6/uL (4.30-5.70); RED CELL DISTRIBUTION WIDTH 14.5 % (11.5-14.5)
[2020-07-02 15:00] VITALS: BP 101/57
--- NOTE | 2020-07-02 16:47 | NUR ---
Missed 1200 dose of zosyn, will give 1800 dose when it's due.
[2020-07-02 19:00] VITALS: BP 110/36
[2020-07-02] MEDS: PSYLLIUM HUSK (SUGAR FREE) 1 PKT PACKET PO SCH (20:43)
[2020-07-02] MEDS: QUEtiapine 25 MG TABLET. PO SCH (20:43)
--- NOTE | 2020-07-02 20:51 | PDOC ---
PROGRESS NOTES Date of Service: DATE: 07/02/20 TIME: 20:46 Chief Complaint Chief Complaint Assessment/Plan A/P: Acute encephalopathy - likely metabolic from renal failure. Will hydrate, mon itor NORMA - vasomotor nephropathy Constipation - with fecal impaction, only soft stool accessible on digital examination Dyphagia - unable to restart oral route. Parkinsons - progressive, seems to have worsened. I have talked to the and daughters at bedside regarding the dire situation of the patient. related that patient did would not have wanted a feeding tube or artificial methods to keep him going. We discussed quality of life and they have decided to consult hospice at this point. Transminitis - likely from fecal impaction, will monitor Right hip pain - no fracture on XR, will consult PMR, may need further imaging with MRI to r/o occult fracture Protein calorie malnutrition - moderate, will have route service representative to see FEN - NPO due to high risk for aspiration PPX - heparin CODE - DNR/DNI Dispo - hospice consult, patient already has a home health agency that also can provide hospice care, consult has been requested History of Present Illness History of Present Illness History of Present Illness Mr. Ramon is an 84yo Patient is a 84 year old male past medical history of Parkinson, diabetes, hypertension, hyperlipidemia presents from [facility] with a chief complaint of altered mental status and right hip pain. Per longterm-- Patient noticed to have altered mental status. Patients nurse is unsure of onset. She states patient yelling and aggressive towards staff and others. Patient was moaning in pain with movement, refusing to take medications, and not ambulating. Nurse states patient arrived to facility on June 25. She was the nurse who initially cared for patient on his arrival. She states at that time patient was walking with assistance introducing himself to other residents and feeding. Nurse states she has been off since June 25 and Returned to work today and concerned due to patients change in mental status from previous. No known history of fall at SNF, though did have falls prior to his previous hospital stay. Patient febrile on arrival to 100.6 F He is moaning and groaning with movement/palpation of lower extremities. He is curled up in position. No shortening or rotation of lower extremities noted. Per his a staff member and other patient at his SNF have tested positive for COVID-19 but the patient had a rapid test which was negative. CXR and pelvis XR with no acute abnormality, but with large stool burden noted. EKG performed at 0341 hrs. heart rate 92 sinus rhythm with PVCs no ST elevation no ST depression no acute ME Labs with WBC 17.6, Hb 13.6, platelets 177, NA 144, K4.2, BUN 62, CR 2.1, albumin 2.8, troponin 0 0.038, lactic acid 2.4, bilirubin 1.8, AST 163, ALT 15 Admitted for further care. 06/30: Patient is contracted not responding to verbal stimuli. Retracts to painful stimuli unable to have a meaningful interaction or get any history from the patient. 07/01: Patient severely contracted unable to participate in any physical therapy sessions, the patient continues to be quite dehydrated as evidence of his hyponatremia. We will change IV fluids to try to correct this certainly we will need to have a conversation with his family regarding goals of therapy and expectations. Greater than 45 minutes spent in the care of the patient today, phone call placed to patient's to discuss expectations Vitals Vitals Vital Signs Date Time Temp Pulse Resp B/P (MAP) Pulse Ox O2 Delivery O2 Flow Rate FiO2 07/02/20 19:00 100.4 83 20 110/36 (60) 94 Room Air 100.4 Physical Exam General: Other (He is awake but does not follow any commands and does not talk bu moans with any attempts at moving his extremities.) Lungs: Clear Abdomen: Normal bowel sounds, No tenderness, No hepatosplenomegaly, No masses, Other (stool in vault) Extremities: Other (He had his lower extremities in flexion at his hips and knees and he hollers with any attempts at moving his upper and lower extremities and he had tenderness to palpation over right sacroiliac joint and lumbar spine area.) Skin: No rashes, No breakdown, No significant lesion, Other (Bruising right hip, pain on palpation) Labs LABS Laboratory Tests Test 07/02/20 07:23 07/02/20 10:43 07/02/20 17:29 07/02/20 19:23 Glucose (Fingerstick) 120 mg/dL (70-99) 98 mg/dL (70-99) 106 mg/dL (70-99) White Blood Count 7.0 x10^3/uL (4.0-11.0) Red Blood Count 4.28 x10^6/uL (4.30-5.70) Hemoglobin 12.9 g/dL (13.0-17.5) Hematocrit 39.9 % (39.0-53.0) Mean Corpuscular Volume 93 fL (79-100) Mean Corpuscular Hemoglobin 30 pg (25-35) Mean Corpuscular Hemoglobin Concent 32 g/dL (31-37) Red Cell Distribution Width 14.5 % (11.5-14.5) Platelet Count 156 x10^3/uL (140-400) Neutrophils (%) (Auto) 73 % (31-73) Lymphocytes (%) (Auto) 11 % (24-48) Monocytes (%) (Auto) 13 % (0-9) Eosinophils (%) (Auto) 3 % (0-3) Basophils (%) (Auto) 1 % (0-3) Neutrophils # (Auto) 5.1 x10^3/uL (1.8-7.7) Lymphocytes # (Auto) 0.7 x10^3/uL (1.0-4.8) Monocytes # (Auto) 0.9 x10^3/uL (0.0-1.1) Eosinophils # (Auto) 0.2 x10^3/uL (0.0-0.7) Basophils # (Auto) 0.1 x10^3/uL (0.0-0.2) Sodium Level 154 mmol/L (136-145) Potassium Level 4.0 mmol/L (3.5-5.1) Chloride Level 120 mmol/L (98-107) Carbon Dioxide Level 28 mmol/L (21-32) Anion Gap 6 (6-14) Blood Urea Nitrogen 54 mg/dL (8-26) Creatinine 1.5 mg/dL (0.7-1.3) Estimated GFR (Cockcroft-Gault) 44.8 Glucose Level 120 mg/dL (70-99) Calcium Level 8.5 mg/dL (8.5-10.1) Assessment and Plan Assessmemt and Plan Problems Medical Problems: (1) Acute on chronic renal failure Status: Acute (2) Altered mental status Status: Acute (3) Parkinsons Status: Acute Comment Review of Relevant I have reviewed the following items maria del carmen (where applicable) has been applied. Labs Laboratory Tests Test 07/01/20 07:13 07/01/20 10:49 07/01/20 12:25 07/01/20 16:46 Glucose (Fingerstick) 104 mg/dL (70-99) 109 mg/dL (70-99) 102 mg/dL (70-99) Sodium Level 156 mmol/L (136-145) Potassium Level 4.5 mmol/L (3.5-5.1) Chloride Level 121 mmol/L (98-107) Carbon Dioxide Level 25 mmol/L (21-32) Anion Gap 10 (6-14) Blood Urea Nitrogen 64 mg/dL (8-26) Creatinine 1.6 mg/dL (0.7-1.3) Estimated GFR (Cockcroft-Gault) 41.6 Glucose Level 112 mg/dL (70-99) Calcium Level 9.3 mg/dL (8.5-10.1) Test 07/01/20 19:59 07/02/20 07:23 07/02/20 10:43 07/02/20 17:29 Glucose (Fingerstick) 122 mg/dL (70-99) 120 mg/dL (70-99) 98 mg/dL (70-99) White Blood Count 7.0 x10^3/uL (4.0-11.0) Red Blood Count 4.28 x10^6/uL (4.30-5.70) Hemoglobin 12.9 g/dL (13.0-17.5) Hematocrit 39.9 % (39.0-53.0) Mean Corpuscular Volume 93 fL (79-100) Mean Corpuscular Hemoglobin 30 pg (25-35) Mean Corpuscular Hemoglobin Concent 32 g/dL (31-37) Red Cell Distribution Width 14.5 % (11.5-14.5) Platelet Count 156 x10^3/uL (140-400) Neutrophils (%) (Auto) 73 % (31-73) Lymphocytes (%) (Auto) 11 % (24-48) Monocytes (%) (Auto) 13 % (0-9) Eosinophils (%) (Auto) 3 % (0-3) Basophils (%) (Auto) 1 % (0-3) Neutrophils # (Auto) 5.1 x10^3/uL (1.8-7.7) Lymphocytes # (Auto) 0.7 x10^3/uL (1.0-4.8) Monocytes # (Auto) 0.9 x10^3/uL (0.0-1.1) Eosinophils # (Auto) 0.2 x10^3/uL (0.0-0.7) Basophils # (Auto) 0.1 x10^3/uL (0.0-0.2) Sodium Level 154 mmol/L (136-145) Potassium Level 4.0 mmol/L (3.5-5.1) Chloride Level 120 mmol/L (98-107) Carbon Dioxide Level 28 mmol/L (21-32) Anion Gap 6 (6-14) Blood Urea Nitrogen 54 mg/dL (8-26) Creatinine 1.5 mg/dL (0.7-1.3) Estimated GFR (Cockcroft-Gault) 44.8 Glucose Level 120 mg/dL (70-99) Calcium Level 8.5 mg/dL (8.5-10.1) Test 07/02/20 19:23 Glucose (Fingerstick) 106 mg/dL (70-99) Laboratory Tests Test 07/02/20 07:23 07/02/20 10:43 07/02/20 17:29 07/02/20 19:23 Glucose (Fingerstick) 120 mg/dL (70-99) 98 mg/dL (70-99) 106 mg/dL (70-99) White Blood Count 7.0 x10^3/uL (4.0-11.0) Red Blood Count 4.28 x10^6/uL (4.30-5.70) Hemoglobin 12.9 g/dL (13.0-17.5) Hematocrit 39.9 % (39.0-53.0) Mean Corpuscular Volume 93 fL (79-100) Mean Corpuscular Hemoglobin 30 pg (25-35) Mean Corpuscular Hemoglobin Concent 32 g/dL (31-37) Red Cell Distribution Width 14.5 % (11.5-14.5) Platelet Count 156 x10^3/uL (140-400) Neutrophils (%) (Auto) 73 % (31-73) Lymphocytes (%) (Auto) 11 % (24-48) Monocytes (%) (Auto) 13 % (0-9) Eosinophils (%) (Auto) 3 % (0-3) Basophils (%) (Auto) 1 % (0-3) Neutrophils # (Auto) 5.1 x10^3/uL (1.8-7.7) Lymphocytes # (Auto) 0.7 x10^3/uL (1.0-4.8) Monocytes # (Auto) 0.9 x10^3/uL (0.0-1.1) Eosinophils # (Auto) 0.2 x10^3/uL (0.0-0.7) Basophils # (Auto) 0.1 x10^3/uL (0.0-0.2) Sodium Level 154 mmol/L (136-145) Potassium Level 4.0 mmol/L (3.5-5.1) Chloride Level 120 mmol/L (98-107) Carbon Dioxide Level 28 mmol/L (21-32) Anion Gap 6 (6-14) Blood Urea Nitrogen 54 mg/dL (8-26) Creatinine 1.5 mg/dL (0.7-1.3) Estimated GFR (Cockcroft-Gault) 44.8 Glucose Level 120 mg/dL (70-99) Calcium Level 8.5 mg/dL (8.5-10.1) Microbiology 06/30/20 Blood Culture - Preliminary, Resulted NO GROWTH AFTER 2 DAYS Medications Current Medications Morphine Sulfate (Morphine Sulfate) 4 mg 1X ONCE IV Last administered on 06/29/20at 03:11; Start 06/29/20 at 02:30; Stop 06/29/20 at 02:31; Status DC Acetaminophen (Tylenol Supp) 650 mg 1X ONCE TX Last administered on 06/29/20at 02:59; Start 06/29/20 at 02:30; Stop 06/29/20 at 02:31; Status DC Sodium Chloride 1,000 ml @ 1,000 mls/hr 1X ONCE IV Last administered on 06/29/20at 03:01; Start 06/29/20 at 03:00; Stop 06/29/20 at 03:59; Status DC Aspirin (Ecotrin) 81 mg DAILYWBKFT PO ; Start 06/29/20 at 08:00 Carbidopa/Levodopa (Sinemet 25/100) 1 tab TID PO ; Start 06/29/20 at 09:00 Montelukast Sodium (Singulair) 10 mg DAILY PO ; Start 06/29/20 at 09:00 Quetiapine Fumarate (SEROquel) 25 mg HS PO ; Start 06/29/20 at 21:00 Bupropion HCl (Wellbutrin Xl) 300 mg DAILY PO ; Start 06/29/20 at 09:00 Pantoprazole Sodium (Protonix) 40 mg DAILYAC PO ; Start 06/29/20 at 07:45; Stop 07/01/20 at 05:31; Status DC Bisacodyl (Dulcolax Supp) 10 mg 1X ONCE TX Last administered on 06/29/20at 08:50; Start 06/29/20 at 07:30; Stop 06/29/20 at 07:34; Status DC Bisacodyl (Dulcolax Supp) 10 mg PRN DAILY PRN TX CONSTIPATION; Start 06/29/20 at 07:30 Psyllium Hydrophilic Mucilloid (Metamucil Fiber Packet) 1 pkt QHS PO ; Start 06/29/20 at 21:00 Insulin Human Lispro (HumaLOG) 0-7 UNITS TIDWMEALS SQ ; Start 06/29/20 at 12:00 Dextrose (Dextrose 50%-Water Syringe) 12.5 gm PRN Q15MIN PRN IV SEE COMMENTS; Start 06/29/20 at 09:45 Polyethylene Glycol (miraLAX PACKET) 17 gm DAILY PO ; Start 06/29/20 at 09:45 Senna/Docusate Sodium (Senna Plus) 1 tab PRN BID PRN PO CONSTIPATION; Start 06/29/20 at 09:45 Morphine Sulfate (Morphine Sulfate) 2 mg PRN Q2HR PRN IV MODERATE TO SEVERE PAIN Last administered on 06/29/20at 22:18; Start 06/29/20 at 09:45; Stop 06/29/20 at 22:53; Status DC Ondansetron HCl (Zofran) 4 mg PRN Q4HRS PRN IV NAUSEA/VOMITING; Start 06/29/20 at 09:45 Acetaminophen (Tylenol) 650 mg PRN Q4HRS PRN PO TEMP OVER 100.4F OR MILD PAIN; Start 06/29/20 at 09:45 Amino Acids/ Glycerin/ Electrolytes 1,000 ml @ 80 mls/hr [id number] IV Last administered on 07/01/20at 12:08; Start 06/29/20 at 10:45 Pharmacy Consult (C.diff Med Screen By Rx) 1 each PRN 1X PRN MC SEE COMMENTS; Start 06/29/20 at 10:45; Status Cancel Morphine Sulfate (Morphine Sulfate) 4 mg PRN Q2HR PRN IV MODERATE TO SEVERE PAIN Last administered on 07/01/20at 11:50; Start 06/29/20 at 23:00; Stop 07/01/20 at 11:50; Status DC Acetaminophen (Tylenol Supp) 325 mg PRN Q6HRS PRN TX MILD PAIN / TEMP > 100.3'F Last administered on 07/01/20at 21:08; Start 06/30/20 at 10:15 Piperacillin Sod/ Tazobactam Sod 2.25 gm/Sodium Chloride 50 ml @ 100 mls/hr Q6HRS IV Last administered on 07/02/20at 18:00; Start 06/30/20 at 18:00 Pantoprazole Sodium (PROTONIX VIAL for IV PUSH) 40 mg DAILYAC IVP Last administered on 07/01/20at 08:09; Start 07/01/20 at 07:30; Stop 07/01/20 at 10:00; Status DC Lactobacillus Rhamnosus (Culturelle) 1 cap BID PO ; Start 07/01/20 at 21:00 Famotidine (Pepcid) 20 mg BID PO ; Start 07/01/20 at 21:00 Carbidopa/Levodopa (Sinemet 25/100) 1 tab BID PO ; Start 07/01/20 at 21:00 Albuterol Sulfate (Ventolin Neb Soln) 2.5 mg Q4HRS W/A NEB ; Start 07/01/20 at 14:00 Non-Formulary Medication (Fluticasone/ Salmeterol (Advair 250-50 Diskus)) 1 puff BID IH ; Start 07/01/20 at 21:00; Status UNV Budesonide (Pulmicort) 0.5 mg RTBID NEB ; Start 07/01/20 at 20:00 Sodium Bicarbonate 50 meq/Dextrose 1,050 ml @ 125 mls/hr Q8H24M IV Last administered on 07/02/20at 02:30; Start 07/01/20 at 16:45 Morphine Sulfate (Morphine Sulfate) 4 mg PRN Q2HR PRN IV PAIN Last administered on 07/02/20at 14:57; Start 07/01/20 at 21:00 Active Scripts Active Aspirin Ec (Aspirin) 81 Mg Tablet. 81 Mg PO DAILYWBKFT Reported Ventolin Hfa Inhaler (Albuterol Sulfate) 18 Gm Hfa.aer.ad 2 Puff INH Q4HRS Sinemet 25-100 Mg Tablet (Carbidopa/Levodopa) 1 Each Tablet 1 Tab PO BID Bupropion Xl (Bupropion Hcl) 300 Mg Tab.er.24h 1 Tab PO DAILY Seroquel (Quetiapine Fumarate) 25 Mg Tablet 25 Mg PO HS Singulair Tablet (Montelukast Sodium) 10 Mg Tablet 10 Mg PO DAILY Sinemet 25-100 Mg Tablet (Carbidopa/Levodopa) 1 Each Tablet 1 Tab PO TID Omeprazole 40 Mg Capsule. 1 Cap PO DAILY Advair 250-50 Diskus (Fluticasone/Salmeterol) 1 Each Disk.w.dev 1 Puff IH BID Vitals/I & O Vital Sign - Last 24 Hours 07/01/20 07/01/20 07/01/20 07/02/20 23:04 23:08 23:45 01:42 Temp 98.9 98.9 Pulse 101 Resp 16 B/P (MAP) 117/79 (92) Pulse Ox 85 O2 Delivery Room Air Room Air Room Air Room Air 07/02/20 07/02/20 07/02/20 07/02/20 02:30 03:08 05:47 07:00 Temp 98.1 98.8 98.1 98.8 Pulse 75 72 Resp 20 16 B/P (MAP) 135/75 (95) 103/58 (73) Pulse Ox 79 92 O2 Delivery Room Air Room Air Room Air Room Air 07/02/20 07/02/20 07/02/20 07/02/20 08:00 10:28 10:58 11:00 Temp 97.8 97.8 Pulse 68 Resp 16 B/P (MAP) 105/55 (72) Pulse Ox 97 O2 Delivery Room Air Room Air Room Air Room Air 07/02/20 07/02/20 07/02/20 07/02/20 14:57 15:00 15:27 19:00 Temp 97.9 100.4 97.9 100.4 Pulse 65 83 Resp 22 20 B/P (MAP) 101/57 (72) 110/36 (60) Pulse Ox 93 94 O2 Delivery Room Air Room Air Room Air Room Air Nutrition Consultation Dietary Evaluation: Recommendations by RD: Dietary education by RD, PPN/TPN Comments: REC PPN < 10 days diet per [employer] when able Expected Outcomes/Goals: diet advancment Malnutrition Findings: Body Fat Depletion (Non Severe: Mild Depletion Justicifation of Admission Dx: Justifications for Admission: Justification of Admission Dx: N/A MONICA BENSON MD Jul 02, 2020 20:51
[2020-07-02 23:00] VITALS: BP 112/59
[2020-07-02] MEDS: ACETAMINOPHEN 325 MG SUPP.RECT. PR PRN (23:43)
[2020-07-03] MEDS: AMINO AC 3%/ELECTROLYTE/GLYCER 1,000 ML IV SCH (02:15)
[2020-07-03 03:00] VITALS: BP 136/71
[2020-07-03] MEDS: PIPERACILLIN/TAZOBACTAM 2.25 GM in IV NORMAL SALINE 50ML 50 ML IV SCH ×2 (05:58→11:36)
[2020-07-03] MEDS: ALBUTEROL SULFATE 2.5 MG/3 ML NEBU. NEB SCH ×3 (06:00→14:00)
[2020-07-03] MEDS: SODIUM BICARBONATE VIAL 50 MEQ in IV DEXTROSE 5% 1,000 ML IV SCH (06:28)
[2020-07-03 07:00] VITALS: BP 105/63
[2020-07-03] MEDS: FAMOTIDINE 20 MG TABLET. PO SCH (07:23)
[2020-07-03] MEDS: ASPIRIN ENTERIC COATED 81 MG TABLET.DR. PO SCH (07:23)
[2020-07-03] MEDS: CARBIDOPA/LEVODOPA 25/100MG TABLET PO SCH ×3 (07:23→14:00)
[2020-07-03] MEDS: POLYETHYLENE GLYCOL 3350 17 GM PACKET. PO SCH (07:23)
[2020-07-03] MEDS: LACTOBACILLUS RHAMNOSUS GG 1 CAPSULE. PO SCH (07:23)
[2020-07-03] MEDS: MONTELUKAST SODIUM 10 MG TABLET. PO SCH (07:24)
[2020-07-03] MEDS: buPROPion XL 150 MG TAB.ER.24H. PO SCH (07:24)
[2020-07-03] MEDS: INSULIN LISPRO 300 UNITS/3 ML VIAL. SQ SCH ×2 (08:00→12:00)
[2020-07-03] MEDS: BUDESONIDE 0.5 MG/2 ML NEBU. NEB SCH (08:00)
[2020-07-03 11:05] VITALS: BP 136/69
[2020-07-03] MEDS: ACETAMINOPHEN 325 MG SUPP.RECT. PR PRN ×2 (11:36→21:23)
[2020-07-03] MEDS: MORPHINE SULFATE 4 MG/ML VIAL. IV PRN (11:36)
[2020-07-03] MEDS ORDERED: ATROPINE 1% OPHTH SOLUTION 5ML BOTTLE. SL PRN (14:30)
[2020-07-03] MEDS ORDERED: HALOPERIDOL LACTATE 5 MG/ML VIAL. IVP PRN ×3 (14:30)
[2020-07-03] MEDS ORDERED: MORPHINE SULFATE 4 MG/ML VIAL. IVP PRN (14:30)
[2020-07-03] MEDS ORDERED: MORPHINE SULFATE 20 MG/ML CONC SOLUTION. PO/SL PRN ×2 (14:30)
[2020-07-03] MEDS ORDERED: fentaNYL PF VIAL 100 MCG/2 ML VIAL IVP PRN ×2 (14:30)
[2020-07-03] MEDS ORDERED: HYDROmorphone 2 MG/ML VIAL IVP PRN (14:30)
[2020-07-03] MEDS ORDERED: GLYCOPYRROLATE 1 MG/5 ML VIAL. IV PRN (14:30)
[2020-07-03] MEDS ORDERED: SCOPOLAMINE 1.5MG PATCH. TD PRN (14:30)
[2020-07-03] MEDS ORDERED: BISACODYL 10 MG SUPP.RECT. PR PRN (14:30)
[2020-07-03] MEDS ORDERED: PROCHLORPERAZINE 10 MG/2 ML VIAL. IVP PRN (14:30)
[2020-07-03] MEDS ORDERED: MORPHINE SULFATE 2 MG/ML VIAL. IVP PRN (14:30)
[2020-07-03] MEDS ORDERED: 0.9 % SODIUM CHLORIDE 10 ML DISP.SYRIN. IV PRN (14:30)
[2020-07-03 14:47] VITALS: BP 115/70
--- NOTE | 2020-07-03 15:54 | NUR ---
Roxanol and Lorazepam intesol scripts placed in chart and faxed.
[2020-07-03] MEDS: HYDROmorphone 2 MG/ML VIAL IVP PRN ×2 (16:08→21:25)
[2020-07-03] MEDS: fentaNYL PF VIAL 100 MCG/2 ML VIAL IVP PRN (17:49)
[2020-07-03 18:23] LABS: CALCIUM 8.3 mg/dL (8.5-10.1); CREATININE 1.8 mg/dL (0.7-1.3); GFR 36.3; POTASSIUM 4.1 mmol/L (3.5-5.1)
[2020-07-03 19:00] VITALS: BP 85/55
--- NOTE | 2020-07-03 19:01 | PDOC3 ---
Discharge Summary Visit Information Date of Admission: Jun 29, 2020 Date of Discharge: Jul 03, 2020 Admitting Diagnosis Comment: Acute encephalopathy - likely metabolic from renal failure. 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 NORMA - vasomotor nephropathy Constipation - Dyphagia - unable to restart oral route. Parkinsons - progressive, seems to have worsened. I have talked to the and daughters at bedside regarding the dire situation of the patient. related that patient did would not have wanted a feeding tube or artificial methods to keep him going. Transminitis - Right hip pain - no fracture on XR, Protein calorie malnutrition - moderate, Brief Hospital Course Allergies Allergies Coded Allergies Type Severity Reaction Last Updated Verified No Known Drug Allergies 05/06/14 No Vital Signs Vital Signs Date Time Temp Pulse Resp B/P (MAP) Pulse Ox O2 Delivery O2 Flow Rate FiO2 07/03/20 18:19 Room Air 07/03/20 14:47 102.2 92 25 115/70 (85) 92 102.2 Lab Results Laboratory Tests Test 07/01/20 19:59 07/02/20 07:23 07/02/20 10:43 07/02/20 17:29 Glucose (Fingerstick) 122 mg/dL (70-99) 120 mg/dL (70-99) 98 mg/dL (70-99) White Blood Count 7.0 x10^3/uL (4.0-11.0) Red Blood Count 4.28 x10^6/uL (4.30-5.70) Hemoglobin 12.9 g/dL (13.0-17.5) Hematocrit 39.9 % (39.0-53.0) Mean Corpuscular Volume 93 fL (79-100) Mean Corpuscular Hemoglobin 30 pg (25-35) Mean Corpuscular Hemoglobin Concent 32 g/dL (31-37) Red Cell Distribution Width 14.5 % (11.5-14.5) Platelet Count 156 x10^3/uL (140-400) Neutrophils (%) (Auto) 73 % (31-73) Lymphocytes (%) (Auto) 11 % (24-48) Monocytes (%) (Auto) 13 % (0-9) Eosinophils (%) (Auto) 3 % (0-3) Basophils (%) (Auto) 1 % (0-3) Neutrophils # (Auto) 5.1 x10^3/uL (1.8-7.7) Lymphocytes # (Auto) 0.7 x10^3/uL (1.0-4.8) Monocytes # (Auto) 0.9 x10^3/uL (0.0-1.1) Eosinophils # (Auto) 0.2 x10^3/uL (0.0-0.7) Basophils # (Auto) 0.1 x10^3/uL (0.0-0.2) Sodium Level 154 mmol/L (136-145) Potassium Level 4.0 mmol/L (3.5-5.1) Chloride Level 120 mmol/L (98-107) Carbon Dioxide Level 28 mmol/L (21-32) Anion Gap 6 (6-14) Blood Urea Nitrogen 54 mg/dL (8-26) Creatinine 1.5 mg/dL (0.7-1.3) Estimated GFR (Cockcroft-Gault) 44.8 Glucose Level 120 mg/dL (70-99) Calcium Level 8.5 mg/dL (8.5-10.1) Test 07/02/20 19:23 07/03/20 07:12 07/03/20 11:34 07/03/20 18:10 Glucose (Fingerstick) 106 mg/dL (70-99) 121 mg/dL (70-99) 136 mg/dL (70-99) Sodium Level 151 mmol/L (136-145) Potassium Level 4.1 mmol/L (3.5-5.1) Chloride Level 116 mmol/L (98-107) Carbon Dioxide Level 29 mmol/L (21-32) Anion Gap 6 (6-14) Blood Urea Nitrogen 50 mg/dL (8-26) Creatinine 1.8 mg/dL (0.7-1.3) Estimated GFR (Cockcroft-Gault) 36.3 Glucose Level 101 mg/dL (70-99) Calcium Level 8.3 mg/dL (8.5-10.1) Laboratory Tests Test 07/02/20 19:23 07/03/20 07:12 07/03/20 11:34 07/03/20 18:10 Glucose (Fingerstick) 106 mg/dL (70-99) 121 mg/dL (70-99) 136 mg/dL (70-99) Sodium Level 151 mmol/L (136-145) Potassium Level 4.1 mmol/L (3.5-5.1) Chloride Level 116 mmol/L (98-107) Carbon Dioxide Level 29 mmol/L (21-32) Anion Gap 6 (6-14) Blood Urea Nitrogen 50 mg/dL (8-26) Creatinine 1.8 mg/dL (0.7-1.3) Estimated GFR (Cockcroft-Gault) 36.3 Glucose Level 101 mg/dL (70-99) Calcium Level 8.3 mg/dL (8.5-10.1) Brief Hospital Course Mr. Ramon is an 84yo Patient is a 84 year old male past medical history of Parkinson, diabetes, hypertension, hyperlipidemia presents from [facility] with a chief complaint of altered mental status and right hip pain. Per long term-- Patient noticed to have altered mental status. Patients nurse is unsure of onset. She states patient yelling and aggressive towards staff and others. Patient was moaning in pain with movement, refusing to take medications, and not ambulating. Nurse states patient arrived to facility on June 25. She was the nurse who initially cared for patient on his arrival. She states at that time patient was walking with assistance introducing himself to other residents and feeding. Nurse states she has been off since June 25 and Returned to work today and concerned due to patients change in mental status from previous. No known history of fall at SNF, though did have falls prior to his previous hospital stay. Patient febrile on arrival to 100.6 F He is moaning and groaning with movement/palpation of lower extremities. He is curled up in position. No shortening or rotation of lower extremities noted. Per his a staff member and other patient at his SNF have tested positive for COVID-19 but the patient had a rapid test which was negative. CXR and pelvis XR with no acute abnormality, but with large stool burden noted. EKG performed at 0341 hrs. heart rate 92 sinus rhythm with PVCs no ST elevation no ST depression no acute MS Labs with WBC 17.6, Hb 13.6, platelets 177, NA 144, K4.2, BUN 62, CR 2.1, albumin 2.8, troponin 0 0.038, lactic acid 2.4, bilirubin 1.8, AST 163, ALT 15 Admitted for further care. 06/30: Patient is contracted not responding to verbal stimuli. Retracts to painful stimuli unable to have a meaningful interaction or get any history from the patient. 07/01: Patient severely contracted unable to participate in any physical therapy sessions, the patient continues to be quite dehydrated as evidence of his hyponatremia. We will change IV fluids to try to correct this certainly we will need to have a conversation with his family regarding goals of therapy and expectations. Greater than 45 minutes spent in the care of the patient today, phone call placed to patient's to discuss expectations 07/02: Family at bedside and we have discussed at length the grim prognosis of the patient at the present time and unfortunately his rapid decline. Patient will be transitioning home with hospice. Patient had a home health agency that they have worked with for several years now in they will provide hospice care at this point. He will be transferred in stable condition to his home and hopefully have a peaceful transition in the next coming days Greater than 40 minutes were spent in the discharge process the patient arrangements for safe discharge Physical Exam General: Other (He is awake but does not follow any commands and does not talk bu moans with any attempts at moving his extremities.) Lungs: Clear Abdomen: Normal bowel sounds, No tenderness, No hepatosplenomegaly, No masses, Other (stool in vault) Extremities: Other (He had his lower extremities in flexion at his hips and knees and he hollers with any attempts at moving his upper and lower extremities and he had tenderness to palpation over right sacroiliac joint and lumbar spine area.) Skin: No rashes, No breakdown, No significant lesion, Other (Bruising right hip, pain on palpation) Discharge Information Condition at Discharge: Stable Disposition/Orders: D/C to Home w/ Hospice No Active Prescriptions or Reported Meds Justicifation of Admission Dx: Justifications for Admission: Justification of Admission Dx: N/A MONICA BENSON MD Jul 03, 2020 19:01
[2020-07-03 23:00] VITALS: BP 77/51
[2020-07-04] MEDS: HYDROmorphone 2 MG/ML VIAL IVP PRN (02:30)
[2020-07-04 03:00] VITALS: BP 73/48
[2020-07-04 07:00] VITALS: BP 75/51
[2020-07-04] MEDS: ACETAMINOPHEN 325 MG SUPP.RECT. PR PRN (08:26)
--- NOTE | 2020-07-04 10:12 | PDOC3 ---
Discharge Summary Visit Information Date of Admission: Jun 29, 2020 Date of Discharge: Jul 04, 2020 Admitting Diagnosis Comment: Acute encephalopathy - likely metabolic from renal failure. Will hydrate, monitor NORMA - vasomotor nephropathy Constipation - with fecal impaction, only soft stool accessible on digital examination Dyphagia - not eating at SNF, will have NON DESTRUCTIVE TESTING INSPECTOR evaluate Parkinsons - progressive, will attempt to continue meds Transminitis - likely from fecal impaction, will monitor Right hip pain - no fracture on XR, will consult PMR, may need further imaging with MRI to r/o occult fracture Protein calorie malnutrition - moderate, will have ion exchange operator to see Final Diagnosis Problems Medical Problems: (1) Acute on chronic renal failure Status: Acute (2) Altered mental status Status: Acute (3) Parkinsons Status: Acute Acute encephalopathy - likely metabolic from renal failure. NORMA - vasomotor nephropathy Constipation - Dyphagia - unable to restart oral route. Parkinsons - progressive, seems to have worsened. I have talked to the and daughters at bedside regarding the dire situation of the patient. related that patient did would not have wanted a feeding tube or artificial methods to keep him going. Transminitis - Right hip pain - no fracture on XR, Protein calorie malnutrition - moderate, Brief Hospital Course Allergies Allergies Coded Allergies Type Severity Reaction Last Updated Verified No Known Drug Allergies 05/06/14 No Vital Signs Vital Signs Date Time Temp Pulse Resp B/P (MAP) Pulse Ox O2 Delivery O2 Flow Rate FiO2 07/04/20 08:25 Room Air 07/04/20 07:00 101.8 87 20 75/51 (59) 86 101.8 Lab Results Laboratory Tests Test 07/02/20 10:43 07/02/20 17:29 07/02/20 19:23 07/03/20 07:12 White Blood Count 7.0 x10^3/uL (4.0-11.0) Red Blood Count 4.28 x10^6/uL (4.30-5.70) Hemoglobin 12.9 g/dL (13.0-17.5) Hematocrit 39.9 % (39.0-53.0) Mean Corpuscular Volume 93 fL (79-100) Mean Corpuscular Hemoglobin 30 pg (25-35) Mean Corpuscular Hemoglobin Concent 32 g/dL (31-37) Red Cell Distribution Width 14.5 % (11.5-14.5) Platelet Count 156 x10^3/uL (140-400) Neutrophils (%) (Auto) 73 % (31-73) Lymphocytes (%) (Auto) 11 % (24-48) Monocytes (%) (Auto) 13 % (0-9) Eosinophils (%) (Auto) 3 % (0-3) Basophils (%) (Auto) 1 % (0-3) Neutrophils # (Auto) 5.1 x10^3/uL (1.8-7.7) Lymphocytes # (Auto) 0.7 x10^3/uL (1.0-4.8) Monocytes # (Auto) 0.9 x10^3/uL (0.0-1.1) Eosinophils # (Auto) 0.2 x10^3/uL (0.0-0.7) Basophils # (Auto) 0.1 x10^3/uL (0.0-0.2) Sodium Level 154 mmol/L (136-145) Potassium Level 4.0 mmol/L (3.5-5.1) Chloride Level 120 mmol/L (98-107) Carbon Dioxide Level 28 mmol/L (21-32) Anion Gap 6 (6-14) Blood Urea Nitrogen 54 mg/dL (8-26) Creatinine 1.5 mg/dL (0.7-1.3) Estimated GFR (Cockcroft-Gault) 44.8 Glucose Level 120 mg/dL (70-99) Calcium Level 8.5 mg/dL (8.5-10.1) Glucose (Fingerstick) 98 mg/dL (70-99) 106 mg/dL (70-99) 121 mg/dL (70-99) Test 07/03/20 11:34 07/03/20 18:10 07/04/20 03:13 07/04/20 07:10 Glucose (Fingerstick) 136 mg/dL (70-99) 96 mg/dL (70-99) 105 mg/dL (70-99) Sodium Level 151 mmol/L (136-145) Potassium Level 4.1 mmol/L (3.5-5.1) Chloride Level 116 mmol/L (98-107) Carbon Dioxide Level 29 mmol/L (21-32) Anion Gap 6 (6-14) Blood Urea Nitrogen 50 mg/dL (8-26) Creatinine 1.8 mg/dL (0.7-1.3) Estimated GFR (Cockcroft-Gault) 36.3 Glucose Level 101 mg/dL (70-99) Calcium Level 8.3 mg/dL (8.5-10.1) Laboratory Tests Test 07/03/20 11:34 07/03/20 18:10 07/04/20 03:13 07/04/20 07:10 Glucose (Fingerstick) 136 mg/dL (70-99) 96 mg/dL (70-99) 105 mg/dL (70-99) Sodium Level 151 mmol/L (136-145) Potassium Level 4.1 mmol/L (3.5-5.1) Chloride Level 116 mmol/L (98-107) Carbon Dioxide Level 29 mmol/L (21-32) Anion Gap 6 (6-14) Blood Urea Nitrogen 50 mg/dL (8-26) Creatinine 1.8 mg/dL (0.7-1.3) Estimated GFR (Cockcroft-Gault) 36.3 Glucose Level 101 mg/dL (70-99) Calcium Level 8.3 mg/dL (8.5-10.1) Brief Hospital Course Mr. Ramon is an 84yo Patient is a 84 year old male past medical history of Parkinson, diabetes, hypertension, hyperlipidemia presents from [facility] with a chief complaint of altered mental status and right hip pain. Per senior care-- Patient noticed to have altered mental status. Patients nurse is unsure of onset. She states patient yelling and aggressive towards staff and others. Patient was moaning in pain with movement, refusing to take medications, and not ambulating. Nurse states patient arrived to facility on June 25. She was the nurse who initially cared for patient on his arrival. She states at that time patient was walking with assistance introducing himself to other residents and feeding. Nurse states she has been off since June 25 and Returned to work today and concerned due to patients change in mental status from previous. No known history of fall at SNF, though did have falls prior to his previous hospital stay. Patient febrile on arrival to 100.6 F He is moaning and groaning with movement/palpation of lower extremities. He is curled up in position. No shortening or rotation of lower extremities noted. Per his a staff member and other patient at his SNF have tested positive for COVID-19 but the patient had a rapid test which was negative. CXR and pelvis XR with no acute abnormality, but with large stool burden noted. EKG performed at 0341 hrs. heart rate 92 sinus rhythm with PVCs no ST elevation no ST depression no acute ID Labs with WBC 17.6, Hb 13.6, platelets 177, NA 144, K4.2, BUN 62, CR 2.1, albumin 2.8, troponin 0 0.038, lactic acid 2.4, bilirubin 1.8, AST 163, ALT 15 Admitted for further care. 06/30: Patient is contracted not responding to verbal stimuli. Retracts to pain ful stimuli unable to have a meaningful interaction or get any history from the patient. 07/01: Patient severely contracted unable to participate in any physical therapy sessions, the patient continues to be quite dehydrated as evidence of his hyponatremia. We will change IV fluids to try to correct this certainly we will need to have a conversation with his family regarding goals of therapy and expectations. Greater than 45 minutes spent in the care of the patient today, phone call placed to patient's to discuss expectations 07/02: Family at bedside and we have discussed at length the grim prognosis of the patient at the present time and unfortunately his rapid decline. Patient will be transitioning home with hospice. Patient had a home health agency that they have worked with for several years now in they will provide hospice care at this point. He will be transferred in stable condition to his home and hopefully have a peaceful transition in the next coming days Greater than 40 minutes were spent in the discharge process the patient arrangements for safe discharge Physical Exam General: Other (He is awake but does not follow any commands and does not talk bu moans with any attempts at moving his extremities.) Lungs: Clear Abdomen: Normal bowel sounds, No tenderness, No hepatosplenomegaly, No masses, Other (stool in vault) Extremities: Other (He had his lower extremities in flexion at his hips and knees and he hollers with any attempts at moving his upper and lower extremities and he had tenderness to palpation over right sacroiliac joint and lumbar spine area.) Skin: No rashes, No breakdown, No significant lesion, Other (Bruising right hip, pain on palpation) Discharge Information Condition at Discharge: Stable Follow Up: As Needed Disposition/Orders: D/C to Home w/ Hospice No Active Prescriptions or Reported Meds Justicifation of Admission Dx: Justifications for Admission: Justification of Admission Dx: N/A MONICA BENSON MD Jul 04, 2020 10:12
[2020-07-04 11:00] VITALS: BP 87/57
[2020-07-04] MEDS: fentaNYL PF VIAL 100 MCG/2 ML VIAL IVP PRN (11:49)
== END 2020-07-04 12:14 | disposition hospice, home (50) | DRG 70 ==
LOC: ER 01:55 → ED HOLD 03:41 → 4 NORTH 09:26
PROVIDERS: ADMIT Family Medicine; ATTEND Family Medicine
DX: G93.41 Metabolic encephalopathy (principal); N17.0 Acute kidney failure with tubular necrosis; E44.0 Moderate protein-calorie malnutrition; E11.22 Type 2 diabetes mellitus with diabetic chronic kidney disease; E11.610 Type 2 diabetes mellitus with diabetic neuropathic arthropathy; E78.00 Pure hypercholesterolemia, unspecified; E78.5 Hyperlipidemia, unspecified; E86.0 Dehydration; G20 Parkinson's disease; H91.91 Unspecified hearing loss, right ear; I12.9 Hypertensive chronic kidney disease with stage 1 through stage 4 chronic kidney disease, or unspecified chronic kidney disease; I49.3 Ventricular premature depolarization; J45.909 Unspecified asthma, uncomplicated; K56.41 Fecal impaction; N18.9 Chronic kidney disease, unspecified; Z51.5 Encounter for palliative care; Z66 Do not resuscitate; Z82.49 Family history of ischemic heart disease and other diseases of the circulatory system; Z83.3 Family history of diabetes mellitus; Z85.820 Personal history of malignant melanoma of skin; Z86.73 Personal history of transient ischemic attack (TIA), and cerebral infarction without residual deficits; F41.9 Anxiety disorder, unspecified; K21.9 Gastro-esophageal reflux disease without esophagitis; Z68.27 Body mass index [BMI] 27.0-27.9, adult; Z20.828 Contact with and (suspected) exposure to other viral communicable diseases; Z90.49 Acquired absence of other specified parts of digestive tract; M25.551 Pain in right hip; R29.6 Repeated falls; Z20.822 Contact with and (suspected) exposure to COVID-19
CPT/HCPCS: 36415; 70450; 71045; 72170; 76770; 80048; 80053; 81001; 82306; 82436; 82570; 82962; 83605; 83970; 84100; 84133; 84300; 84484; 85007; 85025; 87040; 96361; 96374; 99285; C9113; J1170; J1815; J2060; J2270; J2543; J3010; J3490; J7030; J7060; U0003; G0378